=== PATIENT | male | born 1935 | race Caucasian/White ===

== ENCOUNTER → 2017-04-10 | Outpatient (CLI) | payer OTHER ==
[~2017-04-10] MED LIST: ACET-1256 PO; ADVIN50/60 INH; AMLO-114 PO; CIPR-255 PO; FIBETAB PO; IBUP-1050 PO
[2017-04-10 19:20] LABS: SYNOVIAL FLUID APPEARANCE HAZY; SYNOVIAL FLUID COLOR RED; SYNOVIAL FLUID MONONUC RELAT 56.8 %; SYNOVIAL FLUID POLYNUC RELAT 43.2 %
== END | disposition home or self-care (01) ==
LOC: C.LABSPEC 17:43
PROVIDERS: ATTEND Physician Assistant Medical
DX: M70.20 Olecranon bursitis, unspecified elbow (principal)

== ENCOUNTER → 2017-09-12 | Outpatient (CLI) | payer OTHER | END | disposition home or self-care (01) | LOC: C.LABSPEC 16:58 | PROVIDERS: ATTEND Urology | DX: Z93.59 Other cystostomy status (principal) ==

== ENCOUNTER 2017-12-12 02:51 | Inpatient (IN) | payer OTHER ==
[2017-12-12] VITALS (7 sets, daily range): BP systolic 144–150; BP diastolic 71–76; PULSE 72–96; TEMP 36.4–36.8; O2SAT 80–95; Ht 175.3 cm; Wt 100.0 kg
[~2017-12-12] VITALS: Ht 175.3 cm; Wt 100.0 kg
[~2017-12-12 02:51] MED LIST changes: -AMLO-114 PO; +AMLO10TA3 PO; +CEFD300C2 PO; -CIPR-255 PO; +DOCU-94 PO; +DOXY100C76 PO; +ONDA4TAB10 SL; +SACC250C3 PO
[2017-12-12] MEDS ORDERED: SODIUM CHLORIDE 0.9% 1000ML 1,000 ML IV STA (03:08)
[2017-12-12] MEDS ORDERED: FENTANYL CITRATE INJ 50 MCG/1 ML 2 ML VIAL IV PRN (03:15)
[2017-12-12 03:42] LABS: HEMOGLOBIN 16.1 g/dL (14.0-18.0); MEAN CELL VOLUME 101.3 fL (80-100); MEAN CORPUSCULAR HEMOGLOBIN 34.7 pg (25-34); MEAN CORPUSCULAR HGB CONC 34.3 g/dl (32-36); MEAN PLATELET VOLUME 10.8 fL (7.4-10.4); PLATELET COUNT 119 K/uL (130-400); RED CELL DISTRIBUTION WIDTH CV 15.6 % (11.5-14.5); RED CELL DISTRIBUTION WIDTH SD 58.4 fL (36.4-46.3); WHITE BLOOD COUNT 23.37 K/uL (4.8-10.8)
[2017-12-12 04:08] LABS: ALBUMIN 2.5 gm/dl (3.4-5.0); CALCIUM 8.2 mg/dl (8.5-10.1); CREATININE 0.8 mg/dl (0.60-1.40); TOTAL PROTEIN 6.4 gm/dl (6.4-8.2)
--- NOTE | 2017-12-12 04:10 | EMERGENCY ROOM VISIT NOTE ---
History First contact with patient: 02:56 Chief Complaint: FLANK PAIN Stated Complaint: FLANK PAIN History of Present Illness The patient is a 82 year old male who presents to the Emergency Room with complaints of epigastric bloating and constipation. Patient states he was evaluated here 2 days ago and discharged with magnesium citrate for constipation. Patient was also diagnosed with positive Lyme serology and treated with doxycycline. The patient ingested that bottle today around 4 PM and has had no BM. He states he did not eat dinner as he feels bloated and is complaining of some pain around the right flank. Patient denies any vomiting or blood from the bottom. He did receive 50 mcg of IV fentanyl and IV hydration by EMS by my medic command. He stated he had some relief with this medication. Patient denies any chest pain, shortness of breath, fevers, chills. The patient does have a suprapubic catheter. Of note upon review of old records, the patient did have a CT scan of the abdomen pelvis performed. There is an intrarenal calculus noted on the right. There is no significant gallbladder abnormality identified. The rectosigmoid colon had a moderate amount of stool. Review of Systems See HPI for pertinent positives & negatives. A total of 10 systems reviewed and were otherwise negative. Past Medical/Surgical History Medical Problems: (1) Acute cholecystitis (2) Bronchitis (3) History of radiation therapy (4) HTN (hypertension) (5) Lumbar stenosis with neurogenic claudication (6) Lyme disease (7) Prostate cancer Surgical Problems: (1) Catheter placement (2) H/O shoulder surgery (3) S/P TURP Family History Diabetes mellitus FH: cancer Social History Smoking Status: Never Smoker Alcohol Use: occasionally Marital Status: Housing Status: lives with significant other Occupation Status: retired Current/Historical Medications Scheduled Acetaminophen (Tylenol), 200 MG PO QAM Amlodipine (Norvasc), 10 MG PO QAM Cefdinir (Omnicef), 300 MG PO Q12H Doxycycline Monohydrate (Monodox), 100 MG PO BID Fiber (Fiber Complete), 2 CHW PO QAM Fluticasone Prop/Salmeterol (Advair Diskus 500/50 60 Dose), 1 PUFF INH QAM Ondasetron Odt (Zofran Odt), 4 MG SL Q6H Saccharomyces Boulardii (Florastor), 1 CAP PO BID Scheduled PRN Docusate Sodium (Colace), 1 CAP PO BID PRN for Constipation Ibuprofen (Advil), 200 MG PO for daily Physical Exam Vital Signs Date Time Temp Pulse Resp B/P (MAP) Pulse Ox O2 Delivery O2 Flow Rate FiO2 12/12/17 06:07 75 18 130/74 93 Nasal Cannula 3.0 12/12/17 04:45 20 143/69 95 Nasal Cannula 3.0 12/12/17 03:41 36.7 76 18 140/77 98 Nasal Cannula 2.0 12/12/17 03:25 80 12/12/17 03:00 83 22 98 Nasal Cannula 12/12/17 02:59 95 Physical Exam Vital signs reviewed. General: Chronically ill-appearing 82-year-old male, in some discomfort. HEENT: No scleral icterus, PERRLA, neck supple. Atraumatic. Cardiovascular: Regular rate and rhythm, no extra sounds. Pulmonary: Clear to auscultation bilaterally, normal work of breathing. Abdomen: Soft, distended upper abdomen with positive tympany, tender to palpation of the epigastric region and right upper quadrant, nondistended, positive bowel sounds. Musculoskeletal: Atraumatic, no peripheral edema. Neurologic: Patient awake alert and oriented x 3 Skin: Warm, dry, no rash Medical Decision & Procedures ER Provider Diagnostic Interpretation: Ultrasound right upper quadrant: Limited exam due to bowel gas and body habitus. The gallbladder demonstrates a partially shadowing echogenic focus likely representing stone. Borderline wall thickening at 3 mm. Further characterization limited. Cholecystitis cannot be excluded sonographically. Echogenic liver indicating likely steatosis. Common bile duct caliber at 2 mm. Pancreas is obscured. Unremarkable appearance to the visualized right kidney. Radiologist: Kalyan Cm MD CT scan abdomen and pelvis with contrast: Comparison 12/10/17 CT. 12/12/17 ultrasound. Gallbladder wall thickening as well as surrounding inflammatory changes to the pericholecystic fat and adjacent liver parenchyma. Recent ultrasound demonstrating evidence for cholelithiasis. Findings suggest acute cholecystitis. Lower lung opacities again noted possibly related to chronic scarring and/or atelectasis. Superimposed infiltrate not excluded. Stable nonobstructing right nephrolithiasis. Suprapubic catheter again noted with decompressed urinary bladder. A few scattered nonspecific small bowel fluid levels are present without evidence for significant dilatation to suggest obstruction. Component of mild ileus not excluded. No other significant interval changes from the exam 2 days ago. Radiologist Kalyan Cm MD Laboratory Results 12/12/17 03:30 Red Blood Count 4.64, Mean Corpuscular Volume 101.3, Mean Corpuscular Hemoglobin 34.7, Mean Corpuscular Hemoglobin Concent 34.3, Mean Platelet Volume 10.8, Neutrophils (%) (Auto) 92.0, Lymphocytes (%) (Auto) 1.9, Monocytes (%) ( Auto) 5.6, Eosinophils (%) (Auto) 0.0, Basophils (%) (Auto) 0.0, Neutrophils # ( Auto) 21.49, Lymphocytes # (Auto) 0.44, Monocytes # (Auto) 1.31, Eosinophils # ( Auto) 0.00, Basophils # (Auto) 0.01 12/12/17 03:30 Test 12/12/17 03:30 12/12/17 06:26 White Blood Count 23.37 K/uL (4.8-10.8) Red Blood Count 4.64 M/uL (4.7-6.1) Hemoglobin 16.1 g/dL (14.0-18.0) Hematocrit 47.0 % (42-52) Mean Corpuscular Volume 101.3 fL (80-100) Mean Corpuscular Hemoglobin 34.7 pg (25-34) Mean Corpuscular Hemoglobin Concent 34.3 g/dl (32-36) Platelet Count 119 K/uL (130-400) Mean Platelet Volume 10.8 fL (7.4-10.4) Neutrophils (%) (Auto) 92.0 % Lymphocytes (%) (Auto) 1.9 % Monocytes (%) (Auto) 5.6 % Eosinophils (%) (Auto) 0.0 % Basophils (%) (Auto) 0.0 % Neutrophils # (Auto) 21.49 K/uL (1.4-6.5) Lymphocytes # (Auto) 0.44 K/uL (1.2-3.4) Monocytes # (Auto) 1.31 K/uL (0.11-0.59) Eosinophils # (Auto) 0.00 K/uL (0-0.5) Basophils # (Auto) 0.01 K/uL (0-0.2) RDW Standard Deviation 58.4 fL (36.4-46.3) RDW Coefficient of Variation 15.6 % (11.5-14.5) Immature Granulocyte % (Auto) 0.5 % Immature Granulocyte # (Auto) 0.12 K/uL (0.00-0.02) Urine Color ORANGE Urine Appearance CLOUDY (CLEAR) Urine pH 5.5 (4.5-7.5) Urine Specific [place] 1.027 (1.000-1.030) Urine Protein 2+ (NEG) Urine Glucose (UA) TRACE (NEG) Urine Ketones 2+ (NEG) Urine Occult Blood 2+ (NEG) Urine Nitrite POS (NEG) Urine Bilirubin NEG (NEG) Urine Urobilinogen NEG (NEG) Urine Leukocyte Esterase MODERATE (NEG) Urine WBC (Auto) >30 /hpf (0-5) Urine RBC (Auto) 0-4 /hpf (0-4) Urine Hyaline Casts (Auto) 1-5 /lpf (0-5) Urine Epithelial Cells (Auto) 20-30 /lpf (0-5) Urine Bacteria (Auto) NEG (NEG) Anion Gap 8.0 mmol/L (3-11) Est Creatinine Clear Calc Drug Dose 83.6 ml/min Estimated GFR () 95.7 Estimated GFR (Non- 82.6 BUN/Creatinine Ratio 28.1 (10-20) Calcium Level 8.2 mg/dl (8.5-10.1) Magnesium Level 2.5 mg/dl (1.8-2.4) Total Bilirubin 1.1 mg/dl (0.2-1) Direct Bilirubin 0.5 mg/dl (0-0.2) Aspartate Amino Transf (AST/SGOT) 27 U/L (15-37) Alanine Aminotransferase (ALT/SGPT) 43 U/L (12-78) Alkaline Phosphatase 136 U/L (45-117) Total Protein 6.4 gm/dl (6.4-8.2) Albumin 2.5 gm/dl (3.4-5.0) Lipase 81 U/L (73-393) Medications Administered Medications (Trade) Dose Ordered Sig/Evelyne Route Start Time Stop Time Status Last Admin Dose Admin Sodium Chloride 1,000 ml @ 125 mls/hr Q8H STAT IV 12/12/17 03:08 12/12/17 06:27 DC 12/12/17 03:08 125 MLS/HR Fentanyl Citrate (Fentanyl Inj) 50 mcg Q1H PRN IV 12/12/17 03:15 12/12/17 06:26 DC 12/12/17 03:47 50 MCG Piperacillin Sod/ Tazobactam Sod (Zosyn Iv) 4.5 gm NOW STAT IV 12/12/17 04:49 12/12/17 04:51 DC 12/12/17 05:16 4.5 GM Medical Decision The differential diagnosis of this patient's presentation includes pancreatitis , cholecystitis, peptic ulcer disease, small bowel obstruction, AAA, aortic dissection, ACS, viral illness, laxative induced distention among others. This patient was evaluated and appeared to be in no significant distress. IV access was obtained and laboratory work was drawn. Patient was placed on ekg monitor and found to be in a normal sinus rhythm. Patient was hydrated with normal saline solution, given IV fentanyl for his discomfort. Ultrasound the right upper quadrant was performed and reveals a largely obscured gallbladder however there is evidence of some inflammatory change and stone noted. CT scan of the abdomen pelvis was performed in follow-up and is significant for infiltrative change of the gallbladder and likely acute cholecystitis. Patient was given Zosyn 4.5 g IV. Urine culture performed 2 days ago is negative for specific pathogen, greater than 3 types of organisms have grown. Patient again has a dirty UA, likely a colonization due to a suprapubic catheter. Patient was continued on IV hydration and kept n.p.o. General surgery was consulted, Dr. Starks through his PA Maury. Dr. Reynolds will evaluate the patient from the medicine service for further management. Patient and family are aware of the plan and agree. Medication Reconcilliation Current Medication List: was personally reviewed by ct Blood Pressure Screening Patient's blood pressure: Elevated blood pressure Blood pressure disposition: Elevated BP felt to be situational, Did not require urgent referral Impression Primary Impression: Acute cholecystitis Additional Impression: Lyme disease Departure Information Referrals German Grey M.D. (PCP) Patient Instructions My [facility] Problem Qualifiers
[2017-12-12 04:18] LABS: BASO ABS # 0.01 K/uL (0-0.2); IG# 0.12 K/uL (0.00-0.02); LYMPH % 1.9 %; LYMPH ABS # 0.44 K/uL (1.2-3.4); MONO % 5.6 %; MONO ABS # 1.31 K/uL (0.11-0.59); NEUT ABS # 21.49 K/uL (1.4-6.5)
[2017-12-12] MEDS ORDERED: OPTIRAY 320 IV PRN (04:45)
[2017-12-12] MEDS ORDERED: PIPERACILLIN/TAZOBACTAM 4.5 GM/100ML D5W IV STA (04:49)
[2017-12-12] MEDS ORDERED: PIPERACILL/TAZOBAC CONSULT ACTIVE PRN (06:30)
[2017-12-12] MEDS ORDERED: ACETAMINOPHEN 325 MG TAB PO PRN (06:30)
[2017-12-12] MEDS ORDERED: ALBUT/IPRATROP 3MG/0.5MG NEB 3 ML VIAL INH PRN (06:30)
[2017-12-12] MEDS ORDERED: ONDANSETRON INJ 2 MG/ML 2 ML VIAL IV PRN (06:30)
[2017-12-12] MEDS ORDERED: PIPERACILL/TAZOBAC IV 4.5 GM in DEXTROSE 5% 100ML 100 ML IV SCH (06:30)
--- NOTE | 2017-12-12 06:36 | DIAGNOSTIC IMAGING REPORT ---
CT ABD/PELVIS IV CONTRAST ONLY CLINICAL HISTORY: Epigastric and right-sided abdominal pain, bloating, constipation. COMPARISON STUDY: 12/10/2017 TECHNIQUE: Following the IV administration of 93 mL of Optiray-320, CT scan of the abdomen and pelvis was performed from the lung bases to the proximal femurs. Images are reviewed in the axial, sagittal, and coronal planes. IV contrast was administered without complication. A dose lowering technique was utilized adhering to the principles of ALARA. CT DOSE: 1266.92 mGy.cm FINDINGS: Lower chest: There is lower lobe bronchial wall thickening. Liver: There is a 31 mm left lobe hepatic cyst. There are tiny hypodensities within the liver adjacent to the gallbladder fossa. Pericholecystic abscesses cannot be excluded. Gallbladder: There is gallbladder wall thickening, and infiltration the pericholecystic fat. The findings are viewed as highly suspicious for acute cholecystitis. Spleen: Normal in size and attenuation. Pancreas: Unremarkable. Adrenal glands: Unremarkable. Kidneys: There is right-sided nephrolithiasis. There is a 1 cm right renal cyst. There is no hydronephrosis. Bowel: There are no transition zones indicate bowel obstruction. There is no evidence of acute appendicitis. There is no evidence of acute diverticulitis. Scattered colonic diverticula are visualized. There are periduodenal inflammatory changes, likely secondary to acute cholecystitis. Peritoneum: There is a small amount of perihepatic fluid. No free air is visualized. Vasculature: The abdominal aorta is normal in course and caliber. Adenopathy: None. Pelvic viscera: There is a suprapubic bladder catheter. There is mild bladder wall thickening and mild infiltration the perivesicle fat. There are postsurgical changes are prior prostatectomy. Skeletal structures: No destructive osseous lesions are seen. IMPRESSION: 1. CT findings indicative of acute cholecystitis with secondary inflammatory changes involving the duodenum. There are tiny hepatic hypodensities within the liver adjacent the gallbladder. These could represent pericholecystic abscesses. There is a small amount of perihepatic fluid. 2. No evidence of bowel obstruction. No evidence of free air 3. Right-sided nephrolithiasis Electronically signed by: August Griffith M.D. 12/12/2017 6:35 AM Dictated Date/Time: 12/12/2017 6:27 AM
--- NOTE | 2017-12-12 06:48 | History and Physical ---
History & Physical Date & Time of Service: Dec 12, 2017 at 06:48 Chief Complaint: Flank Pain Primary Care Physician: German Grey M.D. History of Present Illness Source: patient, hospital records The patient is an 82-year-old male who presents to the emergency department with complaint of worsening epigastric bloating, constipation and gas. He was diagnosed with Lyme disease 2 days ago upon presentation to the ED, and has been taking doxycycline orally since then. He was diagnosed with right V1 distribution herpes zoster, completed the usual 3 times daily course, and since then has been taking acyclovir daily for prophylaxis. He also notes increased bruising over the past few days. Patient does have a suprapubic catheter, and was told that he might have urinary tract infection, however, his urine culture and sensitivity was contaminated. CT scan of abdomen and pelvis performed in the ED today, as follow-up to ultrasound of abdomen, is suggestive of acute cholecystitis. Past Medical/Surgical History Medical Problems: (1) Acute cholecystitis (2) Bronchitis (3) Disseminated Lyme disease (4) History of radiation therapy (5) HTN (hypertension) (6) Lumbar stenosis with neurogenic claudication (7) Lyme disease (8) Postoperative seroma (9) Postoperative seroma (10) Postoperative wound dehiscence (11) Prostate cancer (12) Suprapubic catheter dysfunction (13) Suprapubic catheter dysfunction (14) Urinary retention (15) UTI (urinary tract infection) Surgical Problems: (1) Catheter placement (2) H/O shoulder surgery (3) S/P TURP Family History Diabetes mellitus FH: cancer Social History Smoking Status: Never Smoker Smokeless Tobacco Use: No Alcohol Use: none Drug Use: none Marital Status: Housing status: lives with family Occupational Status: retired Immunizations History of Influenza Vaccine: N/A History of Tetanus Vaccine?: Unknown History of Pneumococcal: Yes Pneumococcal Date: Nov 05, 2005 History of Hepatitis B Vaccine: No Allergies Coded Allergies: Dust Mite Extract (Verified Allergy, Mild, UNKNOWN, 12/12/17) Molds and Smuts (Verified Allergy, Mild, UNKNOWN, 12/12/17) Sulfa Drugs (Verified Allergy, Mild, RASH, 12/12/17) Home Medications Scheduled Acetaminophen (Tylenol), 200 MG PO QAM Amlodipine (Norvasc), 10 MG PO QAM Cefdinir (Omnicef), 300 MG PO Q12H Doxycycline Monohydrate (Monodox), 100 MG PO BID Fiber (Fiber Complete), 2 CHW PO QAM Fluticasone Prop/Salmeterol (Advair Diskus 500/50 60 Dose), 1 PUFF INH QAM Ondasetron Odt (Zofran Odt), 4 MG SL Q6H Saccharomyces Boulardii (Florastor), 1 CAP PO BID Scheduled PRN Docusate Sodium (Colace), 1 CAP PO BID PRN for Constipation Ibuprofen (Advil), 200 MG PO for daily Review of Systems The patient denies chest pain, palpitation, cough, lower extremity swelling, sore throat, fevers, chills, sweats, weight change, vomiting, blood in urine or stool, dysuria, urinary frequency or urgency, lightheadedness , dizziness, headache, memory loss, loss of consciousness, imbalance, focal weakness, numbness or tingling in arms or legs, generalized arthralgias or myalgias, back or neck pain, or night sweats. The review of systems is otherwise negative other than for that already noted above, and at least 10 systems have been reviewed. Physical Exam Vital Signs Date Time Temp Pulse Resp B/P (MAP) Pulse Ox O2 Delivery O2 Flow Rate FiO2 12/12/17 06:07 75 18 130/74 93 Nasal Cannula 3.0 12/12/17 04:45 20 143/69 95 Nasal Cannula 3.0 12/12/17 03:41 36.7 76 18 140/77 98 Nasal Cannula 2.0 12/12/17 03:25 80 12/12/17 03:00 83 22 98 Nasal Cannula 12/12/17 02:59 95 The patient is awake, alert and oriented 3, normocephalic and atraumatic, lying in bed and in no acute distress. HEENT--PERRL, EOMI, mucous membranes and oropharynx dry. Neck--supple. No JVD. No bruits. Thyroid normal, trachea midline, no adenopathy. Heart--normal S1 and S2. No murmurs, rubs or gallops. Lungs--few coarse breath sounds with wheezes, right greater than left. No respiratory distress, no accessory muscle use. Abdomen--decreased bowel sounds, soft, grossly distended and tympanitic. Generalized tenderness. Extremities--right lower extremity with 1+ pitting edema. Right lower extremity girth 1 1/3- 11/2 times the left. Right lower extremity mildly ecchymotic. There are good distal pulses b/l. Dermatologic--as above. Neurologic--cranial nerves II through XII grossly intact. Rheumatologic--normal range of motion. Psychiatric--normal affect. Diagnostics Laboratory Results Results Past 24 Hours Test 12/12/17 03:30 12/12/17 06:26 Range/Units White Blood Count 23.37 4.8-10.8 K/uL Red Blood Count 4.64 4.7-6.1 M/uL Hemoglobin 16.1 14.0-18.0 g/dL Hematocrit 47.0 42-52 % Mean Corpuscular Volume 101.3 80-100 fL Mean Corpuscular Hemoglobin 34.7 25-34 pg Mean Corpuscular Hemoglobin Concent 34.3 32-36 g/dl Platelet Count 119 130-400 K/uL Mean Platelet Volume 10.8 7.4-10.4 fL Neutrophils (%) (Auto) 92.0 % Lymphocytes (%) (Auto) 1.9 % Monocytes (%) (Auto) 5.6 % Eosinophils (%) (Auto) 0.0 % Basophils (%) (Auto) 0.0 % Neutrophils # (Auto) 21.49 1.4-6.5 K/uL Lymphocytes # (Auto) 0.44 1.2-3.4 K/uL Monocytes # (Auto) 1.31 0.11-0.59 K/uL Eosinophils # (Auto) 0.00 0-0.5 K/uL Basophils # (Auto) 0.01 0-0.2 K/uL RDW Standard Deviation 58.4 36.4-46.3 fL RDW Coefficient of Variation 15.6 11.5-14.5 % Immature Granulocyte % (Auto) 0.5 % Immature Granulocyte # (Auto) 0.12 0.00-0.02 K/uL Urine Color ORANGE Urine Appearance CLOUDY CLEAR Urine pH 5.5 4.5-7.5 Urine Specific [place] 1.027 1.000-1.030 Urine Protein 2+ NEG Urine Glucose (UA) TRACE NEG Urine Ketones 2+ NEG Urine Occult Blood 2+ NEG Urine Nitrite POS NEG Urine Bilirubin NEG NEG Urine Urobilinogen NEG NEG Urine Leukocyte Esterase MODERATE NEG Urine WBC (Auto) >30 0-5 /hpf Urine RBC (Auto) 0-4 0-4 /hpf Urine Hyaline Casts (Auto) 1-5 0-5 /lpf Urine Epithelial Cells (Auto) 20-30 0-5 /lpf Urine Bacteria (Auto) NEG NEG Sodium Level 137 136-145 mmol/L Potassium Level 4.0 3.5-5.1 mmol/L Chloride Level 103 98-107 mmol/L Carbon Dioxide Level 26 21-32 mmol/L Anion Gap 8.0 3-11 mmol/L Blood Urea Nitrogen 22 7-18 mg/dl Creatinine 0.80 0.60-1.40 mg/dl Est Creatinine Clear Calc Drug Dose 83.6 ml/min Estimated GFR () 95.7 Estimated GFR (Non- 82.6 BUN/Creatinine Ratio 28.1 10-20 Random Glucose 184 70-99 mg/dl Calcium Level 8.2 8.5-10.1 mg/dl Magnesium Level 2.5 1.8-2.4 mg/dl Total Bilirubin 1.1 0.2-1 mg/dl Direct Bilirubin 0.5 0-0.2 mg/dl Aspartate Amino Transf (AST/SGOT) 27 15-37 U/L Alanine Aminotransferase (ALT/SGPT) 43 12-78 U/L Alkaline Phosphatase 136 45-117 U/L Total Protein 6.4 6.4-8.2 gm/dl Albumin 2.5 3.4-5.0 gm/dl Lipase 81 73-393 U/L Diagnostic Radiology Patient Name: BETH MCKENNA Unit Number: [id number] Dictated: 12/12/17626 Transcribed: 12/12/17626 ARG Printed Date/Time: [~ rep prt dt]/[~ rep prt tm] [~ rep ct labl] - [~ rep ct ivnm] [facility] [place] [address] Dictated: 12/12/17626 Transcribed: 12/12/17626 ARG Printed Date/Time: [~ rep prt dt]/[~ rep prt tm] [~ rep ct labl] - [~ rep ct ivnm] [~ rep ct add3]] CT ABD/PELVIS IV CONTRAST ONLY CLINICAL HISTORY: Epigastric and right-sided abdominal pain, bloating, constipation. COMPARISON STUDY: 12/10/2017 TECHNIQUE: Following the IV administration of 93 mL of Optiray-320, CT scan of the abdomen and pelvis was performed from the lung bases to the proximal femurs. Images are reviewed in the axial, sagittal, and coronal planes. IV contrast was administered without complication. A dose lowering technique was utilized adhering to the principles of ALARA. CT DOSE: 1266.92 mGy.cm FINDINGS: Lower chest: There is lower lobe bronchial wall thickening. Liver: There is a 31 mm left lobe hepatic cyst. There are tiny hypodensities within the liver adjacent to the gallbladder fossa. Pericholecystic abscesses cannot be excluded. Gallbladder: There is gallbladder wall thickening, and infiltration the pericholecystic fat. The findings are viewed as highly suspicious for acute cholecystitis. Spleen: Normal in size and attenuation. Pancreas: Unremarkable. Adrenal glands: Unremarkable. Kidneys: There is right-sided nephrolithiasis. There is a 1 cm right renal cyst. There is no hydronephrosis. Bowel: There are no transition zones indicate bowel obstruction. There is no evidence of acute appendicitis. There is no evidence of acute diverticulitis. Scattered colonic diverticula are visualized. There are periduodenal inflammatory changes, likely secondary to acute cholecystitis. Peritoneum: There is a small amount of perihepatic fluid. No free air is visualized. Vasculature: The abdominal aorta is normal in course and caliber. Adenopathy: None. Pelvic viscera: There is a suprapubic bladder catheter. There is mild bladder wall thickening and mild infiltration the perivesicle fat. There are postsurgical changes are prior prostatectomy. Skeletal structures: No destructive osseous lesions are seen. IMPRESSION: 1. CT findings indicative of acute cholecystitis with secondary inflammatory changes involving the duodenum. There are tiny hepatic hypodensities within the liver adjacent the gallbladder. These could represent pericholecystic abscesses. There is a small amount of perihepatic fluid. 2. No evidence of bowel obstruction. No evidence of free air 3. Right-sided nephrolithiasis Electronically signed by: August Griffith M.D. 12/12/2017 6:35 AM Dictated Date/Time: 12/12/2017 6:27 AM The status of this report is Signed. Draft = Not yet reviewed or approved by Radiologist. Signed = Reviewed and approved by Radiologist. <AttendingPhy></AttendingPhy> <FamilyPhy>German Grey M.D.</FamilyPhy > <PrimaryPhy>German Grey M.D.</PrimaryPhy> <UnitNumber>[id number]</ UnitNumber> <VisitNumber>[id number]</VisitNumber> <PatientName>BETH MCKENNA</ PatientName> <DateOfBirth>1935</DateOfBirth> <Location>[facility]</Location> < ServiceDate>12/12/17</ServiceDate> <MNE>ESINDI</MNE> <OrderingPhy>Joyce Qureshi M.D.</OrderingPhy> <OrderingPhyMNE>f rep ord dr flynn</OrderingPhyMNE> < DictatingPhyMNE>f rep dict dr flynn</DictatingPhyMNE> <CCListMNE>f rep ct mne</ CCListMNE> <AdmittingPhyMNE>f pt admit dr flynn</AdmittingPhyMNE> <AttendingPhyMNE >f pt attend dr flynn</AttendingPhyMNE> <ConsultingPhyMNE>f pt consult dr flynn</ConsultingPhyMNE> <FamilyPhyMNE>f pt fam dr flynn</FamilyPhyMNE> <OtherPhyMNE>f pt other dr flynn</OtherPhyMNE> < PrimaryPhyMNE>f pt prim care dr flynn</PrimaryPhyMNE> <ReferringPhyMNE>f pt referring dr flynn</ReferringPhyMNE> EKG BETH MCKENNA ID:[id number] 10-DEC-2017 08:06:24 [facility] [place] Sinus bradycardia with occasional Premature ventricular complexes Right bundle branch block Left anterior fascicular block Bifascicular block Abnormal ECG When compared with ECG of 22-SEP-2014 12:02, Premature ventricular complexes are now Present Nonspecific T wave abnormality now evident in Anterolateral leads Confirmed by German Grigsby ([id number]) on 12/10/2017 11:12:37 AM 25mm/s 10mm/mV 150Hz 8.0 SP2 12SL 241 ELICEO: 16 Referred by: ED Confirmed By: German Mcgee. rate 52 BPM RI interval 194 ms QRS duration 142 ms QT/QTc 492/457 ms P-R-T axes 1935 (81 yr) Male Room: Loc:15 Tapper Bit:MERISSA Monge ind Impression Assessment and Plan Acute cholecystitis with secondary inflammatory changes involving the duodenum/ possible pericholecystic abscesses-- Placed on vancomycin IV and Zosyn IV per pharmacokinetic monitoring. N.p.o. status. Pantoprazole 40 mg IV daily. Morphine sulfate 2 mg IV every 2 hours as needed. NSS + KCl 20 mEq at 100 mils per hour. Serial CBC with differential, chemistry profile and magnesium levels. General surgery Dr. Starks has already seen the patient. Lyme disease-- Diagnosed 2 days ago started on doxycycline 100 mg p.o. twice daily. Patient has declining platelets into that time, will therefore be concerned about anaplasmosis. We will send a peripheral smear and laboratories for anaplasmosis and ehrlichiosis. Follow serial CBC with differential, particular with attention to declining platelets. UTI with suprapubic catheter-- Urine culture and sensitivity contaminated from 2 days ago. Urine looks infected. Will cover with antibiotics as noted above, will send repeat urinalysis urine culture and sensitivity today. Right lower extremity swelling with ecchymoses-- Order a venous Doppler bilateral lower extremities to assess for possible DVT. Thrombocytopenia-- Sending a peripheral smear as noted. Workup for anaplasmosis as noted. Serial CBC with differential. Right V1 distribution shingles-- Began 3 times daily treatment with acyclovir on September 21. Since that time has been on daily prophylaxis. Since patient is n.p.o., we will place on IV acyclovir daily. Hyperglycemia-- Blood sugar on entry is 184. Check hemoglobin A1c placed on Accu-Cheks before meals and at bedtime with NovoLog coverage per scale. Hypertension-- Hold amlodipine 10 mg daily while patient is n.p.o. status. We will have hydralazine IV or Lopressor IV available as needed. Asthma. Asthma-- Patient did become hypoxic after receiving fentanyl 50 mcg IV in the ED. We will continue Advair Diskus 500/51 inhalation daily. Duonebs every 2 hours when necessary. Advanced Directives Existing Advance Directive: No Existing Living Will: No Existing Power of Small Brake Form Operator: No Resuscitation Status VTE Prophylaxis Will order VTE Prophylaxis: Yes Social Service Consult None Apply
--- NOTE | 2017-12-12 06:56 | Surgery Consultation ---
Consultation Date of Consultation: Dec 12, 2017. Attending Physician: Reason for Consultation: Acute Cholecystitis History of Present Illness Patient is a 82M w/ PMHx HTN, urinary retention w/ suprapubic catheter in place , prostate cancer s/p TURP and radiation, and Lym disease who presents to the ED with epigastric/RUQ discomfort and bloating since Monday morning. Reports he was seen in the ED here monday and was diagnosed with a UTI and Lyme disease. he was sent home on Omnicef for the UTI and doxycycline for the lyme disease. Since his has had continued Epigastric/RUQ discomfort wrapping around to his back and into his right shoulder. Denies association with foods although he reports he has not eaten much because he has felt bloated. Reports a fever Monday night, denies chills. Denies nausea/vomiting although he did report dry heaves Monday. He has not had a BM since Monday which he believes is due to opioid use for his pain. Denies history of previous abdominal surgeries. Denies use of blood thinning or anticoagulant medications. Denies problems with anesthesia in the past. WBC 23.37, T bili 1.1, D bili 0.5. RUQ U/S showing likely cholelithiasis, borderline wall thickening, equivocal for cholecystitis. CT abd/pelvis shows borderline wall thickening and inflammatory changes significant for acute cholecystitis, CBD 0.2 cm. Past Medical/Surgical History Medical Problems: (1) Disseminated Lyme disease Status: Acute (2) UTI (urinary tract infection) Status: Acute Family History Diabetes mellitus FH: cancer Social History Smoking Status: Never Smoker Marital Status: Housing Status: lives with significant other Occupation Status: retired Allergies Coded Allergies: Dust Mite Extract (Verified Allergy, Mild, UNKNOWN, 12/12/17) Molds and Smuts (Verified Allergy, Mild, UNKNOWN, 12/12/17) Sulfa Drugs (Verified Allergy, Mild, RASH, 12/12/17) Home Medications Scheduled Acetaminophen (Tylenol), 200 MG PO QAM Amlodipine (Norvasc), 10 MG PO QAM Cefdinir (Omnicef), 300 MG PO Q12H Doxycycline Monohydrate (Monodox), 100 MG PO BID Fiber (Fiber Complete), 2 CHW PO QAM Fluticasone Prop/Salmeterol (Advair Diskus 500/50 60 Dose), 1 PUFF INH QAM Ondasetron Odt (Zofran Odt), 4 MG SL Q6H Saccharomyces Boulardii (Florastor), 1 CAP PO BID Scheduled PRN Docusate Sodium (Colace), 1 CAP PO BID PRN for Constipation Ibuprofen (Advil), 200 MG PO for daily Current Inpatient Medications Current Inpatient Medications Medications (Trade) Dose Ordered Sig/Evelyne Route Start Time Stop Time Status Last Admin Dose Admin Ioversol (Optiray 320) 100 ml UD PRN IV 12/12/17 04:45 12/16/17 04:44 Potassium Chloride/Sodium Chloride 1,000 ml @ 100 mls/hr Q10H IV 12/12/17 06:22 01/11/18 06:21 UNV Acetaminophen (Tylenol Tab) 650 mg Q4H PRN PO 12/12/17 06:30 01/11/18 06:29 UNV Salmeterol Xinafoate/ Fluticasone (Advair Diskus 500/50 Inh) 1 puff QAM INH 12/12/17 09:00 01/11/18 08:59 UNV Piperacillin Sod/ Tazobactam Sod 4.5 gm/Dextrose 120 ml @ 200 mls/hr Q8H IV 12/12/17 06:30 12/22/17 06:29 UNV Miscellaneous Information (Consult) 1 ea UD PRN N/A 12/12/17 06:30 01/11/18 06:29 UNV Ondansetron HCl (Zofran Inj) 4 mg Q6H PRN IV 12/12/17 06:30 01/11/18 06:29 UNV Pantoprazole Sodium 40 mg/ Syringe 10 ml @ 5 mls/min DAILY@11 IV 12/12/17 11:00 01/11/18 10:59 UNV Morphine Sulfate (MoRPHine SULFATE INJ) 2 mg Q2H PRN IV 12/12/17 06:30 12/26/17 06:29 UNV Albuterol/ Ipratropium (Duoneb) 3 ml Q4 PRN INH 12/12/17 06:30 01/11/18 06:29 UNV Review of Systems Constitutional: + fever, No chills Respiratory: No shortness of breath Cardiovascular: No chest pain Abdomen: + pain (Right flank), + constipation, No nausea, No vomiting, No diarrhea Genitourinary - Male: No hematuria, No dysuria Integumentary: No new/changing skin lesions, No color change Physical Exam Date Time Temp Pulse Resp B/P (MAP) Pulse Ox O2 Delivery O2 Flow Rate FiO2 12/12/17 06:07 75 18 130/74 93 Nasal Cannula 3.0 12/12/17 04:45 20 143/69 95 Nasal Cannula 3.0 12/12/17 03:41 36.7 76 18 140/77 98 Nasal Cannula 2.0 12/12/17 03:25 80 12/12/17 03:00 83 22 98 Nasal Cannula 12/12/17 02:59 95 General Appearance: no apparent distress, + obese Head: normocephalic, atraumatic ENT: hearing grossly normal Respiratory/Chest: no respiratory distress Abdomen/GI: soft, no organomegaly, no pulsatile mass, + tenderness (RUQ, Right flank) Neurologic/Psych: alert, normal mood/affect, oriented x 3 Skin: normal color, warm/dry Laboratory Results Last 24 Hours Test 12/12/17 03:30 12/12/17 06:26 White Blood Count 23.37 K/uL Red Blood Count 4.64 M/uL Hemoglobin 16.1 g/dL Hematocrit 47.0 % Mean Corpuscular Volume 101.3 fL Mean Corpuscular Hemoglobin 34.7 pg Mean Corpuscular Hemoglobin Concent 34.3 g/dl Platelet Count 119 K/uL Mean Platelet Volume 10.8 fL Neutrophils (%) (Auto) 92.0 % Lymphocytes (%) (Auto) 1.9 % Monocytes (%) (Auto) 5.6 % Eosinophils (%) (Auto) 0.0 % Basophils (%) (Auto) 0.0 % Neutrophils # (Auto) 21.49 K/uL Lymphocytes # (Auto) 0.44 K/uL Monocytes # (Auto) 1.31 K/uL Eosinophils # (Auto) 0.00 K/uL Basophils # (Auto) 0.01 K/uL RDW Standard Deviation 58.4 fL RDW Coefficient of Variation 15.6 % Immature Granulocyte % (Auto) 0.5 % Immature Granulocyte # (Auto) 0.12 K/uL Urine Color ORANGE Urine Appearance CLOUDY Urine pH 5.5 Urine Specific [place] 1.027 Urine Protein 2+ Urine Glucose (UA) TRACE Urine Ketones 2+ Urine Occult Blood 2+ Urine Nitrite POS Urine Bilirubin NEG Urine Urobilinogen NEG Urine Leukocyte Esterase MODERATE Urine WBC (Auto) >30 /hpf Urine RBC (Auto) 0-4 /hpf Urine Hyaline Casts (Auto) 1-5 /lpf Urine Epithelial Cells (Auto) 20-30 /lpf Urine Bacteria (Auto) NEG Sodium Level 137 mmol/L Potassium Level 4.0 mmol/L Chloride Level 103 mmol/L Carbon Dioxide Level 26 mmol/L Anion Gap 8.0 mmol/L Blood Urea Nitrogen 22 mg/dl Creatinine 0.80 mg/dl Est Creatinine Clear Calc Drug Dose 83.6 ml/min Estimated GFR () 95.7 Estimated GFR (Non- 82.6 BUN/Creatinine Ratio 28.1 Random Glucose 184 mg/dl Calcium Level 8.2 mg/dl Magnesium Level 2.5 mg/dl Total Bilirubin 1.1 mg/dl Direct Bilirubin 0.5 mg/dl Aspartate Amino Transf (AST/SGOT) 27 U/L Alanine Aminotransferase (ALT/SGPT) 43 U/L Alkaline Phosphatase 136 U/L Total Protein 6.4 gm/dl Albumin 2.5 gm/dl Lipase 81 U/L Assessment & Plan Acute cholecystitis Patient seen and examined with Dr. Starks. Abdomen soft, non-distended, bloated, RUQ TTP. no N/V at this time. Suprapubic catheter in place. afebrile. WBC 23.37, T bili 1.1, D bili 0.5, CBD 0.2cm. No acute surgical intervention indicated at this time. Plan for laparoscopic cholecystectomy w/ cholangiogram, possible open in OR tomorrow. Medical optimization per primary team prior to surgery. Admit per medicine, can have clears today, NPO after midnight, IVF, IV Zosyn , pain medication PRN, anti-emetics PRN, SCDs. OR notified. Please contact with questions or concerns.
[2017-12-12] MEDS ORDERED: VANCOMYCIN IV 1,000 MG in SODIUM CHLORIDE 0.9% 250ML 250 ML IV STA (06:59)
[2017-12-12] MEDS ORDERED: VANCOMYCIN CONSULT ACTIVE PRN (07:00)
[2017-12-12] MEDS ORDERED: GLUCOSE 40% GEL 15 GM TUBE PO PRN (07:15)
[2017-12-12] MEDS ORDERED: DEXTROSE 50% 50 ML SYR IV PRN (07:15)
[2017-12-12] MEDS ORDERED: CARBOHYDRATES FOR HYPOGLYCEMIA PO PRN (07:15)
[2017-12-12] MEDS ORDERED: GLUCOSE 10 TABS/TUBE PO PRN (07:15)
[2017-12-12] MEDS ORDERED: GLUCAGON FOR INJ 1 MG VIAL SQ PRN (07:15)
--- NOTE | 2017-12-12 07:41 | DIAGNOSTIC IMAGING REPORT ---
ABDOMINAL ULTRASOUND, RIGHT UPPER QUADRANT HISTORY: Right upper quadrant abdominal pain.. COMPARISON: Abdomen and pelvis CT 12/10/2017. FINDINGS: Pancreas: Obscured by overlying bowel gas. Liver: The liver is echogenic consistent with fatty change. Gallbladder: The gallbladder wall is mildly thickened. There are small stones within the gallbladder. CBD: 2 mm. Right kidney: No hydronephrosis. IMPRESSION: Small gallstones with mild gallbladder wall thickening. Clinical correlation recommended to assess for acute cholecystitis. Electronically signed by: Kalyan Wilson M.D. 12/12/2017 7:40 AM Dictated Date/Time: 12/12/2017 7:37 AM
[2017-12-12] MEDS ORDERED: VANCOMYCIN IV 2,500 MG in SODIUM CHLORIDE 0.9% 500ML 500 ML IV ONE (08:00)
[2017-12-12 08:43] LABS: CKMB < 1.0 ng/ml (0.5-3.6)
[2017-12-12 09:07] LABS: HEMOGLOBIN A1C 5.9 % (4.5-5.6)
--- NOTE | 2017-12-12 10:22 | DIAGNOSTIC IMAGING REPORT ---
BILATERAL LOWER EXTREMITY VENOUS DOPPLER HISTORY: Bilateral leg swelling. COMPARISON STUDY: None. FINDINGS: There is normal compressibility, flow, and augmentation within the bilateral lower extremity deep venous systems. IMPRESSION: No DVT within the right or left lower extremity. Electronically signed by: Kalyan Wilson M.D. 12/12/2017 10:21 AM Dictated Date/Time: 12/12/2017 10:20 AM
--- NOTE | 2017-12-12 10:36 | Pharmacy Progress Note ---
Pharmacy Abx Initial Consult Date of Service Dec 12, 2017. Pharmacy Dosing Scope Date of Consult: 12/12/17 Consultation requested by: Dr. Wells Pharmacy is consulted to initiate vancomycin and Zosyn IV dosing therapy, order appropriate labs and adjust drug dose/frequency. Subjective The patient is a 82 year old male admitted on Dec 12, 2017 at 06:29. Objective Height (Feet): 5 Height (Inches): 9.00 Weight (Kilograms): 101.000 Vital Signs (Past 12Hrs) Vital Signs Past 12 Hours Date Time Temp Pulse Resp B/P (MAP) Pulse Ox O2 Delivery O2 Flow Rate FiO2 12/12/17 08:11 36.4 72 18 150/75 93 Nasal Cannula 2.0 12/12/17 06:53 71 20 154/71 95 Nasal Cannula 3.0 12/12/17 06:07 75 18 130/74 93 Nasal Cannula 3.0 12/12/17 04:45 20 143/69 95 Nasal Cannula 3.0 12/12/17 03:41 36.7 76 18 140/77 98 Nasal Cannula 2.0 12/12/17 03:25 80 12/12/17 03:00 83 22 98 Nasal Cannula 12/12/17 02:59 95 Lab Results (24Hrs) Laboratory Tests (24 Hours) Test 12/12/17 03:30 12/12/17 07:50 White Blood Count 23.37 K/uL (4.8-10.8) H Red Blood Count 4.64 M/uL (4.7-6.1) L Hemoglobin 16.1 g/dL (14.0-18.0) Hematocrit 47.0 % (42-52) Mean Corpuscular Volume 101.3 fL (80-100) H Mean Corpuscular Hemoglobin 34.7 pg (25-34) H Mean Corpuscular Hemoglobin Concent 34.3 g/dl (32-36) Platelet Count 119 K/uL (130-400) L Mean Platelet Volume 10.8 fL (7.4-10.4) H Neutrophils (%) (Auto) 92.0 % Lymphocytes (%) (Auto) 1.9 % Monocytes (%) (Auto) 5.6 % Eosinophils (%) (Auto) 0.0 % Basophils (%) (Auto) 0.0 % Neutrophils # (Auto) 21.49 K/uL (1.4-6.5) H Lymphocytes # (Auto) 0.44 K/uL (1.2-3.4) L Monocytes # (Auto) 1.31 K/uL (0.11-0.59) H Eosinophils # (Auto) 0.00 K/uL (0-0.5) Basophils # (Auto) 0.01 K/uL (0-0.2) Total Creatine Kinase 23 U/L (39-308) L Micro Results Date/Time Source Procedure Growth Status 12/12/17 09:03 Urine , Clean Catch Urine Culture Pending Received Risk Factors for Resistance * Patient was diagnosed with Lyme disease two days ago upon presentation to ED, has been taking doxycycline orally since then Assessment & Plan Assessment * 82 year old male who presented to the ED on 12/12/17 with bloating, constipation and gas * Pt was diagnosed with Lyme disease two days ago and has been taking doxycycline orally since * CT of abdomen and pelvis is suggestive of acute cholecystitis Plan Vancomycin IV * Loading dose: 2500 mg (25 mg/kg) * Maintenance dose: 1000 mg IV (10 mg/kg) every 12 hours * Goal trough level: 15 to 20 mcg/mL * Trough level ordered for 12/14/17 at 0730 Piperacillin/tazobactam * 4.5 g bolus administered over 30 minutes, then 3.375 g IV extended infusion every 8 hours for CrCl greater than 20 mL/min Pharmacy will continue to follow and will adjust dose/frequency as necessary. Thank you.
[2017-12-12] MEDS: PANTOprazole INJ 40 MG in SYRINGE 0 ML IV SCH (10:43)
[2017-12-12] MEDS: ACYCLOVIR SOD INJ 750 MG in DEXTROSE 5% 250ML 250 ML IV SCH (10:43)
[2017-12-12] MEDS: NSS + 20MEQ KCL 1000ML 1,000 ML IV SCH ×2 (10:43→19:59)
[2017-12-12] MEDS: INSULIN ASPART 100 UNITS/ML 3 ML PEN SC SCH ×3 (11:00→22:01)
[2017-12-12] MEDS: MoRPHine SULFATE 2 MG/ML CARP IV PRN ×3 (11:10→22:52)
[2017-12-12 11:20] LABS: INR 1.2 (0.9-1.1)
[2017-12-12] MEDS: PIPERACILL/TAZOBAC IV 3.375 GM in D5W 100ML IV SCH ×2 (11:48→19:47)
--- NOTE | 2017-12-12 12:41 | Progress Note ---
Subjective Date of Service: Dec 12, 2017. Subjective pt was seen shortly after admission, he is feeling better, still with slight abdominal pain Problem List Medical Problems: (1) Disseminated Lyme disease Status: Acute (2) UTI (urinary tract infection) Status: Acute Review of Systems Constitutional: No fever, No chills, No weakness Respiratory: No cough, No shortness of breath, No dyspnea on exertion Cardiac: No chest pain, No edema Abdomen: + pain, + nausea, No vomiting Neurologic: No memory loss, No weakness Psychiatric: No depression symptoms, No anhedonism Objective Vital Signs Date Time Temp Pulse Resp B/P (MAP) Pulse Ox O2 Delivery O2 Flow Rate FiO2 12/12/17 06:53 71 20 154/71 95 Nasal Cannula 3.0 12/12/17 06:07 75 18 130/74 93 Nasal Cannula 3.0 12/12/17 04:45 20 143/69 95 Nasal Cannula 3.0 12/12/17 03:41 36.7 76 18 140/77 98 Nasal Cannula 2.0 12/12/17 03:25 80 12/12/17 03:00 83 22 98 Nasal Cannula 12/12/17 02:59 95 Physical Exam General Appearance: WD/WN, + mild distress Eyes: normal inspection, sclerae normal Neck: supple, no JVD Respiratory/Chest: chest non-tender, lungs clear, normal breath sounds Cardiovascular: regular rate, rhythm, no murmur Abdomen: normal bowel sounds, + distended, + guarding, + tenderness Extremities: no pedal edema, no calf tenderness Neurologic/Psychiatric: alert, oriented x 3 Skin: + pertinent finding (has some remnants of facial zoster as scaring) Laboratory Results Last 24 Hours Test 12/12/17 03:30 12/12/17 06:47 12/12/17 07:55 White Blood Count 23.37 K/uL Red Blood Count 4.64 M/uL Hemoglobin 16.1 g/dL Hematocrit 47.0 % Mean Corpuscular Volume 101.3 fL Mean Corpuscular Hemoglobin 34.7 pg Mean Corpuscular Hemoglobin Concent 34.3 g/dl Platelet Count 119 K/uL Mean Platelet Volume 10.8 fL Neutrophils (%) (Auto) 92.0 % Lymphocytes (%) (Auto) 1.9 % Monocytes (%) (Auto) 5.6 % Eosinophils (%) (Auto) 0.0 % Basophils (%) (Auto) 0.0 % Neutrophils # (Auto) 21.49 K/uL Lymphocytes # (Auto) 0.44 K/uL Monocytes # (Auto) 1.31 K/uL Eosinophils # (Auto) 0.00 K/uL Basophils # (Auto) 0.01 K/uL RDW Standard Deviation 58.4 fL RDW Coefficient of Variation 15.6 % Immature Granulocyte % (Auto) 0.5 % Immature Granulocyte # (Auto) 0.12 K/uL Urine Color ORANGE Urine Appearance CLOUDY Urine pH 5.5 Urine Specific [place] 1.027 Urine Protein 2+ Urine Glucose (UA) TRACE Urine Ketones 2+ Urine Occult Blood 2+ Urine Nitrite POS Urine Bilirubin NEG Urine Urobilinogen NEG Urine Leukocyte Esterase MODERATE Urine WBC (Auto) >30 /hpf Urine RBC (Auto) 0-4 /hpf Urine Hyaline Casts (Auto) 1-5 /lpf Urine Epithelial Cells (Auto) 20-30 /lpf Urine Bacteria (Auto) NEG Sodium Level 137 mmol/L Potassium Level 4.0 mmol/L Chloride Level 103 mmol/L Carbon Dioxide Level 26 mmol/L Anion Gap 8.0 mmol/L Blood Urea Nitrogen 22 mg/dl Creatinine 0.80 mg/dl Est Creatinine Clear Calc Drug Dose 83.6 ml/min Estimated GFR () 95.7 Estimated GFR (Non- 82.6 BUN/Creatinine Ratio 28.1 Random Glucose 184 mg/dl Calcium Level 8.2 mg/dl Magnesium Level 2.5 mg/dl Total Bilirubin 1.1 mg/dl Direct Bilirubin 0.5 mg/dl Aspartate Amino Transf (AST/SGOT) 27 U/L Alanine Aminotransferase (ALT/SGPT) 43 U/L Alkaline Phosphatase 136 U/L Total Protein 6.4 gm/dl Albumin 2.5 gm/dl Lipase 81 U/L Creatine Kinase MB Ratio Assessment and Plan Acute cholecystitis with secondary inflammatory changes involving the duodenum/ possible pericholecystic/hepatic abscesses-- vancomycin IV and Zosyn IV general surgery consultation. consideration of surgery 12/13 ivf for hydration as is NPO. Pantoprazole 40 mg IV daily. Morphine sulfate 2 mg IV every 2 hours as needed. . Lyme disease-- Diagnosed 2 days ago started on doxycycline 100 mg p.o. twice daily. Patient has declining platelets into that time, will therefore be concerned about anaplasmosis. We will send a peripheral smear and laboratories for anaplasmosis and ehrlichiosis. Follow serial CBC with differential, particular with attention to declining platelets. UTI with suprapubic catheter--maybe chronic inflamation from catheter Urine culture and sensitivity contaminated from 2 days ago. Was started on antibiotics as noted above, will send repeat urinalysis urine culture and sensitivity Lower extremity swelling with ecchymoses-- Negative venous Doppler for possible DVT. Thrombocytopenia--concern for infectious causes Right V1 distribution shingles-- Began 3 times daily treatment with acyclovir on September 21. Since that time has been on daily prophylaxis. Since patient is n.p.o., we will place on IV acyclovir daily. Hyperglycemia-- Blood sugar on entry is 184. Check hemoglobin A1c placed on Accu-Cheks before meals and at bedtime with NovoLog coverage per scale. Hypertension-- amlodipine 10 mg daily while patient is n.p.o. status. We will have hydralazine IV or Lopressor IV available as needed. Asthma--Patient did become hypoxic after receiving fentanyl 50 mcg IV in the ED. We will continue Advair Diskus 500/51 inhalation daily. Duonebs every 2 hours when necessary.
[2017-12-12] MEDS: HEPARIN SOD 5000 UNIT/0.5 ML CARP SQ SCH ×2 (12:53→22:41)
[2017-12-12 15:09] LABS: CKMB < 1.0 ng/ml (0.5-3.6)
[2017-12-12] MEDS: VANCOMYCIN IV 1,000 MG in SODIUM CHLORIDE 0.9% 250ML 250 ML IV SCH (19:59)
[2017-12-12 22:55] LABS: CKMB < 1.0 ng/ml (0.5-3.6)
[2017-12-13] VITALS (11 sets, daily range): BP systolic 127–161; BP diastolic 66–87; PULSE 86–108; TEMP 36.5–36.9; O2SAT 92–97
[2017-12-13] MEDS ORDERED: NURSING VERBAL MED ORDER ONE (01:15)
[2017-12-13] MEDS: PIPERACILL/TAZOBAC IV 3.375 GM in D5W 100ML IV SCH ×3 (02:53→19:01)
[2017-12-13] MEDS: MoRPHine SULFATE 2 MG/ML CARP IV PRN ×3 (04:20→08:17)
[2017-12-13] MEDS: INSULIN ASPART 100 UNITS/ML 3 ML PEN SC SCH ×3 (06:00→18:19)
[2017-12-13] MEDS: NSS + 20MEQ KCL 1000ML 1,000 ML IV SCH ×3 (06:30→21:21)
--- NOTE | 2017-12-13 06:54 | DIAGNOSTIC IMAGING REPORT ---
CHEST ONE VIEW PORTABLE CLINICAL HISTORY: hypoxia, pre-op COMPARISON STUDY: 12/10/2017 FINDINGS: The heart remains enlarged. There are persistent bibasal airspace opacities. There is mild central vascular prominence.[ IMPRESSION: 1. No significant change from the preceding study. Persistent mild cardiomegaly, mild vascular prominence, and persistent bibasilar reticulonodular opacities Electronically signed by: August Griffith M.D. 12/13/2017 6:53 AM Dictated Date/Time: 12/13/2017 6:51 AM
[2017-12-13 07:12] LABS: BASO % 0.1 %; BASO ABS # 0.02 K/uL (0-0.2); EOS % 0.1 %; EOS ABS # 0.02 K/uL (0-0.5); HEMATOCRIT 48.6 % (42-52); HEMOGLOBIN 16.1 g/dL (14.0-18.0); IG# 0.05 K/uL (0.00-0.02); LYMPH % 3.4 %; LYMPH ABS # 0.56 K/uL (1.2-3.4); MEAN CELL VOLUME 103.8 fL (80-100); MEAN CORPUSCULAR HEMOGLOBIN 34.4 pg (25-34); MEAN CORPUSCULAR HGB CONC 33.1 g/dl (32-36); MEAN PLATELET VOLUME 10.4 fL (7.4-10.4); MONO % 5.1 %; MONO ABS # 0.83 K/uL (0.11-0.59); NEUT ABS # 14.79 K/uL (1.4-6.5); PLATELET COUNT 126 K/uL (130-400); RED CELL DISTRIBUTION WIDTH CV 15.9 % (11.5-14.5); RED CELL DISTRIBUTION WIDTH SD 60.5 fL (36.4-46.3); WHITE BLOOD COUNT 16.27 K/uL (4.8-10.8)
[2017-12-13 07:15] LABS: PTT PATIENT 37.3 SECONDS (21.0-31.0)
[2017-12-13] MEDS: PANTOprazole INJ 40 MG in SYRINGE 0 ML IV SCH (07:33)
[2017-12-13] MEDS: VANCOMYCIN IV 1,000 MG in SODIUM CHLORIDE 0.9% 250ML 250 ML IV SCH ×2 (07:33→19:01)
[2017-12-13 07:43] LABS: ALBUMIN 2.2 gm/dl (3.4-5.0); CALCIUM 8.3 mg/dl (8.5-10.1); CREATININE 0.79 mg/dl (0.60-1.40); POTASSIUM 4.4 mmol/L (3.5-5.1); TOTAL PROTEIN 6.1 gm/dl (6.4-8.2)
--- NOTE | 2017-12-13 07:48 | SURGERY PROGRESS NOTE ---
DATE: 12/13/2017 Lorena is having more discomfort in the right upper quadrant. On examination, I cannot feel any fullness, but he is tender, consistent with the admission with acute cholecystitis, probably progressing to more inflammation. We held off surgery yesterday and spoke with Dr. Wells because he had a Lyme disease and his platelet count has decreased. He may need plasmapheresis. This morning his vitals showed a temperature of 36.5, pulse 86, respirations 18, blood pressure 149/72 and O2 sats 97 on 3 liters. I&O, he had 500 urine overnight. Laboratory soria this morning is pending. Physical findings as stated. I discussed with Dr. Wells and surgery scheduled this morning about 9:45. We will proceed accordingly unless there is a contraindication from his point of view. Risk and complications of surgery were explained to the patient, which include laparoscopic cholecystectomy, cholangiogram, possible open and he would like to proceed accordingly. Of note, his abdomen aside from the fullness and discomfort, he has a right upper quadrant laterally is slightly distended as it was yesterday. SORAYA
--- NOTE | 2017-12-13 08:05 | Progress Note ---
Subjective Date of Service: Dec 13, 2017. Subjective pt was seen post operatively, he has two drains that have sanguinous drainage, he overall feels weak Problem List Medical Problems: (1) Disseminated Lyme disease Status: Acute (2) UTI (urinary tract infection) Status: Acute Review of Systems Constitutional: No fever, No chills, No weakness Respiratory: No cough, No shortness of breath, No dyspnea on exertion Cardiac: No chest pain, No edema Abdomen: + pain, + nausea, No vomiting, No diarrhea, No constipation Male : No dysuria, No urinary frequency Neurologic: + weakness, No memory loss Psychiatric: No depression symptoms, No anhedonism, No anxiety Objective Vital Signs Date Time Temp Pulse Resp B/P (MAP) Pulse Ox O2 Delivery O2 Flow Rate FiO2 12/13/17 07:26 36.8 107 20 161/68 (99) 94 Nasal Cannula 3.0 12/13/17 04:01 36.5 86 18 149/72 (97) 97 Nasal Cannula 3.0 12/12/17 23:59 93 Nasal Cannula 3.0 12/12/17 23:40 36.4 92 19 147/76 (99) 93 Nasal Cannula 3.0 12/12/17 20:45 92 Room Air 12/12/17 18:58 36.5 92 18 144/73 (96) 92 12/12/17 16:03 Room Air 12/12/17 15:44 36.4 96 18 150/72 (98) 95 12/12/17 11:40 36.8 87 18 146/71 (96) 92 12/12/17 08:11 36.4 72 18 150/75 93 Nasal Cannula 2.0 Physical Exam General Appearance: WD/WN, + moderate distress Eyes: normal inspection, sclerae normal Neck: supple, no JVD Respiratory/Chest: chest non-tender, lungs clear, + decreased breath sounds Cardiovascular: regular rate, rhythm, no murmur Abdomen: normal bowel sounds, soft, + abnormal bowel sounds, + guarding, + tenderness Extremities: no pedal edema, no calf tenderness Neurologic/Psychiatric: alert, oriented x 3 Laboratory Results Last 24 Hours Test 12/12/17 11:17 12/12/17 14:33 12/12/17 16:05 12/12/17 20:23 Bedside Glucose 125 mg/dl 123 mg/dl 108 mg/dl Total Creatine Kinase 18 U/L Creatine Kinase MB < 1.0 ng/ml Creatine Kinase MB Ratio Troponin I < 0.015 ng/ml Test 12/12/17 22:28 12/13/17 06:12 12/13/17 06:54 Total Creatine Kinase 13 U/L Creatine Kinase MB < 1.0 ng/ml Creatine Kinase MB Ratio Troponin I < 0.015 ng/ml Bedside Glucose 112 mg/dl White Blood Count 16.27 K/uL Red Blood Count 4.68 M/uL Hemoglobin 16.1 g/dL Hematocrit 48.6 % Mean Corpuscular Volume 103.8 fL Mean Corpuscular Hemoglobin 34.4 pg Mean Corpuscular Hemoglobin Concent 33.1 g/dl Platelet Count 126 K/uL Mean Platelet Volume 10.4 fL Neutrophils (%) (Auto) 91.0 % Lymphocytes (%) (Auto) 3.4 % Monocytes (%) (Auto) 5.1 % Eosinophils (%) (Auto) 0.1 % Basophils (%) (Auto) 0.1 % Neutrophils # (Auto) 14.79 K/uL Lymphocytes # (Auto) 0.56 K/uL Monocytes # (Auto) 0.83 K/uL Eosinophils # (Auto) 0.02 K/uL Basophils # (Auto) 0.02 K/uL RDW Standard Deviation 60.5 fL RDW Coefficient of Variation 15.9 % Immature Granulocyte % (Auto) 0.3 % Immature Granulocyte # (Auto) 0.05 K/uL Prothrombin Time 10.7 SECONDS Prothromb Time International Ratio 1.0 Activated Partial Thromboplast Time 37.3 SECONDS Partial Thromboplastin Ratio 1.4 Sodium Level 140 mmol/L Potassium Level 4.4 mmol/L Chloride Level 104 mmol/L Carbon Dioxide Level 28 mmol/L Anion Gap 8.0 mmol/L Blood Urea Nitrogen 16 mg/dl Creatinine 0.79 mg/dl Est Creatinine Clear Calc Drug Dose 83.5 ml/min Estimated GFR () 96.2 Estimated GFR (Non- 83.0 BUN/Creatinine Ratio 19.9 Random Glucose 123 mg/dl Calcium Level 8.3 mg/dl Magnesium Level 2.4 mg/dl Total Bilirubin 1.1 mg/dl Direct Bilirubin 0.5 mg/dl Aspartate Amino Transf (AST/SGOT) 37 U/L Alanine Aminotransferase (ALT/SGPT) 56 U/L Alkaline Phosphatase 240 U/L Total Protein 6.1 gm/dl Albumin 2.2 gm/dl Assessment and Plan Acute cholecystitis with secondary inflammatory changes involving the duodenum/ possible pericholecystic/hepatic abscesses-- vancomycin IV and Zosyn IV general surgery 12/13 ivf for hydration Pantoprazole 40 mg IV daily. Morphine sulfate 2 mg IV every 2 hours as needed follow for acute blood loss anemia, given IDALIA drainage will have 1900 hgb. . Lyme disease-- Diagnosed 2 days ago platelet counts are stable no signs on peripheral smear of anaplasmosis and ehrlichiosis. UTI with suprapubic catheter--maybe chronic inflammation from catheter Urine culture and sensitivity contaminated from 2 days ago. Was started on antibiotics as noted above pending repeat urinalysis urine culture and sensitivity Lower extremity swelling with ecchymoses-- Negative venous Doppler for possible DVT. Thrombocytopenia-improving Right V1 distribution shingles-- Began 3 times daily treatment with acyclovir on September 21. Since that time has been on daily prophylaxis. IV acyclovir daily until taking po well Hyperglycemia-- Accu-Cheks before meals and at bedtime with NovoLog coverage per scale. Hypertension-- amlodipine 10, hydralazine IV or Lopressor IV available as needed. Asthma--stable on Advair Diskus 500/51 inhalation daily. Duonebs every 2 hours when necessary.
--- NOTE | 2017-12-13 08:08 | Clinical Documentation Query ---
MARIO Renee : CLINICAL DOCUMENTATION QUERY Patient is an 82 year old male admitted for evaluation and treatment of acute cholecystitis and Lyme disease. Noted UTI with suprapubic catheter. As appropriate, please specify your clinical opinion as to whether or not the UTI is likely or suspected to be due to the catheter, as this represents a complication of care and cannot be assumed by the professional data analysis manager. In your clinical opinion is this patient being managed for: ( xx) (Suspected/possible) UTI (likely) due to suprapubic catheter ( ) Not Agree ( ) Other explanation of clinical findings (No explanation is considered a No Response) ( ) Unable to determine ( ) Need to Discuss (Phone CDS or qliq) (No discussion is considered a No Response) The medical record reflects the following clinical findings, treatment, and risk factors. Clinical Indicators: As above Treatment:UA C&S, antibiotics Risk Factors: Presence of suprapubic catheter Please clarify and document your clinical opinion in the progress notes and discharge summary. Terms such as "probable", "suspected", "likely", "questionable", "possible", or "still to be ruled out" are acceptable. IF IN AGREEMENT, YOU MUST DOCUMENT ABOVE DIAGNOSTIC STATEMENT IN DAILY PROGRESS NOTES AND DISCHARGE SUMMARY. This document is not part of the patient's record. Thank You, Maury Jett, GAGE [phone]
[2017-12-13] MEDS: ACYCLOVIR SOD INJ 750 MG in DEXTROSE 5% 250ML 250 ML IV SCH (08:25)
[2017-12-13] MEDS: FLUTICASONE/SALMETEROL (ADVAIR) 500/50 INH 14 PUFF INH SCH (09:00)
[2017-12-13] MEDS: HEPARIN SOD 5000 UNIT/0.5 ML CARP SQ SCH (09:00)
[2017-12-13] MEDS ORDERED: PROPOFOL IV EMULSION 10 MG/ML 20 ML VIAL ONE (09:23)
[2017-12-13] MEDS ORDERED: FENTANYL CITRATE INJ 50 MCG/1 ML 2 ML VIAL ONE (09:23)
[2017-12-13] MEDS ORDERED: LIDOCAINE HCL 2% 2 ML VIAL (20MG/ML) ONE (09:23)
[2017-12-13] MEDS ORDERED: ROCURONIUM BROMIDE 10 MG/ML 5 ML VIAL ONE ×2 (09:24→12:01)
[2017-12-13] MEDS ORDERED: GELATIN SPONGE SZ 100 ONE (09:40)
[2017-12-13] MEDS ORDERED: CONRAY 60% 50 ML VIAL ONE (09:43)
[2017-12-13] MEDS ORDERED: LIDOCAINE/EPINEPHRINE 1% 20 ML VIAL ONE (09:44)
[2017-12-13] MEDS ORDERED: DEXAMETHASONE SOD INJ 4 MG/ML VIAL ONE (10:49)
[2017-12-13] MEDS ORDERED: ONDANSETRON INJ 2 MG/ML 2 ML VIAL ONE (10:59)
[2017-12-13] MEDS ORDERED: PHENYLEPHRINE 100MCG/ML 5ML SYR ONE (10:59)
[2017-12-13] MEDS ORDERED: ALBUTEROL HFA INHALER 8.5 GM INH ONE (11:19)
[2017-12-13] MEDS ORDERED: GLYCOPYRROLATE INJ 0.2 MG/ML VIAL ONE ×2 (11:59)
[2017-12-13] MEDS ORDERED: NEOSTIGMINE METHYLSULFATE 5 MG/5 ML SYR ONE (11:59)
--- NOTE | 2017-12-13 12:07 | [facility] Post Operative Brief Note ---
Immediate Operative Summary Operative Date Dec 13, 2017. Pre-Operative Diagnosis Acute Cholecystitis Post-Operative Diagnosis Acute gangrenous chelecystitis, cholelithiasis Procedure(s) Performed lap cholecystectony Surgeon Dr. Starks [employer] Surgeon(s) KENNETH Meehan Estimated Blood Loss 150ml Findings See Below as post op Specimens A)Gallbladder B) cultures of gallbladder- aerobic and anaerobic Drains one subhepatic, one subdiaphragmatic 19 round kinza drains
[2017-12-13] MEDS ORDERED: MoRPHine SULFATE 4 MG/ML 1 ML CARP\\VIAL IV PRN (12:15)
[2017-12-13] MEDS ORDERED: ATROPINE SULFATE 0.1 MG/ML 5ML SYR IV PRN (13:15)
[2017-12-13] MEDS ORDERED: EpHEDrine SULFATE INJ 50 MG/ML AMP IV PRN (13:15)
[2017-12-13] MEDS ORDERED: ONDANSETRON INJ 2 MG/ML 2 ML VIAL IV PRN (13:15)
[2017-12-13] MEDS ORDERED: FENTANYL CITRATE INJ 50 MCG/1 ML 2 ML VIAL IV PRN (13:15)
--- NOTE | 2017-12-13 14:28 | OPERATIVE REPORT ---
DATE OF OPERATION: 12/13/2017 SURGEON: Sigifredo Starks MD IMPROVEMENT COORDINATOR: Rigo Orozco PA-C. PREOPERATIVE DIAGNOSES: Acute cholecystitis and cholelithiasis. POSTOPERATIVE DIAGNOSES: Acute gangrenous cholecystitis, cholelithiasis. PROCEDURE: Laparoscopic cholecystectomy. SUMMARY: The patient was brought into the operating room theater. Under general anesthesia, the abdomen was prepped with Betadine solution and properly draped. Patient was moderately distended and very tympanitic abdomen. Therefore, I made a small transverse incision above the umbilicus sufficient enough that we held the abdominal wall with Seb clamps. An incision was made. Stay suture of 0 Vicryl was used. Under direct visualization, we entered the peritoneal cavity, placing a 5 mm trocar without the sharp edge. CO2 insufflated. Controlled the pneumoperitoneum with the stay sutures. At this point, we were able then to place the patient in reverse Trendelenburg position and rotated to the left. The right upper quadrant was even hard to evaluate what we had seen. On direct visualization, I was able to place a 5 mm epigastric port, and with this, we were able to free up adhesions that the patient had to the anterior abdominal wall toward the right gutter. These had sharp dissection and some blunt dissection. We did not see the liver at all. The omentum was completely misplaced over the liver. Once we had created enough window in the right upper quadrant, we placed two 5 mm ports with preemptive local analgesia, tried to elevate the omentum which was encasing the liver and gallbladder quite significantly, very thickened. We also noted there was some probably purulent drainage or fibrosis up above the liver in the subdiaphragmatic area. The patient also had some cloudy bloody fluid in the right gutter area above the right dome of the liver that we irrigated and suctioned out. Once we had this exposure, we then were able to identify the gallbladder or just the tip of it at the edge of the liver, which was at ischemic areas on the gallbladder wall. It was very thickened. We necessitated to place another 5 mm trocar between the epigastric and the umbilical area so that we could place a fan retractor which we did. In this, we were able to elevate the gallbladder by changing the 5 mm epigastric port to an 11 mm to use the heavy graspers to elevate the gallbladder. We worked our way bluntly down toward the neck of the gallbladder. We were able to see the edge of the gallbladder and identified a structure go into the gallbladder that we doubly clipped and divided. As we elevated up the neck of the gallbladder, we identified another structure that basically came apart with an opening at it consistent for a cystic duct. There was no drainage from this tract itself, but it was going directly into the gallbladder. We doubly clipped it with 5mm clipd x2 and 10mm clip . The duct itself was 1-2 mm size We were well away from areas of the common bile duct. We stayed underneath the gallbladder area. At this point, we tried to leave as much of the posterior peritoneum as the tacker of the gallbladder, which we had a difficult time doing that. We were able then to take it down and then completely elevate the gallbladder from the liver area. On few areas of the liver we entered just by grasping it, we had some oozing, which we left alone. Gallbladder was then placed in an Endopouch, taken out intact through epigastric port. Patient had multiple small stones that we were able to see in the gallbladder. We also had a small opening in the gallbladder, and as we took it out, some stones did extravasate, and we were able to clean it out. The subhepatic-suprahepatic area was then suctioned copiously breaking up all the adhesions which were whitish that filled as type of necrotic adhesions, probably purulence up above the liver. These were all suctioned out. I then elected to place 2 drains, a 19 Bob through lateral subcostal port, we placed it above the liver into the right lobe of the liver and the subdiaphragmatic area and placed another 19 drain into the subhepatic area. These were attached to the skin edges with 2-0 silk sutures. Once this had been completed, the area was checked for hemostasis and appeared fairly satisfactory, and then we expected oozing from the gallbladder fossa. Individual trocars removed. Fascial stitch was used for the epigastric [id number] 0 Vicryl as was the umbilical area. 4-0 Monocryl and Steri-Strips applied. Procedure was tolerated well by the patient. Estimated blood loss was approximately 150 mL. The patient was taken to recovery room in good condition. I attest to the content of the Intraoperative Record and any orders documented therein. Any exceptions are noted below. MTDD
[2017-12-13 15:38] LABS: HEMATOCRIT 45.2 % (42-52); HEMOGLOBIN 15.8 g/dL (14.0-18.0); IG# 0.05 K/uL (0.00-0.02); LYMPH % 1.3 %; LYMPH ABS # 0.21 K/uL (1.2-3.4); MEAN CELL VOLUME 103.7 fL (80-100); MEAN CORPUSCULAR HEMOGLOBIN 36.2 pg (25-34); MEAN PLATELET VOLUME 10.8 fL (7.4-10.4); MONO % 3.5 %; MONO ABS # 0.56 K/uL (0.11-0.59); NEUT % 94.9 %; NEUT ABS # 15.16 K/uL (1.4-6.5); PLATELET COUNT 123 K/uL (130-400); RED CELL DISTRIBUTION WIDTH CV 15.8 % (11.5-14.5); RED CELL DISTRIBUTION WIDTH SD 60.4 fL (36.4-46.3); WHITE BLOOD COUNT 15.98 K/uL (4.8-10.8)
[2017-12-13 16:15] LABS: CALCIUM 7.9 mg/dl (8.5-10.1); CREATININE 0.75 mg/dl (0.60-1.40); POTASSIUM 4.5 mmol/L (3.5-5.1)
--- NOTE | 2017-12-13 18:54 | SURGERY PROGRESS NOTE ---
DATE: 12/13/2017 TIME: 05:15 in the afternoon. Postoperative check on Lorena Joseph who earlier today had a laparoscopic cholecystectomy for gangrenous cholecystitis. He is alert, coherent. Intraoperative findings were discussed with him. His last vitals showed a temperature of 36.5, pulse 106, respirations 20, blood pressure 140/74, O2 sats 94. He is on 5 L. I and O, he has had approximately 350 mL urine out of his suprapubic catheter, it is light in color. His abdomen consistent with some postoperative discomfort. He has 2 drains, one above the liver, subdiaphragmatic and one underneath the liver which have totaled since 2 o'clock. I put out approximately 90 mL. It is dark bloody and slightly sanguineous on one of them. At this point, I increased his IVs to 125. We will gingerly try to not give him too much fluid. His laboratory was obtained about 3:30. Showed WBCs 15.98. His hemoglobin was 15.8, this morning was 16.1. BUN 17, creatinine 0.75. MTDD
[2017-12-13 19:30] LABS: HEMATOCRIT 43.8 % (42-52); HEMOGLOBIN 14.6 g/dL (14.0-18.0)
[2017-12-14] MEDS: INSULIN ASPART 100 UNITS/ML 3 ML PEN SC SCH ×6 (00:18→21:44)
[2017-12-14] MEDS: PIPERACILL/TAZOBAC IV 3.375 GM in D5W 100ML IV SCH ×3 (02:43→19:22)
[2017-12-14] MEDS: MoRPHine SULFATE 2 MG/ML CARP IV PRN ×3 (02:43→19:23)
[2017-12-14 02:56] VITALS: BP 135/75; PULSE 79; TEMP 36.7; O2SAT 94
--- NOTE | 2017-12-14 06:25 | SURGERY PROGRESS NOTE ---
DATE: 12/14/2017 Lorena's first postoperative day is status post laparoscopic cholecystectomy for gangrenous gallbladder with the extension of inflammatory process in diaphragmatic area. He had free fluid in the abdomen, bilious in nature. He has 2 drains, one above the liver and the subdiaphragmatic one underneath the liver. The drainage of these tubes, I noticed, this appears to be nonbilious, it is dark blood underneath the liver, which I would expect. The other one is more serosanguineous. He is alert, coherent. He is not having any abdominal discomfort. His abdomen is softer. His urine output is 2175 yesterday, apparently has so far this morning at about 380 overnight. Last vitals showed a temperature of 36.7, pulse of 79, respirations of 20, blood pressure of 135/75 and O2 sats 94 on 3 liters. Laboratories pending. At this point, we will increase his diet and leave both drains in and we will remove them appropriately.
[2017-12-14] MEDS ORDERED: NURSING VERBAL MED ORDER ONE ×2 (07:00→19:45)
[2017-12-14] MEDS ORDERED: VANCOMYCIN TROUGH ONE (07:30)
[2017-12-14 07:39] LABS: BASO % 0.1 %; BASO ABS # 0.01 K/uL (0-0.2); HEMATOCRIT 42.8 % (42-52); HEMOGLOBIN 14.2 g/dL (14.0-18.0); IG# 0.03 K/uL (0.00-0.02); LYMPH % 2.7 %; LYMPH ABS # 0.36 K/uL (1.2-3.4); MEAN CELL VOLUME 103.1 fL (80-100); MEAN CORPUSCULAR HEMOGLOBIN 34.2 pg (25-34); MEAN CORPUSCULAR HGB CONC 33.2 g/dl (32-36); MEAN PLATELET VOLUME 10.7 fL (7.4-10.4); MONO % 5.5 %; MONO ABS # 0.72 K/uL (0.11-0.59); NEUT % 91.5 %; NEUT ABS # 12.04 K/uL (1.4-6.5); PLATELET COUNT 129 K/uL (130-400); RED CELL DISTRIBUTION WIDTH CV 15.9 % (11.5-14.5); RED CELL DISTRIBUTION WIDTH SD 59.8 fL (36.4-46.3); WHITE BLOOD COUNT 13.16 K/uL (4.8-10.8)
[2017-12-14 07:47] LABS: PTT PATIENT 33.7 SECONDS (21.0-31.0)
[2017-12-14 07:59] VITALS: BP 134/62; PULSE 77; TEMP 36.7; O2SAT 96
--- NOTE | 2017-12-14 08:09 | Progress Note ---
Subjective Date of Service: Dec 14, 2017. Subjective this pt is doing well, feeling less abdominal pain and IDALIA drainage changing to be more clear Problem List Medical Problems: (1) Disseminated Lyme disease Status: Acute (2) UTI (urinary tract infection) Status: Acute Review of Systems Constitutional: + weakness, + fatigue, No fever, No chills Respiratory: No cough, No shortness of breath Cardiac: No chest pain, No edema Abdomen: + pain, + nausea, + constipation Musculoskeletal: No joint pain, No muscle pain Male : + problem reported (has suprapubic catheder), No hematuria Neurologic: No memory loss, No paralysis Objective Vital Signs Date Time Temp Pulse Resp B/P (MAP) Pulse Ox O2 Delivery O2 Flow Rate FiO2 12/14/17 07:59 36.7 77 20 134/62 (86) 96 12/14/17 02:56 36.7 79 20 135/75 (95) 94 Nasal Cannula 3.0 12/13/17 23:59 Nasal Cannula 3.0 12/13/17 23:11 36.9 96 21 137/79 (98) 94 Nasal Cannula 3.0 12/13/17 19:50 36.5 102 20 127/83 (98) 93 Oxymask 6.0 12/13/17 16:00 Oxymask 5.0 12/13/17 15:10 36.5 106 20 140/74 (96) 94 Oxymask 5.0 12/13/17 14:40 104 20 152/66 (94) 94 Oxymask 5.0 12/13/17 14:25 106 20 151/87 (108) 94 Oxymask 5.0 12/13/17 14:10 106 18 159/78 (105) 93 Oxymask 5.0 12/13/17 13:55 105 18 155/80 (105) 93 Oxymask 5.0 12/13/17 13:40 36.5 106 20 138/77 (97) 92 Oxymask 5.0 12/13/17 13:20 36.8 107 20 167/90 93 Oxymask 5 12/13/17 13:10 107 20 168/86 93 Oxymask 5 12/13/17 13:00 112 20 158/83 92 BiPAP 12/13/17 12:54 108 94 50 12/13/17 12:50 110 22 174/84 93 BiPAP 12/13/17 12:44 36.9 113 22 162/82 93 BiPAP Physical Exam General Appearance: WD/WN, + moderate distress Eyes: normal inspection, sclerae normal Neck: supple, no JVD Respiratory/Chest: chest non-tender, lungs clear, normal breath sounds Cardiovascular: regular rate, rhythm, no murmur Abdomen: soft, + abnormal bowel sounds, + distended, + tenderness Extremities: no pedal edema, no calf tenderness Neurologic/Psychiatric: alert, oriented x 3 Laboratory Results Last 24 Hours Test 12/13/17 15:24 12/13/17 16:24 12/13/17 19:20 12/13/17 21:00 White Blood Count 15.98 K/uL Red Blood Count 4.36 M/uL Hemoglobin 15.8 g/dL 14.6 g/dL Hematocrit 45.2 % 43.8 % Mean Corpuscular Volume 103.7 fL Mean Corpuscular Hemoglobin 36.2 pg Mean Corpuscular Hemoglobin Concent 35.0 g/dl Platelet Count 123 K/uL Mean Platelet Volume 10.8 fL Neutrophils (%) (Auto) 94.9 % Lymphocytes (%) (Auto) 1.3 % Monocytes (%) (Auto) 3.5 % Eosinophils (%) (Auto) 0.0 % Basophils (%) (Auto) 0.0 % Neutrophils # (Auto) 15.16 K/uL Lymphocytes # (Auto) 0.21 K/uL Monocytes # (Auto) 0.56 K/uL Eosinophils # (Auto) 0.00 K/uL Basophils # (Auto) 0.00 K/uL RDW Standard Deviation 60.4 fL RDW Coefficient of Variation 15.8 % Immature Granulocyte % (Auto) 0.3 % Immature Granulocyte # (Auto) 0.05 K/uL Sodium Level 137 mmol/L Potassium Level 4.5 mmol/L Chloride Level 104 mmol/L Carbon Dioxide Level 26 mmol/L Anion Gap 7.0 mmol/L Blood Urea Nitrogen 17 mg/dl Creatinine 0.75 mg/dl Est Creatinine Clear Calc Drug Dose 87.9 ml/min Estimated GFR () 98.3 Estimated GFR (Non- 84.8 BUN/Creatinine Ratio 22.8 Random Glucose 182 mg/dl Calcium Level 7.9 mg/dl Bedside Glucose 191 mg/dl 287 mg/dl Test 12/14/17 00:13 7/26/18 07:23 Bedside Glucose 197 mg/dl White Blood Count 13.16 K/uL Red Blood Count 4.15 M/uL Hemoglobin 14.2 g/dL Hematocrit 42.8 % Mean Corpuscular Volume 103.1 fL Mean Corpuscular Hemoglobin 34.2 pg Mean Corpuscular Hemoglobin Concent 33.2 g/dl Platelet Count 129 K/uL Mean Platelet Volume 10.7 fL Neutrophils (%) (Auto) 91.5 % Lymphocytes (%) (Auto) 2.7 % Monocytes (%) (Auto) 5.5 % Eosinophils (%) (Auto) 0.0 % Basophils (%) (Auto) 0.1 % Neutrophils # (Auto) 12.04 K/uL Lymphocytes # (Auto) 0.36 K/uL Monocytes # (Auto) 0.72 K/uL Eosinophils # (Auto) 0.00 K/uL Basophils # (Auto) 0.01 K/uL RDW Standard Deviation 59.8 fL RDW Coefficient of Variation 15.9 % Immature Granulocyte % (Auto) 0.2 % Immature Granulocyte # (Auto) 0.03 K/uL Prothrombin Time 10.5 SECONDS Prothromb Time International Ratio 1.0 Activated Partial Thromboplast Time 33.7 SECONDS Partial Thromboplastin Ratio 1.3 Vancomycin Level Trough 8.2 mcg/ml Assessment and Plan Acute cholecystitis with secondary inflammatory changes involving the duodenum/ possible pericholecystic/hepatic abscesses-- vancomycin IV and Zosyn IV general surgery performed laparoscopic cholecystectomy 12/13 ivf for hydration Pantoprazole 40 mg IV daily. Morphine sulfate 2 mg IV every 2 hours as needed follow for acute blood loss anemia, given IDALIA drainage will have 1900 hgb., hgb did drop 2 gms but is not in range for transfusion . Lyme disease-- Diagnosed 2 days ago platelet counts are stable no signs on peripheral smear of anaplasmosis and ehrlichiosis. (Suspected/possible) UTI (likely) due to suprapubic catheter Urine culture and sensitivity contaminated from 2 days ago. Was started on antibiotics as noted above pending repeat urinalysis urine culture and sensitivity Lower extremity swelling with ecchymoses-- Negative venous Doppler for possible DVT. Thrombocytopenia-improving Right V1 distribution shingles-- Began 3 times daily treatment with acyclovir on September 21. Since that time has been on daily prophylaxis. IV acyclovir daily until taking po well diabetes? ssi and will add carb ratio correction once taking po, a1c was 5.9 Hypertension-- amlodipine 10, hydralazine IV or Lopressor IV available as needed. Asthma--stable on Advair Diskus 500/51 inhalation daily. Duonebs every 2 hours when necessary.
[2017-12-14 08:19] LABS: ALBUMIN 1.8 gm/dl (3.4-5.0); CALCIUM 7.9 mg/dl (8.5-10.1); CREATININE 0.71 mg/dl (0.60-1.40); POTASSIUM 4.6 mmol/L (3.5-5.1)
[2017-12-14] MEDS: FLUTICASONE/SALMETEROL (ADVAIR) 500/50 INH 14 PUFF INH SCH (08:22)
[2017-12-14 08:25] LABS: TOTAL PROTEIN 5.5 gm/dl (6.4-8.2)
[2017-12-14] MEDS: ACYCLOVIR SOD INJ 750 MG in DEXTROSE 5% 250ML 250 ML IV SCH (08:26)
[2017-12-14] MEDS: VANCOMYCIN IV 1,000 MG in SODIUM CHLORIDE 0.9% 250ML 250 ML IV SCH (08:30)
--- NOTE | 2017-12-14 10:40 | Pharmacy Progress Note ---
Pharmacy Abx Dose Progress Nt Date of Service Dec 14, 2017. Pharmacy Dosing Scope The patient is currently receiving the following antimicrobial agents per Pharmacy consult: VANCOMYCIN 1000 mg IV/PO every 12 hours Objective Height (Feet): 5 Height (Inches): 9.00 Weight (Kilograms): 100.000 Vital Signs (Past 12Hrs) Vital Signs Past 12 Hours Date Time Temp Pulse Resp B/P (MAP) Pulse Ox O2 Delivery O2 Flow Rate FiO2 12/14/17 07:59 36.7 77 20 134/62 (86) 96 12/14/17 02:56 36.7 79 20 135/75 (95) 94 Nasal Cannula 3.0 12/13/17 23:59 Nasal Cannula 3.0 12/13/17 23:11 36.9 96 21 137/79 (98) 94 Nasal Cannula 3.0 Lab Results (24Hrs) Laboratory Tests (24 Hours) Test 12/14/17 07:23 White Blood Count 13.16 K/uL (4.8-10.8) H Red Blood Count 4.15 M/uL (4.7-6.1) L Hemoglobin 14.2 g/dL (14.0-18.0) Hematocrit 42.8 % (42-52) Mean Corpuscular Volume 103.1 fL (80-100) H Mean Corpuscular Hemoglobin 34.2 pg (25-34) H Mean Corpuscular Hemoglobin Concent 33.2 g/dl (32-36) Platelet Count 129 K/uL (130-400) L Mean Platelet Volume 10.7 fL (7.4-10.4) H Neutrophils (%) (Auto) 91.5 % Lymphocytes (%) (Auto) 2.7 % Monocytes (%) (Auto) 5.5 % Eosinophils (%) (Auto) 0.0 % Basophils (%) (Auto) 0.1 % Neutrophils # (Auto) 12.04 K/uL (1.4-6.5) H Lymphocytes # (Auto) 0.36 K/uL (1.2-3.4) L Monocytes # (Auto) 0.72 K/uL (0.11-0.59) H Eosinophils # (Auto) 0.00 K/uL (0-0.5) Basophils # (Auto) 0.01 K/uL (0-0.2) Micro Results Date/Time Source Procedure Growth Status 12/12/17 09:03 Urine , Clean Catch Urine Culture - Preliminary NO GROWTH - LESS THAN 1,000 COLONIES/... Resulted 12/13/17 11:35 Drainage-Deep Gallbladder Gram Stain - Final Resulted 12/13/17 11:35 Drainage-Deep Gallbladder Bacterial Culture Pending Resulted Risk Factors for Resistance * Antimicrobial use within the last 90 days doxycycline Assessment & Plan Assessment * 82 year old male receiving vancomycin and Zosyn for treatment of acute cholecystitis * Status post laparoscopic cholecystectomy for gangrenous gallbladder * Suspected/possible UTI likely due to suprapubic catheter * Day # 3 of antimicrobial therapy with vanc and Zosyn Plan Vancomycin IV * Trough level of 8.2 mcg/mL is subtherapeutic * Vd ~0.6 L/kg, ke ~0.08 hr-1, t1/2 ~10hr * Increase to 1750 mg IV every 12 hours * Goal trough level: 15 to 20 mcg/mL * Trough level ordered for: 12/15/17 at 1530 * Less than traditional dose selected due to likelihood of drug accumulation in obese patient Piperacillin/tazobactam * Continue 3.375 g IV extended infusion every 8 hours for CrCl greater than 20 mL/min Acyclovir * Began treatment for shingles on September 21, has been on daily prophylaxis since that time * Continue 750mg IV daily until pt can tolerate po meds Pharmacy will continue to follow and will adjust dose/frequency as necessary. Thank you.
[2017-12-14] MEDS: PANTOprazole INJ 40 MG in SYRINGE 0 ML IV SCH (11:07)
[2017-12-14 12:15] VITALS: BP 141/72; PULSE 74; TEMP 36.9; O2SAT 95
[2017-12-14] MEDS: VANCOMYCIN IV 1,750 MG in SODIUM CHLORIDE 0.9% 500ML 500 ML IV SCH (16:15)
[2017-12-14 16:53] VITALS: BP 144/64; PULSE 77; TEMP 36.7; O2SAT 91
[2017-12-14] MEDS: NSS + 20MEQ KCL 1000ML 1,000 ML IV SCH (21:47)
[2017-12-14 22:54] VITALS: BP 125/70; PULSE 73; TEMP 36.5; O2SAT 86; O2SAT 92
[2017-12-15] MEDS: VANCOMYCIN IV 1,750 MG in SODIUM CHLORIDE 0.9% 500ML 500 ML IV SCH ×2 (03:39→17:12)
[2017-12-15] MEDS: PIPERACILL/TAZOBAC IV 3.375 GM in D5W 100ML IV SCH ×3 (03:39→19:29)
[2017-12-15] MEDS: MoRPHine SULFATE 2 MG/ML CARP IV PRN (04:58)
[2017-12-15 07:19] LABS: BASO % 0.1 %; BASO ABS # 0.01 K/uL (0-0.2); HEMATOCRIT 42.1 % (42-52); HEMOGLOBIN 14.1 g/dL (14.0-18.0); IG# 0.04 K/uL (0.00-0.02); LYMPH % 4.9 %; LYMPH ABS # 0.64 K/uL (1.2-3.4); MEAN CELL VOLUME 102.7 fL (80-100); MEAN CORPUSCULAR HEMOGLOBIN 34.4 pg (25-34); MEAN CORPUSCULAR HGB CONC 33.5 g/dl (32-36); MEAN PLATELET VOLUME 10.8 fL (7.4-10.4); MONO % 4.5 %; MONO ABS # 0.59 K/uL (0.11-0.59); NEUT % 90.2 %; NEUT ABS # 11.75 K/uL (1.4-6.5); PLATELET COUNT 135 K/uL (130-400); RED CELL DISTRIBUTION WIDTH CV 15.9 % (11.5-14.5); RED CELL DISTRIBUTION WIDTH SD 60.8 fL (36.4-46.3); WHITE BLOOD COUNT 13.03 K/uL (4.8-10.8)
[2017-12-15 07:26] LABS: PTT PATIENT 30.3 SECONDS (21.0-31.0)
[2017-12-15 07:37] VITALS: BP 152/76; PULSE 64; TEMP 36.5; O2SAT 93
--- NOTE | 2017-12-15 07:43 | Discharge Instructions ---
Discharge Instructions Date of Service Dec 15, 2017. Admission Reason for Admission: Acute Cholecystitis, Lyme Disease Discharge Discharge Diagnosis / Problem: laparoscopic cholecystectomy Discharge Goals Goal(s): Decrease discomfort Activity Recommendations Activity Limitations: as noted below Lifting Limitations: no more than 10 pounds Shower/Bathe: no limitations Driving or Machine Use: resume 3 days after discharge . Instructions / Follow-Up Instructions / Follow-Up Dr. Starks in 3-5 days, call [phone] to schedule [address] Empty drain 2-3 times daily as needed, you can shower with the drain Current Hospital Diet Patient's current hospital diet: Diabetes Type 2 Diet Discharge Diet Recommended Diet: Diabetes Type 2 Diet Procedures Procedures Performed: lap cholecystectony Pending Studies Studies pending at discharge: no Laboratory Results Hemoglobin A1c Test 12/12/17 03:30 Range/Units Estimated Average Glucose 123 mg/dl Hemoglobin A1c 5.9 H 4.5-5.6 % Medical Emergencies . Who to Call and When: Medical Emergencies: If at any time you feel your situation is an emergency, please call 911 immediately. . Non-Emergent Contact Non-Emergency issues call your: Surgeon Call Non-Emergent contact if: you have a fever, temperature is above 101.5, your pain is not controlled, wound has increased drainage, wound has increased redness, you have any medication questions . "Provider Documentation" section prepared by Rigo Orozco. .
--- NOTE | 2017-12-15 07:51 | SURGERY PROGRESS NOTE ---
DATE: 12/15/2017 Lorena is second postoperative day status post a laparoscopic cholecystectomy for gangrenous gallbladder. This morning, he is feeling better. He still has some discomfort in the right side in the lower chest area. I suspect that is attributable to the lateral Bob drain that I have in the right gutter going underneath the diaphragmatic area since he had perforation and purulent fluid up underneath the diaphragm also. The abdomen is a little bit softer. He is starting to feel like he is going to pass some flatus. The laboratory studies showed as pending, but the vitals showing a temperature of 36.5, pulse 73, respirations 16, blood pressure 125/88, O2 sats 92 on room air. I and O, 405 out of the drainage from the Bob drain. The one that is draining the most is subhepatically and I expect that to be draining most and would like to leave that in and even send him home with it until the drainage pretty much stops. The abdomen is a little bit distended, but much softer than when he first came in. It is nontender. Plan is at this time is he is near the third postoperative day, he may need some to restart Norvasc since likely will be mobilizing fluids. I would leave the drain in the subhepatic area as stated until it is minimal drainage, the lateral drain above the liver and to the right gutter, we may consider leaving another day or so. [facility]. As far as discharge, he should be ready to go properly by Monday. Path report noted, reports no calculi, pt had significant load of 2-3 mm cholesterol calculi that acc to nurses was sent to lab, Discussed case with Dr Villasenor for f/u, MTDD
[2017-12-15 08:01] LABS: ALBUMIN 1.8 gm/dl (3.4-5.0); CALCIUM 7.5 mg/dl (8.5-10.1); CREATININE 0.61 mg/dl (0.60-1.40); TOTAL PROTEIN 5.8 gm/dl (6.4-8.2)
[2017-12-15 08:23] VITALS: O2SAT 96
[2017-12-15] MEDS: DOCUSATE SODIUM 100 MG CAP PO SCH ×2 (09:25→20:50)
[2017-12-15] MEDS: PANTOprazole SOD 40 MG TAB PO SCH (09:25)
[2017-12-15] MEDS: FLUTICASONE/SALMETEROL (ADVAIR) 500/50 INH 14 PUFF INH SCH (09:26)
[2017-12-15] MEDS: INSULIN ASPART 100 UNITS/ML 3 ML PEN SC SCH ×4 (09:31→21:43)
[2017-12-15] MEDS ORDERED: VANCOMYCIN TROUGH ONE (15:30)
[2017-12-15 16:05] VITALS: BP 146/74; PULSE 71; TEMP 36.6; O2SAT 91
--- NOTE | 2017-12-15 16:40 | Progress Note ---
Subjective Date of Service: Dec 15, 2017. Subjective pt state he feels very tired and washed out, he has improved abdominal pain and less IDALIA drainage Problem List Medical Problems: (1) Disseminated Lyme disease Status: Acute (2) UTI (urinary tract infection) Status: Acute Review of Systems Constitutional: No fever, No chills, No weakness Respiratory: No cough, No shortness of breath Abdomen: No pain, No nausea, No vomiting Male : No dysuria, No urinary frequency, No incontinence Psychiatric: No depression symptoms, No anhedonism Objective Vital Signs Date Time Temp Pulse Resp B/P (MAP) Pulse Ox O2 Delivery O2 Flow Rate FiO2 12/15/17 16:05 36.6 71 18 146/74 (98) 91 Room Air 71 12/15/17 08:23 96 Room Air 12/15/17 07:37 36.5 64 17 152/76 (101) 93 Room Air 12/15/17 07:30 Room Air 12/14/17 23:30 Nasal Cannula 2.0 12/14/17 22:54 92 Nasal Cannula 2.0 12/14/17 22:54 36.5 73 16 125/70 (88) 86 Room Air 12/14/17 16:53 36.7 77 16 144/64 (90) 91 12/14/17 16:45 Nasal Cannula 2.0 Physical Exam General Appearance: WD/WN, + moderate distress Eyes: normal inspection, sclerae normal Neck: supple, no JVD Respiratory/Chest: chest non-tender, lungs clear, normal breath sounds Cardiovascular: regular rate, rhythm, no murmur Abdomen: normal bowel sounds, + distended, + guarding, + tenderness Neurologic/Psychiatric: alert, oriented x 3 Laboratory Results Last 24 Hours Test 12/14/17 16:51 12/14/17 21:05 12/15/17 07:03 12/15/17 08:01 Bedside Glucose 209 mg/dl 209 mg/dl 135 mg/dl White Blood Count 13.03 K/uL Red Blood Count 4.10 M/uL Hemoglobin 14.1 g/dL Hematocrit 42.1 % Mean Corpuscular Volume 102.7 fL Mean Corpuscular Hemoglobin 34.4 pg Mean Corpuscular Hemoglobin Concent 33.5 g/dl Platelet Count 135 K/uL Mean Platelet Volume 10.8 fL Neutrophils (%) (Auto) 90.2 % Lymphocytes (%) (Auto) 4.9 % Monocytes (%) (Auto) 4.5 % Eosinophils (%) (Auto) 0.0 % Basophils (%) (Auto) 0.1 % Neutrophils # (Auto) 11.75 K/uL Lymphocytes # (Auto) 0.64 K/uL Monocytes # (Auto) 0.59 K/uL Eosinophils # (Auto) 0.00 K/uL Basophils # (Auto) 0.01 K/uL RDW Standard Deviation 60.8 fL RDW Coefficient of Variation 15.9 % Immature Granulocyte % (Auto) 0.3 % Immature Granulocyte # (Auto) 0.04 K/uL Prothrombin Time 10.4 SECONDS Prothromb Time International Ratio 1.0 Activated Partial Thromboplast Time 30.3 SECONDS Partial Thromboplastin Ratio 1.2 Sodium Level 139 mmol/L Potassium Level 4.0 mmol/L Chloride Level 106 mmol/L Carbon Dioxide Level 28 mmol/L Anion Gap 5.0 mmol/L Blood Urea Nitrogen 15 mg/dl Creatinine 0.61 mg/dl Est Creatinine Clear Calc Drug Dose 107.0 ml/min Estimated GFR () 107.0 Estimated GFR (Non- 92.4 BUN/Creatinine Ratio 23.9 Random Glucose 132 mg/dl Calcium Level 7.5 mg/dl Magnesium Level 2.2 mg/dl Total Bilirubin 0.7 mg/dl Direct Bilirubin 0.3 mg/dl Aspartate Amino Transf (AST/SGOT) 21 U/L Alanine Aminotransferase (ALT/SGPT) 44 U/L Alkaline Phosphatase 160 U/L Total Protein 5.8 gm/dl Albumin 1.8 gm/dl Test 12/15/17 12:11 12/15/17 15:32 Bedside Glucose 137 mg/dl Assessment and Plan Acute cholecystitis with secondary inflammatory changes involving the duodenum/ possible pericholecystic/hepatic abscesses-- vancomycin IV and Zosyn IV general surgery performed laparoscopic cholecystectomy 12/13 continue hydration as not taking po well Pantoprazole 40 mg IV daily. Morphine sulfate 2 mg IV every 2 hours as needed follow for acute blood loss anemia, hgb did drop 2 gms but is not in range for transfusion . Lyme disease-- Diagnosed 2 days ago platelet counts are stable no signs on peripheral smear of anaplasmosis and ehrlichiosis. (Suspected/possible) UTI (likely) due to suprapubic catheter Urine culture and sensitivity contaminated from 2 days ago. repeat culture is negative Lower extremity swelling with ecchymoses-- Negative venous Doppler for possible DVT. Thrombocytopenia-improving Right V1 distribution shingles-- Began 3 times daily treatment with acyclovir on September 21. Since that time has been on daily prophylaxis. IV acyclovir daily until taking po well diabetes minimal and worsened by physiologic stressor ssi and will add carb ratio correction once taking po, a1c was 5.9 Hypertension-- amlodipine 10, hydralazine IV or Lopressor IV available as needed. Asthma--stable on Advair Diskus 500/51 inhalation daily. Duonebs every 2 hours when necessary.
[2017-12-15] MEDS ORDERED: COUGH DROP (SUGAR FREE) LOZ 24 LOZ/1 BOX LOZ ONE (19:27)
[2017-12-15] MEDS ORDERED: NURSING DECISION MEDICATION ORDER SCH (19:30)
[2017-12-15] MEDS ORDERED: COUGH DROP (SUGAR FREE) LOZ 24 LOZ/1 BOX LOZ PRN (20:15)
[2017-12-15 22:55] VITALS: BP 152/73; PULSE 76; TEMP 36.6; O2SAT 93
[2017-12-16] MEDS: PIPERACILL/TAZOBAC IV 3.375 GM in D5W 100ML IV SCH ×3 (03:14→18:40)
[2017-12-16] MEDS: VANCOMYCIN IV 1,750 MG in SODIUM CHLORIDE 0.9% 500ML 500 ML IV SCH ×2 (03:57→15:52)
[2017-12-16 06:46] VITALS: BP 163/74; PULSE 72; TEMP 36.7; O2SAT 92
[2017-12-16] MEDS: ACETAMINOPHEN IV 100 ML IV PRN ×3 (07:54→23:54)
[2017-12-16 09:18] VITALS: BP 150/76; PULSE 73; TEMP 36.8; O2SAT 92
[2017-12-16] MEDS: FLUTICASONE/SALMETEROL (ADVAIR) 500/50 INH 14 PUFF INH SCH (09:53)
[2017-12-16] MEDS: DOCUSATE SODIUM 100 MG CAP PO SCH ×2 (09:53→21:06)
[2017-12-16] MEDS: PANTOprazole SOD 40 MG TAB PO SCH (09:54)
[2017-12-16] MEDS: AMLODIPINE BESYLATE 5 MG TAB PO SCH (09:54)
[2017-12-16] MEDS: INSULIN ASPART 100 UNITS/ML 3 ML PEN SC SCH ×4 (09:58→21:00)
[2017-12-16 10:26] LABS: HEMATOCRIT 44.6 % (42-52); HEMOGLOBIN 15.1 g/dL (14.0-18.0); MEAN CELL VOLUME 102.1 fL (80-100); MEAN CORPUSCULAR HEMOGLOBIN 34.6 pg (25-34); MEAN CORPUSCULAR HGB CONC 33.9 g/dl (32-36); MEAN PLATELET VOLUME 10.8 fL (7.4-10.4); PLATELET COUNT 166 K/uL (130-400); RED CELL DISTRIBUTION WIDTH CV 15.9 % (11.5-14.5); RED CELL DISTRIBUTION WIDTH SD 59.3 fL (36.4-46.3); WHITE BLOOD COUNT 10.95 K/uL (4.8-10.8)
--- NOTE | 2017-12-16 10:44 | Surgery Progress Note ---
Surgery Progress Note Date of Service Dec 16, 2017. Subjective Post OP Day: 3 + bowel movement, + diet (tolerating redular diet), No flatus, No nausea, No vomiting Objective Vital Signs: Date Time Temp Pulse Resp B/P (MAP) Pulse Ox O2 Delivery O2 Flow Rate FiO2 12/16/17 09:18 36.8 73 20 150/76 (100) 92 Room Air 12/16/17 06:46 36.7 72 18 163/74 (103) 92 Room Air 12/15/17 22:55 36.6 76 16 152/73 (99) 93 Room Air 12/15/17 19:20 Room Air 12/15/17 16:05 36.6 71 18 146/74 (98) 91 Room Air 71 Physical Exam: IDALIA drainage (IDALIA#1: 150 cc yesterday, 20 cc last shift; Idalia#2: 80 cc yesterday, 30 cc last shift: serosanguinous) Abdomen: normal bowel sounds, + distended (less today), + tenderness ( incisional only) Incision(s): clean, dry, intact, no erythema Laboratory Results: Results Past 24 Hours Test 12/15/17 12:11 12/15/17 15:32 12/15/17 17:12 12/15/17 20:49 Range/Units Bedside Glucose 137 142 202 70-99 mg/dl Vancomycin Level Trough 16.3 SEE COMMENT mcg/ml Test 12/16/17 08:13 12/16/17 10:14 Range/Units Bedside Glucose 132 70-99 mg/dl White Blood Count 10.95 4.8-10.8 K/uL Red Blood Count 4.37 4.7-6.1 M/uL Hemoglobin 15.1 14.0-18.0 g/dL Hematocrit 44.6 42-52 % Mean Corpuscular Volume 102.1 80-100 fL Mean Corpuscular Hemoglobin 34.6 25-34 pg Mean Corpuscular Hemoglobin Concent 33.9 32-36 g/dl RDW Standard Deviation 59.3 36.4-46.3 fL RDW Coefficient of Variation 15.9 11.5-14.5 % Platelet Count 166 130-400 K/uL Mean Platelet Volume 10.8 7.4-10.4 fL Assessment & Plan S/P laparoscopic cholecystectomy for gangrenous cholecystitis Stable Not ambulating well Tolerating diet No evidence of bile leak Continue pain management
[2017-12-16 10:49] LABS: CALCIUM 7.9 mg/dl (8.5-10.1); CREATININE 0.81 mg/dl (0.60-1.40); POTASSIUM 3.7 mmol/L (3.5-5.1)
[2017-12-16 11:57] VITALS: BP 114/66; PULSE 82; TEMP 36.5; O2SAT 92
--- NOTE | 2017-12-16 12:52 | Progress Note ---
Subjective Date of Service: Dec 16, 2017. Problem List Medical Problems: (1) Disseminated Lyme disease Status: Acute (2) UTI (urinary tract infection) Status: Acute Review of Systems Constitutional: + weakness, No fever, No chills Respiratory: No cough, No shortness of breath Cardiac: No chest pain, No edema Abdomen: + nausea, + constipation, No pain, No vomiting, No diarrhea Male : + problem reported (has suprabpubic cath), No dysuria Objective Vital Signs Date Time Temp Pulse Resp B/P (MAP) Pulse Ox O2 Delivery O2 Flow Rate FiO2 12/16/17 11:57 36.5 82 21 114/66 (82) 92 Room Air 12/16/17 09:18 36.8 73 20 150/76 (100) 92 Room Air 12/16/17 06:46 36.7 72 18 163/74 (103) 92 Room Air 12/15/17 22:55 36.6 76 16 152/73 (99) 93 Room Air 12/15/17 19:20 Room Air 12/15/17 16:05 36.6 71 18 146/74 (98) 91 Room Air 71 Physical Exam General Appearance: WD/WN, + mild distress Eyes: normal inspection, sclerae normal Neck: supple, no JVD Respiratory/Chest: chest non-tender, lungs clear, + decreased breath sounds Cardiovascular: regular rate, rhythm, no murmur Abdomen: + abnormal bowel sounds, + distended, + guarding Neurologic/Psychiatric: alert, oriented x 3 Laboratory Results Last 24 Hours Test 12/15/17 15:32 12/15/17 17:12 12/15/17 20:49 12/16/17 08:13 Vancomycin Level Trough 16.3 mcg/ml Bedside Glucose 142 mg/dl 202 mg/dl 132 mg/dl Test 12/16/17 10:14 12/16/17 11:55 White Blood Count 10.95 K/uL Red Blood Count 4.37 M/uL Hemoglobin 15.1 g/dL Hematocrit 44.6 % Mean Corpuscular Volume 102.1 fL Mean Corpuscular Hemoglobin 34.6 pg Mean Corpuscular Hemoglobin Concent 33.9 g/dl RDW Standard Deviation 59.3 fL RDW Coefficient of Variation 15.9 % Platelet Count 166 K/uL Mean Platelet Volume 10.8 fL Sodium Level 140 mmol/L Potassium Level 3.7 mmol/L Chloride Level 105 mmol/L Carbon Dioxide Level 29 mmol/L Anion Gap 6.0 mmol/L Blood Urea Nitrogen 16 mg/dl Creatinine 0.81 mg/dl Est Creatinine Clear Calc Drug Dose 80.6 ml/min Estimated GFR () 95.3 Estimated GFR (Non- 82.2 BUN/Creatinine Ratio 20.2 Random Glucose 168 mg/dl Calcium Level 7.9 mg/dl Bedside Glucose 129 mg/dl Assessment and Plan Acute cholecystitis with secondary inflammatory changes involving the duodenum/ possible pericholecystic/hepatic abscesses-- Zosyn IV general surgery performed laparoscopic cholecystectomy 12/13 continue hydration as not advanced diet Pantoprazole 40 mg IV daily. Morphine sulfate 2 mg IV every 2 hours as needed follow for acute blood loss anemia, hgb did drop 2 gms but is still not in range for transfusion . Lyme disease-- Diagnosed 2 days ago platelet counts are stable no signs on peripheral smear of anaplasmosis and ehrlichiosis. may use doxycycline at discharge (Suspected/possible) UTI (likely) due to suprapubic catheter Urine culture and sensitivity contaminated from 2 days ago. repeat culture is negative Lower extremity swelling with ecchymoses--improved Negative venous Doppler for possible DVT. Thrombocytopenia-improving Right V1 distribution shingles-- Began 3 times daily treatment with acyclovir on September 21. Since that time has been on daily prophylaxis. IV acyclovir daily until taking po well, is usually on supressive valtrex diabetes minimal and worsened by physiologic stressor ssi and will add carb ratio correction once taking po, a1c was 5.9 Hypertension-- amlodipine 10, hydralazine IV Asthma--remanis stable on Advair Diskus 500/51 inhalation daily. Duonebs prn
--- NOTE | 2017-12-16 15:10 | Progress Note ---
Subjective Date of Service: Dec 16, 2017. Subjective pt is doing better with less pain but still no flatus and still with IDALIA drains he is with a productive cough he states that is no unusual for him, will follow cautiously Problem List Medical Problems: (1) Disseminated Lyme disease Status: Acute (2) UTI (urinary tract infection) Status: Acute Review of Systems Constitutional: + weakness, + fatigue, No fever, No chills Respiratory: + cough, + sputum, No shortness of breath, No dyspnea on exertion Cardiac: No chest pain, No orthopnea, No edema Abdomen: + pain, + nausea, + constipation, No vomiting, No diarrhea Musculoskeletal: No joint pain Male : No dysuria, No urinary frequency Psychiatric: No depression symptoms, No anhedonism Objective Vital Signs Date Time Temp Pulse Resp B/P (MAP) Pulse Ox O2 Delivery O2 Flow Rate FiO2 12/16/17 11:57 36.5 82 21 114/66 (82) 92 Room Air 12/16/17 09:18 36.8 73 20 150/76 (100) 92 Room Air 12/16/17 06:46 36.7 72 18 163/74 (103) 92 Room Air 12/15/17 22:55 36.6 76 16 152/73 (99) 93 Room Air 12/15/17 19:20 Room Air 12/15/17 16:05 36.6 71 18 146/74 (98) 91 Room Air 71 Physical Exam General Appearance: WD/WN, + mild distress Eyes: normal inspection, sclerae normal Neck: supple, no JVD Respiratory/Chest: chest non-tender, + decreased breath sounds (bases) Cardiovascular: regular rate, rhythm, + systolic murmur Abdomen: + distended, + guarding, + tenderness Extremities: no pedal edema, no calf tenderness Neurologic/Psychiatric: alert, oriented x 3 Laboratory Results Last 24 Hours Test 12/15/17 15:32 12/15/17 17:12 12/15/17 20:49 12/16/17 08:13 Vancomycin Level Trough 16.3 mcg/ml Bedside Glucose 142 mg/dl 202 mg/dl 132 mg/dl Test 12/16/17 10:14 12/16/17 11:55 White Blood Count 10.95 K/uL Red Blood Count 4.37 M/uL Hemoglobin 15.1 g/dL Hematocrit 44.6 % Mean Corpuscular Volume 102.1 fL Mean Corpuscular Hemoglobin 34.6 pg Mean Corpuscular Hemoglobin Concent 33.9 g/dl RDW Standard Deviation 59.3 fL RDW Coefficient of Variation 15.9 % Platelet Count 166 K/uL Mean Platelet Volume 10.8 fL Sodium Level 140 mmol/L Potassium Level 3.7 mmol/L Chloride Level 105 mmol/L Carbon Dioxide Level 29 mmol/L Anion Gap 6.0 mmol/L Blood Urea Nitrogen 16 mg/dl Creatinine 0.81 mg/dl Est Creatinine Clear Calc Drug Dose 80.6 ml/min Estimated GFR () 95.3 Estimated GFR (Non- 82.2 BUN/Creatinine Ratio 20.2 Random Glucose 168 mg/dl Calcium Level 7.9 mg/dl Bedside Glucose 129 mg/dl Assessment and Plan Acute cholecystitis with secondary inflammatory changes involving the duodenum/ possible pericholecystic/hepatic abscesses-- Zosyn IV general surgery performed laparoscopic cholecystectomy 12/13 continue hydration as not advanced diet Pantoprazole 40 mg IV daily. Morphine sulfate 2 mg IV every 2 hours as needed follow for acute blood loss anemia, hgb did drop 2 gms but is still not in range for transfusion . Lyme disease-- Diagnosed 2 days ago platelet counts are stable no signs on peripheral smear of anaplasmosis and ehrlichiosis. may use doxycycline at discharge (Suspected/possible) UTI (likely) due to suprapubic catheter Urine culture and sensitivity contaminated from 2 days ago. repeat culture is negative Lower extremity swelling with ecchymoses--improved Negative venous Doppler for possible DVT. Thrombocytopenia-improving Right V1 distribution shingles-- Began 3 times daily treatment with acyclovir on September 21. Since that time has been on daily prophylaxis. IV acyclovir daily until taking po well, is usually on suppressive valtrex diabetes minimal and worsened by physiologic stressor ssi and will add carb ratio correction once taking po, a1c was 5.9 Hypertension-- amlodipine 10, hydralazine IV Asthma--remans stable on Advair Diskus 500/51 inhalation daily. Duonebs prn
[2017-12-16] MEDS ORDERED: GUAIFENESIN 600 MG TABCR PO ONE (15:15)
[2017-12-16 15:19] VITALS: BP 146/66; PULSE 80; TEMP 36.9; O2SAT 94
[2017-12-16 15:45] VITALS: O2SAT 94
[2017-12-16] MEDS: GUAIFENESIN 600 MG TABCR PO SCH (21:06)
[2017-12-16 22:50] VITALS: BP 162/75; PULSE 75; TEMP 37; O2SAT 92
[2017-12-17] MEDS: PIPERACILL/TAZOBAC IV 3.375 GM in D5W 100ML IV SCH ×3 (03:41→18:23)
[2017-12-17] MEDS: VANCOMYCIN IV 1,750 MG in SODIUM CHLORIDE 0.9% 500ML 500 ML IV SCH ×2 (03:41→15:46)
[2017-12-17 06:40] LABS: CALCIUM 7.5 mg/dl (8.5-10.1); CREATININE 0.69 mg/dl (0.60-1.40); POTASSIUM 3.2 mmol/L (3.5-5.1)
[2017-12-17 07:16] VITALS: BP 155/78; PULSE 74; TEMP 36.6; O2SAT 91
[2017-12-17] MEDS ORDERED: POTASSIUM CHLORIDE 10 MEQ TABCR PO STA (07:56)
[2017-12-17] MEDS: DOCUSATE SODIUM 100 MG CAP PO SCH ×2 (09:01→21:10)
[2017-12-17] MEDS: PANTOprazole SOD 40 MG TAB PO SCH (09:01)
[2017-12-17] MEDS: GUAIFENESIN 600 MG TABCR PO SCH ×2 (09:01→21:10)
[2017-12-17] MEDS: AMLODIPINE BESYLATE 5 MG TAB PO SCH (09:01)
[2017-12-17] MEDS: INSULIN ASPART 100 UNITS/ML 3 ML PEN SC SCH ×4 (09:10→21:00)
[2017-12-17] MEDS: FLUTICASONE/SALMETEROL (ADVAIR) 500/50 INH 14 PUFF INH SCH (09:12)
--- NOTE | 2017-12-17 10:10 | Surgery Progress Note ---
Surgery Progress Note Date of Service Dec 17, 2017. Subjective Post OP Day: 4 + bowel movement, + flatus, No nausea, No vomiting Objective Vital Signs: Date Time Temp Pulse Resp B/P (MAP) Pulse Ox O2 Delivery O2 Flow Rate FiO2 12/17/17 07:45 Room Air 12/17/17 07:16 36.6 74 18 155/78 (103) 91 Room Air 12/16/17 23:55 Room Air 12/16/17 22:50 37.0 75 16 162/75 (104) 92 Room Air 12/16/17 15:45 94 Room Air 12/16/17 15:19 36.9 80 20 146/66 (92) 94 Room Air 12/16/17 11:57 36.5 82 21 114/66 (82) 92 Room Air Physical Exam: IDALIA drainage (IDALIA#1: 60 cc yesterday, 20 cc last shift; IDALIA#2: 80 cc yesterday, 20 cc last shift: serosanguinous) Abdomen: normal bowel sounds, non tender, non distended, soft Incision(s): clean, dry, intact, no erythema, no drainage Laboratory Results: Results Past 24 Hours Test 12/16/17 10:14 12/16/17 11:55 12/16/17 17:05 12/16/17 20:40 Range/Units White Blood Count 10.95 4.8-10.8 K/uL Red Blood Count 4.37 4.7-6.1 M/uL Hemoglobin 15.1 14.0-18.0 g/dL Hematocrit 44.6 42-52 % Mean Corpuscular Volume 102.1 80-100 fL Mean Corpuscular Hemoglobin 34.6 25-34 pg Mean Corpuscular Hemoglobin Concent 33.9 32-36 g/dl RDW Standard Deviation 59.3 36.4-46.3 fL RDW Coefficient of Variation 15.9 11.5-14.5 % Platelet Count 166 130-400 K/uL Mean Platelet Volume 10.8 7.4-10.4 fL Sodium Level 140 136-145 mmol/L Potassium Level 3.7 3.5-5.1 mmol/L Chloride Level 105 98-107 mmol/L Carbon Dioxide Level 29 21-32 mmol/L Anion Gap 6.0 3-11 mmol/L Blood Urea Nitrogen 16 7-18 mg/dl Creatinine 0.81 0.60-1.40 mg/dl Est Creatinine Clear Calc Drug Dose 80.6 ml/min Estimated GFR () 95.3 Estimated GFR (Non- 82.2 BUN/Creatinine Ratio 20.2 10-20 Random Glucose 168 70-99 mg/dl Calcium Level 7.9 8.5-10.1 mg/dl Bedside Glucose 129 120 146 70-99 mg/dl Test 12/17/17 05:43 12/17/17 08:09 Range/Units Sodium Level 140 136-145 mmol/L Potassium Level 3.2 3.5-5.1 mmol/L Chloride Level 106 98-107 mmol/L Carbon Dioxide Level 28 21-32 mmol/L Anion Gap 6.0 3-11 mmol/L Blood Urea Nitrogen 13 7-18 mg/dl Creatinine 0.69 0.60-1.40 mg/dl Est Creatinine Clear Calc Drug Dose 94.6 ml/min Estimated GFR () 101.8 Estimated GFR (Non- 87.8 BUN/Creatinine Ratio 18.4 10-20 Random Glucose 144 70-99 mg/dl Calcium Level 7.5 8.5-10.1 mg/dl Bedside Glucose 137 70-99 mg/dl Assessment & Plan S/P laparoscopic cholecystectomy for gangrenous cholecystitis Stable Not ambulating well Tolerating diet No evidence of bile leak Continue pain management Lymes disease as per IM
[2017-12-17] MEDS ORDERED: BISACODYL 10 MG SUPP PR STA (10:59)
[2017-12-17] MEDS ORDERED: BISACODYL 10 MG SUPP PR PRN (11:00)
[2017-12-17] MEDS ORDERED: SOD PHOSPHATE/SOD BIPHOSPHATE ENEMA 132 ML BTL PR PRN (11:00)
[2017-12-17] MEDS: ACETAMINOPHEN IV 100 ML IV PRN ×2 (13:35→22:14)
[2017-12-17 15:19] VITALS: BP 112/60; PULSE 74; TEMP 36.7; O2SAT 92
--- NOTE | 2017-12-17 15:55 | Progress Note ---
Subjective Date of Service: Dec 17, 2017. Subjective Pt evaluation today including: conversation w/ patient, conversation w/ family , physical exam, chart review, lab review, review of studies, conversation w/ executive consultant, review of inpatient medication list Out of bed to chair, continue suprapubic Ruiz catheter, with yellow's urine, report a mild distended abdomen, tolerate diet, [place] constipation, no bowel movement yet, Also associated with runny nose Problem List Medical Problems: (1) Disseminated Lyme disease Status: Acute (2) UTI (urinary tract infection) Status: Acute Review of Systems Constitutional: + weakness, + fatigue, No fever, No chills, No sweats, No weight loss, No problem reported Eyes: No worsening of vision, No eye pain, No redness, No discharge, No diplopia ENT: No hearing loss, No unusual epistaxis, No nasal symptoms, No sore throat, No tinnitus, No dental problems, No trouble swallowing Respiratory: No cough, No sputum, No wheezing, No shortness of breath, No dyspnea on exertion, No dyspnea at rest, No hemoptysis Cardiac: No chest pain, No orthopnea, No PND, No edema, No claudication, No palpitations Abdomen: + nausea, No pain, No vomiting, No diarrhea, No constipation Musculoskeletal: No joint pain, No muscle pain, No swelling, No calf pain Male : No dysuria, No urinary frequency, No incontinence, No nocturia more than once/night, No slowing stream, No hematuria Neurologic: No memory loss, No paralysis, No weakness, No numbness/tingling, No vertigo, No balance problems Psychiatric: No depression symptoms, No anhedonism, No anxiety, No insomnia, No substance abuse Heme: No abnormal bleeding/bruising, No clotting problems, No swollen lymph nodes, No night sweats Endo: No fatigue, No excessive thirst, No excessive urination Skin: No rash, No itch, No new/changing skin lesions, No color change, No bleeding Objective Vital Signs Date Time Temp Pulse Resp B/P (MAP) Pulse Ox O2 Delivery O2 Flow Rate FiO2 12/17/17 15:19 36.7 74 18 112/60 (77) 92 Room Air 12/17/17 07:45 Room Air 12/17/17 07:16 36.6 74 18 155/78 (103) 91 Room Air 12/16/17 23:55 Room Air 12/16/17 22:50 37.0 75 16 162/75 (104) 92 Room Air Physical Exam General Appearance: WD/WN, no apparent distress, + obese Eyes: normal inspection, PERRL, EOMI, sclerae normal ENT: normal ENT inspection, hearing grossly normal, pharynx normal Neck: supple, no adenopathy, thyroid normal, no JVD, no carotid bruits, trachea midline Respiratory/Chest: chest non-tender, normal breath sounds, no respiratory distress, no accessory muscle use, + decreased breath sounds Cardiovascular: regular rate, rhythm, no edema, no gallop, no JVD, no murmur Abdomen: normal bowel sounds, non tender, soft, no organomegaly, no pulsatile mass, + distended (Mild) Extremities: normal range of motion, non-tender, normal inspection, no pedal edema, no calf tenderness, normal capillary refill, pelvis stable Neurologic/Psychiatric: behavior clinician II-XII nml as tested, no motor/sensory deficits, alert, normal mood/affect, oriented x 3 Skin: normal color, warm/dry, no rash Lymphatic: no adenopathy Laboratory Results Last 24 Hours Test 12/16/17 17:05 12/16/17 20:40 12/17/17 05:43 12/17/17 08:09 Bedside Glucose 120 mg/dl 146 mg/dl 137 mg/dl Sodium Level 140 mmol/L Potassium Level 3.2 mmol/L Chloride Level 106 mmol/L Carbon Dioxide Level 28 mmol/L Anion Gap 6.0 mmol/L Blood Urea Nitrogen 13 mg/dl Creatinine 0.69 mg/dl Est Creatinine Clear Calc Drug Dose 94.6 ml/min Estimated GFR () 101.8 Estimated GFR (Non- 87.8 BUN/Creatinine Ratio 18.4 Random Glucose 144 mg/dl Calcium Level 7.5 mg/dl Test 12/17/17 12:24 Bedside Glucose 125 mg/dl Assessment and Plan 82-year-old admitted on 12/12/2017 because of acute cholecystitis with secondary inflammatory changes involving the duodenum/possible pericholecystic/ hepatic abscesses- Acute cholecystitis and possible naomi-cholecystic hepatic abscess, s/p laparoscopic cholecystectomy 12/13, stable improving Has been on Zosyn, continue Discontinue hydration Advised diet as tolerated Pantoprazole 40 mg IV daily. Morphine sulfate 2 mg IV every 2 hours as needed acute blood loss anemia, post op Lyme disease, diagnosed prior to admission, his antibiotic at home, will resume home antibiotics upon discharge platelet counts are stable no signs on peripheral smear of anaplasmosis and ehrlichiosis. may use doxycycline at discharge (Suspected/possible) UTI (likely) due to suprapubic catheter upon admission Urine culture and sensitivity contaminated from 2 days ago. repeat culture is negative Lower extremity swelling with ecchymoses--improved Negative venous Doppler for possible DVT. Thrombocytopenia-improving/resolved Right V1 distribution shingles, old, no rationale, Began 3 times daily treatment with acyclovir on September 21. Since that time has been on daily prophylaxis., Continue IV acyclovir daily until taking po well, is usually on suppressive valtrex diabetes minimal and worsened by physiologic stressor ssi and will add carb ratio correction once taking po, a1c was 5.9 Hypertension-- amlodipine 10, hydralazine IV Asthma--remans stable on Advair Diskus 500/51 inhalation daily. Duonebs prn, increase activity, PT OT, licensed clinical social worker for discharge planning Continued [facility] stay due to: multiple IV medications needed Discharge planning: home, uncertain
[2017-12-17] MEDS ORDERED: CETIRIZINE HCL 10 MG TAB PO ONE (17:00)
[2017-12-17 23:33] VITALS: BP 133/72; PULSE 70; TEMP 36.8; O2SAT 91
[2017-12-18] MEDS: PIPERACILL/TAZOBAC IV 3.375 GM in D5W 100ML IV SCH (03:07)
[2017-12-18] MEDS ORDERED: VANCOMYCIN TROUGH ONE (03:30)
[2017-12-18] MEDS: VANCOMYCIN IV 1,750 MG in SODIUM CHLORIDE 0.9% 500ML 500 ML IV SCH (04:00)
[2017-12-18 04:18] LABS: CALCIUM 7.5 mg/dl (8.5-10.1); CREATININE 0.7 mg/dl (0.60-1.40); POTASSIUM 3.6 mmol/L (3.5-5.1)
[2017-12-18 07:08] VITALS: BP 130/62; PULSE 81; TEMP 36.5; O2SAT 91
[2017-12-18] MEDS: DOCUSATE SODIUM 100 MG CAP PO SCH ×2 (09:00→20:54)
[2017-12-18] MEDS: GUAIFENESIN 600 MG TABCR PO SCH ×3 (09:00→20:55)
--- NOTE | 2017-12-18 09:18 | SURGERY PROGRESS NOTE ---
DATE: 12/18/2017 Lorena's fifth postoperative day status post laparoscopic cholecystectomy for gangrenous cholecystitis and cholelithiasis. He is sitting up at the side of bed this morning fairly comfortable. He is anxious to go home. His last vitals showed him a temperature of 36.5, pulse 81, respirations 18, blood pressure 130/62, O2 sats 91 on room air. I and O, patient is moving his bowels. He is mobilizing fluids. He had 2300 out overnight. Laboratory this morning, the chemistry showed a BUN of 11, creatinine 0.70. The abdomen is softer. It is not distended. The Bob drainage on the lateral one was serosanguineous as was the subhepatic one. A total of about 30 out yesterday. From my point of view, the patient could be discharged today. We will remove the lateral Bob drain which was above the liver. The one underneath the liver we will leave in until we see him back in the office in approximately 4 days. The patient should not lift anything heavier than 10 pounds[address] He should not drive until we see him in the office. Of note, the microbiology on the gallbladder showed no organisms. His last white count was 10.9. He has been afebrile. I do not see any need to keep him on antibiotics. SORAYA
[2017-12-18] MEDS: INSULIN ASPART 100 UNITS/ML 3 ML PEN SC SCH ×4 (09:29→20:52)
[2017-12-18] MEDS: CIPROFLOXACIN 500 MG TAB PO SCH ×2 (09:30→20:55)
[2017-12-18] MEDS: METRONIDAZOLE 500 MG TAB PO SCH ×3 (09:31→20:55)
[2017-12-18] MEDS: DOXYCYCLINE HYCLATE 100 MG CAP PO SCH ×2 (09:31→20:55)
[2017-12-18] MEDS: PANTOprazole SOD 40 MG TAB PO SCH (09:33)
[2017-12-18] MEDS: AMLODIPINE BESYLATE 5 MG TAB PO SCH (09:33)
[2017-12-18] MEDS: FLUTICASONE/SALMETEROL (ADVAIR) 500/50 INH 14 PUFF INH SCH (09:34)
[2017-12-18] MEDS: CETIRIZINE HCL 10 MG TAB PO SCH (09:34)
[2017-12-18] MEDS ORDERED: NURSING VERBAL MED ORDER ONE ×2 (09:45→10:00)
[2017-12-18 12:25] VITALS: O2SAT 91
[2017-12-18] MEDS ORDERED: GUAIFENESIN SUGAR FREE 200 MG/10 ML UDC PO SCH (14:00)
--- NOTE | 2017-12-18 14:48 | Progress Note ---
Subjective Date of Service: Dec 18, 2017. Subjective Pt evaluation today including: conversation w/ patient, conversation w/ family , physical exam, chart review, lab review, review of studies, conversation w/ senior management consultant, review of inpatient medication list Continue doing well, tolerating diet, no fever or chills, no abdominal pain, Problem List Medical Problems: (1) Disseminated Lyme disease Status: Acute (2) UTI (urinary tract infection) Status: Acute Review of Systems Constitutional: No fever, No chills, No sweats, No weight loss, No weakness, No fatigue, No problem reported Eyes: No worsening of vision, No eye pain, No redness, No discharge, No diplopia ENT: No hearing loss, No unusual epistaxis, No nasal symptoms, No sore throat, No tinnitus, No dental problems, No trouble swallowing Respiratory: No cough, No sputum, No wheezing, No shortness of breath, No dyspnea on exertion, No dyspnea at rest, No hemoptysis Cardiac: No chest pain, No orthopnea, No PND, No edema, No claudication, No palpitations Abdomen: No pain, No nausea, No vomiting, No diarrhea, No constipation Musculoskeletal: No joint pain, No muscle pain, No swelling, No calf pain Male : No dysuria, No urinary frequency, No incontinence, No nocturia more than once/night, No slowing stream, No hematuria Neurologic: No memory loss, No paralysis, No weakness, No numbness/tingling, No vertigo, No balance problems Psychiatric: No depression symptoms, No anhedonism, No anxiety, No insomnia, No substance abuse Heme: No abnormal bleeding/bruising, No clotting problems, No swollen lymph nodes, No night sweats Endo: No fatigue, No excessive thirst, No excessive urination Skin: No rash, No itch, No new/changing skin lesions, No color change, No bleeding Objective Vital Signs Date Time Temp Pulse Resp B/P (MAP) Pulse Ox O2 Delivery O2 Flow Rate FiO2 12/18/17 12:25 91 Room Air 12/18/17 07:08 36.5 81 18 130/62 (84) 91 Room Air 12/18/17 07:00 Room Air 12/18/17 00:00 Room Air 12/17/17 23:33 36.8 70 17 133/72 (92) 91 Room Air 12/17/17 20:00 Room Air 12/17/17 15:45 Room Air 12/17/17 15:19 36.7 74 18 112/60 (77) 92 Room Air Physical Exam General Appearance: WD/WN, no apparent distress Eyes: normal inspection, PERRL, EOMI, sclerae normal ENT: normal ENT inspection, hearing grossly normal, pharynx normal Neck: supple, no adenopathy, thyroid normal, no JVD, no carotid bruits, trachea midline Respiratory/Chest: chest non-tender, normal breath sounds, no respiratory distress, no accessory muscle use, + decreased breath sounds Cardiovascular: regular rate, rhythm, no edema, no gallop, no JVD, no murmur, + pertinent finding (Right abdomen 2 IDALIA drainage is going on, no obvious tender) Abdomen: normal bowel sounds, non tender, soft, no organomegaly, no pulsatile mass Extremities: normal range of motion, non-tender, normal inspection, no pedal edema, no calf tenderness, normal capillary refill, pelvis stable Neurologic/Psychiatric: power station operator II-XII nml as tested, no motor/sensory deficits, alert, normal mood/affect, oriented x 3 Skin: normal color, warm/dry, no rash Lymphatic: no adenopathy Laboratory Results Last 24 Hours Test 12/17/17 16:06 12/17/17 17:01 12/17/17 20:34 12/18/17 03:43 Thyroid Stimulating Hormone (TSH) 2.290 uIu/ml Parathyroid Hormone (Intact) 73.0 pg/mL Bedside Glucose 146 mg/dl 133 mg/dl Sodium Level 140 mmol/L Potassium Level 3.6 mmol/L Chloride Level 106 mmol/L Carbon Dioxide Level 30 mmol/L Anion Gap 4.0 mmol/L Blood Urea Nitrogen 11 mg/dl Creatinine 0.70 mg/dl Est Creatinine Clear Calc Drug Dose 93.2 ml/min Estimated GFR () 101.2 Estimated GFR (Non- 87.3 BUN/Creatinine Ratio 15.5 Random Glucose 128 mg/dl Calcium Level 7.5 mg/dl Magnesium Level 2.0 mg/dl Vancomycin Level Trough 17.0 mcg/ml Test 12/18/17 08:15 Bedside Glucose 142 mg/dl Assessment and Plan 82-year-old admitted on 12/12/2017 because of acute cholecystitis with secondary inflammatory changes involving the duodenum/possible pericholecystic/ hepatic abscesses- Acute cholecystitis and possible naomi-cholecystic hepatic abscess, s/p laparoscopic cholecystectomy 12/13, stable improving Has been on Zosyn, will switch to oral Cipro and Flagyl, with possible 10 days of antibiotic since the procedure done Advised diet as tolerated Switch Protonix to p.o., acute blood loss anemia, post op, stable Lyme disease, diagnosed prior to admission, has antibiotic at home, will start antibiotic of doxycycline p.o. 100 mg twice daily We will have infectious disease consultation because of Lyme disease and has recent acute cholecystitis (Suspected/possible) UTI (likely) due to suprapubic catheter upon admission Urine culture and sensitivity contaminated from 2 days ago. repeat culture is negative Lower extremity swelling with ecchymoses--improved Negative venous Doppler for possible DVT. Thrombocytopenia-improving/resolved/resolved Right V1 distribution shingles, old, no rationale, Began 3 times daily treatment with acyclovir on September 21. Since that time has been on daily prophylaxis., Continue IV acyclovir daily until taking po well, is usually on suppressive valtrex diabetes minimal and worsened by physiologic stressor ssi and will add carb ratio correction once taking po, a1c was 5.9 Hypertension-- amlodipine 10, hydralazine IV Asthma--remans stable on Advair Diskus 500/51 inhalation daily. Decubitus stage I patient report happened after admitted to the hospital started from the second day after admission, continue wound care, discuss with nurse about change positions according to the protocol PT OT recommend patient okay to go home with family support possible discharge patient home tomorrow, I called the patient's rash, update her patient's conditions , she agree. We will give prescription upon discharge will need to order home health care at home to Continued [facility] stay due to: home environment unsafe for pt Discharge planning: home
[2017-12-18 15:04] VITALS: BP 121/60; PULSE 93; TEMP 36.8; O2SAT 94
--- NOTE | 2017-12-18 15:40 | Medical Consult ---
Consultation Date of Consultation: Dec 18, 2017. 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 Was seen in the emergency department , diagnosed with urinary tract infection and treated with Omnicef. Lyme serology was also obtained at the time which was positive and patient was also given doxycycline. However symptoms progressively worsened and he returned to the emergency department, where CT scan showed evidence of cholecystitis, and patient has now undergone cholecystectomy with finding of gangrenous gallbladder. Blood cultures and operative cultures been negative. Patient was initially treated with IV Zosyn and vancomycin, now transition to oral ciprofloxacin and metronidazole. Feeling significantly better with only minimal abdominal pain at present. Western blot serology for Lyme disease has returned positive for IgG antibodies, negative IgM. Patient states that he had rash last summer in his right groin which possibly could have been consistent with erythema migrans. No associated fever or other symptoms at that time, and rash resolved without specific treatment. Past Medical/Surgical History Medical Problems: (1) Disseminated Lyme disease Status: Acute (2) UTI (urinary tract infection) Status: Acute Medical Problems: (1) Acute cholecystitis (2) Bronchitis (3) History of radiation therapy (4) HTN (hypertension) (5) Lumbar stenosis with neurogenic claudication (6) Lyme disease (7) Prostate cancer Surgical Problems: (1) Catheter placement (2) H/O shoulder surgery (3) S/P TURP Family History Diabetes mellitus FH: cancer Social History Smoking Status: Never Smoker Smokeless Tobacco Use: No Alcohol Use: none Drug Use: none Marital Status: Housing Status: lives with significant other Occupation Status: retired Allergies Coded Allergies: Sulfa Antibiotics (Verified Allergy, Intermediate, RASH, 12/14/17) Dust Mite Extract (Verified Allergy, Mild, UNKNOWN, 12/12/17) Molds and Smuts (Verified Allergy, Mild, UNKNOWN, 12/12/17) Current Inpatient Medications Current Inpatient Medications Medications (Trade) Dose Ordered Sig/Evelyne Route Start Time Stop Time Status Last Admin Dose Admin Salmeterol Xinafoate/ Fluticasone (Advair Diskus 500/50 Inh) 1 puff QAM INH 12/13/17 09:00 01/12/18 08:59 12/18/17 09:34 1 PUFF Ondansetron HCl (Zofran Inj) 4 mg Q6H PRN IV 12/12/17 06:30 01/11/18 06:29 12/12/17 11:10 4 MG Morphine Sulfate (MoRPHine SULFATE INJ) 2 mg Q2H PRN IV 12/12/17 06:30 12/26/17 06:29 12/15/17 04:58 2 MG Albuterol/ Ipratropium (Duoneb) 3 ml Q4 PRN INH 12/12/17 06:30 01/11/18 06:29 Glucose (Glucose 40% Gel) 15-30 GRAMS 15 GRAMS... UD PRN PO 12/12/17 07:15 01/11/18 07:14 Glucose (Glucose Chew Tab) 4-8 Tablets 4 Tabl... UD PRN PO 12/12/17 07:15 01/11/18 07:14 Dextrose (Dextrose 50% 50ML Syringe) 25-50ML OF 50% DW IV FOR... UD PRN IV 12/12/17 07:15 01/11/18 07:14 Glucagon (Glucagon Inj) 1 mg UD PRN SQ 12/12/17 07:15 01/11/18 07:14 Carbohydrates (Carbohydrates For Hypoglycemia) 15-30 GRAMS 15 grams if BSG 54-69... UD PRN PO 12/12/17 07:15 01/11/18 07:14 Morphine Sulfate (MoRPHine SULFATE INJ) 4 mg Q1H PRN IV 12/13/17 12:15 12/27/17 12:14 Insulin Aspart (novoLOG ASPART) SLIDING SCALE If C... ACHS SC 12/14/17 07:00 01/13/18 06:59 12/18/17 13:15 4 UNITS Valacyclovir HCl (Valtrex Tab) 500 mg DAILY PO 12/15/17 09:00 12/25/17 08:59 12/18/17 09:33 500 MG Pantoprazole Sodium (Protonix Tab) 40 mg QAM PO 12/15/17 09:00 01/14/18 08:59 12/18/17 09:33 40 MG Docusate Sodium (coLACE CAP) 100 mg BID PO 12/15/17 09:00 01/14/18 08:59 12/17/17 21:10 100 MG Amlodipine Besylate (Norvasc Tab) 10 mg QAM PO 12/16/17 09:00 01/15/18 08:59 12/18/17 09:33 10 MG Menthol (Nice Marlo) 1 marlo PRN PRN MARLO 12/15/17 20:15 01/14/18 20:14 Acetaminophen 100 ml @ 400 mls/hr Q8H PRN IV 12/16/17 06:45 01/15/18 06:44 12/17/17 22:14 400 MLS/HR Guaifenesin (Mucinex Contr Rel Tab) 1,200 mg Q12 PO 12/16/17 21:00 01/15/18 20:59 12/18/17 11:29 1,200 MG Bisacodyl (Dulcolax Supp) 10 mg DAILY PRN [place] 12/17/17 11:00 01/16/18 10:59 Sodium Biphosphate/ Sodium Phosphate (Fleet Enema) 132 ml DAILY PRN [place] 12/17/17 11:00 01/16/18 10:59 Cetirizine HCl (zyrTEC TAB) 10 mg QAM PO 12/18/17 09:00 01/17/18 08:59 12/18/17 09:34 10 MG Ciprofloxacin (Cipro Tab) 500 mg BID PO 12/18/17 09:00 12/28/17 08:59 12/18/17 09:30 500 MG Metronidazole (Flagyl Tab) 500 mg TID PO 12/18/17 09:00 12/28/17 08:59 12/18/17 14:38 500 MG Doxycycline Hyclate (Vibramycin Cap) 100 mg BID PO 12/18/17 09:00 12/28/17 08:59 12/18/17 09:31 100 MG Review of Systems Constitutional: + weakness, No fever, No chills Eyes: No problem reported ENT: No problem reported Respiratory: No problem reported Abdomen: + pain Musculoskeletal: No problem reported Genitourinary - Male: No problem reported Neurologic: No problem reported Psychiatric: No problem reported Endocrine: No problem reported Hematologic / Lymphatic: No problem reported Integumentary: No problem reported Allergic / Immunologic: No problem reported Physical Exam Date Time Temp Pulse Resp B/P (MAP) Pulse Ox O2 Delivery O2 Flow Rate FiO2 12/18/17 15:04 36.8 93 18 121/60 (80) 94 Room Air 12/18/17 12:25 91 Room Air 12/18/17 07:08 36.5 81 18 130/62 (84) 91 Room Air 12/18/17 07:00 Room Air 12/18/17 00:00 Room Air 12/17/17 23:33 36.8 70 17 133/72 (92) 91 Room Air 12/17/17 20:00 Room Air 12/17/17 15:45 Room Air General Appearance: WD/WN, no apparent distress Head: normocephalic, atraumatic Eyes: normal inspection, EOMI, sclerae normal ENT: normal ENT inspection, hearing grossly normal, pharynx normal Neck: supple, no adenopathy, thyroid normal, trachea midline Respiratory/Chest: chest non-tender, lungs clear, normal breath sounds, no respiratory distress Cardiovascular: regular rate, rhythm, no gallop, no murmur Abdomen/GI: normal bowel sounds, soft, no organomegaly, + tenderness, + distended Genitourinary - Male: + pertinent finding (Suprapubic catheter in place) Back: normal inspection, no CVA tenderness, + left CVA tenderness Extremities/Musculoskelatal: no calf tenderness, normal capillary refill, non- tender Neurologic/Psych: alert, normal mood/affect, oriented x 3 Skin: normal color, warm/dry, no rash Lymphatic: no adenopathy Laboratory Results RUN DATE: 12/18/17 [facility] LAB PAGE 1 RUN TIME: 1213 Specimen Inquiry PATIENT: BETH MCKENNA LOC: [facility] U # : [id number] AGE/SX: 82/M ROOM: [facility] REG : 12/12/[address]: Rickey Reddy MD, PhD : 1935 BED: 2 DIS : STATUS: ADM IN TLOC: SPEC #: [id number] BARYDEN: 12/13/17 STATUS: COMP REQ #: [id number] RECD: 12/13/[address]: Jose Luis Chawla M.D. SOURCE: DRAIN-DEEP ENTR: 12/13/[address] [facility] [address]: German Grey M.D. SPDC: Get Muir M.D., Salvatore, M.D. Yingling, Christopher T. M.D. ORDERED: AER/ALDAIR CULTSMR Procedure Result Verified Site GRAM STAIN Final 12/13/17-1422 RESULT NO WBCs SEEN, NO ORGANISMS SEEN OR AER/ALDAIR CULT Final 12/18/17-1213 NO GROWTH Last 24 Hours Test 12/17/17 16:06 12/17/17 17:01 12/17/17 20:34 12/18/17 03:43 Thyroid Stimulating Hormone (TSH) 2.290 uIu/ml Parathyroid Hormone (Intact) 73.0 pg/mL Bedside Glucose 146 mg/dl 133 mg/dl Sodium Level 140 mmol/L Potassium Level 3.6 mmol/L Chloride Level 106 mmol/L Carbon Dioxide Level 30 mmol/L Anion Gap 4.0 mmol/L Blood Urea Nitrogen 11 mg/dl Creatinine 0.70 mg/dl Est Creatinine Clear Calc Drug Dose 93.2 ml/min Estimated GFR () 101.2 Estimated GFR (Non- 87.3 BUN/Creatinine Ratio 15.5 Random Glucose 128 mg/dl Calcium Level 7.5 mg/dl Magnesium Level 2.0 mg/dl Vancomycin Level Trough 17.0 mcg/ml Test 12/18/17 08:15 Bedside Glucose 142 mg/dl Patient Name: BETH MCKENNA Unit Number: [id number] Dictated: 12/12/17626 Transcribed: 12/12/17626 ARG Printed Date/Time: [~ rep prt dt]/[~ rep prt tm] [~ rep ct labl] - [~ rep ct ivnm] [facility] [place] [address] Dictated: 12/12/17626 Transcribed: 12/12/17626 ARG Printed Date/Time: [~ rep prt dt]/[~ rep prt tm] [~ rep ct labl] - [~ rep ct ivnm] [~ rep ct add3]] CT ABD/PELVIS IV CONTRAST ONLY CLINICAL HISTORY: Epigastric and right-sided abdominal pain, bloating, constipation. COMPARISON STUDY: 12/10/2017 TECHNIQUE: Following the IV administration of 93 mL of Optiray-320, CT scan of the abdomen and pelvis was performed from the lung bases to the proximal femurs. Images are reviewed in the axial, sagittal, and coronal planes. IV contrast was administered without complication. A dose lowering technique was utilized adhering to the principles of ALARA. CT DOSE: 1266.92 mGy.cm FINDINGS: Lower chest: There is lower lobe bronchial wall thickening. Liver: There is a 31 mm left lobe hepatic cyst. There are tiny hypodensities within the liver adjacent to the gallbladder fossa. Pericholecystic abscesses cannot be excluded. Gallbladder: There is gallbladder wall thickening, and infiltration the pericholecystic fat. The findings are viewed as highly suspicious for acute cholecystitis. Spleen: Normal in size and attenuation. Pancreas: Unremarkable. Adrenal glands: Unremarkable. Kidneys: There is right-sided nephrolithiasis. There is a 1 cm right renal cyst. There is no hydronephrosis. Bowel: There are no transition zones indicate bowel obstruction. There is no evidence of acute appendicitis. There is no evidence of acute diverticulitis. Scattered colonic diverticula are visualized. There are periduodenal inflammatory changes, likely secondary to acute cholecystitis. Peritoneum: There is a small amount of perihepatic fluid. No free air is visualized. Vasculature: The abdominal aorta is normal in course and caliber. Adenopathy: None. Pelvic viscera: There is a suprapubic bladder catheter. There is mild bladder wall thickening and mild infiltration the perivesicle fat. There are postsurgical changes are prior prostatectomy. Skeletal structures: No destructive osseous lesions are seen. IMPRESSION: 1. CT findings indicative of acute cholecystitis with secondary inflammatory changes involving the duodenum. There are tiny hepatic hypodensities within the liver adjacent the gallbladder. These could represent pericholecystic abscesses. There is a small amount of perihepatic fluid. 2. No evidence of bowel obstruction. No evidence of free air 3. Right-sided nephrolithiasis Electronically signed by: August Griffith M.D. 12/12/2017 6:35 AM Dictated Date/Time: 12/12/2017 6:27 AM The status of this report is Signed. Draft = Not yet reviewed or approved by Radiologist. Signed = Reviewed and approved by Radiologist. <AttendingPhy></AttendingPhy> <FamilyPhy>German Grey M.D.</FamilyPhy > <PrimaryPhy>German Grey M.D.</PrimaryPhy> <UnitNumber>[id number]</ UnitNumber> <VisitNumber>[id number]</VisitNumber> <PatientName>BETH MCKENNA</ PatientName> <DateOfBirth>1935</DateOfBirth> <Location>[facility]</Location> < ServiceDate>12/12/17</ServiceDate> <MNE>ESINDI</MNE> <OrderingPhy>Joyce Qureshi M.D.</OrderingPhy> <OrderingPhyMNE>f rep ord dr flynn</OrderingPhyMNE> < DictatingPhyMNE>f rep dict dr flynn</DictatingPhyMNE> <CCListMNE>f rep ct mnernestina</ CCListMNE> <AdmittingPhyMNE>f pt admit dr flynn</AdmittingPhyMNE> <AttendingPhyMNE >f pt attend dr flynn</AttendingPhyMNE> <ConsultingPhyMNE>f pt consult dr flynn</ConsultingPhyMNE> <FamilyPhyMNE>f pt fam dr flynn</FamilyPhyMNE> <OtherPhyMNE>f pt other dr flynn</OtherPhyMNE> < PrimaryPhyMNE>f pt prim care dr flynn</PrimaryPhyMNE> <ReferringPhyMNE>f pt referring dr flynn</ReferringPhyMNE> Assessment & Plan Patient with acute gangrenous cholecystitis now status post cholecystectomy. Patient also has positive Lyme serology consistent with past infection, may have had erythema migrans a year ago. Would recommend continuing ciprofloxacin and metronidazole for 1 more week, then after patient has recovered would give 30 days of doxycycline 100 mg b.i.d. for untreated Lyme disease.
[2017-12-18] MEDS ORDERED: ACETAMINOPHEN 325 MG TAB PO STA (23:03)
[2017-12-18 23:26] VITALS: BP 128/65; PULSE 74; TEMP 36.6; O2SAT 93
[2017-12-19 07:31] LABS: CREATININE 0.76 mg/dl (0.60-1.40); POTASSIUM 3.2 mmol/L (3.5-5.1)
[2017-12-19 07:34] VITALS: BP 123/65; PULSE 75; TEMP 36.6; O2SAT 94
--- NOTE | 2017-12-19 07:42 | SURGERY PROGRESS NOTE ---
DATE: 12/18/2017 Lorena is fifth postoperative day status post laparoscopic cholecystectomy for gangrenous cholecystitis. He continues to do well, actually could have gone home yesterday, but medical service decided to keep him another day. He was also seen by Dr. Louis who recommended some more antibiotics and will be sent home on those. The patient's last vitals showed a temperature of 36.6, pulse 74, respirations 18, blood pressure 128/65, O2 sats 93 on room air. Laboratory soria, this morning the PRP is pending. The abdomen is completely benign. He had virtually no drainage from the remaining Bob drain and that was removed. It was serosanguineous, nonbilious, nonbloody. The abdomen is much softer. With this, my recommendations are the patient to discharge home. He certainly will do better at home and I asked him not to lift anything heavier than 10 pounds which is about a gallon of milk, not to drive and we will see him back in our office in approximately 1 week. He may shower and not bathe until the trocar sites have all healed.
[2017-12-19] MEDS ORDERED: CPR500 PO (08:49)
[2017-12-19] MEDS ORDERED: MTR500 PO (08:49)
[2017-12-19] MEDS ORDERED: POTASSIUM CHLORIDE 10 MEQ TABCR PO STA (08:56)
[2017-12-19] MEDS: CETIRIZINE HCL 10 MG TAB PO SCH (09:11)
[2017-12-19] MEDS: PANTOprazole SOD 40 MG TAB PO SCH (09:11)
[2017-12-19] MEDS: DOXYCYCLINE HYCLATE 100 MG CAP PO SCH (09:11)
[2017-12-19] MEDS: AMLODIPINE BESYLATE 5 MG TAB PO SCH (09:11)
[2017-12-19] MEDS: DOCUSATE SODIUM 100 MG CAP PO SCH (09:12)
[2017-12-19] MEDS: METRONIDAZOLE 500 MG TAB PO SCH ×2 (09:12→12:57)
[2017-12-19] MEDS: FLUTICASONE/SALMETEROL (ADVAIR) 500/50 INH 14 PUFF INH SCH (09:12)
[2017-12-19] MEDS: CIPROFLOXACIN 500 MG TAB PO SCH (09:12)
[2017-12-19] MEDS: INSULIN ASPART 100 UNITS/ML 3 ML PEN SC SCH ×2 (09:16→12:00)
[2017-12-19] MEDS: GUAIFENESIN 600 MG TABCR PO SCH (09:35)
--- NOTE | 2017-12-19 11:30 | Discharge Instructions ---
Discharge Instructions Date of Service Dec 19, 2017. Admission Reason for Admission: Acute Cholecystitis, Lyme Disease Discharge Discharge Diagnosis / Problem: Acute cholecystitis a Discharge Goals Goal(s): Decrease discomfort, Improve function, Improve disease control, Improve nutritional status, Learn about illness, Diagnostic testing, Therapeutic intervention, Prevent Disease Progression, Specific goals Activity Recommendations Activity Limitations: resume your previous activity . Instructions / Follow-Up Instructions / Follow-Up you have Acute cholecystitis s/p laparoscopic cholecystectomy 12/13, you need to continue oral Cipro and Flagyl. you have Lyme disease, diagnosed prior to admission, has antibiotic at home, you need to re- start antibiotic of doxycycline p.o. 100 mg twice daily after finishing l Cipro and Flagyl for cholecystitis,, you need to complete total 30 days of Doxycycline you were ordered you have right V1 distribution shingles, old, you need t continue acyclovir for daily prophylaxis. you have decubitus stage I patient report happened after admitted to the hospital started from the second day after admission, continue wound care,you need to continue wound care per [facility] at home. follow up with surgeon as instructed have home health care to have home safety assessment - you need to follow up with your primary care physician in 1 week, - take medication as instructed, never overdose or any misuse, or take with alcohol, because misuse of medicine may cause organ damage or , call me , or your primary care physician if have questions of discharge medicaitons. - call your primary care physician, or go to local emergency room if has any fever/chill, chest pain, shortness of breathing, nausea/vomiting/abdominal pain , facial droop/slurry speech/local weakness, or if has any questions. - fall precaution - diet as instructed - you need to follow up with your subspecialist, such as Dr. Griggs Current Hospital Diet Patient's current hospital diet: Diabetes Type 2 Diet Discharge Diet Recommended Diet: Diabetes Type 2 Diet Procedures Procedures Performed: lap cholecystectony Pending Studies Studies pending at discharge: no Laboratory Results Hemoglobin A1c Test 12/12/17 03:30 Range/Units Estimated Average Glucose 123 mg/dl Hemoglobin A1c 5.9 H 4.5-5.6 % Medical Emergencies . Who to Call and When: Medical Emergencies: If at any time you feel your situation is an emergency, please call 911 immediately. . Non-Emergent Contact Non-Emergency issues call your: Primary Care Provider, Surgeon . . "Provider Documentation" section prepared by Rickey Reddy. .
[2017-12-19 12:21] VITALS: BP 123/65; PULSE 75; TEMP 36.6; O2SAT 94
--- NOTE | 2017-12-19 15:10 | Discharge Summary ---
Discharge Summary Date of Service Dec 19, 2017. Discharge Summary Admission Date: Dec 12, 2017 at 06:29 Discharge Date: Dec 19, 2017 Discharge Disposition: Home Principal Diagnosis: Acute cholecystitis s/p laparoscopic cholecystectomy , Problems/Secondary Diagnoses: Lyme disease, right V1 distribution shingles, old, you need t continue acyclovir for daily prophylaxis. decubitus stage I Immunizations: Have You Had Influenza Vaccine: N/A History of Tetanus Vaccine?: Unknown History of Pneumococcal: Yes Pneumococcal Date: Nov 05, 2005 History of Hepatitis B Vaccine: No Procedures: Acute cholecystitis s/p laparoscopic cholecystectomy 12/13, Consultations: Surgeon, infectious disease, Medication Reconciliation New Medications: Ciprofloxacin (Ciprofloxacin HCl) 500 Mg Tab 500 MG PO BID for 7 Days, #14 TAB Metronidazole (Metronidazole) 500 Mg Tab 500 MG PO TID for 7 Days, #21 TAB Continued Medications: Acetaminophen (Tylenol) 500 Mg Tab 200 MG PO QAM, TAB Amlodipine (Norvasc) 10 Mg Tab 10 MG PO QAM, TAB Docusate Sodium (Colace) 100 Mg Cap 1 CAP PO BID PRN for Constipation for 15 Days, #30 CAP Doxycycline Monohydrate (Monodox) 100 Mg Cap 100 MG PO BID for 28 Days, #56 CAP Fiber (Fiber Complete) 62.5 Mg Tab 2 CHW PO QAM Fluticasone Prop/Salmeterol (Advair Diskus 500/50 60 Dose) 1 Ea Aerp 1 PUFF INH QAM, INHALER Ibuprofen (Advil) 200 Mg Tab 200 MG PO PRN for daily, TAB Ondasetron Odt (Zofran Odt) 4 Mg Tab 4 MG SL Q6H for Nausea, #10 TAB Saccharomyces Boulardii (Florastor) 250 Mg Cap 1 CAP PO BID for 10 Days, #20 CAP Discontinued Medications: Cefdinir (Omnicef) 300 Mg Cap 300 MG PO Q12H for 10 Days, #20 CAP Discharge Exam Doing well, 2 IDALIA drainage were both removed using drinking well, no abdominal pain, Review of Systems: Constitutional: No fever, No chills, No sweats, No weight loss, No weakness , No fatigue, No problem reported Eyes: No worsening of vision, No eye pain, No redness, No discharge, No diplopia, No problem reported ENT: No hearing loss, No unusual epistaxis, No nasal symptoms, No sore throat, No tinnitus, No dental problems, No trouble swallowing, No problem reported Respiratory: No cough, No sputum, No wheezing, No shortness of breath, No dyspnea on exertion, No dyspnea at rest, No hemoptysis, No problem reported Abdomen: No pain, No nausea, No vomiting, No diarrhea, No constipation, No GI bleeding, No problem reported Musculoskeletal: No joint pain, No muscle pain, No swelling, No calf pain, No problem reported Genitourinary - Male: No hematuria, No dysuria, No urinary frequency, No urinary urgency, No urinary hesitancy, No urinary retention, No urinary incontinence, No penile discharge, No lesions, No impotence, No problem reported Neurologic: No memory loss, No paralysis, No weakness, No numbness/tingling , No vertigo, No balance problems, No problem reported Endocrine: No fatigue, No excessive thirst, No excessive urination, No problem reported Hematologic / Lymphatic: No abnormal bleeding/bruising, No clotting problems , No swollen lymph nodes, No night sweats, No problem reported Integumentary: No rash, No itch, No new/changing skin lesions, No color change, No bleeding, No problem reported Physical Exam: General Appearance: WD/WN, no apparent distress Eyes: normal inspection, PERRL ENT: normal ENT inspection, hearing grossly normal Neck: supple Respiratory/Chest: chest non-tender, normal breath sounds, no respiratory distress, + decreased breath sounds Cardiovascular: regular rate, rhythm, no edema, no gallop, no JVD Abdomen / GI: normal bowel sounds, non tender, soft, no organomegaly, no pulsatile mass, + pertinent finding (Suprapubic Ruiz catheter with yellow urine ) Extremities: normal inspection, no calf tenderness, normal capillary refill Neurologic/Psychiatric: processing 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 II-XII nml as tested, no motor/sensory deficits , alert, normal mood/affect, normal reflexes, oriented x 3 Skin: normal color, warm/dry Hospital Course 82-year-old admitted on 12/12/2017 because of acute cholecystitis with secondary inflammatory changes involving the duodenum/possible pericholecystic/ hepatic abscesses Acute cholecystitis and possible naomi-cholecystic hepatic abscess, s/p laparoscopic cholecystectomy 12/13, stable improving Has been on Zosyn, will switch to oral Cipro and Flagyl, with possible 10 days of antibiotic since the procedure done has ordered oral antibiotics to continue upon discharge Patient has been tolerating diet acute blood loss anemia, post op, stable Lyme disease, diagnosed prior to admission, has antibiotic at home, discussed with Dr. abraham He recommended to start the doxycycline to complete 30 days of Lyme disease treatment after complete Cipro and Flagyl (Suspected/possible) UTI (likely) due to suprapubic catheter upon admission Urine culture and sensitivity contaminated from 2 days ago. repeat culture is negative Lower extremity swelling with ecchymoses--improved Negative venous Doppler for possible DVT. Thrombocytopenia-improving/resolved/resolved Right V1 distribution shingles, old, no rationale, Began 3 times daily treatment with acyclovir on September 21. Since that time has been on daily prophylaxis., Is on IV acyclovir during abdominal surgery, has restarted oral daily diabetes minimal and worsened by physiologic stressor ssi and will add carb ratio correction once taking po, a1c was 5.9 Hypertension-- amlodipine 10, hydralazine IV Asthma--remans stable on Advair Diskus 500/51 inhalation daily. Decubitus stage I patient report happened after admitted to the hospital started from the second day after admission, continue wound care, discuss with nurse about change positions according to the protocol, advised to continue home health care of wound care after discharge PT OT recommend patient okay to go home with family support possible discharge patient home Instructions / Follow-Up you have Acute cholecystitis s/p laparoscopic cholecystectomy 12/13, you need to continue oral Cipro and Flagyl. you have Lyme disease, diagnosed prior to admission, has antibiotic at home, you need to re- start antibiotic of doxycycline p.o. 100 mg twice daily after finishing l Cipro and Flagyl for cholecystitis,, you need to complete total 30 days of Doxycycline you were ordered you have right V1 distribution shingles, old, you need t continue acyclovir for daily prophylaxis. you have decubitus stage I patient report happened after admitted to the hospital started from the second day after admission, continue wound care,you need to continue wound care per C at home. follow up with surgeon as instructed have home health care to have home safety assessment - you need to follow up with your primary care physician in 1 week, - take medication as instructed, never overdose or any misuse, or take with alcohol, because misuse of medicine may cause organ damage or , call me , or your primary care physician if have questions of discharge medicaitons. - call your primary care physician, or go to local emergency room if has any fever/chill, chest pain, shortness of breathing, nausea/vomiting/abdominal pain , facial droop/slurry speech/local weakness, or if has any questions. - fall precaution - diet as instructed - you need to follow up with your subspecialist, such as Dr. Griggs Total Time Spent: Greater than 30 minutes This includes examination of the patient, discharge planning, medication reconciliation, and communication with other providers. Discharge Instructions Please refer to the electronic Patient Visit Report (Discharge Instructions) for additional information. Additional Copies To German Grey M.D.; Sigifredo Starks M.D.; German Faustin M.D.
== END 2017-12-19 13:27 | disposition home health service (06) | DRG 417 ==
LOC: EDBD 02:51 → C.EDA 02:52 → C.2T 06:29 → ENRESERV 06:39 → EDBEDREQSVC 12-14 15:29 → ENRESERV 12-14 15:34 → C.MSN 12-14 16:38
PROVIDERS: ADMIT Hospitalist; ATTEND Hospitalist
PROC: 0FT44ZZ Resection of Gallbladder, Percutaneous Endoscopic Approach (ICD-10-PCS; principal; 2017-12-13 09:45)
DX: K81.0 Acute cholecystitis (principal); K75.0 Abscess of liver; D62 Acute posthemorrhagic anemia; A69.20 Lyme disease, unspecified; T83.518A Infection and inflammatory reaction due to other urinary catheter, initial encounter; N39.0 Urinary tract infection, site not specified; B02.9 Zoster without complications; D69.6 Thrombocytopenia, unspecified; M79.89 Other specified soft tissue disorders; E11.65 Type 2 diabetes mellitus with hyperglycemia; L89.301 Pressure ulcer of unspecified buttock, stage 1; I10 Essential (primary) hypertension; J45.909 Unspecified asthma, uncomplicated; Z85.46 Personal history of malignant neoplasm of prostate; Z79.899 Other long term (current) drug therapy; Z88.2 Allergy status to sulfonamides; Z91.048 Other nonmedicinal substance allergy status; Z83.3 Family history of diabetes mellitus; Y84.6 Urinary catheterization as the cause of abnormal reaction of the patient, or of later complication, without mention of misadventure at the time of the procedure

== ENCOUNTER → 2018-01-09 | Outpatient (CLI) | payer OTHER ==
[~2018-01-09] MED LIST changes: -CEFD300C2 PO; +CPR500 PO; -DOCU-94 PO; -DOXY100C76 PO; +MTR500 PO; -SACC250C3 PO
[2018-01-09 12:43] LABS: BASO % 0.5 %; BASO ABS # 0.03 K/uL (0-0.2); EOS % 4.3 %; EOS ABS # 0.26 K/uL (0-0.5); HEMATOCRIT 43.3 % (42-52); IG# 0.02 K/uL (0.00-0.02); LYMPH % 20.6 %; LYMPH ABS # 1.24 K/uL (1.2-3.4); MEAN CELL VOLUME 98.4 fL (80-100); MEAN CORPUSCULAR HEMOGLOBIN 31.8 pg (25-34); MEAN CORPUSCULAR HGB CONC 32.3 g/dl (32-36); MEAN PLATELET VOLUME 10.7 fL (7.4-10.4); MONO % 8.1 %; MONO ABS # 0.49 K/uL (0.11-0.59); NEUT % 66.2 %; NEUT ABS # 3.98 K/uL (1.4-6.5); PLATELET COUNT 290 K/uL (130-400); RED CELL DISTRIBUTION WIDTH CV 13.9 % (11.5-14.5); RED CELL DISTRIBUTION WIDTH SD 49.5 fL (36.4-46.3); WHITE BLOOD COUNT 6.02 K/uL (4.8-10.8)
[2018-01-09 13:08] LABS: HEMOGLOBIN A1C 5.9 % (4.5-5.6)
[2018-01-09 13:33] LABS: BLOOD UREA NITROGEN 13 mg/dl (7-18); CALCIUM 8.7 mg/dl (8.5-10.1); CARBON DIOXIDE 30 mmol/L (21-32); GLUCOSE 154 mg/dl (70-99); POTASSIUM 3.6 mmol/L (3.5-5.1); SODIUM 138 mmol/L (136-145)
== END | disposition home or self-care (01) ==
LOC: C.LABBFT 09:20
PROVIDERS: ATTEND Physician Assistant Medical
DX: R73.03 Prediabetes (principal); K81.0 Acute cholecystitis

== ENCOUNTER 2021-05-15 19:16 | Inpatient (IN) ==
[2021-05-15 19:48] LABS: Basophils # (auto) 0.03 K/uL (0-0.2); Basophils % (auto) 0.4 %; Eosinophils # (auto) 0.61 K/uL (0-0.5); Eosinophils % (auto) 7.5 %; Hematocrit (blood only) 53.5 % (42-52); Hemoglobin 18.5 g/dL (14.0-18.0); Immature Granulocytes # (auto) 0.02 K/uL (0.00-0.02); Immature Granulocytes % (auto) 0.2 %; Lymphocytes # (auto) 1.32 K/uL (1.2-3.4); Lymphocytes % (auto) 16.2 %; Mean Corpuscular Hemoglobin 33.9 pg (25-34); Mean Corpuscular Hgb Conc 34.6 g/dL (32-36); Mean Platelet Volume 11.3 fL (7.4-10.4); Monocytes # (auto) 0.59 K/uL (0.11-0.59); Monocytes % (auto) 7.2 %; Neutrophils # (auto) 5.59 K/uL (1.4-6.5); Neutrophils % (auto) 68.5 %; Platelet Count 183 K/uL (130-400); RDW Coefficient of Variation 13.2 % (11.5-14.5); RDW Standard Deviation 47.1 fL (36.4-46.3); Red Blood Count 5.46 M/uL (4.7-6.1); White Blood Count 8.16 K/uL (4.8-10.8)
[2021-05-15 19:58] LABS: Partial Thromboplastin Time 25.8 Seconds (21.0-31.0); Prothrombin Time 10.3 Seconds (9.0-12.0)
--- NOTE | 2021-05-15 20:04 | XRay Report ---
XR chest 1V portable CLINICAL HISTORY: Stroke Like Symptoms, choking TECHNIQUE: Single frontal radiograph of the chest was obtained. Comparison: Comparison is made to chest one view 12/13/2017 FINDINGS: No lines and tubes are seen. Cardiomegaly is noted. Faint bibasilar airspace opacities are seen. No e vidence of pleural effusion or pneumothorax. IMPRESSION: Faint bibasilar airspace opacities which may represent atelectasis, pneumonia, and/or aspiration. ACT 112: Negative or not required by law. Electronically signed by: Devin Lynn M.D. 05/15/2021 8:03 PM
[2021-05-15 20:11] LABS: Alanine Aminotransferase 104 (12-78); Albumin Level 3.6 gm/dl (3.4-5.0); BUN Creatinine Ratio 30.3 (10-20); Blood Urea Nitrogen 26 mg/dl (7-18); Calcium 9.5 mg/dl (8.5-10.1); Carbon Dioxide 29 mmol/L (21-32); Chloride 107 mmol/L (98-107); Creatinine Clr Calc Pharmacy 70.7 ml/min; Est GFR (African American) 90.6 ml/min; Est GFR (Non-African American) 78.1 ml/min; Glucose 109 mg/dl (70-99); Sodium 138 mmol/L (136-145)
[2021-05-15 20:13] LABS: Albumin Globulin Ratio 0.9 (0.9-2); Alkaline Phosphatase 134 U/L (45-117); Bilirubin,Total 0.4 mg/dl (0.2-1); Globulin 3.8 gm/dl (2.5-4.0); Total Protein 7.4 gm/dl (6.4-8.2); Troponin I < 0.015 ng/ml (0-0.045)
[2021-05-15] MEDS ORDERED: OPTIRAY 320 125ml IV ONE (20:34)
--- NOTE | 2021-05-15 20:34 | Emergency Department Note ---
Impression & Plan Brain TIA, Carotid stenosis, HTN (hypertension) ED Provider Note Provider: Tim Kearns MD DATE OF SERVICE: 05/15/2021 CHIEF COMPLAINT: Difficulty speaking, choking, left-sided numbness HISTORY OF PRESENT ILLNESS: Patient is a 85-year-old gentleman history of prostate cancer, hypertension, underlying respiratory issues and suprapubic catheter presenting here today via ambulance from home. Was having [place] dinner and choked on a piece of beef. Heimlich maneuver was performed by family members and this came up quickly. 20 or 30 minutes later around 6:30 PM or so the patient experienced several minutes of difficulty speaking with tingling and numbness in his left arm and leg. Reports he had a little bit of weakness in his right upper lip. Reports a bit of weakness in the left leg. States lasted several minutes but he did not lose consciousness. States that this time his speech and that numbness and tingling have resolved. Denies any issue on the right side of his body peer denies a history of similar. No trauma reported. Patient states he has a little bit of chronic respiratory issues but these are unchanged. REVIEW OF SYSTEMS: A total of 10 review of systems was obtained and negative except as stated above in the HPI. PAST MEDICAL HISTORY: As noted above MEDICATIONS: Reviewed home medications and does not include blood thinners SOCIAL HISTORY: Non-smoker reviewed PHYSICAL EXAM: GENERAL: alert and oriented in no acute distress on stretcher Head: normocephalic and atraumatic EYES: No injection, discharge or icterus. PERRL, EOMI. NECK: Trachea midline. Supple. ENT: Mucous membranes pink and moist. Pharynx without erythema or exudate. Tongue midline. LUNGS: Airway patent. No retractions. Breath sounds clear HEART: Regular rate and rhythm. No chest wall tenderness ABDOMEN: Soft and non-tender, without guarding or rebound. SKIN: Acyanotic, warm, dry, without rashes EXTREMITIES: With trace bilateral lower leg swelling. No significant tenderness. NEUROLOGICAL: No focal deficits. No aphasia. No facial droop or slurred speech. Normal strength and tone in the extremities. Sensation to gross touch normal. No pronator drift. No [id number] ataxia. EK bpm sinus rhythm with a first-degree AV block. Right bundle branch block and left axis are noted as well. No acute ST segment elevation is noted with some occasional baseline artifact. CONTINUOUS CARDIAC MONITORING: was ordered and showed a heart rate of 60s to 80s bpm in normal sinus rhythm Patient's laboratory studies and imaging reviewed. Differential includes Infection, dehydration, metabolic abnormality, hypo/hyperglycemia, electrolyte disturbance, anemia, hypoxia, cardiac sources, intracerebral event, toxicologic, neurologic, as well as other pathologies. IMPRESSION/MEDICAL DECISION MAKING: Patient denies any sensation of retained foreign body had a choking episode earlier requiring Heimlich. Not hypoxic here. Chest x-ray completed to exclude aspiration. Later experienced transient neurological findings in the left side of his body including the arm and leg. These have resolved. Was associate with some aphasia. Question TIA. Symptoms have resolved. No trauma reported or syncope. No significant evidence of infection at this time. Negative Covid. No severe electrolyte abnormalities noted. EKG and troponin completed but I doubt this is ACS. No significant cardiac arrhythmia noted on monitoring here. Chest x-ray question sulfate bibasilar airspace opacities but again will defer antibiotics at this point. CT of the head as well as CT angiograms of the head neck were obtained to look for any vascular or intracranial abnormality. Not a TNK/TPA thrombolytic candidate secondary to resolution of symptoms. No acute intracranial bleed however some evidence of possible chronic posterior right frontal lobe stroke. Patient had no recollection of prior stroke. No acute arterial occlusion, stenosis, dissection, or aneurysm of the head. CTA of the neck with a proximal right internal carotid artery stenosis nearly occluded. Mi ld stenosis on the left ICA. Discussed with [facility]. Williamson who recommended aspirin and Plavix at this time. Will allow permissive hypertension. Updated the patient and likely need to have evaluation for possible intervention in the future. Will bring into the hospital for further neurological evaluation. Hospitalist consulted. DIAGNOSIS: TIA, right ICA stenosis, hypertension DISPOSITION: Hospitalist will evaluate Patient was agreeable with this plan. 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 No intracranial hemorrhage, mass-effect, edema, or hydrocephalus. Radiologist: Paolo Vann MD Study ready at 20:38 and initial results transmitted at 21:04 Preliminary Findings Only See Final Report For Complete Findings CTA HEAD: No arterial occlusion, high-grade stenosis, aneurysm, or dissection. Radiologist: Paolo Vann MD Study ready at 20:42 and initial results transmitted at 21:04 Preliminary Findings Only See Final Report For Complete Findings CTA NECK: Atheromatous plaque in the proximal right ICA causes severe stenosis. Nearly occluded. Atheromatous plaque within the proximal left ICA causes mild stenosis. Radiologist: Paolo Vann MD Study ready at 20:42 and initial results transmitted at 21:08 Past Med/Surg History Medical History (Updated 05/15/21 @ 23:24 by Tim Kearns M.D.) Bronchitis History of nephrolithiasis History of radiation therapy HTN (hypertension) Prostate cancer Suprapubic catheter Surgical History (Updated 12/09/19 @ 07:33 by KRISSY Lee) H/O shoulder surgery History of cholecystectomy History of parotidectomy History of right hip replacement S/P TURP Family History Mother TIA (transient ischemic attack) Other Cancer Diabetes Social History Smoking Status: Never smoker Hx Alcohol Use: Yes Alcohol type: wine Hx Substance Use: No Preferred Language: Tristanian Hearing Ability: Use of Hearing Aid marital status: Current Living Situation: Spouse current occupational status: retired Feels Safe at Home: Yes Seatbelt Use: always Sunscreen Use: No Allergies Allergies Allergy/AdvReac Type Severity Reaction Status Date / Time Sulfa (Sulfonamide Allergy Intermediate RASH Verified 05/15/21 20:48 Antibiotics) mold Allergy Mild UNKNOWN Verified 05/15/21 20:48 Dust Mite Extract Allergy Mild UNKNOWN Uncoded 05/15/21 20:48 Home Meds Home Medications Medication Instructions Recorded Confirmed ibuprofen 200 mg tablet 400 mg PO QAM 09/19/18 05/15/21 citric ac 1980.6 mg-glucono 59.4 30 ml IRRIGATION .weekly ml 04/22/20 05/15/21 mg-mag carb 980.4 mg/30 mL irrig.soln (Renacidin) amlodipine 10 mg tablet 10 mg PO QAM 05/15/21 05/15/21 gabapentin 100 mg capsule 100 mg PO TID 05/15/21 05/15/21 metoprolol succinate 25 mg 25 mg PO QAM 05/15/21 05/15/21 tablet,extended release 24 hr spironolactone 25 mg tablet 25 mg PO QAM 05/15/21 05/15/21 Previous Rx's Medication Instructions Recorded fluticasone 500 mcg-salmeterol 50 1 inh INHALATION BID #60 ea 07/23/20 mcg/dose blistr powdr for inhalation (Advair Diskus) Results & Data (ED) Vital Signs Vital Signs - 24 hr 05/15/21 19:25 Temperature 36.6 C Temperature Source Oral Pulse Rate 73 Pulse Rhythm Regular Respiratory Rate 16 Respiratory Effort / Characteristics Non-Labored Respiratory Depth Normal Blood Pressure 161/81 H Blood Pressure Mean 107 Pulse Oximetry 94 Oxygen Delivery Method Room Air Sepsis Recent Fever Within 48 Hours No Sepsis New/Unexplained Change in Mental Status No Sepsis Action Taken by Nursing No Action Required Laboratory Data Result diagrams: 05/15/21 19:37 05/15/21 19:37 Lab Results 05/15/21 05/15/21 05/15/21 Range/Units 19:37 19:37 19:37 WBC 8.16 (4.8-10.8) K/uL RBC 5.46 (4.7-6.1) M/uL Hgb 18.5 H (14.0-18.0) g/dL Hct 53.5 H (42-52) % MCV 98.0 (80-100) fL MCH 33.9 (25-34) pg MCHC 34.6 (32-36) g/dL RDW Std Deviation 47.1 H (36.4-46.3) fL RDW Coeff of Fredrick 13.2 (11.5-14.5) % Plt Count 183 (130-400) K/uL MPV 11.3 H (7.4-10.4) fL Immature Gran % (Auto) 0.2 % Neut % (Auto) 68.5 % Lymph % (Auto) 16.2 % [place] % (Auto) 7.2 % Eos % (Auto) 7.5 % Baso % (Auto) 0.4 % Neut # (Auto) 5.59 (1.4-6.5) K/uL Lymph # (Auto) 1.32 (1.2-3.4) K/uL [place] # (Auto) 0.59 (0.11-0.59) K/uL Eos # (Auto) 0.61 H (0-0.5) K/uL Baso # (Auto) 0.03 (0-0.2) K/uL Immature Gran # (Auto) 0.02 (0.00-0.02) K/uL PT 10.3 (9.0-12.0) Seconds INR 1.0 (0.9-1.1) APTT 25.8 (21.0-31.0) Seconds PTT Ratio 1.0 Sodium 138 (136-145) mmol/L Potassium (3.5-5.1) mmol/L Chloride 107 (98-107) mmol/L Carbon Dioxide 29 (21-32) mmol/L Anion Gap 2.0 L (3-11) BUN 26 H (7-18) mg/dl Creatinine 0.87 (0.6-1.4) mg/dl Est Cr Clr Drug Dosing 70.7 ml/min Est GFR ( Amer) 90.6 ml/min Est GFR (Non-Af Amer) 78.1 ml/min BUN/Creatinine Ratio 30.3 H (10-20) Glucose 109 H (70-99) mg/dl Calcium 9.5 (8.5-10.1) mg/dl Total Bilirubin 0.4 (0.2-1) mg/dl AST (15-37) U/L ALT 104 H (12-78) Alkaline Phosphatase 134 H (45-117) U/L Troponin I < 0.015 (0-0.045) ng/ml Total Protein 7.4 (6.4-8.2) gm/dl Albumin 3.6 (3.4-5.0) gm/dl Globulin 3.8 (2.5-4.0) gm/dl Albumin/Globulin Ratio 0.9 (0.9-2) SARS-CoV-2, RNA, NAAT (NEGATIVE) 05/15/21 Range/Units 20:05 WBC (4.8-10.8) K/uL RBC (4.7-6.1) M/uL Hgb (14.0-18.0) g/dL Hct (42-52) % MCV (80-100) fL MCH (25-34) pg MCHC (32-36) g/dL RDW Std Deviation (36.4-46.3) fL RDW Coeff of Fredrick (11.5-14.5) % Plt Count (130-400) K/uL MPV (7.4-10.4) fL Immature Gran % (Auto) % Neut % (Auto) % Lymph % (Auto) % [place] % (Auto) % Eos % (Auto) % Baso % (Auto) % Neut # (Auto) (1.4-6.5) K/uL Lymph # (Auto) (1.2-3.4) K/uL [place] # (Auto) (0.11-0.59) K/uL Eos # (Auto) (0-0.5) K/uL Baso # (Auto) (0-0.2) K/uL Immature Gran # (Auto) (0.00-0.02) K/uL PT (9.0-12.0) Seconds INR (0.9-1.1) APTT (21.0-31.0) Seconds PTT Ratio Sodium (136-145) mmol/L Potassium (3.5-5.1) mmol/L Chloride (98-107) mmol/L Carbon Dioxide (21-32) mmol/L Anion Gap (3-11) BUN (7-18) mg/dl Creatinine (0.6-1.4) mg/dl Est Cr Clr Drug Dosing ml/min Est GFR ( Amer) ml/min Est GFR (Non-Af Amer) ml/min BUN/Creatinine Ratio (10-20) Glucose (70-99) mg/dl Calcium (8.5-10.1) mg/dl Total Bilirubin (0.2-1) mg/dl AST (15-37) U/L ALT (12-78) Alkaline Phosphatase (45-117) U/L Troponin I (0-0.045) ng/ml Total Protein (6.4-8.2) gm/dl Albumin (3.4-5.0) gm/dl Globulin (2.5-4.0) gm/dl Albumin/Globulin Ratio (0.9-2) SARS-CoV-2, RNA, NAAT NEGATIVE (NEGATIVE) Administered Medications Discontinued Medications Aspirin (Aspirin Chew 324 Mg) 324 mg PO NOW STA Stop: 05/15/21 21:39 Last Admin: 05/15/21 21:49 Dose: 324 mg Documented by: [id number] Clopidogrel Bisulfate (Clopidogrel Bisulfate 75 Mg Tab) 75 mg PO NOW ONE Stop: 05/15/21 21:40 Last Admin: 05/15/21 21:49 Dose: 75 mg Documented by: [id number] Ioversol (Optiray 320 125ml) 120 ml IV ONCE ONE Stop: 05/15/21 20:35 Last Admin: 05/15/21 20:34 Dose: 120 ml Documented by: [id number] Imaging Data Radiologist's Impression: Chest X-Ray 05/15/21 19:30 XR chest 1V portable CLINICAL HISTORY: Stroke Like Symptoms, choking TECHNIQUE: Single frontal radiograph of the chest was obtained. Comparison: Comparison is made to chest one view 12/13/2017 FINDINGS: No lines and tubes are seen. Cardiomegaly is noted. Faint bibasilar airspace opacities are seen. No evidence of pleural effusion or pneumothorax. IMPRESSION: Faint bibasilar airspace opacities which may represent atelectasis, pneumonia, and/or aspiration. ACT 112: Negative or not required by law. Electronically signed by: Devin Lynn M.D. 05/15/2021 8:[address] 05/15/21 19:30 CT head/brain wo con CLINICAL HISTORY: Stroke Like Symptoms COMPARISON STUDY: No previous studies for comparison. CT DOSE: TECHNIQUE: Standard CT of the Brain was performed without IV contrast. A dose lowering technique was utilized adhering to the principles of ALARA. FINDINGS: Extraaxial space: There is no evidence for subdural hematoma. There are no extra-axial fluid collections. Ventricles and cisterns: The ventricles are normal in size and configuration. There is no evidence for midline shift or mass effect. Parenchyma: There is no subarachnoid or intraparenchymal hemorrhage. There is no evidence for an acute infarct or cerebral edema. There is an area of low attenuation within the right frontal parietal lobe with no effacement of the sulci or gyri. This probably represents an old infarct. If indicated clinically, MRI would be the study of choice for further evaluation. There is homogeneous attenuation of the brain parenchyma. There are no gross mass lesions. Osseous structures: There is no evidence for an acute fracture. There is mild mucosal thickening involving the floors of the maxillary antra bilaterally. The remaining visualized paranasal sinuses are clear. The mastoid air cells are clear bilaterally. Soft tissues: There is no evidence for focal soft tissue swelling. IMPRESSION: No acute intracerebral pathology. Area of low attenuation in the high right frontal parietal lobe. This probably represents an old infarct. If indicated clinically, follow-up MRI could be obtained for further evaluation. Mild chronic bilateral maxillary sinusitis. ACT 112: Negative or not required by law. Electronically signed by: Dread Gill M.D. 05/15/2021 9:37 PM Head CTA 05/15/21 19:30 CT angio head w con CLINICAL HISTORY: Stroke Like Symptoms COMPARISON STUDY: CT brain without contrast from 05/15/2021 CT DOSE: TECHNIQUE: CT Angio of the brain was performed.followed by image post processing with coronal, and sagittal MIP reformats. Contrast Volume: Optiray 320, 120 ml FINDINGS: Vascular findings: There is normal enhancement within the internal carotid arteries bilaterally. There is normal enhancement noted within the anterior, middle and posterior cerebral arteries. Nonvascular findings: There is homogeneous attenuation of the brain parenchyma bilaterally. There is no evidence for an acute infarct or cerebral edema. IMPRESSION: Negative CT angiogram of the brain with contrast. ACT 112: Negative or not required by law. Electronically signed by: Dread Gill M.D. 05/15/2021 9:35 PM Neck CTA 05/15/21 19:30 CT angio neck with con CLINICAL HISTORY: Stroke Like Symptoms COMPARISON STUDY: No previous studies for comparison. CT DOSE: 1691.30 mGy.cm TECHNIQUE: CT Angio of the neck was performed.followed by image post processing with coronal, and sagittal MIP reformats.. Stenosis assessment by NASCET criteria. Contrast Volume: Optiray 320, 120 ml FINDINGS: Vascular findings: Right common carotid artery: Patent without significant stenosis. Right internal carotid artery: There is marked noncalcified and calcified atherosclerotic plaque present at the origin of the right internal carotid artery with approximately 80-90% stenosis present. The distal right internal carotid artery is then patent.. Right vertebral artery: Patent without significant stenosis. Is congenitally decreased in size when compared to the left. Left common carotid artery: Patent without significant stenosis. Left internal carotid artery: Patent without significant stenosis.Minimal atherosclerotic plaque is present at its origin. Left vertebral artery: Patent without significant stenosis. There is a dominant left vertebral artery. Nonvascular findings: The parotid and submandibular salivary glands appear normal. There is no enlarged cervical adenopathy noted. The airway appears patent. The thyroid gland appears within normal limits. There is breathing motion artifact at the lung apices.. Impression: 1. Marked noncalcified an additional calcified plaque at the origin of the right internal carotid artery with evidence for 80-90% stenosis present. 2. Minimal atherosclerotic plaque present at the origin of the left internal carotid artery. ACT 112: Negative or not required by law. Electronically signed by: Dread Gill M.D. 05/15/2021 10:59 PM Discharge Plan Visit Data Chief Complaint: Weakness Stated Complaint: Choking, Stroke SX ED Provider: Tim Kearns Discharge Problem: Brain TIA, Carotid stenosis, HTN (hypertension) Patient Disposition: Being Evaluated by Hospitalist Forms Stand Alone Forms: My [facility] Prescriptions Prescriptions: No Action Renacidin 1,980.6 mg-59.4 mg-980.4mg/30mL solution 30 ml irrigation .weekly RF: 0 fluticasone propion-salmeterol [Advair Diskus] 500-50 mcg/dose blister with device 1 inh inhalation BID Qty: 60 RF: 5 ibuprofen 200 mg Tablet 400 mg PO QAM RF: 0 spironolactone 25 mg tablet 25 mg PO QAM RF: 0 gabapentin 100 mg capsule 100 mg PO TID RF: 0 metoprolol succinate 25 mg tablet extended release 24 hr 25 mg PO QAM RF: 0 amlodipine 10 mg tablet 10 mg PO QAM RF: 0 Referrals Referrals: Jose Luis Hanna DO [Primary Care Provider] -
--- NOTE | 2021-05-15 21:36 | CT Scan Report ---
CT angio head w con CLINICAL HISTORY: Stroke Like Symptoms COMPARISON STUDY: CT brain without contrast from 05/15/2021 CT DOSE: TECHNIQUE: CT Angio of the brain was performed.followed by image post processing with coronal, and s agittal MIP reformats. Contrast Volume: Optiray 320, 120 ml FINDINGS: Vascular findings: There is normal enhancement within the internal carotid arteries bilaterally. The re is normal enhancement noted within the anterior, middle and posterior cerebral arteries. Nonvascular findings: There is homogeneous attenuation of the brain parenchyma bilaterally. There is no evidence for an acute infarct or cerebral edema. IMPRESSION: Negative CT angiogram of the brain with contrast. ACT 112: Negative or not required by law. Electronically signed by: Dread Gill M.D. 05/15/2021 9:35 PM
[2021-05-15] MEDS ORDERED: ASPIRIN CHEW 324 MG PO STA (21:38)
[2021-05-15] MEDS ORDERED: CLOPIDOGREL BISULFATE 75 MG TAB PO ONE (21:39)
--- NOTE | 2021-05-15 21:39 | CT Scan Report ---
CT head/brain wo con CLINICAL HISTORY: Stroke Like Symptoms COMPARISON STUDY: No previous studies for comparison. CT DOSE: TECHNIQUE: Standard CT of the Brain was performed without IV contrast. A dose lowering technique was utilized adhering to the principles of ALARA. FINDINGS: Extraaxial space: There is no evidence for subdural hematoma. There are no extra-axial fluid collecti ons. Ventricles and cisterns: The ventricles are normal in size and configuration. There is no evidence f or midline shift or mass effect. Parenchyma: There is no subarachnoid or intraparenchymal hemorrhage. There is no evidence for an acu te infarct or cerebral edema. There is an area of low attenuation within the right frontal parietal l obe with no effacement of the sulci or gyri. This probably represents an old infarct. If indicated cl inically, MRI would be the study of choice for further evaluation. There is homogeneous attenuation o f the brain parenchyma. There are no gross mass lesions. Osseous structures: There is no evidence for an acute fracture. There is mild mucosal thickening invo lving the floors of the maxillary antra bilaterally. The remaining visualized paranasal sinuses are c lear. The mastoid air cells are clear bilaterally. Soft tissues: There is no evidence for focal soft tissue swelling. IMPRESSION: No acute intracerebral pathology. Area of low attenuation in the high right frontal parie les lobe. This probably represents an old infarct. If indicated clinically, follow-up MRI could be ob tained for further evaluation. Mild chronic bilateral maxillary sinusitis. ACT 112: Negative or not required by law. Electronically signed by: Dread Gill M.D. 05/15/2021 9:37 PM
--- NOTE | 2021-05-15 23:01 | CT Scan Report ---
CT angio neck with con CLINICAL HISTORY: Stroke Like Symptoms COMPARISON STUDY: No previous studies for comparison. CT DOSE: 1691.30 mGy.cm TECHNIQUE: CT Angio of the neck was performed.followed by image post processing with coronal, and sa gittal MIP reformats.. Stenosis assessment by NASCET criteria. Contrast Volume: Optiray 320, 120 ml FINDINGS: Vascular findings: Right common carotid artery: Patent without significant stenosis. Right internal carotid artery: There is marked noncalcified and calcified atherosclerotic plaque pres ent at the origin of the right internal carotid artery with approximately 80-90% stenosis present. Th e distal right internal carotid artery is then patent.. Right vertebral artery: Patent without significant stenosis. Is congenitally decreased in size when c ompared to the left. Left common carotid artery: Patent without significant stenosis. Left internal carotid artery: Patent without significant stenosis.Minimal atherosclerotic plaque is p resent at its origin. Left vertebral artery: Patent without significant stenosis. There is a dominant left vertebral artery . Nonvascular findings: The parotid and submandibular salivary glands appear normal. There is no enlarged cervical adenopathy noted. The airway appears patent. The thyroid gland appears within normal limits. There is breathing motion artifact at the lung apices.. Impression: 1. Marked noncalcified an additional calcified plaque at the origin of the right internal carotid art beto with evidence for 80-90% stenosis present. 2. Minimal atherosclerotic plaque present at the origin of the left internal carotid artery. ACT 112: Negative or not required by law. Electronically signed by: Dread Gill M.D. 05/15/2021 10:59 PM
[2021-05-16] MEDS ORDERED: ONDANSETRON INJ 2 MG/ML 2 ML VIAL IV PRN (00:56)
[2021-05-16] MEDS ORDERED: ACETAMINOPHEN 325 MG TAB PO PRN (00:56)
[2021-05-16] MEDS ORDERED: NITROGLYCERIN SL 0.4 MG/TAB TAB SL PRN (00:56)
[2021-05-16] MEDS ORDERED: PHARMACIST DISCHARGE MED REC CONSULT PRN (00:56)
[2021-05-16] MEDS ORDERED: POLYETHYLENE (MIRALAX) 17 GM PACK PO PRN (00:56)
[2021-05-16] MEDS ORDERED: SODIUM CHLORIDE 0.9% 1000ML 1,000 ML IV SCH (00:56)
--- NOTE | 2021-05-16 02:07 | History and Physical Report ---
DATE OF ADMISSION: 05/15/2021. CHIEF COMPLAINT: TIA kind of symptoms. HISTORY OF PRESENT ILLNESS: This is an 85-year-old male with past medical history significant for asthma, moderate persistent; history of shortness of breath; chronic diastolic heart failure; history of prostate cancer, status post treated with seed implantation with an external beam boost complicated with strictures, and status post suprapubic catheter. Was brought in because of TIA kind of symptoms. Around 6:00 in the evening, the patient choked on the food and after a few minutes later, he could not speak and felt some numbness in the left side of his body and it lasted only for 2 minutes. His family brought him to the hospital and his symptoms resolved. Currently, resting comfortably, hemodynamically stable. Imaging studies initially showed completely occluded right carotid artery and ER spoke with [place] neurologist and recommended aspirin, Plavix, stroke workup. Currently denies any headache. No dizziness. Initially had some blurred vision in the left eye that is resolved. Speech is clear. No dysphagia. Currently, no nausea, no vomiting, no chest pain. He has chronic shortness of breath and chronic sinusitis and cough. Follows with pulmonary. Presently, no nausea, no abdominal pain. Normal bowel and bladder movements. No swelling in the legs. The patient says he can walk about 50 yards on flat surfaces. Has difficulty climbing steps . ALLERGIES: SULFA ANTIBIOTICS. PAST MEDICAL HISTORY: As mentioned above. PAST SURGICAL HISTORY: Colonoscopy with lesion removal. Cystourethroscopy with lithotripsy, spine injection, laparoscopic cholecystectomy, removal of nose polyps, tonsillectomy and adenoidectomy. MEDICATIONS: The patient is on amlodipine 5 mg p.o. daily, bladder irrigation, Advair Diskus 500/50 mcg 1 inhalation b.i.d., gabapentin 100 mg p.o. t.i.d., metoprolol succinate 25 mg p.o. a.m., spironolactone 12.5 mg p.o. a.m. FAMILY HISTORY: Significant for sister has AFib, brother has kidney disease, father had MVA, sister has multiple fractures due to fall, mother has brain bleed. SOCIAL HISTORY: . No smoking. Alcohol, wine daily with dinner. No drug use. REVIEW OF SYSTEMS: As per HPI. Rest of review of systems is negative. PHYSICAL EXAMINATION: GENERAL: The patient is of moderate build, not in acute distress. VITAL SIGNS: Temperature 36.6, pulse 103, respirations 16, blood pressure 161/81, oxygen 94% on room air. HEENT: Pupils equal, round, and reactive to light. Oral mucosa moist. NECK: No JVD, no neck masses. CARDIOVASCULAR: S1 and S2 heard. Regular rate and rhythm. No murmur, no gallop. RESPIRATORY SYSTEM: Normal AP diameter. No accessory muscle use. No wheezing, no crackles. ABDOMEN: Soft, bowel sounds present, nontender, no distention. CENTRAL NERVOUS SYSTEM: Alert and oriented. Speech is clear. No facial droop seen. Power 5/5 in all extremities. No pronator drift. Sensation is intact. Coordination of movements normal. Position sense intact. EXTREMITIES: No edema, no erythema. LABORATORY DATA: WBC 8.1, hemoglobin 18.5, hematocrit 53.5, platelets 183. PT 10.3, INR 1, APTT 25.8. Sodium 138, chloride 107, bicarbonate 29, BUN 26, creatinine 0.8, serum glucose 109, calcium 9.5, total bilirubin 0.4, ALT 104, alkaline phosphatase 134. Troponin I less than 0.015. SARS-CoV-2 PCR negative. IMAGING DATA: CTA of the neck shows some calcified plaque at the origin of the right internal carotid artery with evidence of 80% to 90% stenosis present. Minimal atherosclerotic block present at the origin of the left internal carotid artery. CTA of the head negative and CT of the head, no acute intracerebral pathology. 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 Mild chronic bilateral maxillary sinusitis. Chest x-ray, faint bibasilar airspace opacities, which may represent atelectasis, pneumonia and/or aspiration. EKG: Sinus arrhythmia with first-degree AV block at the rate of 66, left axis deviation, right bundle-branch block. ASSESSMENT AND PLAN: This is an 85-year-old male who presents with transient ischemic attack kind of symptoms. 1. Possible transient ischemic attack with choking episode and brief episode of difficulty speaking and left-sided weakness that resolved. Imaging workup shows right internal carotid artery, 80% to 90% stenosis. ER spoke with [place] neurologist and recommended aspirin and Plavix, which will be continued. Gentle fluids. Monitor in the tele floor. Will get MRI scan and echo. Neuro consult in a.m., speech evaluation, and we will keep him n.p.o. for now. PT, OT evaluation. Allow permissive hypertension, withholding the amlodipine. 2. History of hypertension: Continue his metoprolol succinate and spironolactone. Holding his amlodipine for permissive hypertension. 3. History of asthma, moderate persistent: Continue home inhalers. 4. History of prostate cancer: Status post seed implantation with an external beam boost complicated with strictures, and status post suprapubic catheter 5. Chronic diastolic congestive heart failure: Continue his spironolactone. Monitor for any volume overload. 6. History of right bundle-branch block, first-degree AV block, left anterior fascicular block: Episode of nonsustained V-tach, on Zio monitor. On metoprolol. Follow up with cardiology. 7. Deep venous thrombosis prophylaxis: Sequential compression devices for now. DISPOSITION: Closely monitor in tele floor. Level 1 full code. Expect to discharge home and follow with family doctor. Job ID: [id number] [facility]
[2021-05-16 02:31] LABS: Appearance Urine Clear (Clear); Bacteria Urine Automated 2+ (Negative); Bilirubin Urine Negative (Negative); Blood Urine Trace (Negative); Color Urine Yellow; Glucose Urine UA Negative (Negative); Ketones Urine Negative (Negative); Leukocyte Esterase Urine 2+ (Negative); Nitrite Urine Positive (Negative); Protein Urine Negative (Negative); Specific Gravity Urine 1.035 (1.000-1.030); Urobilinogen Urine Negative (Negative); WBC Urine Automated >30 /hpf (0-5); pH Urine 7.5 (4.5-7.5)
[2021-05-16 07:01] LABS: Basophils # (auto) 0.02 K/uL (0-0.2); Basophils % (auto) 0.2 %; Eosinophils # (auto) 0.61 K/uL (0-0.5); Eosinophils % (auto) 7.6 %; Hematocrit (blood only) 50.5 % (42-52); Immature Granulocytes # (auto) 0.02 K/uL (0.00-0.02); Immature Granulocytes % (auto) 0.2 %; Lymphocytes # (auto) 1.53 K/uL (1.2-3.4); Mean Corpuscular Hemoglobin 33.1 pg (25-34); Mean Corpuscular Hgb Conc 33.7 g/dL (32-36); Mean Corpuscular Volume 98.2 fL (80-100); Mean Platelet Volume 11.1 fL (7.4-10.4); Monocytes # (auto) 0.73 K/uL (0.11-0.59); Monocytes % (auto) 9.1 %; Neutrophils # (auto) 5.14 K/uL (1.4-6.5); Neutrophils % (auto) 63.9 %; Platelet Count 176 K/uL (130-400); RDW Coefficient of Variation 13.3 % (11.5-14.5); RDW Standard Deviation 47.9 fL (36.4-46.3); Red Blood Count 5.14 M/uL (4.7-6.1); White Blood Count 8.05 K/uL (4.8-10.8)
[2021-05-16 07:39] LABS: BUN Creatinine Ratio 31.9 (10-20); Calcium 8.8 mg/dl (8.5-10.1); Creatinine Clr Calc Pharmacy 84.9 ml/min; Est GFR (African American) 97.9 ml/min; Est GFR (Non-African American) 84.5 ml/min; Potassium 3.8 mmol/L (3.5-5.1)
[2021-05-16] MEDS: GABAPENTIN 100 MG CAP PO SCH ×3 (08:49→21:09)
[2021-05-16] MEDS: METOPROLOL SUCC 25MG EXT REL TAB PO SCH (08:50)
[2021-05-16] MEDS: ATORVASTATIN 40 MG TAB PO SCH (08:53)
[2021-05-16] MEDS: CLOPIDOGREL BISULFATE 75 MG TAB PO SCH (08:53)
[2021-05-16] MEDS: ASPIRIN 81 MG ECTAB PO SCH (08:53)
[2021-05-16] MEDS ORDERED: SPIRONOLACTONE 12.5 MG TAB PO SCH (09:00)
[2021-05-16] MEDS ORDERED: FLUTICASONE/VILANTEROL 200/25MCG 14 PUFFS/INHALER INH SCH (09:00)
[2021-05-16] MEDS ORDERED: GADOBUTROL 65ML VIAL IV ONE (11:32)
--- NOTE | 2021-05-16 11:42 | Electrocardiogram Report ---
Test Reason : Blood Pressure : / mmHG Vent. Rate : 066 BPM Atrial Rate : 066 BPM P-R Int : 226 ms QRS Dur : 136 ms QT Int : 426 ms P-R-T Axes : 045 -72 012 degrees QTc Int : 446 ms Sinus rhythm with marked sinus arrhythmia with 1st degree A-V block Left axis deviation Right bundle branch block Poor R wave progression, consider anterior PR vs. lead placement vs. LVH Abnormal ECG When compared with ECG of 14-DEC-2017 06:34, MO interval has increased Confirmed by Juice Lopez ([id number]) on 05/16/2021 11:42:25 AM Referred By: REFERRED SELF Confirmed By:Juice Lopez
--- NOTE | 2021-05-16 12:27 | Magnetic Resonance Report ---
MR brain wo/w con CLINICAL HISTORY: tia/cva. Left-sided tingling with loss of speech last evening. COMPARISON STUDY: CT and CTA brain from 05/15/2021 TECHNIQUE: Multiplanar multisequence images of the brain were performed before and after Gadavist, 1 0 mL of IV contrast. Diffusion weighted imaging and ADC mapping was also performed. FINDINGS: Extra-axial space: There is no evidence for a subdural hematoma, There are no extra-axial fluid mukesh ections. Ventricles and cisterns: The ventricles are normal in size and configuration. There is no evidence f or midline shift or mass effect. Parenchyma: On noncontrast images, there is evidence for a subacute infarct in the high right frontal parietal lobe at the site of low attenuation seen on CT. Acute diffusion weighted abnormalities are seen on ADC mapping and diffusion weighted imaging. Mild surrounding edema is present. Additionally, there is bright signal seen on FLAIR weighted sequences within the centrum semiovale an d periventricular white matter characteristic of remote small vessel disease. The sulci and gyri appe ar normal without effacement. The midline structures are unremarkable. The posterior fossa structures appear normal. On postcontrast images, there is no evidence for enhancing mass lesion. Osseous structures: The paranasal sinuses are well aerated. Small fluid levels are seen along the fl oors of both maxillary antra. The remaining paranasal sinuses are clear. The mastoid air cells are we ll aerated. Soft tissues: No focal soft tissue abnormalities are identified. IMPRESSION: 1. MR confirms a subacute infarct in the high right frontal parietal region at the site of decreased attenuation on CT. 2. There is also evidence for mild small vessel disease bilaterally. 3. Mild bilateral maxillary sinusitis. ACT 112: Negative or not required by law. Electronically signed by: Dread Gill M.D. 05/16/2021 12:26 PM
--- NOTE | 2021-05-16 13:44 | Consultation Report ---
DATE OF NOTE: 05/16/2021. REASON FOR CONSULTATION: Transient ischemic attack. HISTORY OF PRESENT ILLNESS: The patient is an 85-year-old right-handed male with asthma, diastolic h eart failure, prostate cancer, status post seed implantation, external beam boost complicated with st rictures and requiring a suprapubic catheter, was brought in for transient ischemic symptoms. Around 6:00 p.m. yesterday evening the patient choked on meat and a Heimlich maneuver was performed, which required ____ before the patient could reestablish his airway. Several minutes later, he noted that he was nuke and noticed numbness and tingling in the left arm, which lasted for 2 minutes. After 1 m inute, he was able to speak, but his speech was dysarthric. There was no headache. There was no espinoza nge in his vision. There was no facial droop and there was no weakness. Symptoms resolved in 2 ulises elder and he has not had any recurrence. He has no history of transient ischemic attacks. Over the last several weeks, he has noted while rid ing on a tractor that his hands may become tingling and it last 15 seconds. He has not recently been ill. No fevers, chills, sweats, weight loss. No head or neck injury. None of his medicines are new or changed in dose. He does not take aspirin regularly. ALLERGIES: SULFA, MOLD, BREO ELLIPTA AND DUST MITES. PAST MEDICAL HISTORY: As above. No history of transient ischemic attack, stroke, rheumatic fever, m urmur. PAST SURGICAL HISTORY: Colonoscopy, cystourethroscopy with lithotripsy, spine injection, laparoscopi c cholecystectomy, nasal polyps, tonsillectomy and adenoidectomy. HOME MEDICINES: Are amlodipine, bladder irrigation, Advair Diskus, gabapentin, metoprolol and spirono lactone. FAMILY HISTORY: Notable for stroke. Sister has atrial fibrillation. Brother, kidney disease. [facility] had a motor vehicle accident. Mother had a brain bleed. SOCIAL HISTORY: Nonsmoker. Drinks wine daily. 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 REVIEW OF SYSTEMS: As above, all others negative. DATA BASE: White count, H and H and platelet count normal. Chemistry profile notable for a chloride of 109, BUN of 23. Nonfasting blood sugar of 107, hemoglobin A1c is pending. LDL is 77. Urinalysis notable for trace blood, positive nitrite, positive leukocyte esterase, greater than 30 white cells, 2+ bacteria. MRI of the brain shows a subacute infarction in the high right frontoparietal region. There is evidence of mild small vessel vascular disease bilaterally. CTA of the neck shows marked n oncalcified and additional calcified plaque at the origin of the right internal carotid with evidence of 80-99% stenosis. CTA of a head, no intracranial stenosis or aneurysm. Electrocardiogram, sinus rhythm with sinus arrhythmia and first-degree AV block, poor R-wave progression. Echo normal ejectio n fraction, mildly calcified aortic valve with mild aortic stenosis, no intraatrial shunt or atrial s eptal defect. Left atrial size is normal. Great vessels, aortic root is normal size. PHYSICAL EXAMINATION: VITAL SIGNS: 148/81, 57, 19, 36.5, 93%. GENERAL: The patient is awake and alert, oriented x3. Speech and language are normal and affect is appropriate. He is an excellent historian. CARDIOVASCULAR: There are no carotid bruits, no heart murmurs. Heart is regular rate and rhythm. NEUROLOGIC: Pupils are equal, round and reactive to light. The optic nerves are unremarkable. Ther e are normal mckeon, motility, facial sensation and facial symmetry. No dysarthria is noted. Tongue is midline and gag hyperactive. Motor is 5/5, no drift. Normal rapid alternating movements. Symme tric reflexes, downgoing toes. Nykirq-jn-nmuz and ckls-zm-ffqi are normal. Sensation is intact to l ight touch, temperature, and vibration. There is no double simultaneous extinction. Reflexes symmet florencio. Toes are downgoing. I observed the patient's gait as he was getting into bed and it appeared u nremarkable. IMPRESSION: Symptomatic right internal carotid stenosis. Agree with dual antiplatelet therapy. Antonio id hypotension. Begin a statin with goal LDL of 70 or less. Avoid hypotension, although it is clear that the right internal carotid is etiologic, still would perform a residential monitor as an outpatient . Vascular surgery should see the patient while in hospital and determine the timeframe for carotid endarterectomy. The patient may also want an opinion with [facility]. We will folljensen patricio with you. Job ID: [id number]
--- NOTE | 2021-05-16 14:11 | Hospitalist Progress Note ---
Date of Service May 16, 2021 Assessment & Plan (1) Acute CVA (cerebrovascular accident): Plan: ASSESSMENT AND PLAN: This is an 85-year-old male who presents with transient ischemic attack kind of symptoms. 1. Acute CVA - choking episode and brief episode of difficulty speaking and left-sided weakness that resolved. Imaging workup shows right internal carotid artery, 80% to 90% stenosis. ER spoke with [place] neurologist and recommended aspirin and Plavix - Brain MRI: 1. MR confirms a subacute infarct in the high right frontal parietal region at the site of decreased attenuation on CT. 2. There is also evidence for mild small vessel disease bilaterally. 3. Mild bilateral maxillary sinusitis. - Echo: Moderate concentric LVH Normal LV systolic function, EF 55 to 60% No segmental left ventricular wall motion allergies Grade 1 diastolic dysfunction The intra-atrial septum is intact with no evidence of an atrial septal defect Injection of contrast documented no intra-atrial shunt - Neurologist consulted-Dr. White, appreciate the recommendations started on ASA and Plavix, Lipitor 40mg Permissive hypertension Will need vascular surgery evaluation PT/OT/speech therapy evaluation 2. History of hypertension: Continue his metoprolol succinate and spironolactone. Holding his amlodipine for permissive hypertension. 3. History of asthma, moderate persistent: Continue home inhalers. 4. History of prostate cancer: Status post seed implantation with an external beam boost complicated with strictures, and status post suprapubic catheter 5. Chronic diastolic congestive heart failure: Continue his spironolactone. -Currently euvolemic Hold spironolactone in light of receiving CT IV contrast 6. History of right bundle-branch block, first-degree AV block, left anterior fascicular block: Episode of nonsustained V-tach, on Zio monitor. On metoprolol. Follow up with cardiology. 7. Deep venous thrombosis prophylaxis: Sequential compression devices for now. Disposition anticipated discharge home medically stable tomorrow Admission and Anticipated Discharge Date Admission Date: May 15, 2021 Subjective ff up for possible TIA vs Acute CVA, etc seen resting in bed, comfortable alert, oriented x 3, answers all questions appropriately states all symptoms have resolved- no problems with speech, swallowing; L sided weakness also resolved no chest pain, dyspnea, palpitations, dizziness no other symptoms Review of Systems Review of Systems: all noted and negative except for above Physical Exam Physical Exam: General- oriented x 3, not in distress, speaks in sentences with no effort or accessory muscle use Head- atraumatic Eyes- PERRL, EOMI, anicteric ENT- oropharynx clear Neck- supple, no JVD, no adenopathy, no thyromegaly; carotids +2/2, no bruits appreciated Lungs- faint wheeze BL good air entry BL, no rales Heart- normal rate, regular rhythm; no murmur, no gallop, no rub appreciated Abdomen- normal bowel sounds, nondistended, soft, nontender, no masses or hepatosplenomegaly Extremities- no pretibial edema, no calf tenderness; peripheral pulses intact Neuro- alert, oriented x 3; CN 2-12 grossly intact; motor 5/5 bilaterally;sensation 100% on all extremities; no other gross focal neurologic deficits Skin- warm & dry Results & Data Results & Data ([facility]) Vital Signs (Past 12 Hours) Vital Signs Temp Pulse Pulse Resp BP Pulse Ox 05/16/21 12:23 36.5 C 57 L 19 148/81 H 93 05/16/21 08:23 36.4 C L 58 L 18 145/76 H 92 05/16/21 04:57 36.3 C L 59 L 18 142/90 H 92 05/16/21 04:14 60 all noted and reviewed including below
--- NOTE | 2021-05-16 17:16 | Communication Note ---
Date of Service: May 16, 2021 vascular surgery not available until may 24
[2021-05-16] MEDS ORDERED: IBUPROFEN 200 MG TAB PO STA (22:37)
[2021-05-17 07:09] LABS: Basophils # (auto) 0.03 K/uL (0-0.2); Basophils % (auto) 0.5 %; Eosinophils # (auto) 0.53 K/uL (0-0.5); Hematocrit (blood only) 50.7 % (42-52); Immature Granulocytes # (auto) 0.02 K/uL (0.00-0.02); Immature Granulocytes % (auto) 0.3 %; Lymphocytes # (auto) 1.58 K/uL (1.2-3.4); Lymphocytes % (auto) 23.9 %; Mean Corpuscular Hgb Conc 33.5 g/dL (32-36); Mean Corpuscular Volume 98.4 fL (80-100); Mean Platelet Volume 11.1 fL (7.4-10.4); Monocytes # (auto) 0.49 K/uL (0.11-0.59); Monocytes % (auto) 7.4 %; Neutrophils # (auto) 3.95 K/uL (1.4-6.5); Neutrophils % (auto) 59.9 %; Platelet Count 167 K/uL (130-400); RDW Coefficient of Variation 13.2 % (11.5-14.5); RDW Standard Deviation 47.6 fL (36.4-46.3); Red Blood Count 5.15 M/uL (4.7-6.1)
[2021-05-17 07:44] LABS: BUN Creatinine Ratio 29.1 (10-20); Calcium 8.5 mg/dl (8.5-10.1); Creatinine Clr Calc Pharmacy 96.5 ml/min; Est GFR (African American) 103.4 ml/min; Est GFR (Non-African American) 89.2 ml/min
[2021-05-17] MEDS: GABAPENTIN 100 MG CAP PO SCH (07:50)
[2021-05-17] MEDS: CLOPIDOGREL BISULFATE 75 MG TAB PO SCH (07:51)
[2021-05-17] MEDS: ATORVASTATIN 40 MG TAB PO SCH (07:51)
[2021-05-17 08:18] LABS: Estimated Average Glucose 114 mg/dl; Hemoglobin A1C 5.6 % (4.5-5.6)
[2021-05-17] MEDS: ASPIRIN 81 MG ECTAB PO SCH (09:44)
[2021-05-17] MEDS: METOPROLOL SUCC 25MG EXT REL TAB PO SCH (09:45)
--- NOTE | 2021-05-17 12:32 | Neurology Progress Note ---
Date of Service May 17, 2021 Assessment & Plan (1) Acute CVA (cerebrovascular accident): Plan: 1. continue plavix 75 mg and aspirin 81 mg daily x 21 days then aspirin for life 2. avoid hypotension - 80-90% R ICA 3. Dr Figueroa not available for hospital consult until 05/27/21. out patient follow up with him and vascular surgery in [place] if 2nd opinion if needed 4. will inform patient once neuro vascular is arranged 5. PCP for medical management 6. images have been pushed over to [facility] system for further management (2) Carotid stenosis: Admission and Anticipated Discharge Date Admission Date: May 15, 2021 Supervising Physician Co-Signing Physician Notes I have seen and discussed above patient with Dr Payal Hanson, neurology Subjective Lorena is a 85 year old male with PMH-r asthma, moderate persistent; history of shortness of breath; chronic diastolic heart failure; history of prostate cancer- with seed implantation with an external beam boost complicated with strictures, and suprapubic catheter. Was brought to [facility] ED on 05/16/2021 after he was found choking on the food and after a few minutes later, he could not speak and felt some numbness in the left side of his body and it lasted only for 2 minutes. His family brought him to the hospital and his symptoms resolved.He did have some blurred vision in the left eye which has resolved. . He was not seen today he left before being seen. We will be arranging a follow up appointment with Neurovascular for evaluation of his R ICA Physical Exam Physical Exam: left before being seen Results & Data ([facility]) Vital Signs (Past 12 Hours) Vital Signs Temp Pulse Pulse Resp BP Pulse Ox 05/17/21 11:20 36.5 C 6 L 18 131/84 95 05/17/21 07:54 37.2 C 90 18 120/63 97 05/17/21 00:31 67 Diagnostic Findings CXR-Faint bibasilar airspace opacities which may represent atelectasis, pneumonia, and/or aspiration. CT head-No acute intracerebral pathology. Area of low attenuation in the high right frontal parietal lobe. This probably represents an old infarct. If indicated clinically, follow-up MRI could be obtained for further evaluation. Mild chronic bilateral maxillary sinusitis. CTA head-Negative CT angiogram of the brain with contrast. CTA neck-Marked noncalcified an additional calcified plaque at the origin of the right internal carotid artery with evidence for 80-90% stenosis present. Minimal atherosclerotic plaque present at the origin of the left internal carotid artery. MRI brain-MR confirms a subacute infarct in the high right frontal parietal region at the site of decreased attenuation on CT. . There is also evidence for mild small vessel disease bilaterally. Mild bilateral maxillary sinusitis. (1) Carotid stenosis Laterality: right Qualified Code(s): I65.21 - Occlusion and stenosis of right carotid artery
[2021-05-17] MEDS ORDERED: STROKE PATIENT DISCHARGE STA (12:39)
--- NOTE | 2021-05-17 12:40 | Hospitalist Progress Note ---
Date of Service May 17, 2021 delayed entry date of service noted above Assessment & Plan (1) Acute CVA (cerebrovascular accident): Plan: ASSESSMENT AND PLAN: This is an 85-year-old male who presents with transient ischemic attack kind of symptoms. 1. Acute CVA - choking episode and brief episode of difficulty speaking and left-sided weakness that resolved. Imaging workup shows right internal carotid artery, 80% to 90% stenosis. ER spoke with [place] neurologist and recommended aspirin and Plavix - Brain MRI: 1. MR confirms a subacute infarct in the high right frontal parietal region at the site of decreased attenuation on CT. 2. There is also evidence for mild small vessel disease bilaterally. 3. Mild bilateral maxillary sinusitis. - Echo: Moderate concentric LVH Normal LV systolic function, EF 55 to 60% No segmental left ventricular wall motion allergies Grade 1 diastolic dysfunction The intra-atrial septum is intact with no evidence of an atrial septal defect Injection of contrast documented no intra-atrial shunt - Neurologist consulted-Dr. White, appreciate the recommendations started on ASA and Plavix, Lipitor 40mg Permissive hypertension Will need vascular surgery evaluation in 2 weeks PT/OT/speech therapy evaluation: recommend d/c home 2. History of hypertension: Continue his metoprolol succinate and spironolactone. Holding his amlodipine for permissive hypertension. 3. History of asthma, moderate persistent: Continue home inhalers. 4. History of prostate cancer: Status post seed implantation with an external beam boost complicated with strictures, and status post suprapubic catheter 5. Chronic diastolic congestive heart failure: Continue his spironolactone. -Currently euvolemic Hold spironolactone in light of receiving CT IV contrast 6. History of right bundle-branch block, first-degree AV block, left anterior fascicular block: Episode of nonsustained V-tach, on Zio monitor. On metoprolol. Follow up with cardiology. 7. Deep venous thrombosis prophylaxis: Sequential compression devices for now. Disposition: d/c home , ff up with PCP in 1 week Admission and Anticipated Discharge Date Admission Date: May 15, 2021 Subjective ff up for acute CVA etc seen resting in bedside chair, comfortable alert, oriented x 3 states he feels fine, back to baseline no problems swallowing, left sided weakness or any other neuro symptoms no chest pain, dyspnea, palpitations, dizziness no other symptoms states he is ready and would like to be discharged Review of Systems Review of Systems: all noted and negative except for above Physical Exam Physical Exam: General- oriented x 3, not in distress, speaks in sentences with no effort or accessory muscle use Eyes- anicteric Neck- no JVD Lungs- faint wheeze BL Heart- normal rate, regular rhythm; no murmurs Abdomen- normal bowel sounds, nondistended, soft, nontender Extremities- no pretibial edema, no calf tenderness Neuro- alert, oriented x 3; no gross focal neurologic deficits Skin- warm & dry Results & Data Results & Data ([facility]) Vital Signs (Past 12 Hours) Vital Signs Temp Pulse Resp BP Pulse Ox 05/17/21 11:20 36.5 C 6 L 18 131/84 95 05/17/21 07:54 37.2 C 90 18 120/63 97 all noted and reviewed including below
--- NOTE | 2021-05-24 15:14 | Discharge Summary ---
Date of Service May 24, 2021 Admission HPI Per Admitting Provider HISTORY OF PRESENT ILLNESS: This is an 85-year-old male with past medical history significant for asthma, moderate persistent; history of shortness of breath; chronic diastolic heart failure; history of prostate cancer, status post treated with seed implantation with an external beam boost complicated with strictures, and status post suprapubic catheter. Was brought in because of TIA kind of symptoms. Around 6:00 in the evening, the patient choked on the food and after a few minutes later, he could not speak and felt some numbness in the left side of his body and it lasted only for 2 minutes. His family brought him to the hospital and his symptoms resolved. Currently, resting comfortably, hemodynamically stable. Imaging studies initially showed completely occluded right carotid artery and ER spoke with [place] neurologist and recommended aspirin, Plavix, stroke workup. Currently denies any headache. No dizziness. Initially had some blurred vision in the left eye that is resolved. Speech is clear. No dysphagia. Currently, no nausea, no vomiting, no chest pain. He has chronic shortness of breath and chronic sinusitis and cough. Follows with pulmonary. Presently, no nausea, no abdominal pain. Normal bowel and bladder movements. No swelling in the legs. The patient says he can walk about 50 yards on flat surfaces. Has difficulty climbing steps . ALLERGIES: SULFA ANTIBIOTICS. PAST MEDICAL HISTORY: As mentioned above. PAST SURGICAL HISTORY: Colonoscopy with lesion removal. Cystourethroscopy with lithotripsy, spine injection, laparoscopic cholecystectomy, removal of nose p olyps, tonsillectomy and adenoidectomy. MEDICATIONS: The patient is on amlodipine 5 mg p.o. daily, bladder irrigation, Advair Diskus 500/50 mcg 1 inhalation b.i.d., gabapentin 100 mg p.o. t.i.d., m etoprolol succinate 25 mg p.o. a.m., spironolactone 12.5 mg p.o. a.m. FAMILY HISTORY: Significant for sister has AFib, brother has kidney disease, father had MVA, sister has multiple fractures due to fall, mother has brain bleed. SOCIAL HISTORY: . No smoking. Alcohol, wine daily with dinner. No drug use. REVIEW OF SYSTEMS: As per HPI. Rest of review of systems is negative. Admission Exam (Per Admitting) Constitutional PHYSICAL EXAMINATION: GENERAL: The patient is of moderate build, not in acute distress. VITAL SIGNS: Temperature 36.6, pulse 103, respirations 16, blood pressure 161/81, oxygen 94% on room air. HEENT: Pupils equal, round, and reactive to light. Oral mucosa moist. NECK: No JVD, no neck masses. CARDIOVASCULAR: S1 and S2 heard. Regular rate and rhythm. No murmur, no gallop. RESPIRATORY SYSTEM: Normal AP diameter. No accessory muscle use. No wheezing, no crackles. ABDOMEN: Soft, bowel sounds present, nontender, no distention. CENTRAL NERVOUS SYSTEM: Alert and oriented. Speech is clear. No facial droop seen. Power 5/5 in all extremities. No pronator drift. Sensation is intact. Coordination of movements normal. Position sense intact. EXTREMITIES: No edema, no erythema. Discharge Data Consultations 05/15/21 21:59 ED Decision to Admit Stat 05/16/21 08:00 Consult Neurology Routine Consult Vascular Surgery Routine Procedures Performed XR chest 1V portable CLINICAL HISTORY: Stroke Like Symptoms, choking TECHNIQUE: Single frontal radiograph of the chest was obtained. Comparison: Comparison is made to chest one view 12/13/2017 FINDINGS: No lines and tubes are seen. Cardiomegaly is noted. Faint bibasilar airspace opacities are seen. No evidence of pleural effusion or pneumothorax. IMPRESSION: Faint bibasilar airspace opacities which may represent atelectasis, pneumonia, and/or aspiration. ACT 112: Negative or not required by law. CT angio head w con CLINICAL HISTORY: Stroke Like Symptoms COMPARISON STUDY: CT brain without contrast from 05/15/2021 CT DOSE: TECHNIQUE: CT Angio of the brain was performed.followed by image post processing with coronal, and sagittal MIP reformats. Contrast Volume: Optiray 320, 120 ml FINDINGS: Vascular findings: There is normal enhancement within the internal carotid arteries bilaterally. There is normal enhancement noted within the anterior, middle and posterior cerebral arteries. Nonvascular findings: There is homogeneous attenuation of the brain parenchyma bilaterally. There is no evidence for an acute infarct or cerebral edema. IMPRESSION: Negative CT angiogram of the brain with contrast. ACT 112: Negative or not required by law. CT angio neck with con CLINICAL HISTORY: Stroke Like Symptoms COMPARISON STUDY: No previous studies for comparison. CT DOSE: 1691.30 mGy.cm TECHNIQUE: CT Angio of the neck was performed.followed by image post processing with coronal, and sagittal MIP reformats.. Stenosis assessment by NASCET byron emery. Contrast Volume: Optiray 320, 120 ml FINDINGS: Vascular findings: Right common carotid artery: Patent without significant stenosis. Right internal carotid artery: There is marked noncalcified and calcified atherosclerotic plaque present at the origin of the right internal carotid artery with approximately 80-90% stenosis present. The distal right internal carotid artery is then patent.. Right vertebral artery: Patent without significant stenosis. Is congenitally decreased in size when compared to the left. Left common carotid artery: Patent without significant stenosis. Left internal carotid artery: Patent without significant stenosis.Minimal atherosclerotic plaque is present at its origin. Left vertebral artery: Patent without significant stenosis. There is a dominant left vertebral artery. Nonvascular findings: The parotid and submandibular salivary glands appear normal. There is no enlarged cervical adenopathy noted. The airway appears patent. The thyroid gland appears within normal limits. There is breathing motion artifact at the lung apices.. Impression: 1. Marked noncalcified an additional calcified plaque at the origin of the right internal carotid artery with evidence for 80-90% stenosis present. 2. Minimal atherosclerotic plaque present at the origin of the left internal carotid artery. ACT 112: Negative or not required by law. Electronically signed by: Dread Gill M.D. 05/15/2021 10:59 PM MR brain wo/w con CLINICAL HISTORY: tia/cva. Left-sided tingling with loss of speech last evening. COMPARISON STUDY: CT and CTA brain from 05/15/2021 TECHNIQUE: Multiplanar multisequence images of the brain were performed before and after Gadavist, 10 mL of IV contrast. Diffusion weighted imaging and ADC mapping was also performed. FINDINGS: Extra-axial space: There is no evidence for a subdural hematoma, There are no extra-axial fluid collections. Ventricles and cisterns: The ventricles are normal in size and configuration. There is no evidence for midline shift or mass effect. Parenchyma: On noncontrast images, there is evidence for a subacute infarct in the high right frontal parietal lobe at the site of low attenuation seen on CT. Acute diffusion weighted abnormalities are seen on ADC mapping and diffusion weighted imaging. Mild surrounding edema is present. Additionally, there is bright signal seen on FLAIR weighted sequences within the centrum semiovale and periventricular white matter characteristic of remote small vessel disease. The sulci and gyri appear normal without effacement. The midline structures are unremarkable. The posterior fossa structures appear normal. On postcontrast images, there is no evidence for enhancing mass lesion. Osseous structures: The paranasal sinuses are well aerated. Small fluid levels are seen along the floors of both maxillary antra. The remaining paranasal sinuses are clear. The mastoid air cells are well aerated. Soft tissues: No focal soft tissue abnormalities are identified. IMPRESSION: 1. MR confirms a subacute infarct in the high right frontal parietal region at the site of decreased attenuation on CT. 2. There is also evidence for mild small vessel disease bilaterally. 3. Mild bilateral maxillary sinusitis. ACT 112: Negative or not required by law. Electronically signed by: Dread Gill M.D. 05/16/2021 12:26 PM Hospital Course (1) Acute CVA (cerebrovascular accident): ASSESSMENT AND PLAN: This is an 85-year-old male who presents with transient ischemic attack kind of symptoms. 1. Acute CVA- right frontal parietal region - choking episode and brief episode of difficulty speaking and left-sided weakness that resolved. Imaging workup shows right internal carotid artery, 80% to 90% stenosis. ER spoke with [place] neurologist and recommended aspirin and Plavix - Brain MRI: 1. MR confirms a subacute infarct in the high right frontal parietal region at the site of decreased attenuation on CT. 2. There is also evidence for mild small vessel disease bilaterally. 3. Mild bilateral maxillary sinusitis. - Echo: Moderate concentric LVH Normal LV systolic function, EF 55 to 60% No segmental left ventricular wall motion allergies Grade 1 diastolic dysfunction The intra-atrial septum is intact with no evidence of an atrial septal defect Injection of contrast documented no intra-atrial shunt - Neurologist consulted-Dr. White, appreciate the recommendations started on ASA and Plavix, Lipitor 40mg - continue plavix 75 mg and aspirin 81 mg daily x 21 days then aspirin for life Permissive hypertension Will need vascular surgery evaluation in 2 weeks PT/OT/speech therapy evaluation: recommend d/c home 2. History of hypertension: Continue his metoprolol succinate and spironolactone. -- Hold amlodipine to prevent hypotension 3. History of asthma, moderate persistent: -- ff up with Pulm 4. History of prostate cancer: Status post seed implantation with an external beam boost complicated with strictures, and status post suprapubic catheter 5. Chronic diastolic congestive heart failure: Continue his spironolactone. -Currently euvolemic 6. History of right bundle-branch block, first-degree AV block, left anterior fascicular block: Episode of nonsustained V-tach, on Zio monitor. On metoprolol. Follow up with cardiology. Disposition: d/c home , ff up with PCP in 1 week
== END 2021-05-17 12:40 | disposition home or self-care (01) | DRG 65 ==
LOC: ED 19:16 → 2S 23:35

== ENCOUNTER 2022-06-03 15:42 | Inpatient (IN) ==
--- NOTE | 2022-06-03 15:56 | ED Triage Note ---
Date of Service June 03, 2022 History of Present Illness This patient was briefly evaluated while in triage. An abbreviated physical exam was performed. This patient is a 86-year-old Male who presents to the ED for evaluation of weakness and chills. Physical Exam VITALS: Vitals are noted on the nurse's note and reviewed by myself. GENERAL: This is an 86-year-old male, ill-appearing. SKIN: The skin was without rashes. HEART: Regular rate and rhythm without murmurs gallops or rubs. LUNGS: Clear to auscultation bilaterally without wheezes, rales or rhonchi. NEURO: Patient was alert and oriented to person place and time. Initial orders for labs and / or imaging were placed and patient was placed in the waiting area until a bed is available. Please see further documentation for the full ED course. MDM / Impression Impression Impression: COVID-19, Sepsis, Breathlessness, Pneumonia, Acute UTI, Renal calculus, left, Elevated troponin : Sepsis Qualifiers: Sepsis type: sepsis due to unspecified organism Sepsis acute organ dysfunction status: with acute organ dysfunction Acute respiratory failure type: with hypoxia Severe sepsis shock status: without septic shock Pneumonia Qualifiers: Pneumonia type: due to unspecified organism Laterality: bilateral Lung location: lower lobe of lung Qualified Code(s): J18.9 - Pneumonia, unspecified organism
[2022-06-03] MEDS ORDERED: SODIUM CHLORIDE 0.9% 1000ML 2,000 ML IV ONE (16:11)
[2022-06-03] MEDS ORDERED: methylPREDNISolone 125 MG/2 ML VIAL IV STA (16:11)
[2022-06-03] MEDS ORDERED: ALBUT/IPRATROP 3MG/0.5MG NEB 3 ML VIAL NEB ONE (16:11)
[2022-06-03] MEDS ORDERED: ACETAMINOPHEN 500 MG TAB PO STA (16:14)
[2022-06-03] MEDS ORDERED: PIPERACILLIN/TAZOBACTAM 4.5 GM/120 ML BAG IV ONE (16:26)
--- NOTE | 2022-06-03 16:26 | Emergency Department Note ---
Impression & Plan COVID-19, Sepsis, Breathlessness, Pneumonia, Acute UTI, Renal calculus, left, Elevated troponin ED Provider Note Provider: Tim Kearns MD DATE OF SERVICE: 06/03/2022 CHIEF COMPLAINT: Chills, shortness of breath, cough HISTORY OF PRESENT ILLNESS: Patient is a 86-year-old gentleman history of CVA, suprapubic catheter related to prostate cancer, hypertension, and bronchitis by the 's report presenting here today reporting onset of cough and illness about 3 days ago on Monday. Does not think that their thermometer works at home. Nonproductive in nature. Chills and rigors reported by description at home. Reports increased difficulty to breathe today. No sick contacts reported . Reports increased lower back pain but denies abdominal pain or chest pain. Has been using home Advair which has helped some with his breathing. Not on oxygen at home. Baseline slight swelling of the legs. Reports a bit of sore throat with nasal congestion. Has been using some Mucinex and Tessalon cough medicine. No Tylenol today. PAST MEDICAL HISTORY: As noted above MEDICATIONS: Reviewed home medications does not include oxygen SOCIAL HISTORY: Non-smoker, lives at home with PHYSICAL EXAM: GENERAL: alert and oriented on stretcher with some increased work of breathing Head: normocephalic and atraumatic EYES: No injection, discharge or icterus. NECK: Trachea midline. ENT: Mucous membranes pink and moist. Pharynx without erythema or exudate. LUNGS: Airway patent. Breath sounds with some diffuse expiratory wheeze and increased work of breathing. Occasionally coughing HEART: Regular tachycardic rate and rhythm. No chest wall tenderness ABDOMEN: Soft and non-tender, without guarding or rebound. Lower suprapubic catheter in place in the abdomen without significant erythema. No significant flank or CVA tenderness. SKIN: Acyanotic, warm, dry, without rashes EXTREMITIES: Without significant tenderness with 1+ bilateral lower extremity edema reported as baseline NEUROLOGICAL: No focal deficits. No aphasia. No facial droop or slurred speech. EK bpm normal sinus rhythm right bundle branch block. Nonspecific T wave changes in comparison to previous from May 15, 2021 similar with slightly longer QTC today of 518. Some questionable inferior ST changes. CONTINUOUS CARDIAC MONITORING: was ordered and showed a heart rate of 80s-120s bpm in normal sinus rhythm to sinus tachycardia with right bundle branch block Patient's laboratory studies and imaging reviewed. Differential includes Viral syndrome, otitis, pharyngitis, pneumonia, influenza, meningitis, urinary tract infection, sepsis, bacteremia, bronchitis, as well as other pathologies. IMPRESSION/MEDICAL DECISION MAKING: Details as above but shortness of breath and cough for several days worsening with reported what sounds like rigors. Febrile and tachycardic with tachypnea here upon presentation. Given IV fluids. Blood cultures ordered. Reports some lower back pain little more on the left but not significant tender across the abdomen. Has a suprapubic catheter. Question if he is having a bronchitis exacerbation (describes a history of this disease) or pneumonia or possible intra-abdominal infection given the bladder catheter. Tylenol ordered as well as a DuoNeb he is significantly wheezy. Given some Solu-Medrol given the significant wheeze on exam. Borderline oxygen requirement satting around 90% on room air at rest. EKG and troponin sent but not having active chest pain. We will complete a CT abdomen pelvis to exclude intra-abdominal pathology. Will cover empirically with Zosyn given concerns for sepsis. Also returns with mild leukocytosis just over 11. No significant anemia. Hyponatremia. Normal kidney function. No significant transaminitis with an elevated procalcitonin and urinalysis concerning for infection. Again receiving broad-spectrum antibiotics and IV fluids. Chest x-ray also with mild pulmonary edema and small left effusion and possible bilateral atelectasis or pneumonia. Again receiving antibiotics. Receiving 30 ml/kg based on ideal body weight for sepsis criteria. Will require admission. Troponin mildly elevated and EKG with bundle branch block but not clearly meeting STEMI criteria. Not having active chest pain. Does come back COVID-positive. Suprapubic catheter in place with a critical finding for cystitis based on the CT report although 6 mm obstructing stone in the left superior kidney is noted. Lactate does return normal. Was able to wean the oxygen below with a dose of dexamethasone. Discussed with ur ology recommended antibiosis at this time and will evaluate but if he is not decompensating may watch this as this is only a partial obstruction of the superior portion of the kidney stone. Urology to evaluate here in the emergency department the hospitalist was contacted for admission. Patient later tells me that brother had a bad outcome with nephrostomy tubes in the past and the patient is very much against this. He seems to a stabilized and looks improved compared to initial evaluation. DIAGNOSIS: Acute UTI, pneumonia, shortness of breath, sepsis, elevated troponin, kidney stone DISPOSITION: Hospitalist will evaluate Patient was agreeable with this plan. Critical Care I have personally spent 38 minutes of critical care time in the direct management of this patient. This includes bedside care, interpretation of diagnostic studies, and testing, discussion with consultants, patient, and family members, and other required patient management activities. These 38 minutes is in excess of all separately billable procedures. Past Med/Surg History Medical History (Updated 06/03/22 @ 19:39 by Tim Kearns M.D.) Bronchitis History of nephrolithiasis History of radiation therapy HTN (hypertension) Prostate cancer Suprapubic catheter Surgical History (Updated 12/09/19 @ 07:33 by KRISSY Lee) H/O shoulder surgery History of cholecystectomy History of parotidectomy History of right hip replacement S/P TURP Family History Mother TIA (transient ischemic attack) Other Cancer Diabetes Social History Smoking Status: Never smoker Hx Alcohol Use: Yes Alcohol type: wine Hx Substance Use: No Preferred Language: Occitan Communication Ability: Effective Hearing Ability: Use of Hearing Aid marital status: Current Living Situation: Spouse current occupational status: retired How many Children do You have: 2 Feels Safe at Home: Yes Seatbelt Use: always Sunscreen Use: No Assistive Devices: Glasses Allergies Allergies Allergy/AdvReac Type Severity Reaction Status Date / Time Sulfa (Sulfonamide Allergy Intermediate RASH Verified 06/03/22 17:12 Antibiotics) mold Allergy Mild CONGESTION Verified 06/03/22 17:12 fluticasone furoate AdvReac Intermediate LARYNGITIS Verified 06/03/22 17:12 [From Breo Ellipta] vilanterol AdvReac Intermediate LARYNGITIS Verified 06/03/22 17:12 [From Breo Ellipta] Dust Mite Extract Allergy Mild CONGESTION Uncoded 06/03/22 17:12 Home Meds Home Medications Medication Instructions Recorded Confirmed metoprolol succinate 25 mg 25 mg PO QAM 05/15/21 06/03/22 tablet,extended release 24 hr spironolactone 25 mg tablet 12.5 mg PO QAM 05/15/21 06/03/22 gabapentin 100 mg capsule 100 mg PO DAILY 04/20/22 06/03/22 Previous Rx's Medication Instructions Recorded fluticasone 500 mcg-salmeterol 50 1 inh inhalation BID #60 ea 07/23/20 mcg/dose blistr powdr for inhalation (Advair Diskus) aspirin 81 mg tablet,delayed 81 mg PO QAM 30 days #30 tabs 05/17/21 release atorvastatin 40 mg tablet 40 mg PO QAM 30 days #30 tabs 05/17/21 Results & Data (ED) Vital Signs Vital Signs - 24 hr 06/03/22 15:52 06/03/22 16:39 06/03/22 16:54 Temperature 38.3 C H Temperature Source Oral Pulse Rate 121 H Pulse Rate [Right Apical] 108 H 104 H Pulse Rhythm Regular Pulse Strength Normal Respiratory Rate 26 H 24 Respiratory Effort / Characteristics Non-Labored Spontaneous Spontaneous Respiratory Depth Normal Respiratory Pattern Regular Blood Pressure 121/71 Blood Pressure [Right Arm] 150/85 H Blood Pressure Mean 87 Blood Pressure Mean [Right Arm] 106 Blood Pressure Position Sitting Pulse Oximetry 93 94 97 Oxygen Delivery Method Room Air Nasal Cannula Nebulizer Oxygen Flow Rate 2 Sepsis Recent Fever Within 48 Hours Yes Sepsis New/Unexplained Change in Mental Status No Sepsis Action Taken by Nursing Physician Notified 06/03/22 16:54 06/03/22 18:13 Temperature 36.8 C Temperature Source Oral Pulse Rate Pulse Rate [Right Apical] 92 H Pulse Rhythm Pulse Strength Respiratory Rate Respiratory Effort / Characteristics Respiratory Depth Respiratory Pattern Blood Pressure Blood Pressure [Right Arm] 110/67 Blood Pressure Mean Blood Pressure Mean [Right Arm] 81 Blood Pressure Position Pulse Oximetry 97 94 Oxygen Delivery Method Nebulizer Nasal Cannula Oxygen Flow Rate 2 Sepsis Recent Fever Within 48 Hours Sepsis New/Unexplained Change in Mental Status Sepsis Action Taken by Nursing Laboratory Data 06/03/22 16:16 06/03/22 16:16 Lab Results 06/03/22 06/03/22 06/03/22 Range/Units 16:16 16:16 16:16 WBC 11.13 H (4.8-10.8) K/ul RBC 5.47 (4.63-6.08) M/uL Hgb 17.9 (14.0-18.0) g/dl POC Hgb (14.0-18.0) g/dl Hct 51.6 H (40.1-51.0) % POC Hct (42-52) % MCV 94.3 (80.0-100.0) fL MCH 32.7 (25.0-34.0) pg MCHC 34.7 (32.0-36.0) g/dL RDW Std Deviation 48.0 H (36.4-46.3) fL RDW Coeff of Fredrick 13.8 (11.5-14.5) % Plt Count 136 (130-400) K/uL MPV 10.9 (9.4-12.4) fL Immature Gran % (Auto) 0.6 % Neut % (Auto) 89.8 % Lymph % (Auto) 7.5 % [place] % (Auto) 1.3 % Eos % (Auto) 0.4 % Baso % (Auto) 0.4 % Neut # (Auto) 9.99 H (1.4-6.5) K/uL Lymph # (Auto) 0.84 L (1.2-3.4) K/uL [place] # (Auto) 0.14 L (0.24-0.82) K/uL Eos # (Auto) 0.04 (0-0.50) K/uL Baso # (Auto) 0.05 (0-0.2) K/uL Immature Gran # (Auto) 0.07 H (0.00-0.02) K/uL POC Sodium (135-144) mmol/L Sodium 134 L (136-145) mmol/L POC Potassium (3.3-5.0) mmol/L Potassium 3.9 (3.5-5.1) mmol/L POC Chloride (101-112) mmol/L Chloride 103 (98-107) mmol/L Carbon Dioxide 20 L (21-32) mmol/L POC Total CO2 (24-31) mmol/L Anion Gap 11 (3-11) POC Anion Gap (16-25) mmol/L POC BUN (7-18) mg/dl BUN 24 H (6-23) mg/dl Creatinine 1.14 (0.6-1.4) mg/dl POC Creatinine (0.6-1.3) mg/dl Est Cr Clr Drug Dosing 52.3 ml/min Est GFR ( Amer) 66.6 ml/min Est GFR (Non-Af Amer) 57.5 ml/min BUN/Creatinine Ratio 21.1 H (10-20) Glucose 151 H (70-99(Fasting)) mg/dl POC Glucose (other) (70-99) mg/dl Lactate 1.8 (0.4-2.0) mmol/L Calcium 8.3 L (8.5-10.1) mg/dl POC Ioniz Calcium [place] (1.12-1.32) mmol/l Total Bilirubin 1.3 H (0.2-1.0) mg/dl AST 35 (13-39) U/L ALT 43 (7-52) U/L Alkaline Phosphatase 122 H (34-104) U/L Troponin I High Sens 93.2 H* (0-20) pg/ml Total Protein 6.7 (6.0-8.3) gm/dl Albumin 3.7 (3.4-5.0) gm/dl Globulin 3.0 (2.5-4.0) gm/dl Albumin/Globulin Ratio 1.2 (0.9-2) Procalcitonin (0-0.5) ng/ml Urine Color Urine Appearance (Clear) Urine pH (4.5-7.5) Ur Specific [place] (1.000-1.030) Urine Protein (Negative) Urine Glucose (UA) (Negative) Urine Ketones (Negative) Urine Blood (Negative) Urine Nitrite (Negative) Urine Bilirubin (Negative) Urine Urobilinogen (Negative) Ur Leukocyte Esterase (Negative) Urine WBC (Auto) (0-5) /hpf Urine RBC (Auto) (0-4) /hpf U Hyaline Cast (Auto) (0-5) /lpf U Epithel Cells (Auto) (0-5) /lpf Urine Bacteria (Auto) (Negative) SARS-CoV-2 (PCR) (Negative) Influenza Type A (PCR) (Neg) Influenza Type B (PCR) (Neg) RSV (RT-PCR) (Neg) 06/03/22 06/03/22 06/03/22 Range/Units 16:16 16:16 16:16 WBC (4.8-10.8) K/ul RBC (4.63-6.08) M/uL Hgb (14.0-18.0) g/dl POC Hgb (14.0-18.0) g/dl Hct (40.1-51.0) % POC Hct (42-52) % MCV (80.0-100.0) fL MCH (25.0-34.0) pg MCHC (32.0-36.0) g/dL RDW Std Deviation (36.4-46.3) fL RDW Coeff of Fredrick (11.5-14.5) % Plt Count (130-400) K/uL MPV (9.4-12.4) fL Immature Gran % (Auto) % Neut % (Auto) % Lymph % (Auto) % [place] % (Auto) % Eos % (Auto) % Baso % (Auto) % Neut # (Auto) (1.4-6.5) K/uL Lymph # (Auto) (1.2-3.4) K/uL [place] # (Auto) (0.24-0.82) K/uL Eos # (Auto) (0-0.50) K/uL Baso # (Auto) (0-0.2) K/uL Immature Gran # (Auto) (0.00-0.02) K/uL POC Sodium (135-144) mmol/L Sodium (136-145) mmol/L POC Potassium (3.3-5.0) mmol/L Potassium (3.5-5.1) mmol/L POC Chloride (101-112) mmol/L Chloride (98-107) mmol/L Carbon Dioxide (21-32) mmol/L POC Total CO2 (24-31) mmol/L Anion Gap (3-11) POC Anion Gap (16-25) mmol/L POC BUN (7-18) mg/dl BUN (6-23) mg/dl Creatinine (0.6-1.4) mg/dl POC Creatinine (0.6-1.3) mg/dl Est Cr Clr Drug Dosing ml/min Est GFR ( Amer) ml/min Est GFR (Non-Af Amer) ml/min BUN/Creatinine Ratio (10-20) Glucose (70-99(Fasting)) mg/dl POC Glucose (other) (70-99) mg/dl Lactate (0.4-2.0) mmol/L Calcium (8.5-10.1) mg/dl POC Ioniz Calcium [place] (1.12-1.32) mmol/l Total Bilirubin (0.2-1.0) mg/dl AST (13-39) U/L ALT (7-52) U/L Alkaline Phosphatase (34-104) U/L Troponin I High Sens (0-20) pg/ml Total Protein (6.0-8.3) gm/dl Albumin (3.4-5.0) gm/dl Globulin (2.5-4.0) gm/dl Albumin/Globulin Ratio (0.9-2) Procalcitonin 1.51 H (0-0.5) ng/ml Urine Color Yellow Urine Appearance Cloudy A (Clear) Urine pH 7.5 (4.5-7.5) Ur Specific [place] 1.016 (1.000-1.030) Urine Protein 2+ H (Negative) Urine Glucose (UA) Negative (Negative) Urine Ketones Trace H (Negative) Urine Blood 3+ H (Negative) Urine Nitrite Negative (Negative) Urine Bilirubin Negative (Negative) Urine Urobilinogen Negative (Negative) Ur Leukocyte Esterase 2+ H (Negative) Urine WBC (Auto) >30 H (0-5) /hpf Urine RBC (Auto) 10-30 H (0-4) /hpf U Hyaline Cast (Auto) 1-5 (0-5) /lpf U Epithel Cells (Auto) 10-20 H (0-5) /lpf Urine Bacteria (Auto) 1+ H (Negative) SARS-CoV-2 (PCR) POSITIVE A* (Negative) Influenza Type A (PCR) Negative (Neg) Influenza Type B (PCR) Negative (Neg) RSV (RT-PCR) Negative (Neg) 06/03/22 Range/Units 16:24 WBC (4.8-10.8) K/ul RBC (4.63-6.08) M/uL Hgb (14.0-18.0) g/dl POC Hgb 18.7 H (14.0-18.0) g/dl Hct (40.1-51.0) % POC Hct 55 H (42-52) % MCV (80.0-100.0) fL MCH (25.0-34.0) pg MCHC (32.0-36.0) g/dL RDW Std Deviation (36.4-46.3) fL RDW Coeff of Fredrick (11.5-14.5) % Plt Count (130-400) K/uL MPV (9.4-12.4) fL Immature Gran % (Auto) % Neut % (Auto) % Lymph % (Auto) % [place] % (Auto) % Eos % (Auto) % Baso % (Auto) % Neut # (Auto) (1.4-6.5) K/uL Lymph # (Auto) (1.2-3.4) K/uL [place] # (Auto) (0.24-0.82) K/uL Eos # (Auto) (0-0.50) K/uL Baso # (Auto) (0-0.2) K/uL Immature Gran # (Auto) (0.00-0.02) K/uL POC Sodium 134 L (135-144) mmol/L Sodium (136-145) mmol/L POC Potassium 4.6 (3.3-5.0) mmol/L Potassium (3.5-5.1) mmol/L POC Chloride 104 (101-112) mmol/L Chloride (98-107) mmol/L Carbon Dioxide (21-32) mmol/L POC Total CO2 22 L (24-31) mmol/L Anion Gap (3-11) POC Anion Gap 14.0 L (16-25) mmol/L POC BUN 33 H (7-18) mg/dl BUN (6-23) mg/dl Creatinine (0.6-1.4) mg/dl POC Creatinine 1.1 (0.6-1.3) mg/dl Est Cr Clr Drug Dosing ml/min Est GFR ( Amer) ml/min Est GFR (Non-Af Amer) ml/min BUN/Creatinine Ratio (10-20) Glucose (70-99(Fasting)) mg/dl POC Glucose (other) 150 H (70-99) mg/dl Lactate (0.4-2.0) mmol/L Calcium (8.5-10.1) mg/dl POC Ioniz Calcium [place] 0.99 L (1.12-1.32) mmol/l Total Bilirubin (0.2-1.0) mg/dl AST (13-39) U/L ALT (7-52) U/L Alkaline Phosphatase (34-104) U/L Troponin I High Sens (0-20) pg/ml Total Protein (6.0-8.3) gm/dl Albumin (3.4-5.0) gm/dl Globulin (2.5-4.0) gm/dl Albumin/Globulin Ratio (0.9-2) Procalcitonin (0-0.5) ng/ml Urine Color Urine Appearance (Clear) Urine pH (4.5-7.5) Ur Specific [place] (1.000-1.030) Urine Protein (Negative) Urine Glucose (UA) (Negative) Urine Ketones (Negative) Urine Blood (Negative) Urine Nitrite (Negative) Urine Bilirubin (Negative) Urine Urobilinogen (Negative) Ur Leukocyte Esterase (Negative) Urine WBC (Auto) (0-5) /hpf Urine RBC (Auto) (0-4) /hpf U Hyaline Cast (Auto) (0-5) /lpf U Epithel Cells (Auto) (0-5) /lpf Urine Bacteria (Auto) (Negative) SARS-CoV-2 (PCR) (Negative) Influenza Type A (PCR) (Neg) Influenza Type B (PCR) (Neg) RSV (RT-PCR) (Neg) Administered Medications Discontinued Medications Acetaminophen (Acetaminophen 500 Mg Tab) 1,000 mg PO NOW STA Stop: 06/03/22 16:15 Last Admin: 06/03/22 16:28 Dose: 1,000 mg Documented By: SHREYA Albuterol (Albut/Ipratrop 3mg/0.5mg Neb 3 Ml Vial) 12 ml NEB ONE ONE; Protocol Stop: 06/03/22 16:12 Last Admin: 06/03/22 16:39 Dose: 12 ml Documented By: [facility] Dexamethasone Sodium Phosphate (DexamethasonePf 10 Mg/Ml Vial) 6 mg IV NOW ONE Stop: 06/03/22 18:12 Last Admin: 06/03/22 18:19 Dose: 6 mg Documented By: SHREYA Sodium Chloride (Nss 1000ml) 2,000 mls @ 999 mls/hr IV .Q2H1M ONE Stop: 06/03/22 18:11 Last Infusion: 06/03/22 18:25 Dose: 0 mls/hr Documented By: Admin: 06/03/22 16:23 Dose: 999 mls/hr Documented By: SHREYA Piperacillin Sod/Tazobactam Sod (Zosyn) 4.5 gm in 120 mls @ 240 mls/hr IV NOW ONE Stop: 06/03/22 16:55 Last Infusion: 06/03/22 18:00 Dose: 0 mls/hr Documented By: Admin: 06/03/22 17:30 Dose: 240 mls/hr Documented By: SHREYA Sodium Chloride (Nss) 250 mls @ 999 mls/hr IV .Q16M ONE Stop: 06/03/22 17:22 Last Infusion: 06/03/22 19:32 Dose: 0 mls/hr Documented By: Admin: 06/03/22 19:16 Dose: 999 mls/hr Documented By: SHREYA Ioversol (Optiray 350 100ml) 86 ml IV ONCE ONE Stop: 06/03/22 17:23 Last Admin: 06/03/22 17:22 Dose: 86 ml Documented By: PANCHO Methylprednisolone (Methylprednisolone 125 Mg/2 Ml Vial) 60 mg IV NOW STA Stop: 06/03/22 16:12 Last Admin: 06/03/22 16:28 Dose: 60 mg Documented By: SHREYA Imaging Data Radiologist's Impression: Chest X-Ray 06/03/22 15:54 XR chest 1V portable CLINICAL HISTORY: Cough, fever TECHNIQUE: Single frontal radiograph of the chest was obtained. Comparison: Comparison is made to chest radiograph 05/15/2021 FINDINGS: No lines and tubes are seen. Cardiomegaly is noted. Bilateral lower lung predominant airspace opacities are seen. There is likely a small left pleural effusion. IMPRESSION: 1. Bilateral lower lung predominant airspace opacities which may represent atelectasis, pneumonia, and/or aspiration. 2. Small left pleural effusion. 3. Cardiomegaly and mild pulmonary edema. ACT 112: Negative or not required by law. Electronically signed by: Devin Lynn M.D. 06/03/2022 4:54 PM Abdomen/Pelvis CT 06/03/22 16:[address] WITH IV CONTRAST CT DOSE: 1476.38 mGy.cm HISTORY: Acute left-sided flank pain lower back pain, suprapubic cath, fever TECHNIQUE: Multiaxial CT images of the abdomen and pelvis were performed following the IV administration of 86 cc of Optiray, A dose lowering technique was utilized adhering to the principles of ALARA. COMPARISON STUDY: CT abdomen pelvis 09/19/2018, KUB 04/15/2022 FINDINGS: Chronic parenchymal changes of the lung bases suggestive of prior barium aspiration with scarring. Bronchial wall thickening and mucous plugging. No pneumatosis or pneumoperitoneum. Unremarkable spleen, and moderately atrophic pancreas. Adrenal glands are within normal limits. Cholecystectomy. Atrophy of the left hepatic lobe redemonstrated. Stable 2 cm left hepatic lobe cyst. Mild marginal nodularity of the liver. Patency of the hepatic and portal veins. Unremarkable appearance of the right kidney. The study is motion degraded. Delayed left-sided nephrogram with mild hydronephrosis of the superior pole collecting system secondary to a superior calyx 5 x 4 x 6 mm calculus on image 187. Probable punctate nonobstructing calculi of the inferior pole left kidney. Mild with perinephric stranding. Urinary bladder wall thickening with perivesicular stranding and partial distention. Suprapubic urinary bladder catheter in place. Numerous urinary bladder calculi measuring up to proximally 2 cm. Small amount of air within the bladder lumen is likely secondary to instrumentation. Atherosclerosis of the aorta and branch vessels. No lymphadenopathy identified. Colonic diverticulosis. Moderate colonic fecal retention. Scattered small bowel air-fluid levels are likely physiologic. Unremarkable soft tissues. Degenerative changes of the spine, pelvis and left hip. Right hip arthroplasty. IMPRESSION: 1. 6 mm obstructing calculus of the superior pole left kidney results in mild hydronephrosis with delayed nephrogram. Mild urothelial thickening is likely reactive however should be correlated with urinalysis to exclude infection. 2. Suprapubic catheter in place with equivocal findings of cystitis. 3. Urinary bladder calculi with questioned punctate left nephrolithiasis. 4. No bowel obstruction or bowel wall thickening. 5. Additional findings as above. ACT 112: Negative or not required by law. The above report was generated using voice recognition software. It may contain grammatical, syntax or spelling errors. Electronically signed by: Butch Bunn M.D. 06/03/2022 5:38 PM Discharge Plan Visit Data Chief Complaint: Fever Stated Complaint: FEVER ED Provider: Tim Kearns Discharge Problem: COVID-19, Sepsis, Breathlessness, Pneumonia, Acute UTI, Renal calculus, left, Elevated troponin Patient Disposition: Admitted As Inpatient Forms Stand Alone Forms: My [facility] Prescriptions Prescriptions: No Action fluticasone propion-salmeterol [Advair Diskus] 500-50 mcg/dose blister with device 1 inh inhalation BID Qty: 60 5RF spironolactone 25 mg tablet 12.5 mg PO QAM metoprolol succinate 25 mg tablet extended release 24 hr 25 mg PO QAM atorvastatin 40 mg Tablet 40 mg PO QAM 30 Days Qty: 30 2RF aspirin 81 mg Tablet,Delayed Release (Dr/Ec) 81 mg PO QAM 30 Days Qty: 30 2RF gabapentin 100 mg capsule 100 mg PO DAILY Referrals Referrals: Jose Luis Hanna DO [[employer]] -
[2022-06-03 16:31] LABS: Basophils # (auto) 0.05 K/uL (0-0.2); Basophils % (auto) 0.4 %; Eosinophils # (auto) 0.04 K/uL (0-0.50); Eosinophils % (auto) 0.4 %; Hematocrit (blood only) 51.6 % (40.1-51.0); Hemoglobin 17.9 g/dl (14.0-18.0); Immature Granulocytes # (auto) 0.07 K/uL (0.00-0.02); Immature Granulocytes % (auto) 0.6 %; Lymphocytes # (auto) 0.84 K/uL (1.2-3.4); Lymphocytes % (auto) 7.5 %; Mean Corpuscular Hemoglobin 32.7 pg (25.0-34.0); Mean Corpuscular Hgb Conc 34.7 g/dL (32.0-36.0); Mean Corpuscular Volume 94.3 fL (80.0-100.0); Mean Platelet Volume 10.9 fL (9.4-12.4); Monocytes # (auto) 0.14 K/uL (0.24-0.82); Monocytes % (auto) 1.3 %; Neutrophils # (auto) 9.99 K/uL (1.4-6.5); Neutrophils % (auto) 89.8 %; Platelet Count 136 K/uL (130-400); RDW Coefficient of Variation 13.8 % (11.5-14.5); Red Blood Count 5.47 M/uL (4.63-6.08); White Blood Count 11.13 K/ul (4.8-10.8)
[2022-06-03 16:36] LABS: Appearance Urine Cloudy (Clear); Bacteria Urine Automated 1+ (Negative); Bilirubin Urine Negative (Negative); Blood Urine 3+ (Negative); Color Urine Yellow; Glucose Urine UA Negative (Negative); Ketones Urine Trace (Negative); Leukocyte Esterase Urine 2+ (Negative); Nitrite Urine Negative (Negative); Specific Gravity Urine 1.016 (1.000-1.030); Urobilinogen Urine Negative (Negative); WBC Urine Automated >30 /hpf (0-5); pH Urine 7.5 (4.5-7.5)
[2022-06-03 16:37] LABS: Protein Urine 2+ (Negative)
[2022-06-03 16:37] LABS: iSTAT Creatinine 1.1 mg/dl (0.6-1.3); iSTAT Hemoglobin 18.7 g/dl (14.0-18.0); iSTAT Ionized Calcium 0.99 mmol/l (1.12-1.32); iSTAT Potassium 4.6 mmol/L (3.3-5.0)
--- NOTE | 2022-06-03 16:56 | XRay Report ---
XR chest 1V portable CLINICAL HISTORY: Cough, fever TECHNIQUE: Single frontal radiograph of the chest was obtained. Comparison: Comparison is made to chest radiograph 05/15/2021 FINDINGS: No lines and tubes are seen. Cardiomegaly is noted. Bilateral lower lung predominant airspace opaciti es are seen. There is likely a small left pleural effusion. IMPRESSION: 1. Bilateral lower lung predominant airspace opacities which may represent atelectasis, pneumonia, a nd/or aspiration. 2. Small left pleural effusion. 3. Cardiomegaly and mild pulmonary edema. ACT 112: Negative or not required by law. Electronically signed by: Devin Lynn M.D. 06/03/2022 4:54 PM
[2022-06-03 17:02] LABS: Albumin Globulin Ratio 1.2 (0.9-2); Albumin Level 3.7 gm/dl (3.4-5.0); BUN Creatinine Ratio 21.1 (10-20); Bilirubin,Total 1.3 mg/dl (0.2-1.0); Calcium 8.3 mg/dl (8.5-10.1); Creatinine Clr Calc Pharmacy 52.3 ml/min; Est GFR (African American) 66.6 ml/min; Est GFR (Non-African American) 57.5 ml/min; Potassium 3.9 mmol/L (3.5-5.1); Total Protein 6.7 gm/dl (6.0-8.3)
[2022-06-03 17:07] LABS: Troponin I High Sensitivity 93.2 pg/ml (0-20)
[2022-06-03] MEDS ORDERED: SODIUM CHLORIDE 0.9% 250 ML IV ONE (17:07)
[2022-06-03] MEDS ORDERED: OPTIRAY 350 100ml IV ONE (17:22)
[2022-06-03 17:24] LABS: Influenza A virus by PCR Negative (Neg); Influenza B virus by PCR Negative (Neg); RSV by PCR Negative (Neg)
--- NOTE | 2022-06-03 17:39 | CT Scan Report ---
ABDOMEN AND PELVIS CT WITH IV CONTRAST CT DOSE: 1476.38 mGy.cm HISTORY: Acute left-sided flank pain lower back pain, suprapubic cath, fever TECHNIQUE: Multiaxial CT images of the abdomen and pelvis were performed following the IV administrat ion of 86 cc of Optiray, A dose lowering technique was utilized adhering to the principles of ALARA. COMPARISON STUDY: CT abdomen pelvis 09/19/2018, KUB 04/15/2022 FINDINGS: Chronic parenchymal changes of the lung bases suggestive of prior barium aspiration with sc arring. Bronchial wall thickening and mucous plugging. No pneumatosis or pneumoperitoneum. Unremarkab le spleen, and moderately atrophic pancreas. Adrenal glands are within normal limits. Cholecystectomy . Atrophy of the left hepatic lobe redemonstrated. Stable 2 cm left hepatic lobe cyst. Mild marginal nodularity of the liver. Patency of the hepatic and portal veins. Unremarkable appearance of the right kidney. The study is motion degraded. Delayed left-sided nephrog linus with mild hydronephrosis of the superior pole collecting system secondary to a superior calyx 5 x 4 x 6 mm calculus on image 187. Probable punctate nonobstructing calculi of the inferior pole left k [place]. Mild with perinephric stranding. Urinary bladder wall thickening with perivesicular stranding and partial distention. Suprapubic urinary bladder catheter in place. Numerous urinary bladder calcul i measuring up to proximally 2 cm. Small amount of air within the bladder lumen is likely secondary t o instrumentation. Atherosclerosis of the aorta and branch vessels. No lymphadenopathy identified. Colonic diverticulosis. Moderate colonic fecal retention. Scattered small bowel air-fluid levels are likely physiologic. Unremarkable soft tissues. Degenerative changes of the spine, pelvis and left hip . Right hip arthroplasty. IMPRESSION: 1. 6 mm obstructing calculus of the superior pole left kidney results in mild hydronephrosis with del ayed nephrogram. Mild urothelial thickening is likely reactive however should be correlated with urin alysis to exclude infection. 2. Suprapubic catheter in place with equivocal findings of cystitis. 3. Urinary bladder calculi with questioned punctate left nephrolithiasis. 4. No bowel obstruction or bowel wall thickening. 5. Additional findings as above. ACT 112: Negative or not required by law. The above report was generated using voice recognition software. It may contain grammatical, syntax o r spelling errors. Electronically signed by: Butch Bunn M.D. 06/03/2022 5:38 PM
[2022-06-03 17:44] LABS: SARS CoV2 RNA(COVID-19) Ceph POSITIVE (Negative)
[2022-06-03] MEDS ORDERED: dexAMETHasone**PF** 10 MG/ML VIAL IV ONE (18:11)
--- NOTE | 2022-06-03 18:25 | History & Physical Report ---
Date of Service June 03, 2022 Assessment & Plan (1) Fever: (2) COVID-19: Plan: Possible pneumonia Patient is 86 y/o M with PMH HTN, asthma, h/o mucus plugging, pulmonary HTN, prostate CA s/p seed implantation complicated with strictures and s/p suprapubic catheter, carotid stenosis s/p carotid artery bifurcation angioplasty & stenting, TIA, GERD, RBBB, obesity presented to ER With complaint of chills and increased non-productive cough, SOB x 3 days. In ER T: 38.3, P: 121, R: 26, BP 121/71, 93% on room air. WBC: 11, lactate: 1.8, procalcitonin: 1.5, + COVID-19 PCR CXR: Bilateral lower lung predominant airspace opacities which may represent atelectasis, pneumonia, and/or aspiration. Small left pleural effusion. Cardiomegaly and mild pulmonary edema. In ER given 2250 mL NSS, Tylenol 1000 mg, hour-long albuterol nebulizer treatment, Solu-Medrol 60 mg IV, dexamethasone 6 mg IV, Zosyn Airborne isolation Supplemental oxygen Dexamethasone 6mg IV daily Dunebs Incentive spirometry, flutter valve Continue Zosyn for possible UTI, possible pneumonia CBC, CMP in am (3) Renal calculus, left: Plan: Chronic suprapubic catheter UA: 2+ leuk esterase, > 30 WBC, 10-30 RBC, 1+ bacteria, 10-20 epithelial cells. Difficult to interpret as patient with chronic catheter and likely colonization CT abdomen and pelvis: 1. 6 mm obstructing calculus of the superior pole left kidney results in mild hydronephrosis with delayed nephrogram. Mild urothelial thickening is likely reactive however should be correlated with urinalysis to exclude Urine culture pending Blood cultures pending Meets SIRS/Sepsis criteria. Possible UTI In ER given Zosyn Will continue Zosyn Gentle IVF CBC, BMP in a.m. Urology consult. Spoke with Dr. Montes De Oca. Recommends conservative management with broad-spectrum antibiotics currently. If patient worsens or decompensates request to be called immediately and we will consider procedure here or transfer to tertiary center for possible nephrostomy tube placement. Currently patient does not want to consider nephrostomy tube placement (4) Elevated troponin: Plan: Initial high-sensitivity troponin: 93. EKG sinus tachycardia, rate 100, RBBB, nonspecific ST changes. Prior EKG reviewed chronic RBBB Outpatient chart review: 12/16/2021 echo: EF: 65%, no wall motion abnormality, mild MR, mild AR, mild TR, proximal ascending thoracic aorta mildly enlarged 4.1 cm, aortic root mildly enlarged 4.4 cm Denies chest pain Suspect demand ischemia Trend troponin Echo EKG in a.m. Consider cardiology consult if worsening/uptrending troponins (5) Asthma: (6) Mucus plugging of bronchi: Plan: History of moderate persistent asthma, chronic mucous plugging Continue home inhalers, montelukast Duonebs (7) Prostate cancer: (8) Suprapubic catheter: Plan: History of prostate cancer, complication of stricture. Chronic suprapubic catheter Follows with [facility] urology (9) HTN (hypertension): Plan: Stable Continue amlodipine, metoprolol succinate (10) Chronic diastolic heart failure: Plan: Currently appears on the dry side Hold Lasix, spironolactone and reevaluate tomorrow (11) Carotid stenosis: (12) Brain TIA: Plan: S/P carotid artery bifurcation angioplasty & stent 05/2021 Continue aspirin, atorvastatin DVT Prophylaxis SCDs for now in case of procedure, reassess tomorrow Follows with Dr Rosalina Hanna for routine care Pt was seen and care coordinated with Dr Douglas. See addendum I spent total of 80 minutes of reviewing notes, outpatient records, labs, medications, coordinating with consultatants, documenting, and providing care for this patient excluding time spent in the performance of separately billed services. History of Present Illness Chief Complaint: Chills Primary Care Provider: Rosalina Hanna, Patient is 86 y/o M with PMH HTN, asthma, h/o mucus plugging, pulmonary HTN, prostate CA s/p seed implantation complicated with strictures and s/p suprapubic catheter, carotid stenosis s/p carotid artery bifurcation angioplasty & stenting, TIA, GERD, RBBB, obesity presented to ER With complaint of chills and increased cough x 3 days. Patient states 3 days ago had onset of tactile fever, chills. Reports chronic cough however had worsening cough. Reports cough is nonproductive. Reports increased wheezing and shortness of breath. Denies chest pain, palpitations. Patient also states 2 days ago had left mid and lower back discomfort. Denies any back pain today. Has suprapubic catheter and reports normal urine output. States 1 week ago had noted hematuria 1 morning but has not noted any recurrent hematuria. Denies abdominal pain, nausea, vomiting. States today had an episode of loose stool. Today reports generalized weakness. Denies known ill contacts. Did not have medications today. History of COVID-19 in 01/2022 and was able to recover at home. Reports 2 COVID- 19 vaccinations, No boosters. Denies MIRANDA, dizziness, syncope, vision changes, neck pain, orthopnea, hematemesis, sore throat, abdominal pain, paresthesias, increased extremity edema, rashes. Allergies Allergy/AdvReac Type Severity Reaction Status Date / Time Sulfa (Sulfonamide Allergy Intermediate RASH Verified 06/03/22 17:12 Antibiotics) mold Allergy Mild CONGESTION Verified 06/03/22 17:12 fluticasone furoate AdvReac Intermediate LARYNGITIS Verified 06/03/22 17:12 [From Breo Ellipta] vilanterol AdvReac Intermediate LARYNGITIS Verified 06/03/22 17:12 [From Breo Ellipta] Dust Mite Extract Allergy Mild CONGESTION Uncoded 06/03/22 17:12 Home Medications Medication Instructions Recorded Confirmed Type metoprolol succinate 25 mg 25 mg PO QAM 05/15/21 06/03/22 History tablet,extended release 24 hr spironolactone 25 mg tablet 12.5 mg PO QAM 05/15/21 06/03/22 History aspirin 81 mg tablet,delayed 81 mg PO QAM 30 days #30 tabs 05/17/21 06/03/22 Rx release atorvastatin 40 mg tablet 40 mg PO QAM 30 days #30 tabs 05/17/21 06/03/22 Rx amlodipine 5 mg tablet 5 mg PO DAILY 06/03/22 06/03/22 History fluticasone propionate 230 2 puff inhalation BID 06/03/22 06/03/22 History mcg-salmeterol 21 mcg/actuation HFA inhaler (Advair HFA) fluticasone propionate 50 2 spray intranasal DAILY 06/03/22 06/03/22 History mcg/actuation nasal spray,suspension furosemide 20 mg tablet 20 mg PO DAILY 06/03/22 06/03/22 History gabapentin 300 mg capsule 300 mg PO TID 06/03/22 06/03/22 History levocetirizine 5 mg tablet 5 mg PO DAILY 06/03/22 06/03/22 History montelukast 10 mg tablet 10 mg PO PM 06/03/22 06/03/22 History Past Med/Surg History Medical History (Updated 06/03/22 @ 20:43 by Marija Oneill PA-C) Asthma Bronchitis Chronic diastolic heart failure History of nephrolithiasis History of radiation therapy HTN (hypertension) Mucus plugging of bronchi Prostate cancer Suprapubic catheter Surgical History H/O shoulder surgery History of cholecystectomy History of parotidectomy History of right hip replacement S/P TURP Family History Mother TIA (transient ischemic attack) Other Cancer Diabetes Social History Smoking Status: Never smoker Second Hand Exposure: No; Do You Dip or Chew Tobacco: No; Tobacco Cessation Education Requested by Patient: No Hx Alcohol Use: Yes Alcohol type: wine Hx Substance Use: No Preferred Language: [place] Communication Ability: Effective Hearing Ability: Use of Hearing Aid 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 Required: No Beliefs That Will Affect Care: None marital status: Current Living Situation: Spouse Current Living Situation Comment: w/ current occupational status: retired How many Children do You have: 2 Other Information That Helps Us Care for You: No Feels Safe at Home: Yes Safety Concerns: Feels Safe At This Time Seatbelt Use: always Sunscreen Use: No Assistive Devices: Cane, Glasses and Hearing Aid - Bilateral Review of Systems Review of Systems: All systems reviewed & are unremarkable except as noted in HPI & below Physical Exam Physical Exam: General: no distress, ill but non-toxic appearing, WDWN Head: normocephalic, atraumatic Eyes: conjunctiva non-injected, anicteric ENT: normal inspection external ears, nose, mucous membranes dry Neck: supple, trachea midline Lungs: no respiratory distress on current 2L via NC with sat 94%, +diffuse wheezing, +rhonchi bases CV: RRR, no murmur, no pretibial edema Abd: normal BS, soft, non-tender; no CVA tenderness to percussion Ext: no cyanosis, no calf tenderness Neuro: A&O x 3, no focal deficits noted, normal affect Skin: warm, dry Results & Data Results & Data ([facility]) Vital Signs (Past 12 Hours) Vital Signs Temp Pulse Pulse Resp BP BP Pulse Ox 06/03/22 18:13 36.8 C 92 H 110/67 94 06/03/22 16:54 97 06/03/22 16:54 104 H 150/85 H 97 06/03/22 16:39 108 H 24 94 06/03/22 15:52 38.3 C H 121 H 26 H 121/71 93 O2 Del Method O2 Flow Rate 06/03/22 18:13 Nasal Cannula 2 06/03/22 16:54 Nebulizer 06/03/22 16:54 Nebulizer 06/03/22 16:39 Nasal Cannula 2 06/03/22 15:52 Room Air Laboratory Results Short CBC 06/03/22 Range/Units 16:16 WBC 11.13 H (4.8-10.8) K/ul Hgb 17.9 (14.0-18.0) g/dl Hct 51.6 H (40.1-51.0) % Plt Count 136 (130-400) K/uL BMP 06/03/22 16:16 Sodium 134 L Potassium 3.9 Chloride 103 Carbon Dioxide 20 L BUN 24 H Creatinine 1.14 Glucose 151 H Calcium 8.3 L Liver Function 06/03/22 Range/Units 16:16 Total Bilirubin 1.3 H (0.2-1.0) mg/dl AST 35 (13-39) U/L ALT 43 (7-52) U/L Alkaline Phosphatase 122 H (34-104) U/L Albumin 3.7 (3.4-5.0) gm/dl Urine 06/03/22 Range/Units 16:16 Urine Color Yellow Urine Appearance Cloudy A (Clear) Urine pH 7.5 (4.5-7.5) Ur Specific [place] 1.016 (1.000-1.030) Urine Protein 2+ H (Negative) Urine Glucose (UA) Negative (Negative) Diagnostic Findings Chest X-Ray 06/03/22 15:54 XR chest 1V portable CLINICAL HISTORY: Cough, fever TECHNIQUE: Single frontal radiograph of the chest was obtained. Comparison: Comparison is made to chest radiograph 05/15/2021 FINDINGS: No lines and tubes are seen. Cardiomegaly is noted. Bilateral lower lung predominant airspace opacities are seen. There is likely a small left pleural effusion. IMPRESSION: 1. Bilateral lower lung predominant airspace opacities which may represent atelectasis, pneumonia, and/or aspiration. 2. Small left pleural effusion. 3. Cardiomegaly and mild pulmonary edema. ACT 112: Negative or not required by law. Electronically signed by: Devin Lynn M.D. 06/03/2022 4:54 PM Abdomen/Pelvis CT 06/03/22 16:[address] WITH IV CONTRAST CT DOSE: 1476.38 mGy.cm HISTORY: Acute left-sided flank pain lower back pain, suprapubic cath, fever TECHNIQUE: Multiaxial CT images of the abdomen and pelvis were performed following the IV administration of 86 cc of Optiray, A dose lowering technique was utilized adhering to the principles of ALARA. COMPARISON STUDY: CT abdomen pelvis 09/19/2018, KUB 04/15/2022 FINDINGS: Chronic parenchymal changes of the lung bases suggestive of prior barium aspiration with scarring. Bronchial wall thickening and mucous plugging. No pneumatosis or pneumoperitoneum. Unremarkable spleen, and moderately atrophic pancreas. Adrenal glands are within normal limits. Cholecystectomy. Atrophy of the left hepatic lobe redemonstrated. Stable 2 cm left hepatic lobe cyst. Mild marginal nodularity of the liver. Patency of the hepatic and portal veins. Unremarkable appearance of the right kidney. The study is motion degraded. Delayed left-sided nephrogram with mild hydronephrosis of the superior pole collecting system secondary to a superior calyx 5 x 4 x 6 mm calculus on image 187. Probable punctate nonobstructing calculi of the inferior pole left kidney. Mild with perinephric stranding. Urinary bladder wall thickening with perivesicular stranding and partial distention. Suprapubic urinary bladder catheter in place. Numerous urinary bladder calculi measuring up to proximally 2 cm. Small amount of air within the bladder lumen is likely secondary to instrumentation. Atherosclerosis of the aorta and branch vessels. No lymphad enopathy identified. Colonic diverticulosis. Moderate colonic fecal retention. Scattered small bowel air-fluid levels are likely physiologic. Unremarkable soft tissues. Degenerative changes of the spine, pelvis and left hip. Right hip arthroplasty. IMPRESSION: 1. 6 mm obstructing calculus of the superior pole left kidney results in mild hydronephrosis with delayed nephrogram. Mild urothelial thickening is likely reactive however should be correlated with urinalysis to exclude infection. 2. Suprapubic catheter in place with equivocal findings of cystitis. 3. Urinary bladder calculi with questioned punctate left nephrolithiasis. 4. No bowel obstruction or bowel wall thickening. 5. Additional findings as above. ACT 112: Negative or not required by law. The above report was generated using voice recognition software. It may contain grammatical, syntax or spelling errors. Electronically signed by: Butch Bunn M.D. 06/03/2022 5:38 PM ECG Rate (beats per minute): 100 Rhythm: sinus tachycardia Findings: + nonspecific-ST abn and + RBBB Supervising Physician Co-Signing Physician Notes Attending addendum: The patient was seen and examined in the emergency room He complains to have lower back pain on the left side, chills with sweating and shortness of breath Denies any nausea and or vomiting, any chest pain palpitation Noted to have left ureteric stone with hydronephrosis and COVID-positive with history of asthma On examination Lying in bed with minimal shortness of breath but sweating Hemodynamically stable Chestdecreased breath sounds at the bases without any wheezing and no crackles HeartS1-S2, regular Abdomendistended, soft and tender left renal angle. Bowel sounds present Extremitiesnegative for any edema CNSalert, awake and oriented x3. No focal sensory or motor deficit appreciated His admission labs, EKG and imaging studies reviewed Has left ureteric stone with hydronephrosis UTI COVID-19 virus infection doubt any viral pneumonia and he is fully vaccinated Antibiotics with Zosyn and dexamethasone has been started Will not restart any regimen remdesivir Agree with assessment and plan as outlined above by IVETTE Contreras DR (1) Carotid stenosis Laterality: right Qualified Code(s): I65.21 - Occlusion and stenosis of right carotid artery
--- NOTE | 2022-06-03 18:42 | Urology Consultation ---
Date of Consultation June 03, 2022 Assessment & Plan (1) Suprapubic catheter: (2) Prostate cancer: (3) Urethral stricture: (4) Calcium nephrolithiasis: Plan 86-year-old male with a complicated past urologic history who presented to the hospital with lower left back pain and a cough. He was found to be COVID- positive with a possible pneumonia based on x-ray. 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 His urinalysis looked concerning for infection but he is colonized from an SP tube. His vitals improved with fluids and IV antibiotics. I had a long conversation with the patient and with the primary care team. He is somewhat of a complicated case because it is unclear if his issues are due to a urinary tract infection or from COVID. I suspect given no CVA tenderness and no changes in urinary symptoms when factoring in SP tube, this is likely more related to COVID. His urine will always look infected as he is colonized from the SP tube. 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 Due to his severe urethral stricture disease, stenting him would be challenging through an SP tube tract. It is possible but makes the procedure much more difficult and I would worry that I would put him to sleep and possibly be unsuccessful, putting him at further risk. The simple answer would be to place a nephrostomy tube in his left upper pole however we do not have interventional radiology (this would require transfer) and he was quite adamant against a nephrostomy tube. He feels much better and voiced his opinion to not have any procedures at this time I think it is reasonable to manage him conservatively with broad-spectrum antibiotics and support for his COVID illness. If the patient were to decompensate, I asked the primary team to call me immediately. At that time, we would need to make a decision whether we would attempt to stent him here through his SP tube tract or initiated transfer to either [facility] or [place] for a nephrostomy tube placement. Recommend clear liquids tonight and making him n.p.o. at midnight in the event that he would need an urgent procedure. If he stabilizes tomorrow, likely can have a diet I discussed the risks of doing nothing with the patient and that he could decompenstate but he was willing to accept that risk as he did not want any procedures. History of Present Illness Reason for Consultation: Fever, SP tube, possibly obstructing stone in left upper pole of duplicated system History of Present Illness 86-year-old male with a history of prostate cancer and reported bladder neck stricture who is currently managed with an SP tube. He also has a history of nephrolithiasis. Presented to the hospital with some left flank pain. He was initially mildly febrile at 38.3 and tachycardic at 121. Blood pressure was stable. Currently he is afebrile, with a heart rate of 92 and a BP of 110/67. He satting 94% on 2 L of nasal cannula. Labs showed a mild leukocytosis of 11.13, hemoglobin of 17.9, sodium of 134, creatinine of 1.14 (baseline appears to be 0.6-0.8) elevated troponins, procalcitonin 1.51, and urinalysis that was nitrite negative, 2+ leukocyte Estrace, 30+ WBCs, 10-30 RBCs and 1+ bacteria. Cultures are pending. He underwent a CT scan of the abdomen and pelvis with IV contrast which showed a 6 mm obstructing calculus at the superior pole of the left kidney resulting in mildly hydronephrosis and delayed nephrogram. 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 He also was COVID-positive and a chest x-ray raised the question of possible pneumonia. He was given Zosyn. He has previously had right-sided stone treatment in [place] due to his SP tube and they recommended a PCNL due to his stricture disease. His brother it sounds like had a similar issue and had bilateral nephrostomy tubes and with those so the patient was very adamant that he did not want not a nephrostomy tube so he actually had ureteroscopy through his SP tract to treat the stone by In [facility]. He reports feeling much better since coming into the hospital. He did report some left lower back pain earlier this week that resolved by . This is not in the area of the kidney. He also reports a rattling cough which likely is explained by COVID. He would prefer no procedures if possible. Allergies Allergy/AdvReac Type Severity Reaction Status Date / Time Sulfa (Sulfonamide Allergy Intermediate RASH Verified 06/03/22 17:12 Antibiotics) mold Allergy Mild CONGESTION Verified 06/03/22 17:12 fluticasone furoate AdvReac Intermediate LARYNGITIS Verified 06/03/22 17:12 [From Breo Ellipta] vilanterol AdvReac Intermediate LARYNGITIS Verified 06/03/22 17:12 [From Breo Ellipta] Dust Mite Extract Allergy Mild CONGESTION Uncoded 06/03/22 17:12 Home Medications Medication Instructions Recorded Confirmed Type fluticasone 500 mcg-salmeterol 50 1 inh inhalation BID #60 ea 07/23/20 06/03/22 Rx mcg/dose blistr powdr for inhalation (Advair Diskus) metoprolol succinate 25 mg 25 mg PO QAM 05/15/21 06/03/22 History tablet,extended release 24 hr spironolactone 25 mg tablet 12.5 mg PO QAM 05/15/21 06/03/22 History aspirin 81 mg tablet,delayed 81 mg PO QAM 30 days #30 tabs 05/17/21 06/03/22 Rx release atorvastatin 40 mg tablet 40 mg PO QAM 30 days #30 tabs 05/17/21 06/03/22 Rx gabapentin 100 mg capsule 100 mg PO DAILY 04/20/22 06/03/22 History Patient History Medical History (Updated 05/16/21 @ 14:09 by Keon Linton MD) Bronchitis History of nephrolithiasis History of radiation therapy HTN (hypertension) Prostate cancer Suprapubic catheter Surgical History (Updated 12/09/19 @ 07:33 by KRISSY Lee) H/O shoulder surgery History of cholecystectomy History of parotidectomy History of right hip replacement S/P TURP Family History Mother TIA (transient ischemic attack) Other Cancer Diabetes Social History Smoking Status: Never smoker Hx Alcohol Use: Yes Alcohol type: wine Hx Substance Use: No Preferred Language: Urdu Communication Ability: Effective Hearing Ability: Use of Hearing Aid marital status: Current Living Situation: Spouse current occupational status: retired How many Children do You have: 2 Feels Safe at Home: Yes Seatbelt Use: always Sunscreen Use: No Assistive Devices: Glasses Review of Systems Review of Systems: 14 point review of systems negative outside of what is listed above in HPI Physical Exam 2 Physical Exam: General: Alert and oriented, no acute distress, nontoxic appearing HEENT: Normocephalic, mucous membranes moist Cardiovascular: Regular rate Pulmonary: Nonlabored respirations Abdomen: Nondistended, soft, nontender : SP tube draining clear urine. No CVA tenderness Extremities: Moves all 4 spontaneously Neuro: No gross deficits Skin: Warm, dry, no rashes noted Results & Data ([facility]) Vital Signs (Past 12 Hours) Vital Signs Temp Pulse Pulse Resp BP BP Pulse Ox 06/03/22 18:13 36.8 C 92 H 110/67 94 06/03/22 16:54 97 06/03/22 16:54 104 H 150/85 H 97 06/03/22 16:39 108 H 24 94 06/03/22 15:52 38.3 C H 121 H 26 H 121/71 93 O2 Del Method O2 Flow Rate 06/03/22 18:13 Nasal Cannula 2 06/03/22 16:54 Nebulizer 06/03/22 16:54 Nebulizer 06/03/22 16:39 Nasal Cannula 2 06/03/22 15:52 Room Air PG Care Time/CCT Total # of Minutes Spent Total Time Spent with Patient: Total time spent is greater than 50% in coordination of care (as documented) at patient's floor/unit and/or counseling patient: Coding Level of Care Code 38868 INT INP/OBS CARE 3/75MIN Diagnoses Suprapubic catheter Z93.59 Prostate cancer C61 Urethral stricture N35.919 Calcium nephrolithiasis N20.0
[2022-06-03] MEDS ORDERED: METOPROLOL SUCC 25MG EXT REL TAB PO ONE (20:30)
[2022-06-03] MEDS ORDERED: ONDANSETRON INJ 2 MG/ML 2 ML VIAL IV PRN (20:36)
[2022-06-03] MEDS ORDERED: PIPERACILLIN/TAZOBACTAM 4.5 GM in DEXTROSE 5% 100 ML IV SCH (20:36)
[2022-06-03] MEDS ORDERED: ACETAMINOPHEN 325 MG TAB PO PRN (20:36)
[2022-06-03] MEDS ORDERED: SODIUM CHLORIDE 0.9% 1000ML 1,000 ML IV SCH (20:36)
[2022-06-03] MEDS ORDERED: POLYETHYLENE (MIRALAX) 17 GM PACK PO PRN (20:36)
[2022-06-03] MEDS: GABAPENTIN 300 MG CAP PO SCH (21:55)
[2022-06-03] MEDS: PIPERACILLIN/TAZOBACTAM 3.375 GM CI (over 4 hrs) IV SCH (21:56)
[2022-06-03] MEDS: MONTELUKAST SODIUM 10 MG TABLET PO SCH (21:56)
[2022-06-04 04:28] LABS: Albumin Globulin Ratio 1.2 (0.9-2); Albumin Level 3.2 gm/dl (3.4-5.0); BUN Creatinine Ratio 21.5 (10-20); Bilirubin,Total 0.9 mg/dl (0.2-1.0); Calcium 7.7 mg/dl (8.5-10.1); Creatinine Clr Calc Pharmacy 56.1 ml/min; Est GFR (Non-African American) 62.1 ml/min; Globulin 2.7 gm/dl (2.5-4.0); Potassium 3.3 mmol/L (3.5-5.1); Total Protein 5.9 gm/dl (6.0-8.3); Troponin I High Sensitivity 45.4 pg/ml (0-20)
[2022-06-04] MEDS: PIPERACILLIN/TAZOBACTAM 3.375 GM CI (over 4 hrs) IV SCH ×3 (06:28→21:21)
[2022-06-04] MEDS: ALBUT/IPRATROP 3MG/0.5MG NEB 3 ML VIAL NEB SCH ×2 (07:08→10:03)
--- NOTE | 2022-06-04 08:17 | Urology Progress Note ---
Date of Service June 04, 2022 Assessment & Plan (1) Renal calculus, left: (2) Suprapubic catheter: (3) Prostate cancer: (4) Urethral stricture: Plan 86-year-old male with a complicated past urologic history who presented to the hospital with lower left back pain and a cough. He was found to be COVID- positive with a possible pneumonia based on x-ray. 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 His urinalysis looked concerning for infection but he is colonized from an SP tube. He has history of a severe bladder neck contracture. Patient reports subjectively improving today No flank tenderness Follow labs and cultures. Treat accordingly. No acute urologic intervention necessary. Suspect most of his issues were respiratory and COVID related. Can monitor this kidney stone and likely treat in the outpatient setting. Okay to have regular diet today Urology to follow Admission and Anticipated Discharge Date Admission Date: June 03, 2022 Subjective Afebrile with stable vitals. Reports feeling much better this morning. Creatinine slightly improved at 1.07. CBC pending. Blood and urine cultures pending. Denies any flank pain. Productive cough and improved breathing. Off O2 nasal cannula. Review of Systems Review of Systems: 14 point review of systems negative outside of what is listed above in HPI Physical Exam Physical Exam: General: Alert and oriented, no acute distress HEENT: Normocephalic, mucous membranes moist Pulmonary: Nonlabored respirations Abdomen: Nondistended : Negative for CVA tenderness. Extremities: Moves all 4 spontaneously Neuro: No gross deficits Skin: Warm, dry, no rashes noted Results & Data ([facility]) Vital Signs (Past 12 Hours) Vital Signs Temp Pulse Pulse Resp BP Pulse Ox Pulse Ox 06/04/22 07:14 66 20 101/75 94 06/04/22 07:10 78 16 94 06/04/22 03:14 69 17 117/65 96 06/03/22 23:21 71 06/03/22 20:40 92 H 06/03/22 23:10 36.5 C 67 20 111/58 L 95 06/03/22 22:00 06/03/22 20:36 94 06/03/22 20:36 36.4 C L 101 H 18 111/67 94 06/03/22 20:36 36.4 C L 90 18 111/67 94 O2 Del Method O2 Del Method O2 Flow Rate O2 Flow Rate 06/04/22 07:14 Nasal Cannula 2 06/04/22 07:10 Nasal Cannula 2 06/04/22 03:14 Room Air 06/03/22 23:21 06/03/22 20:40 06/03/22 23:10 Nasal Cannula 2 06/03/22 22:00 Nasal Cannula 2 06/03/22 20:36 Nasal Cannula 2 06/03/22 20:36 Nasal Cannula 2 06/03/22 20:36 Nasal Cannula 2 PG Care Time/CCT Total # of Minutes Spent Total Time Spent with Patient: Total time spent is greater than 50% in coordination of care (as documented) at patient's floor/unit and/or counseling patient: Coding Level of Care Code 05423 SUB INP/OBS CARE 2/35MIN Diagnoses Renal calculus, left N20.0 Suprapubic catheter Z93.59 Prostate cancer C61 Urethral stricture N35.919
[2022-06-04] MEDS: dexAMETHasone 6 MG in SYRINGE 0 ML IV SCH (08:45)
[2022-06-04] MEDS: GABAPENTIN 300 MG CAP PO SCH ×3 (08:45→21:17)
[2022-06-04] MEDS: CETIRIZINE HCL 10 MG TABLET PO SCH (08:45)
[2022-06-04] MEDS: amLODIPine BESYLATE 5 MG TAB PO SCH (08:45)
[2022-06-04] MEDS: FLUTICASONE PROPIONATE NA SPR 16 GM BTL NAE SCH (08:46)
[2022-06-04] MEDS: ATORVASTATIN 40 MG TAB PO SCH (08:46)
[2022-06-04] MEDS: METOPROLOL SUCC 25MG EXT REL TAB PO SCH (10:31)
[2022-06-04] MEDS ORDERED: ALBUT/IPRATROP 3MG/0.5MG NEB 3 ML VIAL NEB PRN (10:52)
[2022-06-04] MEDS ORDERED: POTASSIUM CHLORIDE CRTAB 20 MEQ TABCR PO STA (12:01)
--- NOTE | 2022-06-04 14:50 | Hospitalist Progress Note ---
Date of Service June 04, 2022 Assessment & Plan (1) Fever: (2) COVID-19: Plan: Possible pneumonia-doubt any pneumonia Patient is 86 y/o M with PMH HTN, asthma, h/o mucus plugging, pulmonary HTN, prostate CA s/p seed implantation complicated with strictures and s/p suprapubic catheter, carotid stenosis s/p carotid artery bifurcation angioplasty & stenting, TIA, GERD, RBBB, obesity presented to ER With complaint of chills and increased non-productive cough, SOB x 3 days. In ER T: 38.3, P: 121, R: 26, BP 121/71, 93% on room air. WBC: 11, lactate: 1.8, procalcitonin: 1.5, + COVID-19 PCR CXR: Bilateral lower lung predominant airspace opacities which may represent atelectasis, pneumonia, and/or aspiration. Small left pleural effusion. Cardiomegaly and mild pulmonary edema. In ER given 2250 mL NSS, Tylenol 1000 mg, hour-long albuterol nebulizer treatment, Solu-Medrol 60 mg IV, dexamethasone 6 mg IV, Zosyn Airborne isolation Supplemental oxygen as needed-has been saturating normally on room air Dexamethasone 6mg IV daily Dunebs as needed Incentive spirometry, flutter valve Continue Zosyn for possible UTI Clinically much better we will continue current medications (3) Renal calculus, left: Plan: Chronic suprapubic catheter UA: 2+ leuk esterase, > 30 WBC, 10-30 RBC, 1+ bacteria, 10-20 epithelial cells. Difficult to interpret as patient with chronic catheter and likely colonization CT abdomen and pelvis: 1. 6 mm obstructing calculus of the superior pole left kidney results in mild hydronephrosis with delayed nephrogram. Mild urothelial thickening is likely reactive however should be correlated with urinalysis to exclude Urine culture pending Blood cultures pending Meets SIRS/Sepsis criteria. Possible UTI Has been on intravenous Zosyn and will continue for now Gentle IVF Urology consult. Spoke with Dr. Montes De Oca. Recommends conservative management with broad-spectrum antibiotics currently. If patient worsens or decompensates request to be called immediately and we will consider procedure here or transfer to tertiary center for possible nephrostomy tube placement. Currently patient does not want to consider nephrostomy tube placement Clinically much better and no intervention as per urologist Continue current medications (4) Elevated troponin: Plan: Initial high-sensitivity troponin: 93. EKG sinus tachycardia, rate 100, RBBB, nonspecific ST changes. Prior EKG reviewed chronic RBBB Outpatient chart review: 12/16/2021 echo: EF: 65%, no wall motion abnormality, mild MR, mild AR, mild TR, proximal ascending thoracic aorta mildly enlarged 4.1 cm, aortic root mildly enlarged 4.4 cm Denies chest pain Suspect demand ischemia Trend troponin-no evidence of ACS Echo-left ventricle is normal in size, there is moderate concentric LVH, septal motion is consistent with conduction abnormality, EF 60 to 65%, grade 1 diastolic dysfunction, aortic valve is moderately calcified with restricted [place] flet mobility, mild to moderate valvular aortic stenosis, there is trace mitral regurgitation Remains free from any cardiac symptoms (5) Asthma: Plan: Remains stable without any exacerbation (6) Mucus plugging of bronchi: Plan: History of moderate persistent asthma, chronic mucous plugging Continue home inhalers, montelukast Duonebs (7) Prostate cancer: (8) Suprapubic catheter: Plan: History of prostate cancer, complication of stricture. Chronic suprapubic catheter Follows with [facility] urology Will have outpatient urology appointment discharge (9) HTN (hypertension): Plan: Stable Continue amlodipine, metoprolol succinate (10) Chronic diastolic heart failure: Plan: Currently appears on the dry side Hold Lasix, spironolactone and reevaluate tomorrow (11) Carotid stenosis: (12) Brain TIA: Plan: S/P carotid artery bifurcation angioplasty & stent 05/2021 Continue aspirin, atorvastatin DVT Prophylaxis SCDs for now in case of procedure, reassess tomorrow Follows with Dr Rosalina Hanna for routine care Admission and Anticipated Discharge Date Admission Date: June 03, 2022 Subjective 06/04/2022 The patient was seen and examined in telemetry unit and in the COVID room He denies any respiratory symptoms and abdominal pain has improved a lot Still has occasional tremors involving the hands Denies any fever and or chills. No nausea and or vomiting Review of Systems Review of Systems: All systems reviewed and are unremarkable except as noted Physical Exam Physical Exam: Lying in bed comfortably Constitutional: well developed, well nourished, + ill appearing and + obese Eyes: PERRL, conjunctivae normal, anicteric sclerae ENMT: external ear and nose normal, oropharynx normal Neck: trachea midline, no thyromegaly Respiratory: no respiratory distress Auscultation: + diminished lung sounds and + crackles (Minimal crackles at the bases) Cardiovascular: Rate/Rhythm: regular rate and regular rhythm; not tachycardic Heart Sounds: normal S1 and normal S2; no murmur Extremities: no edema Gastrointestinal (Abdomen): Inspection/Auscultation: normal bowel sounds; abdomen not distended Percussion/Palpation: abdomen soft; abdomen nontender Musculoskeletal: No acute arthritis in any joint Neurologic: normal touch/pain/proprioception and moves all extremities; no focal motor deficits Lymphatic: no cervical or axillary lymphadenopathy Results & Data Results & Data ([facility]) Vital Signs (Past 12 Hours) Vital Signs Temp Pulse Pulse Resp BP Pulse Ox O2 Del Method 06/04/22 08:30 64 06/04/22 08:30 Room Air 06/04/22 11:08 36.3 C L 79 17 124/70 94 Room Air 06/04/22 10:04 68 16 99 Room Air 06/04/22 07:14 66 20 101/75 94 Nasal Cannula 06/04/22 07:10 78 16 94 Nasal Cannula 06/04/22 03:14 69 17 117/65 96 Room Air O2 Flow Rate 06/04/22 08:30 06/04/22 08:30 06/04/22 11:08 06/04/22 10:04 06/04/22 07:14 2 06/04/22 07:10 2 06/04/22 03:14 Laboratory Results Short CBC 06/03/22 Range/Units 16:16 WBC 11.13 H (4.8-10.8) K/ul Hgb 17.9 (14.0-18.0) g/dl Hct 51.6 H (40.1-51.0) % Plt Count 136 (130-400) K/uL BMP 06/03/22 06/04/22 16:16 03:16 Sodium 134 L 137 Potassium 3.9 3.3 L Chloride 103 107 Carbon Dioxide 20 L 22 BUN 24 H 23 Creatinine 1.14 1.07 Glucose 151 H 258 H Calcium 8.3 L 7.7 L Liver Function 06/03/22 06/04/22 Range/Units 16:16 03:16 Total Bilirubin 1.3 H 0.9 (0.2-1.0) mg/dl AST 35 31 (13-39) U/L ALT 43 42 (7-52) U/L Alkaline Phosphatase 122 H 98 (34-104) U/L Albumin 3.7 3.2 L (3.4-5.0) gm/dl Urine 06/03/22 Range/Units 16:16 Urine Color Yellow Urine Appearance Cloudy A (Clear) Urine pH 7.5 (4.5-7.5) Ur Specific [place] 1.016 (1.000-1.030) Urine Protein 2+ H (Negative) Urine Glucose (UA) Negative (Negative) Medications Administered Short CBC 06/03/22 Range/Units 16:16 WBC 11.13 H (4.8-10.8) K/ul Hgb 17.9 (14.0-18.0) g/dl Hct 51.6 H (40.1-51.0) % Plt Count 136 (130-400) K/uL BMP 06/03/22 06/04/22 16:16 03:16 Sodium 134 L 137 Potassium 3.9 3.3 L Chloride 103 107 Carbon Dioxide 20 L 22 BUN 24 H 23 Creatinine 1.14 1.07 Glucose 151 H 258 H Calcium 8.3 L 7.7 L Liver Function 06/03/22 06/04/22 Range/Units 16:16 03:16 Total Bilirubin 1.3 H 0.9 (0.2-1.0) mg/dl AST 35 31 (13-39) U/L ALT 43 42 (7-52) U/L Alkaline Phosphatase 122 H 98 (34-104) U/L Albumin 3.7 3.2 L (3.4-5.0) gm/dl Urine 06/03/22 Range/Units 16:16 Urine Color Yellow Urine Appearance Cloudy A (Clear) Urine pH 7.5 (4.5-7.5) Ur Specific [place] 1.016 (1.000-1.030) Urine Protein 2+ H (Negative) Urine Glucose (UA) Negative (Negative) (1) Carotid stenosis Laterality: right Qualified Code(s): I65.21 - Occlusion and stenosis of right carotid artery
[2022-06-04] MEDS: MONTELUKAST SODIUM 10 MG TABLET PO SCH (21:18)
[2022-06-05] MEDS ORDERED: MELATONIN 3 MG TAB PO PRN (01:47)
[2022-06-05 04:39] LABS: A calco-baum cmplx NotReported Not Detected (NotDetected); Bact fragilis Not Reported Not Detected (NotDetected); C auris Not Reported Not Detected (NotDetected); Calbicans Not Reported Not Detected (NotDetected); Candida glabrata Not Reported Not Detected (NotDetected); Candida krusei Not Reported Not Detected (NotDetected); Cneoformans/gatti Not Reported Not Detected (NotDetected); Cparapsilosis Not Reported Not Detected (NotDetected); Ctropicalis Not Reported Not Detected (NotDetected); E cloacae compx Not Reported Not Detected (NotDetected); Efaecalis Not Reported Not Detected (NotDetected); Efaecium Not Reported Not Detected (NotDetected); Enterobacterales Not Reported Not Detected (NotDetected); Escherichia coli Not Reported Not Detected (NotDetected); H influenzae Not Reported Not Detected (NotDetected); K aerogenes Not Reported Not Detected (NotDetected); Koxytoca Not Reported Not Detected (NotDetected); Kpneumoniae grp Not Reported Not Detected (NotDetected); Lmonocyt Not Reported Not Detected (NotDetected); N meningitidis Not Reported Not Detected (NotDetected); P aeruginosa Not Reported Not Detected (NotDetected); Proteus spp Not Reported Not Detected (NotDetected); Salmonella spp Not Reported Not Detected (NotDetected); Smarcescens Not Reported Not Detected (NotDetected); Staph lugdunensis Not Reported Not Detected (NotDetected); Staph spp. Not Reported DETECTED (NotDetected); Staphaureus Not Reported Not Detected (NotDetected); Staphepi Not Reported DETECTED (NotDetected); Staphylococcus spp. DETECTED (NotDetected); Stenmaltophilia Not Reported Not Detected (NotDetected); Strep agal(GrpB) Not Reported Not Detected (NotDetected); Strep pneum Not Reported Not Detected (NotDetected); Strep pyog (GrpA) Not Reported Not Detected (NotDetected); Strep spp Not Reported Not Detected (NotDetected); mecAC Resistant Gene DETECTED (NotDetected)
[2022-06-05 04:47] LABS: Staphylococcus epidermidis DETECTED (NotDetected)
[2022-06-05] MEDS ORDERED: VANCOMYCIN CONSULT ACTIVE PRN (04:56)
[2022-06-05] MEDS ORDERED: VANCOMYCIN HCL 2,500 MG in SODIUM CHLORIDE 0.9% 500 ML IV ONE (05:15)
[2022-06-05] MEDS: PIPERACILLIN/TAZOBACTAM 3.375 GM CI (over 4 hrs) IV SCH ×3 (05:48→21:45)
[2022-06-05 06:36] LABS: Basophils # (auto) 0.01 K/uL (0-0.2); Basophils % (auto) 0.1 %; Hematocrit (blood only) 42.9 % (40.1-51.0); Immature Granulocytes # (auto) 0.05 K/uL (0.00-0.02); Immature Granulocytes % (auto) 0.5 %; Lymphocytes % (auto) 7.2 %; Mean Corpuscular Hemoglobin 32.5 pg (25.0-34.0); Mean Corpuscular Volume 92.9 fL (80.0-100.0); Mean Platelet Volume 10.5 fL (9.4-12.4); Monocytes # (auto) 0.27 K/uL (0.24-0.82); Monocytes % (auto) 2.8 %; Neutrophils # (auto) 8.75 K/uL (1.4-6.5); Neutrophils % (auto) 89.4 %; Platelet Count 141 K/uL (130-400); RDW Coefficient of Variation 13.5 % (11.5-14.5); Red Blood Count 4.62 M/uL (4.63-6.08); White Blood Count 9.78 K/ul (4.8-10.8)
[2022-06-05 07:05] LABS: BUN Creatinine Ratio 33.7 (10-20); Calcium 7.8 mg/dl (8.5-10.1); Creatinine Clr Calc Pharmacy 69.8 ml/min; Est GFR (African American) 90.4 ml/min; Potassium 3.8 mmol/L (3.5-5.1)
--- NOTE | 2022-06-05 07:38 | Urology Progress Note ---
Date of Service June 05, 2022 Assessment & Plan (1) Renal calculus, left: (2) Urethral stricture: (3) Prostate cancer: (4) Suprapubic catheter: Plan 86-year-old male with a complicated past urologic history who presented to the hospital with lower left back pain and a cough. He was found to be COVID- positive with a possible pneumonia based on x-ray. 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 He has history of a severe bladder neck contracture. Remains asymptomatic from a kidney stone perspective. Follow labs and cultures. Treat accordingly. Urine culture is mixed ton which is not unexpected given his chronic colonization. Do not think he warrants long-term treatment for a UTI. Reasonable to discontinue antibiotics upon discharge. No acute urologic intervention necessary. Suspect most of his issues were respiratory and COVID related. Can monitor this kidney stone and likely treat in the outpatient setting. Patient voiced that he would likely want to go back to [facility] for stone treatment but our office will coordinate follow-up as he does follow locally with Dr. Faustin. Urology to sign off. Admission and Anticipated Discharge Date Admission Date: June 03, 2022 Subjective No acute issues overnight. Afebrile with stable vitals. Creatinine improving. Urine culture grew mixed ton, one blood culture has gram positive bacteria in clusters. He reports no flank pain today. Continues to report subjective improvement. Cough is improving. Review of Systems Review of Systems: 14 point review of systems negative outside of what is listed above in HPI Physical Exam Physical Exam: General: Alert and oriented, no acute distress HEENT: Normocephalic, mucous membranes moist Cardiovascular: Regular rate Pulmonary: Nonlabored respirations Abdomen: Nondistended : No CVA tenderness. SP tube draining clear urine Extremities: Moves all 4 spontaneously Neuro: No gross deficits Skin: Warm, dry, no rashes noted Results & Data ([facility]) Vital Signs (Past 12 Hours) Vital Signs Temp Pulse Pulse Resp BP Pulse Ox Pulse Ox 06/05/22 07:23 36.5 C 58 L 18 110/67 94 06/05/22 03:37 36.5 C 60 17 110/74 93 06/04/22 23:50 06/04/22 23:23 36.7 C 68 18 111/69 95 06/04/22 23:03 69 06/04/22 20:36 95 06/04/22 19:41 O2 Del Method O2 Del Method O2 Flow Rate 06/05/22 07:23 Room Air 06/05/22 03:37 Nasal Cannula 2 06/04/22 23:50 Room Air 06/04/22 23:23 Room Air 06/04/22 23:03 06/04/22 20:36 Room Air 06/04/22 19:41 Room Air PG Care Time/CCT Total # of Minutes Spent Total Time Spent with Patient: Total time spent is greater than 50% in coordination of care (as documented) at patient's floor/unit and/or counseling patient: Coding Level of Care Code 29694 SUB INP/OBS CARE 235MIN Diagnoses Renal calculus, left N20.0 Urethral stricture N35.919 Prostate cancer C61 Suprapubic catheter Z93.59
[2022-06-05] MEDS: ATORVASTATIN 40 MG TAB PO SCH (07:49)
[2022-06-05] MEDS: FLUTICASONE PROPIONATE NA SPR 16 GM BTL NAE SCH (07:49)
[2022-06-05] MEDS: CETIRIZINE HCL 10 MG TABLET PO SCH (07:49)
[2022-06-05] MEDS: GABAPENTIN 300 MG CAP PO SCH ×3 (07:49→21:35)
[2022-06-05] MEDS: dexAMETHasone 6 MG in SYRINGE 0 ML IV SCH (07:50)
[2022-06-05] MEDS: ASPIRIN 81 MG ECTAB PO SCH (07:50)
[2022-06-05] MEDS: amLODIPine BESYLATE 5 MG TAB PO SCH (07:50)
[2022-06-05] MEDS: METOPROLOL SUCC 25MG EXT REL TAB PO SCH (07:53)
--- NOTE | 2022-06-05 08:59 | Pharmacy Report ---
Pharmacy PK ABX Note - Date of Service June 05, 2022 - Assessment and Plan Assessment 86 year old M receiving VANCOMYCIN for treatment of BACTEREMIA. Pertinent microbiologic data includes: BLOOD culture growing GPCs x1 bottle. Day # 1 of antimicrobial therapy. Plan Vancomycin * Loading dose: 2500 mg IV x 1 * Maintenance dose: 750 mg IV every 12 hours * Regimen is predicted to achieve target AUC/AKIKO of 400-600 mg/L.hr * Trough level ordered for: 06/07/22 @ 0430 Pharmacy will continue to follow and will adjust dose/frequency as necessary. Thank you. Pharmacy has transitioned to AUC monitoring for vancomycin. AUC/AKIKO is the preferred PK/PD target and is associated with decreased risk of nephrotoxicity compared to traditional trough targets.
--- NOTE | 2022-06-05 13:34 | Hospitalist Progress Note ---
Date of Service June 05, 2022 Assessment & Plan (1) Renal calculus, left: Plan: Chronic suprapubic catheter UA: 2+ leuk esterase, > 30 WBC, 10-30 RBC, 1+ bacteria, 10-20 epithelial cells. Difficult to interpret as patient with chronic catheter and likely colonization CT abdomen and pelvis: 1. 6 mm obstructing calculus of the superior pole left kidney results in mild hydronephrosis with delayed nephrogram. Mild urothelial thickening is likely reactive however should be correlated with urinalysis to exclude Urine culture pending Blood cultures pending Meets SIRS/Sepsis criteria. Possible UTI Has been on intravenous Zosyn and will continue for now Gentle IVF Urology consult. Spoke with Dr. Montes De Oca. Recommends conservative management with broad-spectrum antibiotics currently. If patient worsens or decompensates request to be called immediately and we will consider procedure here or transfer to tertiary center for possible nephrostomy tube placement. Currently patient does not want to consider nephrostomy tube placement Clinically much better and no intervention as per urologist No more flank or left renal angle pain, no fever and or chills Blood culture 1/2 is growing gram-positive cocci in clusters positive for staph PCR, methicillin-resistant PCR and staph epidermidis PCR Vancomycin was added last evening ID consultation will be taken and for now we will continue intravenous Zosyn and vancomycin (2) Fever: Plan: Remains afebrile for the last more than 24 hours (3) COVID-19: Plan: Possible pneumonia-doubt any pneumonia Patient is 86 y/o M with PMH HTN, asthma, h/o mucus plugging, pulmonary HTN, prostate CA s/p seed implantation complicated with strictures and s/p suprapubic catheter, carotid stenosis s/p carotid artery bifurcation angioplasty & stenting, TIA, GERD, RBBB, obesity presented to ER With complaint of chills and increased non-productive cough, SOB x 3 days. In ER T: 38.3, P: 121, R: 26, BP 121/71, 93% on room air. WBC: 11, lactate: 1.8, procalcitonin: 1.5, + COVID-19 PCR CXR: Bilateral lower lung predominant airspace opacities which may represent atelectasis, pneumonia, and/or aspiration. Small left pleural effusion. Cardiomegaly and mild pulmonary edema. In ER given 2250 mL NSS, Tylenol 1000 mg, hour-long albuterol nebulizer treatment, Solu-Medrol 60 mg IV, dexamethasone 6 mg IV, Zosyn Airborne isolation Supplemental oxygen as needed-has been saturating normally on room air Dexamethasone 6mg IV daily Dunebs as needed Incentive spirometry, flutter valve Continue Zosyn for possible UTI Clinically much better we will continue current medications Saturating normally on room air No shortness of breath and no cough (4) Elevated troponin: Plan: Initial high-sensitivity troponin: 93. EKG sinus tachycardia, rate 100, RBBB, nonspecific ST changes. Prior EKG reviewed chronic RBBB Outpatient chart review: 12/16/2021 echo: EF: 65%, no wall motion abnormality, mild MR, mild AR, mild TR, proximal ascending thoracic aorta mildly enlarged 4.1 cm, aortic root mildly enlarged 4.4 cm Denies chest pain Suspect demand ischemia Trend troponin-no evidence of ACS Echo-left ventricle is normal in size, there is moderate concentric LVH, septal motion is consistent with conduction abnormality, EF 60 to 65%, grade 1 diastolic dysfunction, aortic valve is moderately calcified with restricted leaflet mobility, mild to moderate valvular aortic stenosis, there is trace mitral regurgitation Remains free from any cardiac symptoms (5) Asthma: Plan: Remains stable without any exacerbation (6) Mucus plugging of bronchi: Plan: History of moderate persistent asthma, chronic mucous plugging Continue home inhalers, montelukast Duonebs (7) Prostate cancer: (8) Suprapubic catheter: Plan: History of prostate cancer, complication of stricture. Chronic suprapubic catheter Follows with [facility] Will have outpatient urology appointment discharge Urine is clear and the culture is showing mixed ton (9) HTN (hypertension): Plan: Stable Continue amlodipine, metoprolol succinate (10) Chronic diastolic heart failure: Plan: Currently appears on the dry side Hold Lasix, spironolactone and reevaluate tomorrow (11) Carotid stenosis: (12) Brain TIA: Plan: S/P carotid artery bifurcation angioplasty & stent 05/2021 Continue aspirin, atorvastatin DVT Prophylaxis SCDs for now in case of procedure, reassess tomorrow Follows with Dr Rosalina Hanna for routine care Admission and Anticipated Discharge Date Admission Date: June 03, 2022 Subjective 06/04/2022 The patient was seen and examined in telemetry unit and in the COVID room He denies any respiratory symptoms and abdominal pain has improved a lot Still has occasional tremors involving the hands Denies any fever and or chills. No nausea and or vomiting 06/05/2022 The patient was seen and examined in telemetry unit and in the COVID room He has been feeling a lot better and has not been requiring any oxygen to maintain saturation His abdominal pain is resolved and his urine has been clear He has been growing gram-positive cocci in clusters in 1 out of 2 blood culture bottles Review of Systems Review of Systems: All systems reviewed and are unremarkable except as noted Physical Exam Physical Exam: Sitting on a chair without any acute distress Constitutional: well developed, well nourished, + ill appearing and + obese Eyes: PERRL, conjunctivae normal, anicteric sclerae ENMT: external ear and nose normal, oropharynx normal Neck: trachea midline, no thyromegaly Respiratory: no respiratory distress Auscultation: + diminished lung sounds and + crackles (Minimal crackles at the bases) Cardiovascular: Rate/Rhythm: regular rate and regular rhythm; not tachycardic Heart Sounds: normal S1 and normal S2; no murmur Extremities: no edema Gastrointestinal (Abdomen): Inspection/Auscultation: normal bowel sounds; abdomen not distended Percussion/Palpation: abdomen soft; abdomen nontender Neurologic: normal touch/pain/proprioception and moves all extremities; no focal motor deficits Lymphatic: no cervical or axillary lymphadenopathy Results & Data Results & Data ([facility]) Vital Signs (Past 12 Hours) Vital Signs Temp Pulse Pulse Resp BP Pulse Ox O2 Del Method 06/05/22 11:09 36.3 C L 68 19 116/72 94 Room Air 06/05/22 07:50 59 L 06/05/22 07:50 Room Air 06/05/22 07:50 06/05/22 07:23 36.5 C 58 L 18 110/67 94 Room Air 06/05/22 03:37 36.5 C 60 17 110/74 93 Nasal Cannula O2 Del Method O2 Flow Rate 06/05/22 11:09 06/05/22 07:50 06/05/22 07:50 06/05/22 07:50 Room Air 06/05/22 07:23 06/05/22 03:37 2 Laboratory Results Short CBC 06/05/22 Range/Units 06:03 WBC 9.78 (4.8-10.8) K/ul Hgb 15.0 D (14.0-18.0) g/dl Hct 42.9 (40.1-51.0) % Plt Count 141 (130-400) K/uL [facility] 06/05/22 06:03 Sodium 136 Potassium 3.8 Chloride 109 H Carbon Dioxide 22 BUN 29 H Creatinine 0.86 Glucose 206 H Calcium 7.8 L Medications Administered Current Inpatient Medications Acetaminophen (Acetaminophen 325 Mg Tab) 650 mg PO Q4H PRN PRN Reason: Pain or Fever Stop: 07/03/22 20:35 Albuterol (Albut/Ipratrop 3mg/0.5mg Neb 3 Ml Vial) 3 ml NEB QIDR PRN; Protocol PRN Reason: Shortness Of Breath Or Wheezing Stop: 07/04/22 06:59 Amlodipine Besylate (Amlodipine Besylate 5 Mg Tab) 5 mg PO DAILY [facility] Stop: 07/04/22 08:59 Last Admin: 06/05/22 07:50 Dose: 5 mg Aspirin (Aspirin 81 Mg Ectab) 81 mg PO QAM [facility] Stop: 07/05/22 08:59 Last Admin: 06/05/22 07:50 Dose: 81 mg Atorvastatin Calcium (Atorvastatin 40 Mg Tab) 40 mg PO QAM [facility] Stop: 07/04/22 08:59 Last Admin: 06/05/22 07:49 Dose: 40 mg Cetirizine HCl (Cetirizine Hcl 10 Mg Tablet) 5 mg PO DAILY [facility]; Protocol Stop: 07/04/22 08:59 Last Admin: 06/05/22 07:49 Dose: 5 mg Fluticasone Propionate (Fluticasone Propionate Na Spr 16 Gm Btl) 2 sprays KAYCE DAILY [facility] Stop: 07/04/22 08:59 Last Admin: 06/05/22 07:49 Dose: Not Given Gabapentin (Gabapentin 300 Mg Cap) 300 mg PO TID [facility] Stop: 07/03/22 20:59 Last Admin: 06/05/22 07:49 Dose: 300 mg Dexamethasone 6 mg/ Syringe 1.5 mls @ 1 mls/min IV DAILY [facility] Stop: 06/14/22 08:59 Last Admin: 06/05/22 07:50 Dose: 1 mls/min Piperacillin Sod/Tazobactam (Sod 3.375 gm/ Dextrose) 115 mls @ 28.75 mls/hr IV Q8H [facility]; Protocol Stop: 06/13/22 21:59 Last Infusion: 06/05/22 09:49 Dose: Infused Vancomycin HCl 750 mg/ Sodium (Chloride) 265 mls @ 200 mls/hr IV Q12H [facility]; Protocol Stop: 06/19/22 16:59 Melatonin (Melatonin 3 Mg Tab) 3 mg PO HS PRN PRN Reason: Sleep Stop: 07/05/22 01:46 Last Admin: 06/05/22 01:53 Dose: 3 mg Metoprolol Succinate (Metoprolol Succ 25mg Ext Rel Tab) 25 mg PO QAM [facility] Stop: 07/04/22 08:59 Last Admin: 06/05/22 07:53 Dose: Not Given Miscellaneous (Advair: Order Awaiting Action) 1 each N/A QS [facility] Stop: 07/04/22 00:00 Last Admin: 06/05/22 08:27 Dose: Not Given Miscellaneous Information (Vancomycin Consult Active) 1 each N/A UD PRN PRN Reason: Consult Stop: 07/05/22 04:55 Montelukast Sodium (Montelukast Sodium 10 Mg Tablet) 10 mg PO PM [facility] Stop: 07/03/22 20:59 Last Admin: 06/04/22 21:18 Dose: 10 mg Ondansetron HCl (Ondansetron Inj 2 Mg/Ml 2 Ml Vial) 4 mg IV Q6H PRN PRN Reason: Nausea Stop: 07/03/22 20:35 Polyethylene Glycol (Polyethylene (Miralax) 17 Gm Pack) 17 gm PO DAILY PRN PRN Reason: Constipation Stop: 07/03/22 20:35 (1) Carotid stenosis Laterality: right Qualified Code(s): I65.21 - Occlusion and stenosis of right carotid artery
[2022-06-05] MEDS: VANCOMYCIN HCL 750 MG in SODIUM CHLORIDE 0.9% 250 ML IV SCH (17:13)
--- NOTE | 2022-06-05 20:57 | Electrocardiogram Report ---
Test Reason : Blood Pressure : / mmHG Vent. Rate : 100 BPM Atrial Rate : 100 BPM P-R Int : 204 ms QRS Dur : 140 ms QT Int : 402 ms P-R-T Axes : 056 269 027 degrees QTc Int : 518 ms Poor data quality, interpretation may be adversely affected Normal sinus rhythm Right bundle branch block Abnormal ECG When compared with ECG of 15-MAY-2021 19:25, Vent. rate has increased BY 34 BPM Confirmed by Joe Bernal ([id number]) on 06/05/2022 8:56:49 PM Referred By: REFERRED SELF Confirmed By:Joe Bernal
[2022-06-05] MEDS: MONTELUKAST SODIUM 10 MG TABLET PO SCH (21:35)
--- NOTE | 2022-06-05 22:31 | Electrocardiogram Report ---
Test Reason : Blood Pressure : / mmHG Vent. Rate : 069 BPM Atrial Rate : 069 BPM P-R Int : 220 ms QRS Dur : 138 ms QT Int : 452 ms P-R-T Axes : 051 -64 -37 degrees QTc Int : 484 ms Sinus rhythm with 1st degree A-V block Left axis deviation Right bundle branch block Inferior infarct , age undetermined Anteroseptal infarct , age undetermined Abnormal ECG When compared with ECG of 03-JUN-2022 16:33, (unconfirmed) Anteroseptal infarct is now Present Inferior infarct is now Present T wave inversion now evident in Inferior leads T wave inversion more evident in Anterior leads Confirmed by Joe Bernal ([id number]) on 06/05/2022 10:30:56 PM Referred By: REFERRED SELF Confirmed By:Joe Bernal
[2022-06-06] MEDS: VANCOMYCIN HCL 750 MG in SODIUM CHLORIDE 0.9% 250 ML IV SCH (04:57)
[2022-06-06] MEDS: PIPERACILLIN/TAZOBACTAM 3.375 GM CI (over 4 hrs) IV SCH ×2 (06:40→13:09)
[2022-06-06] MEDS: amLODIPine BESYLATE 5 MG TAB PO SCH (07:49)
[2022-06-06] MEDS: METOPROLOL SUCC 25MG EXT REL TAB PO SCH (07:49)
[2022-06-06] MEDS: ASPIRIN 81 MG ECTAB PO SCH (07:49)
[2022-06-06] MEDS: ATORVASTATIN 40 MG TAB PO SCH (07:49)
[2022-06-06] MEDS: dexAMETHasone 6 MG in SYRINGE 0 ML IV SCH (07:49)
[2022-06-06] MEDS: GABAPENTIN 300 MG CAP PO SCH ×3 (07:50→19:48)
[2022-06-06] MEDS: FLUTICASONE PROPIONATE NA SPR 16 GM BTL NAE SCH (07:50)
[2022-06-06] MEDS: CETIRIZINE HCL 10 MG TABLET PO SCH (07:50)
[2022-06-06 07:59] LABS: Basophils # (auto) 0.01 K/uL (0-0.2); Basophils % (auto) 0.1 %; Hematocrit (blood only) 45.7 % (40.1-51.0); Immature Granulocytes # (auto) 0.04 K/uL (0.00-0.02); Immature Granulocytes % (auto) 0.6 %; Lymphocytes # (auto) 0.71 K/uL (1.2-3.4); Lymphocytes % (auto) 9.8 %; Mean Corpuscular Hemoglobin 32.3 pg (25.0-34.0); Mean Corpuscular Volume 92.1 fL (80.0-100.0); Monocytes # (auto) 0.27 K/uL (0.24-0.82); Monocytes % (auto) 3.7 %; Neutrophils # (auto) 6.21 K/uL (1.4-6.5); Neutrophils % (auto) 85.8 %; Platelet Count 143 K/uL (130-400); RDW Coefficient of Variation 13.5 % (11.5-14.5); RDW Standard Deviation 46.1 fL (36.4-46.3); Red Blood Count 4.96 M/uL (4.63-6.08); White Blood Count 7.24 K/ul (4.8-10.8)
[2022-06-06 08:21] LABS: BUN Creatinine Ratio 32.2 (10-20); Calcium 7.8 mg/dl (8.5-10.1); Creatinine Clr Calc Pharmacy 66.8 ml/min; Est GFR (African American) 88.7 ml/min; Est GFR (Non-African American) 76.5 ml/min; Potassium 3.8 mmol/L (3.5-5.1)
--- NOTE | 2022-06-06 15:12 | Hospitalist Progress Note ---
Date of Service June 06, 2022 Assessment & Plan (1) Renal calculus, left: Plan: Chronic suprapubic catheter UA: 2+ leuk esterase, > 30 WBC, 10-30 RBC, 1+ bacteria, 10-20 epithelial cells. Difficult to interpret as patient with chronic catheter and likely colonization CT abdomen and pelvis: 1. 6 mm obstructing calculus of the superior pole left kidney results in mild hydronephrosis with delayed nephrogram. Mild urothelial thickening is likely reactive however should be correlated with urinalysis to exclude Urine culture pending Blood cultures pending Meets SIRS/Sepsis criteria. Possible UTI Has been on intravenous Zosyn and will continue for now Gentle IVF Urology consult. Spoke with Dr. Montes De Oca. Recommends conservative management with broad-spectrum antibiotics currently. If patient worsens or decompensates request to be called immediately and we will consider procedure here or transfer to tertiary center for possible nephrostomy tube placement. Currently patient does not want to consider nephrostomy tube placement Clinically much better and no intervention as per urologist No more flank or left renal angle pain, no fever and or chills Blood culture 1/2 is growing gram-positive cocci in clusters positive for staph PCR, methicillin-resistant PCR and staph epidermidis PCR Vancomycin was added last evening ID consultation will be taken and for now we will continue intravenous Zosyn and vancomycin Appreciate ID input and recommendation Urinary tract infection is not an issue but he will need to see urologist in [place] for the ureteric stone and hydronephrosis Likely has community-acquired pneumonia Has been on intravenous Zosyn and vancomycin Blood cultures have been negative Patient is clinically much better Will start Levaquin and continue for a total of 7 days (2) Fever: Plan: Remains afebrile for the last more than 24 hours (3) COVID-19: Plan: Possible pneumonia-doubt any pneumonia Patient is 86 y/o M with PMH HTN, asthma, h/o mucus plugging, pulmonary HTN, prostate CA s/p seed implantation complicated with strictures and s/p suprapubic catheter, carotid stenosis s/p carotid artery bifurcation angioplasty & stenting, TIA, GERD, RBBB, obesity presented to ER With complaint of chills and increased non-productive cough, SOB x 3 days. In ER T: 38.3, P: 121, R: 26, BP 121/71, 93% on room air. WBC: 11, lactate: 1.8, procalcitonin: 1.5, + COVID-19 PCR CXR: Bilateral lower lung predominant airspace opacities which may represent atelectasis, pneumonia, and/or aspiration. Small left pleural effusion. Cardiomegaly and mild pulmonary edema. In ER given 2250 mL NSS, Tylenol 1000 mg, hour-long albuterol nebulizer treatment, Solu-Medrol 60 mg IV, dexamethasone 6 mg IV, Zosyn Airborne isolation Supplemental oxygen as needed-has been saturating normally on room air Dexamethasone 6mg IV daily Dunebs as needed Incentive spirometry, flutter valve Continue Zosyn for possible UTI Clinically much better we will continue current medications Saturating normally on room air No shortness of breath and no cough Plan to discharge tomorrow (4) Elevated troponin: Plan: Initial high-sensitivity troponin: 93. EKG sinus tachycardia, rate 100, RBBB, nonspecific ST changes. Prior EKG reviewed chronic RBBB Outpatient chart review: 12/16/2021 echo: EF: 65%, no wall motion abnormality, mild MR, mild AR, mild TR, proximal ascending thoracic aorta mildly enlarged 4.1 cm, aortic root mildly enlarged 4.4 cm Denies chest pain Suspect demand ischemia Trend troponin-no evidence of ACS Echo-left ventricle is normal in size, there is moderate concentric LVH, septal motion is consistent with conduction abnormality, EF 60 to 65%, grade 1 diastolic dysfunction, aortic valve is moderately calcified with restricted leaflet mobility, mild to moderate valvular aortic stenosis, there is trace mitral regurgitation Remains free from any cardiac symptoms (5) Asthma: Plan: Remains stable without any exacerbation (6) Mucus plugging of bronchi: Plan: History of moderate persistent asthma, chronic mucous plugging Continue home inhalers, montelukast Duonebs (7) Prostate cancer: (8) Suprapubic catheter: Plan: History of prostate cancer, complication of stricture. Chronic suprapubic catheter Follows with [facility] Will have outpatient urology appointment discharge Urine is clear and the culture is showing mixed ton Blood culture is contaminant Will give Levaquin to complete the course of a 7 days in total which will cover UTI as well (9) HTN (hypertension): Plan: Stable Continue amlodipine, metoprolol succinate (10) Chronic diastolic heart failure: Plan: Currently appears on the dry side Hold Lasix, spironolactone and reevaluate tomorrow (11) Carotid stenosis: (12) Brain TIA: Plan: S/P carotid artery bifurcation angioplasty & stent 05/2021 Continue aspirin, atorvastatin DVT Prophylaxis SCDs for now in case of procedure, reassess tomorrow Follows with Dr Rosalina Hanna for routine care PT evaluation and possible discharge tomorrow Admission and Anticipated Discharge Date Admission Date: June 03, 2022 Subjective 06/04/2022 The patient was seen and examined in telemetry unit and in the COVID room He denies any respiratory symptoms and abdominal pain has improved a lot Still has occasional tremors involving the hands Denies any fever and or chills. No nausea and or vomiting 06/05/2022 The patient was seen and examined in telemetry unit and in the COVID room He has been feeling a lot better and has not been requiring any oxygen to maintain saturation His abdominal pain is resolved and his urine has been clear He has been growing gram-positive cocci in clusters in 1 out of 2 blood culture bottles 06/06/2022 The patient was seen and examined in telemetry unit and in the COVID room He has been feeling much better Saturating normally on room air and has been ambulating in the room without much difficulties Still has weakness Awaiting ID evaluation Review of Systems Review of Systems: All systems reviewed and are unremarkable except as noted Physical Exam Physical Exam: Sitting on a chair without any acute distress Constitutional: well developed, well nourished, + ill appearing and + obese Eyes: PERRL, conjunctivae normal, anicteric sclerae ENMT: external ear and nose normal, oropharynx normal Neck: trachea midline, no thyromegaly Respiratory: no respiratory distress Auscultation: + diminished lung sounds and + crackles (Minimal crackles at the bases) Cardiovascular: Rate/Rhythm: regular rate and regular rhythm; not tachycardic Heart Sounds: normal S1 and normal S2; no murmur Extremities: no edema Gastrointestinal (Abdomen): Inspection/Auscultation: normal bowel sounds; abdomen not distended Percussion/Palpation: abdomen soft; abdomen nontender Neurologic: normal touch/pain/proprioception and moves all extremities; no focal motor deficits Lymphatic: no cervical or axillary lymphadenopathy Results & Data Results & Data ([facility]) Vital Signs (Past 12 Hours) Vital Signs Temp Pulse Pulse Pulse Resp BP BP 06/06/22 11:37 36.4 C L 63 19 131/83 06/06/22 07:45 52 L 06/06/22 07:45 06/06/22 07:50 69 06/06/22 07:23 36.4 C L 55 L 19 118/69 06/06/22 03:35 36.4 C L 58 L 16 131/73 Pulse Ox O2 Del Method 06/06/22 11:37 93 Room Air 06/06/22 07:45 06/06/22 07:45 Room Air 06/06/22 07:50 06/06/22 07:23 93 Room Air 06/06/22 03:35 93 Room Air Laboratory Results Short CBC 06/06/22 Range/Units 07:37 WBC 7.24 (4.8-10.8) K/ul Hgb 16.0 (14.0-18.0) g/dl Hct 45.7 (40.1-51.0) % Plt Count 143 (130-400) K/uL BMP 06/06/22 07:37 Sodium 139 Potassium 3.8 Chloride 110 H Carbon Dioxide 26 BUN 29 H Creatinine 0.90 Glucose 175 H Calcium 7.8 L Medications Administered Current Inpatient Medications Acetaminophen (Acetaminophen 325 Mg Tab) 650 mg PO Q4H PRN PRN Reason: Pain or Fever Stop: 07/03/22 20:35 Albuterol (Albut/Ipratrop 3mg/0.5mg Neb 3 Ml Vial) 3 ml NEB QIDR PRN; Protocol PRN Reason: Shortness Of Breath Or Wheezing Stop: 07/04/22 06:59 Amlodipine Besylate (Amlodipine Besylate 5 Mg Tab) 5 mg PO DAILY [facility] Stop: 07/04/22 08:59 Last Admin: 06/06/22 07:49 Dose: 5 mg Aspirin (Aspirin 81 Mg Ectab) [facility] Stop: 07/05/22 08:59 Last Admin: 06/06/22 07:49 Dose: 81 mg Atorvastatin Calcium (Atorvastatin 40 Mg Tab) 40 mg PO QAM [facility] Stop: 07/04/22 08:59 Last Admin: 06/06/22 07:49 Dose: 40 mg Cetirizine HCl (Cetirizine Hcl 10 Mg Tablet) 5 mg PO DAILY [facility]; Protocol Stop: 07/04/22 08:59 Last Admin: 06/06/22 07:50 Dose: 5 mg Fluticasone Propionate (Fluticasone Propionate Na Spr 16 Gm Btl) 2 sprays KAYCE DAILY [facility] Stop: 07/04/22 08:59 Last Admin: 06/06/22 07:50 Dose: Not Given Gabapentin (Gabapentin 300 Mg Cap) 300 mg PO TID [facility] Stop: 07/03/22 20:59 Last Admin: 06/06/22 13:09 Dose: 300 mg Dexamethasone 6 mg/ Syringe 1.5 mls @ 1 mls/min IV DAILY [facility] Stop: 06/14/22 08:59 Last Admin: 06/06/22 07:49 Dose: 1 mls/min Levofloxacin (Levofloxacin 750 Mg Tab) 750 mg PO DAILY [facility] Stop: 06/13/22 15:14 Melatonin (Melatonin 3 Mg Tab) 3 mg PO HS PRN PRN Reason: Sleep Stop: 07/05/22 01:46 Last Admin: 06/05/22 01:53 Dose: 3 mg Metoprolol Succinate (Metoprolol Succ 25mg Ext Rel Tab) 25 mg PO QAM [facility] Stop: 07/04/22 08:59 Last Admin: 06/06/22 07:49 Dose: 25 mg Miscellaneous (Advair: Order Awaiting Action) 1 each N/A QS [facility] Stop: 07/04/22 00:00 Last Admin: 06/06/22 09:26 Dose: Not Given Miscellaneous Information (Vancomycin Consult Active) 1 each N/A UD PRN PRN Reason: Consult Stop: 07/05/22 04:55 Montelukast Sodium (Montelukast Sodium 10 Mg Tablet) 10 mg PO PM [facility] Stop: 07/03/22 20:59 Last Admin: 06/05/22 21:35 Dose: 10 mg Polyethylene Glycol (Polyethylene (Miralax) 17 Gm Pack) 17 gm PO DAILY PRN PRN Reason: Constipation Stop: 07/03/22 20:35 (1) Carotid stenosis Laterality: right Qualified Code(s): I65.21 - Occlusion and stenosis of right carotid artery
[2022-06-06] MEDS: levoFLOXacin 750 MG TAB PO SCH (15:54)
[2022-06-06] MEDS: MONTELUKAST SODIUM 10 MG TABLET PO SCH (19:48)
[2022-06-07] MEDS ORDERED: VANCOMYCIN LEVEL ONE (04:30)
[2022-06-07] MEDS: METOPROLOL SUCC 25MG EXT REL TAB PO SCH (07:54)
[2022-06-07] MEDS: ASPIRIN 81 MG ECTAB PO SCH (07:55)
[2022-06-07] MEDS: CETIRIZINE HCL 10 MG TABLET PO SCH (07:55)
[2022-06-07] MEDS: levoFLOXacin 750 MG TAB PO SCH (07:55)
[2022-06-07] MEDS: ATORVASTATIN 40 MG TAB PO SCH (07:55)
[2022-06-07] MEDS: amLODIPine BESYLATE 5 MG TAB PO SCH (07:55)
[2022-06-07] MEDS: GABAPENTIN 300 MG CAP PO SCH (07:55)
[2022-06-07] MEDS: FLUTICASONE PROPIONATE NA SPR 16 GM BTL NAE SCH (07:56)
[2022-06-07 08:29] LABS: Creatinine Clr Calc Pharmacy 67.1 ml/min; Est GFR (African American) 88.7 ml/min; Est GFR (Non-African American) 76.5 ml/min
[2022-06-07] MEDS: dexAMETHasone 6 MG in SYRINGE 0 ML IV SCH (08:37)
--- NOTE | 2022-06-07 12:31 | Hospitalist Progress Note ---
Date of Service June 07, 2022 Assessment & Plan (1) Renal calculus, left: Plan: Chronic suprapubic catheter UA: 2+ leuk esterase, > 30 WBC, 10-30 RBC, 1+ bacteria, 10-20 epithelial cells. Difficult to interpret as patient with chronic catheter and likely colonization CT abdomen and pelvis: 1. 6 mm obstructing calculus of the superior pole left kidney results in mild hydronephrosis with delayed nephrogram. Mild urothelial thickening is likely reactive however should be correlated with urinalysis to exclude Urine culture pending Blood cultures pending Meets SIRS/Sepsis criteria. Possible UTI Has been on intravenous Zosyn and will continue for now Gentle IVF Urology consult. Spoke with Dr. Montes De Oca. Recommends conservative management with broad-spectrum antibiotics currently. If patient worsens or decompensates request to be called immediately and we will consider procedure here or transfer to tertiary center for possible nephrostomy tube placement. Currently patient does not want to consider nephrostomy tube placement Clinically much better and no intervention as per urologist No more flank or left renal angle pain, no fever and or chills Blood culture 1/2 is growing gram-positive cocci in clusters positive for staph PCR, methicillin-resistant PCR and staph epidermidis PCR Vancomycin was added last evening ID consultation will be taken and for now we will continue intravenous Zosyn and vancomycin Appreciate ID input and recommendation Urinary tract infection is not an issue but he will need to see urologist in [place] for the ureteric stone and hydronephrosis Will be discharged home this afternoon and the patient will keep appointment with the urologist in [place] on of this month Likely has community-acquired pneumonia Has been on intravenous Zosyn and vancomycin Blood cultures have been negative Patient is clinically much better Will start Levaquin and continue for a total of 7 days Has been on Levaquin without any problem and the QT remains within normal range (2) Fever: Plan: Remains afebrile for the last more than 24 hours (3) COVID-19: Plan: Possible pneumonia-doubt any pneumonia Patient is 86 y/o M with PMH HTN, asthma, h/o mucus plugging, pulmonary HTN, prostate CA s/p seed implantation complicated with strictures and s/p suprapubic catheter, carotid stenosis s/p carotid artery bifurcation angioplasty & stenting, TIA, GERD, RBBB, obesity presented to ER With complaint of chills and increased non-productive cough, SOB x 3 days. In ER T: 38.3, P: 121, R: 26, BP 121/71, 93% on room air. WBC: 11, lactate: 1.8, procalcitonin: 1.5, + COVID-19 PCR CXR: Bilateral lower lung predominant airspace opacities which may represent atelectasis, pneumonia, and/or aspiration. Small left pleural effusion. Cardiomegaly and mild pulmonary edema. In ER given 2250 mL NSS, Tylenol 1000 mg, hour-long albuterol nebulizer treatment, Solu-Medrol 60 mg IV, dexamethasone 6 mg IV, Zosyn Airborne isolation Supplemental oxygen as needed-has been saturating normally on room air Dexamethasone 6mg IV daily Dunebs as needed Incentive spirometry, flutter valve Continue Zosyn for possible UTI Clinically much better we will continue current medications Saturating normally on room air No shortness of breath and no cough Will need to be quarantined at home for next few days (4) Elevated troponin: Plan: Initial high-sensitivity troponin: 93. EKG sinus tachycardia, rate 100, RBBB, nonspecific ST changes. Prior EKG reviewed chronic RBBB Outpatient chart review: 12/16/2021 echo: EF: 65%, no wall motion abnormality, mild MR, mild AR, mild TR, proximal ascending thoracic aorta mildly enlarged 4.1 cm, aortic root mildly enlarged 4.4 cm Denies chest pain Suspect demand ischemia Trend troponin-no evidence of ACS Echo-left ventricle is normal in size, there is moderate concentric LVH, septal motion is consistent with conduction abnormality, EF 60 to 65%, grade 1 diastolic dysfunction, aortic valve is moderately calcified with restricted leaflet mobility, mild to moderate valvular aortic stenosis, there is trace mitral regurgitation Remains free from any cardiac symptoms (5) Asthma: Plan: Remains stable without any exacerbation (6) Mucus plugging of bronchi: Plan: History of moderate persistent asthma, chronic mucous plugging Continue home inhalers, montelukast Duonebs (7) Prostate cancer: (8) Suprapubic catheter: Plan: History of prostate cancer, complication of stricture. Chronic suprapubic c atheter Follows with [facility]ne Donaldson urology Will have outpatient urology appointment discharge Urine is clear and the culture is showing mixed ton Blood culture is contaminant Will give Levaquin to complete the course of a 7 days in total which will cover UTI as well We will keep appointment with Dr. Vera in [facility] on 06/10/2022 (9) HTN (hypertension): Plan: Stable Continue amlodipine, metoprolol succinate (10) Chronic diastolic heart failure: Plan: Currently appears on the dry side Hold Lasix, spironolactone and reevaluate tomorrow (11) Carotid stenosis: (12) Brain TIA: Plan: S/P carotid artery bifurcation angioplasty & stent 05/2021 Continue aspirin, atorvastatin DVT Prophylaxis SCDs for now in case of procedure, reassess tomorrow Follows with Dr Rosalina Hanna for routine care Patient be discharged this afternoon Admission and Anticipated Discharge Date Admission Date: June 03, 2022 Subjective 06/04/2022 The patient was seen and examined in telemetry unit and in the COVID room He denies any respiratory symptoms and abdominal pain has improved a lot Still has occasional tremors involving the hands Denies any fever and or chills. No nausea and or vomiting 06/05/2022 The patient was seen and examined in telemetry unit and in the COVID room He has been feeling a lot better and has not been requiring any oxygen to maintain saturation His abdominal pain is resolved and his urine has been clear He has been growing gram-positive cocci in clusters in 1 out of 2 blood culture bottles 06/06/2022 The patient was seen and examined in telemetry unit and in the COVID room He has been feeling much better Saturating normally on room air and has been ambulating in the room without much difficulties Still has weakness Awaiting ID evaluation 06/07/2022 The patient was seen and examined in telemetry unit and in the COVID room He has been feeling much better and denies any abdominal pain, nausea and or vomiting His cough is better without any productive phlegm and denies any shortness of breath at rest He has been saturating normally on room air No problem with ambulation-discharge home this afternoon Review of Systems Review of Systems: All systems reviewed and are unremarkable except as noted Physical Exam Physical Exam: Sitting on a chair without any acute distress Constitutional: well developed, well nourished, + ill appearing and + obese Eyes: PERRL, conjunctivae normal, anicteric sclerae ENMT: external ear and nose normal, oropharynx normal Neck: trachea midline, no thyromegaly Respiratory: no respiratory distress Auscultation: + diminished lung sounds and + crackles (Minimal crackles at the bases) Cardiovascular: Rate/Rhythm: regular rate and regular rhythm; not tachycardic Heart Sounds: normal S1 and normal S2; no murmur Extremities: no edema Gastrointestinal (Abdomen): Inspection/Auscultation: normal bowel sounds; abdomen not distended Percussion/Palpation: abdomen soft; abdomen nontender Neurologic: normal touch/pain/proprioception and moves all extremities; no focal motor deficits Lymphatic: no cervical or axillary lymphadenopathy Results & Data Results & Data ([facility]) Vital Signs (Past 12 Hours) Vital Signs Temp Pulse Pulse Resp BP BP Pulse Ox 06/07/22 11:15 36.4 C L 62 14 140/66 96 06/07/22 07:50 62 06/07/22 07:50 53 L 06/07/22 07:50 06/07/22 06:32 36.6 C 55 L 18 138/79 95 06/07/22 02:32 36.6 C 56 L 16 150/83 H 94 O2 Del Method 06/07/22 11:15 Room Air 06/07/22 07:50 06/07/22 07:50 06/07/22 07:50 Room Air 06/07/22 06:32 Room Air 06/07/22 02:32 Room Air Laboratory Results [facility] 06/07/22 07:37 Creatinine 0.90 Medications Administered Current Inpatient Medications Acetaminophen (Acetaminophen 325 Mg Tab) 650 mg PO Q4H PRN PRN Reason: Pain or Fever Stop: 07/03/22 20:35 Albuterol (Albut/Ipratrop 3mg/0.5mg Neb 3 Ml Vial) 3 ml NEB QIDR PRN; Protocol PRN Reason: Shortness Of Breath Or Wheezing Stop: 07/04/22 06:59 Amlodipine Besylate (Amlodipine Besylate 5 Mg Tab) 5 mg PO DAILY [facility] Stop: 07/04/22 08:59 Last Admin: 06/07/22 07:55 Dose: 5 mg Aspirin (Aspirin 81 Mg Ectab) 81 mg PO QAM [facility] Stop: 07/05/22 08:59 Last Admin: 06/07/22 07:55 Dose: 81 mg Atorvastatin Calcium ([facility] 40 Mg Tab) [facility] [place]: 07/04/22 08:59 Last Admin: 06/07/22 07:55 Dose: 40 mg Cetirizine HCl (Cetirizine Hcl 10 Mg Tablet) 5 mg PO DAILY [facility]; Protocol Stop: 07/04/22 08:59 Last Admin: 06/07/22 07:55 Dose: 5 mg Fluticasone Propionate (Fluticasone Propionate Na Spr 16 Gm Btl) 2 sprays KAYCE DAILY [facility] Stop: 07/04/22 08:59 Last Admin: 06/07/22 07:56 Dose: Not Given Gabapentin (Gabapentin 300 Mg Cap) 300 mg PO TID [facility] Stop: 07/03/22 20:59 Last Admin: 06/07/22 07:55 Dose: 300 mg Dexamethasone 6 mg/ Syringe 1.5 mls @ 1 mls/min IV DAILY [facility] Stop: 06/14/22 08:59 Last Admin: 06/07/22 08:37 Dose: 1 mls/min Levofloxacin (Levofloxacin 750 Mg Tab) 750 mg PO DAILY [facility] Stop: 06/13/22 15:14 Last Admin: 06/07/22 07:55 Dose: 750 mg Melatonin (Melatonin 3 Mg Tab) 3 mg PO HS PRN PRN Reason: Sleep Stop: 07/05/22 01:46 Last Admin: 06/05/22 01:53 Dose: 3 mg Metoprolol Succinate (Metoprolol Succ 25mg Ext Rel Tab) 25 mg PO QAM [facility] Stop: 07/04/22 08:59 Last Admin: 06/07/22 07:54 Dose: 25 mg Miscellaneous (Advair: Order Awaiting Action) 1 each N/A QS [facility] Stop: 07/04/22 00:00 Last Admin: 06/07/22 08:41 Dose: Not Given Montelukast Sodium (Montelukast Sodium 10 Mg Tablet) 10 mg PO PM [facility] Stop: 07/03/22 20:59 Last Admin: 06/06/22 19:48 Dose: 10 mg Polyethylene Glycol (Polyethylene (Miralax) 17 Gm Pack) 17 gm PO DAILY PRN PRN Reason: Constipation Stop: 07/03/22 20:35 (1) Carotid stenosis Laterality: right Qualified Code(s): I65.21 - Occlusion and stenosis of right carotid artery
--- NOTE | 2022-06-08 07:38 | Discharge Summary ---
Date of Service June 07, 2022 Admission HPI Per Admitting Provider Patient is 86 y/o M with PMH HTN, asthma, h/o mucus plugging, pulmonary HTN, prostate CA s/p seed implantation complicated with strictures and s/p suprapubic catheter, carotid stenosis s/p carotid artery bifurcation angioplasty & stenting, TIA, GERD, RBBB, obesity presented to ER With complaint of chills and increased cough x 3 days. Patient states 3 days ago had onset of tactile fever, chills. Reports chronic cough however had worsening cough. Reports cough is nonproductive. Reports increased wheezing and shortness of breath. Denies chest pain, palpitations. Patient also states 2 days ago had left mid and lower back discomfort. Denies any back pain today. Has suprapubic catheter and reports normal urine output. States 1 week ago had noted hematuria 1 morning but has not noted any recurrent hematuria. Denies abdominal pain, nausea, vomiting. States today had an episode of loose stool. Today reports generalized weakness. Denies known ill contacts. Did not have medications today. History of COVID-19 in 01/2022 and was able to recover at home. Reports 2 COVID- 19 vaccinations, No boosters. Denies MIRANDA, dizziness, syncope, vision changes, neck pain, orthopnea, hematemesis, sore throat, abdominal pain, paresthesias, increased extremity edema, rashes. Admission Exam Per Admitting Provider hysical Exam: General: no distress, ill but non-toxic appearing, WDWN Head: normocephalic, atraumatic Eyes: conjunctiva non-injected, anicteric ENT: normal inspection external ears, nose, mucous membranes dry Neck: supple, trachea midline Lungs: no respiratory distress on current 2L via NC with sat 94%, +diffuse wheezing, +rhonchi bases CV: RRR, no murmur, no pretibial edema Abd: normal BS, soft, non-tender; no CVA tenderness to percussion Ext: no cyanosis, no calf tenderness Neuro: A&O x 3, no focal deficits noted, normal affect Skin: warm, dry Principal Diagnosis Left renal calculi with hydronephrosis, community-acquired pneumonia, COVID-19 virus infection Discharge Exam Sitting on a chair without any acute distress Constitutional well developed, well nourished, + ill appearing and + obese Eyes PERRL, conjunctivae normal, anicteric sclerae ENMT external ear and nose normal, oropharynx normal Neck trachea midline, no thyromegaly Respiratory no respiratory distress Auscultation: + diminished lung sounds and + crackles (Minimal crackles at the bases) Cardiovascular Rate/Rhythm: regular rate and regular rhythm; not tachycardic Heart Sounds: normal S1 and normal S2; no murmur Extremities: no edema Gastrointestinal (Abdomen) Inspection/Auscultation: normal bowel sounds; abdomen not distended Percussion/Palpation: abdomen soft; abdomen nontender Neurologic normal touch/pain/proprioception and moves all extremities; no focal motor deficits Lymphatic no cervical or axillary lymphadenopathy Discharge Data Allergies Allergy/AdvReac Type Severity Reaction Status Date / Time Sulfa (Sulfonamide Allergy Intermediate RASH Verified 06/03/22 17:12 Antibiotics) mold Allergy Mild CONGESTION Verified 06/03/22 17:12 fluticasone furoate AdvReac Intermediate LARYNGITIS Verified 06/03/22 17:12 [From Breo Ellipta] vilanterol AdvReac Intermediate LARYNGITIS Verified 06/03/22 17:12 [From Breo Ellipta] Dust Mite Extract Allergy Mild CONGESTION Uncoded 06/03/22 17:12 Consultations 06/03/22 18:10 Consult Urology Routine 06/03/22 18:13 ED Decision to Admit Stat 06/05/22 13:20 Consult Infectious Diseases Routine 06/07/22 12:57 Burn CD for patient Stat Ordered Studies 06/03/22 16:11 CT abd pelvis IV con only Stat Hospital Course (1) Renal calculus, left: Chronic suprapubic catheter UA: 2+ leuk esterase, > 30 WBC, 10-30 RBC, 1+ bacteria, 10-20 epithelial cells. Difficult to interpret as patient with chronic catheter and likely colonization CT abdomen and pelvis: 1. 6 mm obstructing calculus of the superior pole left kidney results in mild hydronephrosis with delayed nephrogram. Mild urothelial thickening is likely reactive however should be correlated with urinalysis to exclude Urine culture pending Blood cultures pending Meets SIRS/Sepsis criteria. Possible UTI Has been on intravenous Zosyn and will continue for now Gentle IVF Urology consult. Spoke with Dr. Montes De Oca. Recommends conservative management with broad-spectrum antibiotics currently. If patient worsens or decompensates request to be called immediately and we will consider procedure here or transfer to tertiary center for possible nephrostomy tube placement. Currently patient does not want to consider nephrostomy tube placement Clinically much better and no intervention as per urologist No more flank or left renal angle pain, no fever and or chills Blood culture 1/2 is growing gram-positive cocci in clusters positive for staph PCR, methicillin-resistant PCR and staph epidermidis PCR Vancomycin was added last evening ID consultation will be taken and for now we will continue intravenous Zosyn and vancomycin Appreciate ID input and recommendation Urinary tract infection is not an issue but he will need to see urologist in [place] for the ureteric stone and hydronephrosis Will be discharged home this afternoon and the patient will keep appointment with the urologist in [place] on of this month Likely has community-acquired pneumonia Has been on intravenous Zosyn and vancomycin Blood cultures have been negative Patient is clinically much better Will start Levaquin and continue for a total of 7 days Has been on Levaquin without any problem and the QT remains within normal range (2) Fever: Remains afebrile for the last more than 24 hours (3) COVID-19: Possible pneumonia-doubt any pneumonia Patient is 86 y/o M with PMH HTN, asthma, h/o mucus plugging, pulmonary HTN, prostate CA s/p seed implantation complicated with strictures and s/p suprapubic catheter, carotid stenosis s/p carotid artery bifurcation angioplasty & stenting, TIA, GERD, RBBB, obesity presented to ER With complaint of chills and increased non-productive cough, SOB x 3 days. In ER T: 38.3, P: 121, R: 26, BP 121/71, 93% on room air. WBC: 11, lactate: 1.8, procalcitonin: 1.5, + COVID-19 PCR CXR: Bilateral lower lung predominant airspace opacities which may represent atelectasis, pneumonia, and/or aspiration. Small left pleural effusion. Cardiomegaly and mild pulmonary edema. In ER given 2250 mL NSS, Tylenol 1000 mg, hour-long albuterol nebulizer treatment, Solu-Medrol 60 mg IV, dexamethasone 6 mg IV, Zosyn Airborne isolation Supplemental oxygen as needed-has been saturating normally on room air Dexamethasone 6mg IV daily Dunebs as needed Incentive spirometry, flutter valve Continue Zosyn for possible UTI Clinically much better we will continue current medications Saturating normally on room air No shortness of breath and no cough Will need to be quarantined at home for next few days (4) Elevated troponin: Initial high-sensitivity troponin: 93. EKG sinus tachycardia, rate 100, RBBB, nonspecific ST changes. Prior EKG reviewed chronic RBBB Outpatient chart review: 12/16/2021 echo: EF: 65%, no wall motion abnormality, mild MR, mild AR, mild TR, proximal ascending thoracic aorta mildly enlarged 4.1 cm, aortic root mildly enlarged 4.4 cm Denies chest pain Suspect demand ischemia Trend troponin-no evidence of ACS Echo-left ventricle is normal in size, there is moderate concentric LVH, septal motion is consistent with conduction abnormality, EF 60 to 65%, grade 1 diastolic dysfunction, aortic valve is moderately calcified with restricted leaflet mobility, mild to moderate valvular aortic stenosis, there is trace mitral regurgitation Remains free from any cardiac symptoms (5) Asthma: Remains stable without any exacerbation (6) Mucus plugging of bronchi: History of moderate persistent asthma, chronic mucous plugging Continue home inhalers, montelukast Duonebs (7) Prostate cancer: (8) Suprapubic catheter: History of prostate cancer, complication of stricture. Chronic suprapubic catheter Follows with [facility] Donaldson urology Will have outpatient urology appointment discharge Urine is clear and the culture is showing mixed ton Blood culture is contaminant Will give Levaquin to complete the course of a 7 days in total which will cover UTI as well We will keep appointment with Dr. Vera in [facility] on 06/10/2022 (9) HTN (hypertension): Stable Continue amlodipine, metoprolol succinate (10) Chronic diastolic heart failure: Currently appears on the dry side Hold Lasix, spironolactone and reevaluate tomorrow (11) Carotid stenosis: (12) Brain TIA: S/P carotid artery bifurcation angioplasty & stent 05/2021 Continue aspirin, atorvastatin DVT Prophylaxis SCDs for now in case of procedure, reassess tomorrow Follows with Dr Rosalina Hanna for routine care Patient be discharged this afternoon Total Time Total Time Spent Total Time Spent (In Minutes): 35 minutes Discharge Plan Discharge Items Patient Disposition: Home - Self-Care Reason For Visit: FEVER Discharge Diagnosis: Left renal calculi with hydronephrosis, community-acquired pneumonia, COVID-19 virus infection Condition on Discharge: Fair Activity: Resume your previous activity Non-emergency contact: Primary Care Provider Call non-emergency contact if: you have any medication questions and your symptoms worsen Follow-up/Referrals: [facility] [Other] - 06/10/22 2:30 pm (Date & Time 06/10/2022 2:30 PM Provider Ismael Vaz PA-C Department Urology, [place] Go into the [address] Entrance, Urology is on the 1st floor, to the left. Please take the CD of your CT Scan with you to your appointment. Dr Hemal Vera is no longer at [facility]. ) oRsalina Hanna DO [Primary Care Provider] - 06/14/22 10:40 am (Date & Time 06/14/2022 10:40 AM Provider Alvaro Vyas MD Department [facility] ) Diet: Heart Healthy Addtl Attending Provider Instructions: Please take precautions to avoid fall Please maintain home isolation for next 5 days Finish the course of antibiotic Try to drink more fluid Please keep appointments with your healthcare providers Pending Studies at Discharge: No Stand-Alone Forms: [facility], Smoking Cessation Medications and DC Order Prescriptions: New levofloxacin 750 mg Tablet 750 mg PO DAILY 3 Days Qty: 3 0RF dexamethasone 6 mg tablet 6 mg PO DAILY Qty: 3 0RF Continued spironolactone 25 mg tablet 12.5 mg PO QAM metoprolol succinate 25 mg tablet extended release 24 hr 25 mg PO QAM atorvastatin 40 mg Tablet 40 mg PO QAM 30 Days Qty: 30 2RF aspirin 81 mg Tablet,Delayed Release (Dr/Ec) 81 mg PO QAM 30 Days Qty: 30 2RF amlodipine 5 mg tablet 5 mg PO DAILY gabapentin 300 mg capsule 300 mg PO TID montelukast 10 mg tablet 10 mg PO PM furosemide 20 mg tablet 20 mg PO DAILY fluticasone propionate 50 mcg/actuation spray,suspension 2 spray INTRANASAL DAILY Advair HFA 230-21 mcg/actuation HFA aerosol inhaler 2 puff INHALATION BID levocetirizine 5 mg tablet 5 mg PO DAILY Discharge Orders: Discharge Order (Routine); Ordered 06/07/22 Ordered By: Watson Douglas Admission Data Admit Date/Time: 06/03/22 19:19 Attending Provider: Watson Douglas Admit Provider: Watson Douglas Primary Care Provider: Rosalina Hanna Other Providers: Iam Montes De Oca ; Watson Douglas ; Nikolay De Jesus ; Perez Becker ; Jarrett De La Garza I. ; Jimy Brennan II ; Shaneka Mullen ; Leighton Fung ; Shalom Phillip ; Rickie Acevedo Other Interventions: Discharge Summary Assessment (RN) Last Done: 06/07/22 13:14
--- NOTE | 2022-06-09 05:49 | Electrocardiogram Report ---
Test Reason : Blood Pressure : / mmHG Vent. Rate : 053 BPM Atrial Rate : 053 BPM P-R Int : 192 ms QRS Dur : 144 ms QT Int : 496 ms P-R-T Axes : 042 -63 -25 degrees QTc Int : 465 ms Sinus bradycardia with Fusion complexes and Premature atrial complexes Left axis deviation Right bundle branch block Inferior infarct (cited on or before 05-JUN-2022) Anteroseptal infarct Abnormal ECG When compared with ECG of 05-JUN-2022 09:21, Fusion complexes are now Present Premature atrial complexes are now Present Confirmed by Alfa Miguel ([id number]) on 06/09/2022 5:48:36 AM Referred By: REFERRED SELF Confirmed By:Alfa Miguel
--- NOTE | 2022-06-13 14:22 | Coding Query ---
CODING CLARIFICATION Due to conflicting documentation throughout the chart, please provide further clarification below: PNEUMONIA: Clearly documented in the chart and there is no confliction. ( + ) Patient had/possibly had community acquired pneumonia ( ) Patient had/possibly had Covid-19 pneumonia ( ) Pneumonia was ruled out ( ) Other, please, clarify: Thank you, Justyna Coyle - Physical Therapist Technician SORAYA
== END 2022-06-07 14:56 | disposition home or self-care (01) | DRG 871 ==
LOC: ED 15:42 → 2S 19:19

== ENCOUNTER 2023-04-20 18:27 | Inpatient (IN) ==
[2023-04-20] MEDS ORDERED: DIPHTHERIA/TETANUS/PERTUSSIS Vaccine (Tdap, Age 7+yrs) 0.5mL SYR/VL IM ONE (18:30)
[2023-04-20] MEDS ORDERED: OPTIRAY 320 500ml IV ONE (18:53)
[2023-04-20 18:59] LABS: Basophils # (auto) 0.04 K/uL (0.00-0.20); Basophils % (auto) 0.3 %; Eosinophils # (auto) 0.11 K/uL (0.00-0.50); Eosinophils % (auto) 0.8 %; Hematocrit (blood only) 50.3 % (42.0-52.0); Hemoglobin 17.4 g/dl (14.0-18.0); Immature Granulocytes # (auto) 0.09 K/uL (0.01-0.20); Immature Granulocytes % (auto) 0.7 %; Lymphocytes # (auto) 1.21 K/uL (1.20-3.40); Mean Corpuscular Hemoglobin 31.9 pg (25.0-34.0); Mean Corpuscular Hgb Conc 34.6 g/dL (32.0-36.0); Mean Corpuscular Volume 92.1 fL (80.0-100.0); Mean Platelet Volume 10.8 fL (9.4-12.4); Monocytes % (auto) 7.5 %; Neutrophils # (auto) 10.93 K/uL (1.40-6.50); Neutrophils % (auto) 81.7 %; Platelet Count 163 K/uL (130-400); RDW Coefficient of Variation 14.1 % (11.5-14.5); RDW Standard Deviation 47.1 fL (36.4-46.3); Red Blood Count 5.46 M/uL (4.70-6.10); White Blood Count 13.38 K/ul (4.8-10.8)
[2023-04-20 19:13] LABS: Calcium 8.8 mg/dl (8.6-10.3); Potassium 4.1 mmol/L (3.5-5.1)
[2023-04-20 19:19] LABS: BUN Creatinine Ratio 26.4 (10-20); Creatinine Clr Calc Pharmacy 68.5 ml/min; Est GFR (African American) 89.3 ml/min; Est GFR (Non-African American) 77.1 ml/min
[2023-04-20 19:24] LABS: INR 1.1 (0.9-1.1); Partial Thromboplastin Time 27.6 Seconds (21.0-31.0); Prothrombin Time 11.6 Seconds (9.0-12.0)
--- NOTE | 2023-04-20 19:29 | CT Scan Report ---
Exam(s): CT C SPINE EXAM: CT Cervical Spine Without Intravenous Contrast CLINICAL HISTORY: Reason for exam: fall. TECHNIQUE: Axial computed tomography images of the cervical spine without intravenous contrast. CTDI is 26.35 mGy and DLP is 543.82 mGy-cm. Automated exposure control was utilized for the study. A dose lowering technique was utilized adhering to the principles of ALARA. COMPARISON: None FINDINGS: Bones: Normal alignment. No acute fracture or bony lesion. Ossifications in the nuchal ligament are likely related to remote trauma. Disc spaces: No subluxation. Degenerative changes of the spine. Soft tissues: Normal. Other: Mild mucosal thickening in the maxillary sinuses. Polyp versus mucous retention cyst in the right maxillary sinus. Atherosclerotic changes of the vasculature. Right carotid artery stent. Calcified granulomas partially seen in the right lung apex. IMPRESSION: No acute traumatic abnormality. Electronically signed by: Joan Sethi M.D. 04/20/23 19:28 PM
[2023-04-20 19:30] LABS: Troponin I High Sensitivity 1357.2 pg/ml (0-20)
--- NOTE | 2023-04-20 19:40 | CT Scan Report ---
Exam(s): CT ABDOMEN + PELVIS With Contrast IV Amt: 90 ml optiray 320 EXAM: CT Abdomen and Pelvis With Intravenous Contrast CLINICAL HISTORY: Reason for exam: fall. TECHNIQUE: Axial computed tomography images of the abdomen and pelvis with intravenous contrast. CTDI is 28.14 mGy and DLP is 1598.33 mGy-cm. Automated exposure control was utilized for the study. A dose lowering technique was utilized adhering to the principles of ALARA. CONTRAST: Patient received 90 ml optiray 320 of IV contrast COMPARISON: CT abdomen/pelvis on 06/03/2022 FINDINGS: Lung bases: Lower lung atelectasis. Calcified granulomas. Heart: Mild cardiomegaly. Coronary artery, aortic valve, and mitral annular calcifications. ABDOMEN: Liver: Probable small left hepatic cyst which could be further evaluated with ultrasound if clinically indicated. Gallbladder and bile ducts: Prior cholecystectomy. No ductal dilation. Pancreas: Mild atrophy of the pancreas. No ductal dilation. Spleen: Unremarkable. No splenomegaly. Adrenals: Unremarkable. No mass. Kidneys and ureters: Punctate nonobstructing left renal stone. No hydronephrosis or ureteral stone. Stomach and bowel: Evaluation of the stomach is limited by under distention. Diverticulosis without evidence of diverticulitis. No small bowel obstruction. PELVIS: Appendix: Appendix is nonvisualized on this exam. Bladder: Bladder stones noted. Mild prominence of the bladder wall is nonspecific. Please correlate with urinalysis if concerned for cystitis. Suprapubic catheter and small amount of gas. Reproductive: Probable prostatectomy. ABDOMEN and PELVIS: Intraperitoneal space: See below. Bones/joints: Right hip arthroplasty causes artifact that limits evaluation of portions of the pelvis. Degenerative changes of the spine. Minimal retrolisthesis of L2 on L3 and L3 on L4. No acute fracture. No dislocation. Soft tissues: Mild bilateral gynecomastia. Small fat-containing umbilical hernia. Vasculature: Atherosclerotic changes of the vasculature. No aortic aneurysm or dissection. Lymph nodes: Mild haziness in the central mesentery with mildly prominent mesenteric lymph nodes may represent mesenteric panniculitis. Other findings: Age indeterminate mild widening of the anterior aspect of the intervertebral disc space at T11-12, new compared to prior exam on 06/03/2022. IMPRESSION: 1. Bladder stones noted. Mild prominence of the bladder wall is nonspecific. Please correlate with urinalysis if concerned for cystitis. 2. Age indeterminate mild widening of the anterior aspect of the intervertebral disc space at T11-12, new compared to prior exam on 06/03/2022 and possibly acute. Further evaluation could be performed with MRI if clinically indicated. Electronically signed by: Joan Sethi M.D. 04/20/23 19:39 PM
--- NOTE | 2023-04-20 19:42 | CT Scan Report ---
Exam(s): CT HEAD Without Contrast EXAM: CT Head Without Intravenous Contrast CLINICAL HISTORY: Reason for exam: fall. TECHNIQUE: Axial computed tomography images of the head/brain without intravenous contrast. CTDI is 37.12 mGy and DLP is 624.41 mGy-cm. Automated exposure control was utilized for the study. A dose lowering technique was utilized adhering to the principles of ALARA. COMPARISON: CT head on 05/15/2021. MRI brain on 05/16/2021. FINDINGS: Brain: No acute infarct or hemorrhage identified. No extra-axial fluid collection. No mass effect or midline shift. Scattered areas of hypoattenuation in the supratentorial white matter likely represent chronic small vessel ischemic changes. Small amount of encephalomalacia in the right posterior frontal region. Ventricles and sulci: Prominence of the ventricles and sulci is likely secondary to cerebral volume loss. Bones: Hyperostosis frontalis interna. No bony lesion or acute fracture. Subcutaneous tissues: Normal. Sinuses: Mucosal thickening in the maxillary sinuses and ethmoid air cells. Mastoid air cells: Normal. Orbits: Grossly unremarkable. Other: Atherosclerotic calcifications in the intracranial vasculature. IMPRESSION: 1. No acute intracranial abnormality. 2. Chronic small vessel ischemic changes and cerebral volume loss. Small amount of encephalomalacia in the right posterior frontal region. Electronically signed by: Joan Sethi M.D. 04/20/23 19:41 PM
[2023-04-20] MEDS ORDERED: ALBUMIN 25% 25 GM/100 ML VIAL IV ONE (19:53)
--- NOTE | 2023-04-20 20:06 | XRay Report ---
SINGLE VIEW CHEST CLINICAL HISTORY: Fall. FINDINGS: 2 AP, portable, supine chest radiographs are compared to study dated 06/03/2022. Correlation is made with chest CT dated 12/16/2015. The examination is degraded by portable technique and patient rotation. The heart is enlarged. There is pulmonary vascular congestion. Chronic interstitial thick ening is similar to previous. Foci of parenchymal scarring are seen throughout both lungs. There are scattered calcified granulomas. No airspace consolidation or large pleural effusion is identified. No pneumothorax is seen. The skeletal structures are osteopenic. The bony thorax is grossly intact. IMPRESSION: 1. Cardiomegaly with pulmonary vascular congestion. 2. No airspace consolidation or large pleural effusion is identified. ACT 112: Negative or not required by law. Electronically signed by: Baudilio Multani M.D. 04/20/2023 8:05 PM
--- NOTE | 2023-04-20 20:11 | XRay Report ---
SINGLE VIEW PELVIS CLINICAL HISTORY: Fall. FINDINGS: 2 AP, portable, supine pelvic radiographs are correlated with pelvic CT performed the same day 04/20/2023. The skeletal structures are osteopenic. There is no radiographic evidence of acute fr acture involving the hips or pelvis. A bipolar right hip arthroplasty is in near anatomic alignment. Moderate osteoarthritic change and joint space narrowing is seen in the left hip. Enthesophytes arise from the anterior superior iliac spines. Lumbosacral spondylosis is partially imaged. There is degen erative sclerosis of the sacroiliac joints. Excreted IV contrast fills the bladder. Brachytherapy imp lants are noted in the pelvis. The overlying soft tissues are normal as imaged. A catheter projects o isac the pelvis. IMPRESSION: No acute fracture is identified. Electronically signed by: Baudilio Multani M.D. 04/20/2023 8:08 PM
[2023-04-20 20:42] LABS: Thyroid Stimulating Hormone 3.176 uIu/ml (0.300-4.500)
--- NOTE | 2023-04-20 21:12 | History & Physical Report ---
Date of Service April 20, 2023 Assessment & Plan (1) Fall: (2) Elevated troponin: (3) Chronic diastolic heart failure: (4) HTN (hypertension): (5) Suprapubic catheter: (6) History of CVA (cerebrovascular accident): (7) Carotid stenosis: Plan: Please refer to Dr. Morgan's addendum for assessment and plan. History of Present Illness Chief Complaint: Fall Primary Care Provider: Rosalina Hanna DO 87-year-old male with PMH dyslipidemia, asthma, chronic diastolic CHF, aortic stenosis, carotid stenosis s/p right carotid artery stenting, HTN, paroxysmal SVT, history of prostate cancer s/p radiation therapy, s/p suprapubic catheter placement, history of CVA, and other problems listed below who presents to the ED for evaluation after a fall. Patient reports that he was reaching up to close the garage door on his shop when he fell forward and struck his head on the ground. Patient reports he was able to crawl over to the garage door railing and attempted to pull himself up however then fell backwards. Patient believes he passed out briefly after this fall and striking the back of his head. Patient states that he then crawled outside to attempt to pull himself up on a piece of equipment however he was unable to. Patient states that he was on the ground for about 2-1/2 hours until his found him. Patient reports he otherwise has been feeling well recently. He continues to be very active. He denies any episode of chest pain and shortness of breath. No abdominal pain, nausea, vomiting, diarrhea. No fevers or chills. Reports suprapubic catheter is functioning appropriately. In the ED, patient was found to be hypothermic and had Josue hugger placed with improvement. Other vitals are stable. Labs show WBC 13 K, troponin 1300. Head CT, cervical spine CT, CXR, pelvis x-ray all unremarkable. CT ABD/pelvis shows Age indeterminate mild widening of the anterior aspect of the intervertebral disc space at T11-12, new compared to prior exam on 06/03/2022 and possibly acute. Allergies Allergy/AdvReac Type Severity Reaction Status Date / Time Sulfa (Sulfonamide Allergy Intermediate RASH Verified 04/20/23 19:32 Antibiotics) house dust mite Allergy Mild Congested Verified 04/20/23 23:28 mold Allergy Mild CONGESTION Verified 04/20/23 19:32 fluticasone furoate AdvReac Intermediate LARYNGITIS Verified 04/20/23 19:32 [From [facility]] vilanterol AdvReac Intermediate LARYNGITIS Verified 04/20/23 19:32 [From [facility]] Home Medications Medication Instructions Recorded Confirmed Type metoprolol succinate 25 mg 25 mg PO QAM 05/15/21 04/20/23 History tablet,extended release 24 hr spironolactone 25 mg tablet 12.5 mg PO Q2D 05/15/21 04/20/23 History aspirin 81 mg tablet,delayed 81 mg PO QAM 30 days #30 tabs 05/17/21 04/20/23 Rx release atorvastatin 40 mg tablet 40 mg PO QAM 30 days #30 tabs 05/17/21 04/20/23 Rx amlodipine 5 mg tablet 5 mg PO DAILY 06/03/22 04/20/23 History furosemide 20 mg tablet 20 mg PO DAILY 06/03/22 04/20/23 History gabapentin 300 mg capsule 300 mg PO TID 06/03/22 04/20/23 History levocetirizine 5 mg tablet 5 mg PO DAILY 06/03/22 04/20/23 History montelukast 10 mg tablet 10 mg PO HS 06/03/22 04/20/23 History fluticasone propionate 230 2 inh inhalation BID 04/20/23 04/20/23 History mcg-salmeterol 21 mcg/actuation HFA inhaler (Advair HFA) tiotropium bromide 2.5 2 puff inhalation QAM 04/20/23 04/20/23 History mcg/actuation mist for inhalation (Spiriva Respimat) Past Med/Surg History Medical History History of CVA (cerebrovascular accident) Chronic diastolic heart failure Asthma History of nephrolithiasis Suprapubic catheter HTN (hypertension) History of radiation therapy Prostate cancer Surgical History History of cholecystectomy History of parotidectomy History of right hip replacement H/O shoulder surgery S/P TURP Family History Mother TIA (transient ischemic attack) Other Cancer Diabetes Social History Smoking Status: Never smoker Second Hand Exposure: No; Do You Dip or Chew Tobacco: No; Hx Alcohol Use: Yes Alcohol type: wine Hx Substance Use: No Preferred Language: Jamaican Communication Ability: Effective Hearing Ability: Use of Hearing Aid 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 Required: No Beliefs That Will Affect Care: None marital status: Current Living Situation: Spouse Current Living Situation Comment: w/ current occupational status: retired How many Children do You have: 2 Feels Safe at Home: Yes Seatbelt Use: always Sunscreen Use: No Assistive Devices: Cane and Walker Physical Exam Constitutional: WD/WN, vitals as above no acute distress Eyes: PERRL, conjunctivae normal, anicteric sclerae ENMT: external ear and nose normal, oropharynx normal Respiratory: normal respiratory effort, lungs clear to auscultation Cardiovascular: Rate/Rhythm: regular rate and regular rhythm Vessels: normal peripheral pulses Extremities: no edema Gastrointestinal (Abdomen): normal bowel sounds, soft, nontender, no hepatosplenomegaly Musculoskeletal: no cyanosis or clubbing, extremities motor strength 5/5 Skin: no rashes, warm and dry bandage in place to left temporal scalp and left elbow, superficial abrasions noted to both knees Neurologic: PERRL, EOMI, accommodation nl, no face palsy, no dysarthria Psychiatric: A+Ox3, euthymic affect Results & Data Results & Data Vital Signs (Past 12 Hours) Vital Signs Temp Pulse Pulse Resp BP BP Pulse Ox 04/20/23 20:43 36.5 C 04/20/23 20:05 36.1 C L 04/20/23 19:35 35.8 C L 81 14 125/82 95 04/20/23 19:30 77 22 96 04/20/23 19:16 112 H 20 95 04/20/23 19:07 35.7 C L 74 20 125/94 94 04/20/23 18:34 64 04/20/23 18:31 34.0 C L 66 18 136/79 96 O2 Del Method 04/20/23 20:43 04/20/23 20:05 04/20/23 19:35 Room Air 04/20/23 19:30 04/20/23 19:16 Room Air 04/20/23 19:07 Room Air 04/20/23 18:34 04/20/23 18:31 Room Air Laboratory Results Short CBC 04/20/23 Range/Units 18:35 WBC 13.38 H (4.8-10.8) K/ul Hgb 17.4 (14.0-18.0) g/dl Hct 50.3 (42.0-52.0) % Plt Count 163 (130-400) K/uL BMP 04/20/23 18:35 Sodium 139 Potassium 4.1 Chloride 105 Carbon Dioxide 26 BUN 23 Creatinine 0.87 Glucose 97 Calcium 8.8 Cardiac Enzymes 04/20/23 04/20/23 Range/Units 18:35 19:17 Total Creatine Kinase 140 173 (30-223) U/L Diagnostic Findings Abdomen/Pelvis CT 04/20/23 18:31 Exam(s): CT ABDOMEN + PELVIS With Contrast IV Amt: 90 ml optiray 320 EXAM: CT Abdomen and Pelvis With Intravenous Contrast CLINICAL HISTORY: Reason for exam: fall. TECHNIQUE: Axial computed tomography images of the abdomen and pelvis with intravenous contrast. CTDI is 28.14 mGy and DLP is 1598.33 mGy-cm. Automated exposure control was utilized for the study. A dose lowering technique was utilized adhering to the principles of ALARA. CONTRAST: Patient received 90 ml optiray 320 of IV contrast COMPARISON: CT abdomen/pelvis on 06/03/2022 FINDINGS: Lung bases: Lower lung atelectasis. Calcified granulomas. Heart: Mild cardiomegaly. Coronary artery, aortic valve, and mitral annular calcifications. ABDOMEN: Liver: Probable small left hepatic cyst which could be further evaluated with ultrasound if clinically indicated. Gallbladder and bile ducts: Prior cholecystectomy. No ductal dilation. Pancreas: Mild atrophy of the pancreas. No ductal dilation. Spleen: Unremarkable. No splenomegaly. Adrenals: Unremarkable. No mass. Kidneys and ureters: Punctate nonobstructing left renal stone. No hydronephrosis or ureteral stone. Stomach and bowel: Evaluation of the stomach is limited by under distention. Diverticulosis without evidence of diverticulitis. No small bowel obstruction. PELVIS: Appendix: Appendix is nonvisualized on this exam. Bladder: Bladder stones noted. Mild prominence of the bladder wall is nonspecific. Please correlate with urinalysis if concerned for cystitis. Suprapubic catheter and small amount of gas. Reproductive: Probable prostatectomy. ABDOMEN and PELVIS: Intraperitoneal space: See below. Bones/joints: Right hip arthroplasty causes artifact that limits evaluation of portions of the pelvis. Degenerative changes of the spine. Minimal retrolisthesis of L2 on L3 and L3 on L4. No acute fracture. No dislocation. Soft tissues: Mild bilateral gynecomastia. Small fat-containing umbilical hernia. Vasculature: Atherosclerotic changes of the vasculature. No aortic aneurysm or dissection. Lymph nodes: Mild haziness in the central mesentery with mildly prominent mesenteric lymph nodes may represent mesenteric panniculitis. Other findings: Age indeterminate mild widening of the anterior aspect of the intervertebral disc space at T11-12, new compared to prior exam on 06/03/2022. IMPRESSION: 1. Bladder stones noted. Mild prominence of the bladder wall is nonspecific. Please correlate with urinalysis if concerned for cystitis. 2. Age indeterminate mild widening of the anterior aspect of the intervertebral disc space at T11-12, new compared to prior exam on 06/03/2022 and possibly acute. Further evaluation could be performed with MRI if clinically indicated. Electronically signed by: Joan Sethi M.D. 04/20/23 19:[address] 04/20/23 18:32 Exam(s): CT C SPINE EXAM: CT Cervical Spine Without Intravenous Contrast CLINICAL HISTORY: Reason for exam: fall. TECHNIQUE: Axial computed tomography images of the cervical spine without intravenous contrast. CTDI is 26.35 mGy and DLP is 543.82 mGy-cm. Automated exposure control was utilized for the study. A dose lowering technique was utilized adhering to the principles of ALARA. COMPARISON: None FINDINGS: Bones: Normal alignment. No acute fracture or bony lesion. Ossifications in the nuchal ligament are likely related to remote trauma. Disc spaces: No subluxation. Degenerative changes of the spine. Soft tissues: Normal. Other: Mild mucosal thickening in the maxillary sinuses. Polyp versus mucous retention cyst in the right maxillary sinus. Atherosclerotic changes of the vasculature. Right carotid artery stent. Calcified granulomas partially seen in the right lung apex. IMPRESSION: No acute traumatic abnormality. Electronically signed by: Joan Sethi M.D. 04/20/23 19:28 PM Chest X-Ray 04/20/23 18:32 SINGLE VIEW CHEST CLINICAL HISTORY: Fall. FINDINGS: 2 AP, portable, supine chest radiographs are compared to study dated 06/03/2022. Correlation is made with chest CT dated 12/16/2015. The examination is degraded by portable technique and patient rotation. The heart is enlarged. There is pulmonary vascular congestion. Chronic interstitial thickening is similar to previous. Foci of parenchymal scarring are seen throughout both lungs. There are scattered calcified granulomas. No airspace consolidation or large pleural effusion is identified. No pneumothorax is seen. The skeletal structures are osteopenic. The bony thorax is grossly intact. IMPRESSION: 1. Cardiomegaly with pulmonary vascular congestion. 2. No airspace consolidation or large pleural effusion is identified. ACT 112: Negative or not required by law. Electronically signed by: Baudilio Multani M.D. 04/20/2023 8:[address] 04/20/23 18:32 Exam(s): CT HEAD Without Contrast EXAM: CT Head Without Intravenous Contrast CLINICAL HISTORY: Reason for exam: fall. TECHNIQUE: Axial computed tomography images of the head/brain without intravenous contrast. CTDI is 37.12 mGy and DLP is 624.41 mGy-cm. Automated exposure control was utilized for the study. A dose lowering technique was utilized adhering to the principles of ALARA. COMPARISON: CT head on 05/15/2021. MRI brain on 05/16/2021. FINDINGS: Brain: No acute infarct or hemorrhage identified. No extra-axial fluid collection. No mass effect or midline shift. Scattered areas of hypoattenuation in the supratentorial white matter likely represent chronic small vessel ischemic changes. Small amount of encephalomalacia in the right posterior frontal region. Ventricles and sulci: Prominence of the ventricles and sulci is likely secondary to cerebral volume loss. Bones: Hyperostosis frontalis interna. No bony lesion or acute fracture. Subcutaneous tissues: Normal. Sinuses: Mucosal thickening in the maxillary sinuses and ethmoid air cells. Mastoid air cells: Normal. Orbits: Grossly unremarkable. Other: Atherosclerotic calcifications in the intracranial vasculature. IMPRESSION: 1. No acute intracranial abnormality. 2. Chronic small vessel ischemic changes and cerebral volume loss. Small amount of encephalomalacia in the right posterior frontal region. Electronically signed by: Joan Sethi M.D. 04/20/23 19:41 PM Pelvis X-Ray 04/20/23 18:32 SINGLE VIEW PELVIS CLINICAL HISTORY: Fall. FINDINGS: 2 AP, portable, supine pelvic radiographs are correlated with pelvic CT performed the same day 04/20/2023. The skeletal structures are osteopenic. There is no radiographic evidence of acute fracture involving the hips or pelvis. A bipolar right hip arthroplasty is in near anatomic alignment. Moderate osteoarthritic change and joint space narrowing is seen in the left hip. Enthesophytes arise from the anterior superior iliac spines. Lumbosacral spondylosis is partially imaged. There is degenerative sclerosis of the sacroiliac joints. Excreted IV contrast fills the bladder. Brachytherapy implants are noted in the pelvis. The overlying soft tissues are normal as imaged. A catheter projects over the pelvis. IMPRESSION: No acute fracture is identified. Electronically signed by: Baudilio Multani M.D. 04/20/2023 8:08 PM Supervising Physician Co-Signing Physician Notes IM ATTENDING : Patient seen and examined. History obtained from patient and records. Preceding documentation by KRISSY Johnson reviewed. FINAL ASSESSMENT AND PLAN as follows : Sepsis secondary to complicated UTI History of suprapubic catheter placement history of prostate cancer status post radiation Cerebral concussion Lacerated wound on the scalp secondary to above Troponin elevation secondary to illness Patient denies chest pain, SOB symptoms Possible T11-T12 vertebral fracture CT imaging chronic diastolic heart failure/right-sided heart failure (EF 60 to 65), TTE 20 23 History of pulmonary hypertension Some congestion on x-ray Patient asymptomatic.. Valvular 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/) Hypertension, stable Hyperlipidemia on statin Rx History of PSVT Bronchial asthma, stable TIA as per records Hyperglycemia likely prediabetes, hemoglobin A1c of 5.7 last July 2022 Medical telemetry Joshua US in light of microbiologic history (hx cefepime resistant Pseudomonas as per records) GCS neurochecks, Neurology consult for cerebral concussion Hold home aspirin for now given bleeding lacerated wound on the scalp Resume if hemoglobin stable Follow troponin, TTE if with progression Orthopedics spine consult Re: Possible thoracic vertebral fracture on CT imaging (ER provider already in touch with Dr. Rubalcava who recommends bedrest for now and MRI) Continue home diuretic Rx DVT prophylaxis. SCDs Re: Traumatic scalp laceration wound Full code Text document was generated using [employer] voice recognition software. It may contain grammatical or spelling errors. Kindly contact undersigned for clarification of any documentation item in question. (7) Carotid stenosis Laterality: right Qualified Code(s): I65.21 - Occlusion and stenosis of right carotid artery
[2023-04-20] MEDS ORDERED: MoRPHine SULFATE 2 MG/ML CARP IV STA (22:10)
[2023-04-20] MEDS ORDERED: LIDOCAINE 5% 1 PATCH TD STA (22:13)
[2023-04-20] MEDS ORDERED: PROMETHAZINE HCL 6.25 MG in SODIUM CHLORIDE 0.9% 50 ML IV PRN (22:16)
[2023-04-20 22:45] LABS: Appearance Urine Cloudy (Clear); Bacteria Urine Automated 3+ (Negative); Bilirubin Urine Negative (Negative); Blood Urine Trace (Negative); Color Urine Yellow; Epithelial Cell Urine Auto 0-5 /lpf (0-5); Glucose Urine UA Negative (Negative); Ketones Urine Negative (Negative); Leukocyte Esterase Urine 2+ (Negative); Nitrite Urine Positive (Negative); RBC Urine Automated 0-4 /hpf (0-4); Specific Gravity Urine 1.029 (1.000-1.030); Urobilinogen Urine Negative (Negative); WBC Urine Automated >30 /hpf (0-5); pH Urine >= 9.0 (4.5-7.5)
[2023-04-20 22:47] LABS: Protein Urine 3+ (Negative)
[2023-04-20] MEDS ORDERED: PIPERACILLIN/TAZOBACTAM 4.5 GM/100 ML BAG IV ONE (23:30)
--- NOTE | 2023-04-20 23:37 | Emergency Department Note ---
History of Present Illness General Chief complaint: Fall Stated complaint: FALL, OUTSIDE FOR 3 HOURS, HYPOTHERMIC Time Seen by Provider: 04/20/23 18:29 Source: patient and EMS History of Present Illness Provider complaint: Fall Onset (ago): day(s) 4 Maximum Pain Intensity: 6 87-year-old male presents emergency department for fall. Patient had a ground- level fall at his home in his garage/barn. He states he tripped and then hit his head. There was positive loss of consciousness. Patient laid outside in the cold for 3 hours before being discovered by his family. Patient is not on any blood thinners. Patient is reporting some headache but no chest pain difficulty breathing neck pain back pain abdominal pain or pain in his hips. Home Medications Medication Instructions Recorded Confirmed Type metoprolol succinate 25 mg 25 mg PO QAM 05/15/21 04/20/23 History tablet,extended release 24 hr spironolactone 25 mg tablet 12.5 mg PO Q2D 05/15/21 04/20/23 History aspirin 81 mg tablet,delayed 81 mg PO QAM 30 days #30 tabs 05/17/21 04/20/23 Rx release atorvastatin 40 mg tablet 40 mg PO QAM 30 days #30 tabs 05/17/21 04/20/23 Rx amlodipine 5 mg tablet 5 mg PO DAILY 06/03/22 04/20/23 History furosemide 20 mg tablet 20 mg PO DAILY 06/03/22 04/20/23 History gabapentin 300 mg capsule 300 mg PO TID 06/03/22 04/20/23 History levocetirizine 5 mg tablet 5 mg PO DAILY 06/03/22 04/20/23 History montelukast 10 mg tablet 10 mg PO HS 06/03/22 04/20/23 History fluticasone propionate 230 2 inh inhalation BID 04/20/23 04/20/23 History mcg-salmeterol 21 mcg/actuation HFA inhaler (Advair HFA) tiotropium bromide 2.5 2 puff inhalation QAM 04/20/23 04/20/23 History mcg/actuation mist for inhalation (Spiriva Respimat) Allergies Allergy/AdvReac Type Severity Reaction Status Date / Time Sulfa (Sulfonamide Allergy Intermediate RASH Verified 04/20/23 19:32 Antibiotics) house dust mite Allergy Mild Congested Verified 04/20/23 23:28 mold Allergy Mild CONGESTION Verified 04/20/23 19:32 fluticasone furoate AdvReac Intermediate LARYNGITIS Verified 04/20/23 19:32 [From Breo Ellipta] vilanterol AdvReac Intermediate LARYNGITIS Verified 04/20/23 19:32 [From Breo Ellipta] Past Med/Surg History Medical History History of CVA (cerebrovascular accident) Chronic diastolic heart failure Asthma History of nephrolithiasis Suprapubic catheter HTN (hypertension) History of radiation therapy Prostate cancer Surgical History History of cholecystectomy History of parotidectomy History of right hip replacement H/O shoulder surgery S/P TURP Family History Mother TIA (transient ischemic attack) Other Cancer Diabetes Social History Smoking Status: Never smoker Second Hand Exposure: No; Do You Dip or Chew Tobacco: No; Hx Alcohol Use: Yes Alcohol type: wine Hx Substance Use: No Preferred Language: Urdu Communication Ability: Effective Hearing Ability: Use of Hearing Aid Ceo Na Required: No Beliefs That Will Affect Care: None marital status: Current Living Situation: Spouse Current Living Situation Comment: w/ current occupational status: retired How many Children do You have: 2 Feels Safe at Home: Yes Seatbelt Use: always Sunscreen Use: No Assistive Devices: Cane and Walker Physical Exam Vital Signs Vital Signs - 24 hr 04/20/23 18:31 04/20/23 18:34 04/20/23 19:07 Temperature 34.0 C L 35.7 C L Temperature Source Rectal Rectal Pulse Rate 66 64 Pulse Rate [Apical] 74 Pulse Rate from SpO2 Sensor Pulse Rhythm Regular Pulse Strength Normal Respiratory Rate 18 20 Respiratory Effort / Characteristics Non-Labored Spontaneous Non-Labored Spontaneous Respiratory Depth Normal Normal Respiratory Pattern Regular Blood Pressure 136/79 Blood Pressure [Right Arm] 125/94 Blood Pressure Mean 98 Blood Pressure Mean [Right Arm] 104 Pulse Oximetry 96 94 Oxygen Delivery Method Room Air Room Air Sepsis Recent Fever Within 48 Hours No Sepsis New/Unexplained Change in Mental Status No Sepsis Action Taken by Nursing No Action Required 04/20/23 19:16 04/20/23 19:30 04/20/23 19:35 Temperature 35.8 C L Temperature Source Rectal Pulse Rate 112 H 77 Pulse Rate [Apical] 81 Pulse Rate from SpO2 Sensor 76 Pulse Rhythm Regular Pulse Strength Respiratory Rate 20 22 14 Respiratory Effort / Characteristics Non-Labored Spontaneous Respiratory Depth Normal Respiratory Pattern Blood Pressure Blood Pressure [Right Arm] 125/82 Blood Pressure Mean Blood Pressure Mean [Right Arm] 96 Pulse Oximetry 95 96 95 Oxygen Delivery Method Room Air Room Air Sepsis Recent Fever Within 48 Hours Sepsis New/Unexplained Change in Mental Status Sepsis Action Taken by Nursing 04/20/23 20:05 04/20/23 20:20 04/20/23 20:20 Temperature 36.1 C L Temperature Source Rectal Pulse Rate 106 H Pulse Rate [Apical] Pulse Rate from SpO2 Sensor 76 Pulse Rhythm Pulse Strength Respiratory Rate 9 L Respiratory Effort / Characteristics Respiratory Depth Respiratory Pattern Blood Pressure 125/83 Blood Pressure [Right Arm] Blood Pressure Mean 94 Blood Pressure Mean [Right Arm] Pulse Oximetry 95 Oxygen Delivery Method Sepsis Recent Fever Within 48 Hours Sepsis New/Unexplained Change in Mental Status Sepsis Action Taken by Nursing 04/20/23 20:43 04/20/23 22:17 04/20/23 22:17 Temperature 36.5 C Temperature Source Oral Pulse Rate 78 Pulse Rate [Apical] Pulse Rate from SpO2 Sensor Pulse Rhythm Pulse Strength Respiratory Rate 21 Respiratory Effort / Characteristics Respiratory Depth Respiratory Pattern Blood Pressure 130/91 Blood Pressure [Right Arm] Blood Pressure Mean 106 Blood Pressure Mean [Right Arm] Pulse Oximetry 94 Oxygen Delivery Method Sepsis Recent Fever Within 48 Hours Sepsis New/Unexplained Change in Mental Status Sepsis Action Taken by Nursing 04/20/23 22:28 04/20/23 22:30 04/20/23 22:30 Temperature Temperature Source Pulse Rate 82 73 Pulse Rate [Apical] Pulse Rate from SpO2 Sensor Pulse Rhythm Pulse Strength Respiratory Rate 22 Respiratory Effort / Characteristics Respiratory Depth Respiratory Pattern Blood Pressure 112/76 Blood Pressure [Right Arm] Blood Pressure Mean 87 Blood Pressure Mean [Right Arm] Pulse Oximetry 96 Oxygen Delivery Method Sepsis Recent Fever Within 48 Hours Sepsis New/Unexplained Change in Mental Status Sepsis Action Taken by Nursing Physical Exam GENERAL: He is oriented to person, place, and time. He appears well-developed and well-nourished. HENT: Exam performed. - Head: Abrasions to the head. - Right Ear: External ear normal. No mastoid erythema - Left Ear: External ear normal. No mastoid erythema - Mouth/Throat: The oropharynx is clear and moist. No trismus in the jaw. No dental abscesses or uvula swelling. No oropharyngeal exudate or tonsillar abscesses. EYES: Conjunctivae and EOM are normal. Pupils are equal, round, and reactive to light. Right eye exhibits no discharge. Left eye exhibits no discharge. No scleral icterus. NECK: Patient in c-collar. CV: Normal rate, regular rhythm, normal heart sounds and intact distal pulses. There is no peripheral edema. Palpable radial pulses bue. PULM/CHEST: Effort normal and breath sounds normal. No respiratory distress. No stridor. He has no wheezes. He has no rales. ABD: The abdomen is soft. There is no tenderness. There is no rebound, no guarding. Suprapubic urinary catheter present. MUSC/SKEL: Pelvis stable. No pain on palpation of the C, T, or L-spine. No step-offs. NEURO: He is alert and oriented to person, place, and time. He has normal strength. No cranial nerve deficit or sensory deficit. GCS eye subscore is 4. GCS verbal subscore is 5. GCS motor subscore is 6. Cerebellar tests wnl. SKIN: Skin tear over the left elbow. Course Course 182: The patient was evaluated in room B1. A complete history and physical exam was performed Cardiac monitoring: An order was placed for continuous cardiac monitoring. The monitor shows a rate of 70 with sinus rhythm interpreted by me Patient was found to be hypothermic in the emergency department. Bear hugger applied to the patient. 2000: Patient's temperature improving with Josue hugger. Labs show leukocytosis of 13.38, thought to be reactive. Coagulation studies are within normal limits. CPK within normal limits. Patient's troponin elevated at 1357. Patient not reporting any chest pain or difficulty breathing. Chest x-ray pelvis x-ray negative. CT of the head and C-spine negative. CT of the abdomen pelvis shows no acute bony fractures. There is some age-indeterminate widening of the anterior aspect of the intervertebral disc space at T11-T12. Given the patient's hypothermia and elevated troponin patient will be admitted to the [facility] and Dr. Leyva notified. 2030: Spoke with Dr. Multani staff radiology. He states that there is a acute disc space fracture of T11-T12 with paravertebral edema. No bony fracture. 2048: Spoke with Dr. Rubalcava spine surgery. He states that the disc base fracture could result in a Chance fracture. He states that the patient can be admitted here and he will see the patient in the morning. He recommends a thoracic spine MRI and he will evaluate the patient after review the MRIs in the morning. He recommends that the patient be on strict bedrest until then. Nursing staff were made aware of this as well as admitting team Dr. Leyva. Patient was also made aware of this to be on strict bedrest. Attempted to call patient's family to update them about this however they did not answer. Administered Medications Discontinued Medications Diphtheria/Pertussis/Tetanus Vacc (Diphtheria/Tetanus/Pertussis Vaccine (Tdap, Age 7+Yrs) 0.5ml Syr/Vl) 0.5 ml IM .ONCE ONE Stop: 04/20/23 18:31 Last Admin: 04/20/23 19:27 Dose: 0.5 ml Documented By: YuvalKP Albumin Human (Albumin 25%) 25 gm in 100 mls @ 50 mls/hr IV ONE ONE Stop: 04/20/23 21:52 Last Admin: 04/20/23 21:13 Dose: 50 mls/hr Documented By: QGV Ioversol (Optiray 320 500ml) 90 ml IV ONCE ONE Stop: 04/20/23 18:54 Last Admin: 04/20/23 18:54 Dose: 90 ml Documented By: PANCHO Morphine Sulfate (Morphine Sulfate 2 Mg/Ml Carp) 2 mg IV NOW STA Stop: 04/20/23 22:11 Last Admin: 04/20/23 22:33 Dose: 2 mg Documented By: BS Critical Care Time Critical Care Time: Yes Total Critical Care Time: 44 I have personally spent greater than 44 minutes of critical care time in the direct management of this patient. This includes bedside care, interpretation of diagnostic studies, and testing, discussion with consultants, patient, and family members, and other required patient management activities. This 44 minutes is in excess of all separately billable procedures. Medical Decision Making Laboratory Data Attestation: I reviewed the patient's lab results. 04/20/23 18:35 04/20/23 18:35 Lab Results 04/20/23 04/20/23 04/20/23 Range/Units 18:35 18:46 19:17 WBC 13.38 H (4.8-10.8) K/ul RBC 5.46 (4.70-6.10) M/uL Hgb 17.4 (14.0-18.0) g/dl Hct 50.3 (42.0-52.0) % MCV 92.1 (80.0-100.0) fL MCH 31.9 (25.0-34.0) pg MCHC 34.6 (32.0-36.0) g/dL RDW Std Deviation 47.1 H (36.4-46.3) fL RDW Coeff of Fredrick 14.1 (11.5-14.5) % Plt Count 163 (130-400) K/uL MPV 10.8 (9.4-12.4) fL Immature Gran % (Auto) 0.7 % Neut % (Auto) 81.7 % Lymph % (Auto) 9.0 % [place] % (Auto) 7.5 % Eos % (Auto) 0.8 % Baso % (Auto) 0.3 % Neut # (Auto) 10.93 H (1.40-6.50) K/uL Lymph # (Auto) 1.21 (1.20-3.40) K/uL [place] # (Auto) 1.00 H (0.11-0.59) K/uL Eos # (Auto) 0.11 (0.00-0.50) K/uL Baso # (Auto) 0.04 (0.00-0.20) K/uL Immature Gran # (Auto) 0.09 (0.01-0.20) K/uL PT 11.6 (9.0-12.0) Seconds INR 1.1 (0.9-1.1) APTT 27.6 (21.0-31.0) Seconds PTT Ratio 1.0 Sodium 139 (136-145) mmol/L Potassium 4.1 (3.5-5.1) mmol/L Chloride 105 (98-107) mmol/L Carbon Dioxide 26 (21-32) mmol/L Anion Gap 8 (3-11) BUN 23 (6-23) mg/dl Creatinine 0.87 (0.6-1.4) mg/dl Est Cr Clr Drug Dosing 68.5 ml/min Est GFR ( Amer) 89.3 ml/min Est GFR (Non-Af Amer) 77.1 ml/min BUN/Creatinine Ratio 26.4 H (10-20) Glucose 97 (70-99(Fasting)) mg/dl POC Glucose 112 H (70-99) mg/dl Lactate (0.4-2.0) mmol/L Calcium 8.8 (8.6-10.3) mg/dl Magnesium 2.0 (1.7-2.4) mg/dl Total Creatine Kinase 140 173 (30-223) U/L Troponin I High Sens 1357.2 H* (0-20) pg/ml B-Natriuretic Peptide 174 H (0-100) pg/ml Procalcitonin < 0.05 (0-0.5) ng/ml TSH 3.176 (0.300-4.500) uIu/ml Urine Color Urine Appearance (Clear) Urine pH (4.5-7.5) Ur Specific [place] (1.000-1.030) Urine Protein (Negative) Urine Glucose (UA) (Negative) Urine Ketones (Negative) Urine Blood (Negative) Urine Nitrite (Negative) Urine Bilirubin (Negative) Urine Urobilinogen (Negative) Ur Leukocyte Esterase (Negative) Urine WBC (Auto) (0-5) /hpf Urine RBC (Auto) (0-4) /hpf U Hyaline Cast (Auto) (0-5) /lpf U Epithel Cells (Auto) (0-5) /lpf Urine Bacteria (Auto) (Negative) Ethyl Alcohol mg/dL < 10.0 (<10.0) mg/dl 04/20/23 Range/Units 22:10 WBC (4.8-10.8) K/ul RBC (4.70-6.10) M/uL Hgb (14.0-18.0) g/dl Hct (42.0-52.0) % MCV (80.0-100.0) fL MCH (25.0-34.0) pg MCHC (32.0-36.0) g/dL RDW Std Deviation (36.4-46.3) fL RDW Coeff of [place]rick (11.5-14.5) % Plt Count (130-400) K/uL MPV (9.4-12.4) fL Immature Gran % (Auto) % Neut % (Auto) % Lymph % (Auto) % [place] % (Auto) % Eos % (Auto) % Baso % (Auto) % Neut # (Auto) (1.40-6.50) K/uL Lymph # (Auto) (1.20-3.40) K/uL [place] # (Auto) (0.11-0.59) K/uL Eos # (Auto) (0.00-0.50) K/uL Baso # (Auto) (0.00-0.20) K/uL Immature Gran # (Auto) (0.01-0.20) K/uL PT (9.0-12.0) Seconds INR (0.9-1.1) APTT (21.0-31.0) Seconds PTT Ratio Sodium (136-145) mmol/L Potassium (3.5-5.1) mmol/L Chloride (98-107) mmol/L Carbon Dioxide (21-32) mmol/L Anion Gap (3-11) BUN (6-23) mg/dl Creatinine (0.6-1.4) mg/dl Est Cr Clr Drug Dosing ml/min Est GFR ( Amer) ml/min Est GFR (Non-Af Amer) ml/min BUN/Creatinine Ratio (10-20) Glucose (70-99(Fasting)) mg/dl POC Glucose (70-99) mg/dl Lactate 1.4 (0.4-2.0) mmol/L Calcium (8.6-10.3) mg/dl Magnesium (1.7-2.4) mg/dl Total Creatine Kinase (30-223) U/L Troponin I High Sens 2340.8 H* D (0-20) pg/ml B-Natriuretic Peptide (0-100) pg/ml Procalcitonin (0-0.5) ng/ml TSH (0.300-4.500) uIu/ml Urine Color Yellow Urine Appearance Cloudy A (Clear) Urine pH >= 9.0 H (4.5-7.5) Ur Specific [place] 1.029 (1.000-1.030) Urine Protein 3+ H (Negative) Urine Glucose (UA) Negative (Negative) Urine Ketones Negative (Negative) Urine Blood Trace H (Negative) Urine Nitrite Positive A (Negative) Urine Bilirubin Negative (Negative) Urine Urobilinogen Negative (Negative) Ur Leukocyte Esterase 2+ H (Negative) Urine WBC (Auto) >30 H (0-5) /hpf Urine RBC (Auto) 0-4 (0-4) /hpf U Hyaline Cast (Auto) 1-5 (0-5) /lpf U Epithel Cells (Auto) 0-5 (0-5) /lpf Urine Bacteria (Auto) 3+ H (Negative) Ethyl Alcohol mg/dL (<10.0) mg/dl Imaging Data Attestation: I personally reviewed and interpreted this imaging study as follows: My Impression: Chest x-ray: No acute fracture or pneumothorax Pelvis x-ray: No acute fracture or dislocation Radiologist's Impression: Abdomen/Pelvis CT 04/20/23 18:31 Exam(s): CT ABDOMEN + PELVIS With Contrast IV Amt: 90 ml optiray 320 EXAM: CT Abdomen and Pelvis With Intravenous Contrast CLINICAL HISTORY: Reason for exam: fall. TECHNIQUE: Axial computed tomography images of the abdomen and pelvis with intravenous contrast. CTDI is 28.14 mGy and DLP is 1598.33 mGy-cm. Automated exposure control was utilized for the study. A dose lowering technique was utilized adhering to the principles of ALARA. CONTRAST: Patient received 90 ml optiray 320 of IV contrast COMPARISON: CT abdomen/pelvis on 06/03/2022 FINDINGS: Lung bases: Lower lung atelectasis. Calcified granulomas. Heart: Mild cardiomegaly. Coronary artery, aortic valve, and mitral annular calcifications. ABDOMEN: Liver: Probable small left hepatic cyst which could be further evaluated with ultrasound if clinically indicated. Gallbladder and bile ducts: Prior cholecystectomy. No ductal dilation. Pancreas: Mild atrophy of the pancreas. No ductal dilation. Spleen: Unremarkable. No splenomegaly. Adrenals: Unremarkable. No mass. Kidneys and ureters: Punctate nonobstructing left renal stone. No hydronephrosis or ureteral stone. Stomach and bowel: Evaluation of the stomach is limited by under distention. Diverticulosis without evidence of diverticulitis. No small bowel obstruction. PELVIS: Appendix: Appendix is nonvisualized on this exam. Bladder: Bladder stones noted. Mild prominence of the bladder wall is nonspecific. Please correlate with urinalysis if concerned for cystitis. Suprapubic catheter and small amount of gas. Reproductive: Probable prostatectomy. ABDOMEN and PELVIS: Intraperitoneal space: See below. Bones/joints: Right hip arthroplasty causes artifact that limits evaluation of portions of the pelvis. Degenerative changes of the spine. Minimal retrolisthesis of L2 on L3 and L3 on L4. No acute fracture. No dislocation. Soft tissues: Mild bilateral gynecomastia. Small fat-containing umbilical hernia. Vasculature: Atherosclerotic changes of the vasculature. No aortic aneurysm or dissection. Lymph nodes: Mild haziness in the central mesentery with mildly prominent mesenteric lymph nodes may represent mesenteric panniculitis. Other findings: Age indeterminate mild widening of the anterior aspect of the intervertebral disc space at T11-12, new compared to prior exam on 06/03/2022. IMPRESSION: 1. Bladder stones noted. Mild prominence of the bladder wall is nonspecific. Please correlate with urinalysis if concerned for cystitis. 2. Age indeterminate mild widening of the anterior aspect of the intervertebral disc space at T11-12, new compared to prior exam on 06/03/2022 and possibly acute. Further evaluation could be performed with MRI if clinically indicated. Electronically signed by: Joan Sethi M.D. 04/20/23 19:[address] 04/20/23 18:32 Exam(s): CT C SPINE EXAM: CT Cervical Spine Without Intravenous Contrast CLINICAL HISTORY: Reason for exam: fall. TECHNIQUE: Axial computed tomography images of the cervical spine without intravenous contrast. CTDI is 26.35 mGy and DLP is 543.82 mGy-cm. Automated exposure control was utilized for the study. A dose lowering technique was utilized adhering to the principles of ALARA. COMPARISON: None FINDINGS: Bones: Normal alignment. No acute fracture or bony lesion. Ossifications in the nuchal ligament are likely related to remote trauma. Disc spaces: No subluxation. Degenerative changes of the spine. Soft tissues: Normal. Other: Mild mucosal thickening in the maxillary sinuses. Polyp versus mucous retention cyst in the right maxillary sinus. Atherosclerotic changes of the vasculature. Right carotid artery stent. Calcified granulomas partially seen in the right lung apex. IMPRESSION: No acute traumatic abnormality. Electronically signed by: Joan Sethi M.D. 04/20/23 19:28 PM Chest X-Ray 04/20/23 18:32 SINGLE VIEW CHEST CLINICAL HISTORY: Fall. FINDINGS: 2 AP, portable, supine chest radiographs are compared to study dated 06/03/2022. Correlation is made with chest CT dated 12/16/2015. The examination is degraded by portable technique and patient rotation. The heart is enlarged. There is pulmonary vascular congestion. Chronic interstitial thickening is similar to previous. Foci of parenchymal scarring are seen throughout both lungs. There are scattered calcified granulomas. No airspace consolidation or large pleural effusion is identified. No pneumothorax is seen. The skeletal structures are osteopenic. The bony thorax is grossly intact. IMPRESSION: 1. Cardiomegaly with pulmonary vascular congestion. 2. No airspace consolidation or large pleural effusion is identified. ACT 112: Negative or not required by law. Electronically signed by: Baudilio Multani M.D. 04/20/2023 8:[address] 04/20/23 18:32 Exam(s): CT HEAD Without Contrast EXAM: CT Head Without Intravenous Contrast CLINICAL HISTORY: Reason for exam: fall. TECHNIQUE: Axial computed tomography images of the head/brain without intravenous contrast. CTDI is 37.12 mGy and DLP is 624.41 mGy-cm. Automated exposure control was utilized for the study. A dose lowering technique was utilized adhering to the principles of ALARA. COMPARISON: CT head on 05/15/2021. MRI brain on 05/16/2021. FINDINGS: Brain: No acute infarct or hemorrhage identified. No extra-axial fluid collection. No mass effect or midline shift. Scattered areas of hypoattenuation in the supratentorial white matter likely represent chronic small vessel ischemic changes. Small amount of encephalomalacia in the right posterior frontal region. Ventricles and sulci: Prominence of the ventricles and sulci is likely secondary to cerebral volume loss. Bones: Hyperostosis frontalis interna. No bony lesion or acute fracture. Subcutaneous tissues: Normal. Sinuses: Mucosal thickening in the maxillary sinuses and ethmoid air cells. Mastoid air cells: Normal. Orbits: Grossly unremarkable. Other: Atherosclerotic calcifications in the intracranial vasculature. IMPRESSION: 1. No acute intracranial abnormality. 2. Chronic small vessel ischemic changes and cerebral volume loss. Small amount of encephalomalacia in the right posterior frontal region. Electronically signed by: Joan Sethi M.D. 04/20/23 19:41 PM Pelvis X-Ray 04/20/23 18:32 SINGLE VIEW PELVIS CLINICAL HISTORY: Fall. FINDINGS: 2 AP, portable, supine pelvic radiographs are correlated with pelvic CT performed the same day 04/20/2023. The skeletal structures are osteopenic. There is no radiographic evidence of acute fracture involving the hips or pelvis. A bipolar right hip arthroplasty is in near anatomic alignment. Moderate osteoarthritic change and joint space narrowing is seen in the left hip. Enthesophytes arise from the anterior superior iliac spines. Lumbosacral spondylosis is partially imaged. There is degenerative sclerosis of the sacroiliac joints. Excreted IV contrast fills the bladder. Brachytherapy implants are noted in the pelvis. The overlying soft tissues are normal as imaged. A catheter projects over the pelvis. IMPRESSION: No acute fracture is identified. Electronically signed by: Baudilio Multani M.D. 04/20/2023 8:08 PM ECG Data Attestation: I personally reviewed and interpreted this ECG as follows: Additional Comments: Sinus rhythm with a rate of 71. NV 244 QRS 128 QTc 491. Right bundle branch block present. No ST elevation or ST depression. [facility] Narrative 182: The patient was evaluated in room B1. A complete history and physical exam was performed Cardiac monitoring: An order was placed for continuous cardiac monitoring. The monitor shows a rate of 70 with sinus rhythm interpreted by me Patient was found to be hypothermic in the emergency department. Bear hugger applied to the patient. 1999: Patient's temperature improving with Josue hugger. Labs show leukocytosis of 13.38, thought to be reactive. Coagulation studies are within normal limits. CPK within normal limits. Patient's troponin elevated at 1357. Patient not reporting any chest pain or difficulty breathing. Chest x-ray pelvis x-ray negative. CT of the head and C-spine negative. CT of the abdomen pelvis shows no acute bony fractures. There is some age-indeterminate widening of the anterior aspect of the intervertebral disc space at T11-T12. Given the patient's hypothermia and elevated troponin patient will be admitted to the [facility] and Dr. Leyva notified. 2029: Spoke with Dr. Multani staff radiology. He states that there is a acute disc space fracture of T11-T12 with paravertebral edema. No bony fracture. 2048: Spoke with Dr. Rubalcava spine surgery. He states that the disc base fracture could result in a Chance fracture. He states that the patient can be admitted here and he will see the patient in the morning. He recommends a thoracic spine MRI and he will evaluate the patient after review the MRIs in the morning. He recommends that the patient be on strict bedrest until then. Nursing staff were made aware of this as well as admitting team Dr. Leyva. Patient was also made aware of this to be on strict bedrest. Attempted to call patient's family to update them about this however they did not answer. Impression & Plan Hypothermia, Elevated troponin, CHI (closed head injury), Fall Discharge Plan Visit Data Chief Complaint: Fall Stated Complaint: FALL, OUTSIDE FOR 3 HOURS, HYPOTHERMIC ED Provider: Zev Mota Discharge Problem: Hypothermia, Elevated troponin, CHI (closed head injury), Fall Patient Disposition: Admitted As Inpatient Forms Stand Alone Forms: [facility] Prescriptions Prescriptions: No Action spironolactone 25 mg tablet 12.5 mg PO Q2D metoprolol succinate 25 mg tablet extended release 24 hr 25 mg PO QAM atorvastatin 40 mg Tablet 40 mg PO QAM 30 Days Qty: 30 2RF aspirin 81 mg Tablet,Delayed Release (Dr/Ec) 81 mg PO QAM 30 Days Qty: 30 2RF amlodipine 5 mg tablet 5 mg PO DAILY gabapentin 300 mg capsule 300 mg PO TID montelukast 10 mg tablet 10 mg PO HS furosemide 20 mg tablet 20 mg PO DAILY levocetirizine 5 mg tablet 5 mg PO DAILY Spiriva Respimat 2.5 mcg/actuation mist 2 puff INHALATION QAM fluticasone propion-salmeterol [Advair HFA] 230-21 mcg/actuation HFA aerosol inhaler 2 inh INHALATION BID Referrals Referrals: Rosalina Hanna DO [Primary Care Provider] - Discharge Problem: Hypothermia Qualifiers: Encounter type: initial encounter Qualified Code(s): T68.XXXA - Hypothermia, initial encounter CHI (closed head injury) Qualifiers: Encounter type: initial encounter Qualified Code(s): S09.90XA - Unspecified injury of head, initial encounter
[2023-04-21] MEDS: oxyCODONE HCL IR 5 MG TAB (IMMEDIATE RELEASE) PO PRN ×2 (00:38→21:10)
--- NOTE | 2023-04-21 00:39 | Magnetic Resonance Report ---
Exam(s): MRI T SPINE Without Contrast EXAM: MR Thoracic Spine Without Intravenous Contrast CLINICAL HISTORY: Reason for exam: traumatic back pain, abn ct. TECHNIQUE: Magnetic resonance images of the thoracic spine without intravenous contrast in multiple planes. COMPARISON: Same day CT abdomen/pelvis FINDINGS: Vertebrae: Acute fracture through the anterior osteophyte at T11-12 with widening of the anterior intervertebral disc space, measuring approximately 9 mm. No definite fracture of the vertebral bodies. Discs/spinal canal/neural foramina: Degenerative changes of the spine. No significant spinal canal stenosis or neural foraminal stenosis. Spinal cord: Conus medullaris terminates normally at the level of T12- L1. Normal signal. Soft tissues: Unremarkable. IMPRESSION: Acute fracture through the anterior osteophyte at T11-12 with widening of the anterior intervertebral disc space, measuring approximately 9 mm. No definite spinal cord injury. Electronically signed by: Joan Sethi M.D. 04/21/23 00:37 AM
[2023-04-21] MEDS: GABAPENTIN 300 MG CAP PO SCH ×4 (02:33→21:10)
[2023-04-21] MEDS: PIPERACILLIN/TAZOBACTAM 4.5 GM in DEXTROSE 5% MINI-B 100 ML IV SCH ×3 (06:11→22:19)
[2023-04-21 06:43] LABS: Basophils # (auto) 0.06 K/uL (0.00-0.20); Basophils % (auto) 0.7 %; Eosinophils # (auto) 0.14 K/uL (0.00-0.50); Eosinophils % (auto) 1.7 %; Hematocrit (blood only) 43.8 % (42.0-52.0); Immature Granulocytes # (auto) 0.02 K/uL (0.01-0.20); Immature Granulocytes % (auto) 0.2 %; Lymphocytes # (auto) 1.35 K/uL (1.20-3.40); Lymphocytes % (auto) 16.8 %; Mean Corpuscular Hemoglobin 33.4 pg (25.0-34.0); Mean Corpuscular Hgb Conc 36.5 g/dL (32.0-36.0); Mean Corpuscular Volume 91.4 fL (80.0-100.0); Mean Platelet Volume 10.8 fL (9.4-12.4); Monocytes # (auto) 0.77 K/uL (0.11-0.59); Monocytes % (auto) 9.6 %; Neutrophils # (auto) 5.69 K/uL (1.40-6.50); Platelet Count 148 K/uL (130-400); RDW Standard Deviation 47.4 fL (36.4-46.3); Red Blood Count 4.79 M/uL (4.70-6.10); White Blood Count 8.03 K/ul (4.8-10.8)
[2023-04-21 07:01] LABS: BUN Creatinine Ratio 22.3 (10-20); Calcium 8.3 mg/dl (8.6-10.3); Creatinine Clr Calc Pharmacy 63.4 ml/min; Est GFR (African American) 83.6 ml/min; Est GFR (Non-African American) 72.1 ml/min; Potassium 3.8 mmol/L (3.5-5.1)
--- OUTSIDE RECORDS SUMMARY | 2023-04-21 07:02 | External Medical Summary | Summary of Care ---
Author Name Unknown Organization [facility] Address [address] [place] [address] Phone [phone] Care Team Providers Care [employer] Name Role Phone Rosalina Hanna DO Primary Care Provider Reason for Visit * Reason Onset Date Comments Appointment 01/18/2023 Encounter Details Date Type Department Care Team (Late st Contact Info) Description 01/18/2023 Telephone [facility] [address] [place] [address] Rosalina Hanna DO [address] [place] [address] Appointment Allergies Active Allergy Reactions Criticality Noted Date Comments Dog Dander 06/11/2021 Dust 06/11/2021 Mold Sulfa Antibiotics Rash,Hives High 07/18/2017 documented as of this encounter (statuses as of 04/19/2023) Medications Medication Sig Dispensed Refills Start Date End Date Status IBUPROFEN 200 MG PO TABS Take 1 Tablet by mouth in the morning. 0 Active clotrimazole (LOTRIMIN) 1 % creamIndications:Ti consuelo pedis of both feet Apply to itching areas on the back and feet twice daily as needed for flares. 113 g 4 0 Active Kidney Oral Capsule Take 1 Capsule by mouth daily. To prevent kidney stones 0 Active Fiber Diet Oral Tablet Take 3 Tabs by mouth daily. 0 Active Albuterol Sulfate HFA 108 (90 Base) MCG/ACT Inhalation Aerosol Solution Inhale 2 Puffs by mouth every 6 hours as needed for Cough, Shortness of Breath or Wheezing. 18 g 3 1 Active QC Aspirin Low Dose 81 MG Oral Tablet Delayed Release Take 1 Tablet by mouth in the morning. 0 1 Active guaiFENesin ER 600 MG Oral Tablet Extended Release 12 Hour (Mucinex)Indication s:Bronchitis, complicated Take by mouth 1 Tablet 2 times a day as needed for Congestion. Take with plenty of water. Do not cut, crush or chew 20 Tablet 1 2 Active Atorvastatin Calcium 40 MG Oral Tablet (Lipitor) TAKE ONE TABLET BY MOUTH EVERY DAY IN THE MORNING 90 Tablet 1 3 Active Advair HFA 230-21 MCG/ACT Inhalation Aerosol (fluticasone-Salmet gregoria)Indications:Mo derate persistent asthma without complication Inhale 2 Puffs by mouth in the morning and 2 Puffs before bedtime. 12 g 5 3 Active Furosemide 20 MG Oral Tablet (Lasix) Take 1 Tablet by mouth in the morning. 90 Tablet 2 3 Active Mometasone Furoate 50 MCG/ACT Nasal Suspension Administer 2 Sprays into nostril in the morning. 18 g 12 3 Active Levocetirizine Dihydrochloride 5 MG Oral TabletIndications:A llergic rhinitis, unspecified seasonality, unspecified trigger Take 1 Tablet by mouth in the morning. 90 Tablet 3 3 Active Gabapentin 300 MG Oral Capsule (Neurontin)Indicati ons:Spinal stenosis of lumbar region with neurogenic claudication Take by mouth 1 Capsule in the morning AND 1 Capsule at noon AND 1 Capsule before bedtime. 90 Capsule 11 2 023 Discontinued Montelukast Sodium 10 MG Oral Tablet (Singulair) Take by mouth 1 Tablet before bedtime. 90 Tablet 3 2 023 Discontinued(Re fill) Spironolactone 25 MG Oral Tablet (Aldactone)Indicati ons:HTN, goal below 140/90,Chronic right heart failure (HCC) TAKE 1/2 TABLET BY MOUTH EVERY OTHER DAY 45 Tablet 3 2 023 Discontinued Metoprolol Succinate ER 25 MG Oral Tablet Extended Release 24 Hour (toPROL XL)Indications:HTN, goal below 140/90 TAKE ONE TABLET BY MOUTH EVERY DAY 90 Tablet 3 3 023 Discontinued(Re fill) amLODIPine Besylate 5 MG Oral Tablet (Norvasc)Indication s:HTN, goal below 140/90 Take 0.5 Tablets by mouth in the morning. 90 Tablet 3 3 023 Discontinued(Di scharged) Metoprolol Succinate ER 25 MG Oral Tablet Extended Release 24 Hour (toPROL XL)Indications:HTN, goal below 140/90 Take 0.5 Tablets by mouth in the morning. 90 Tablet 3 3 023 Discontinued(Re fill) documented as of this encounter (statuses as of 04/19/2023) Active Problems Problem Noted Date Diagnosed Date History of transient ischemic attack (TIA) 01/05 History of prostate cancer 06/14/2022 HTN, goal below 140/90 06/14/2022 Dyslipidemia, goal LDL below 70 06/14/2022 Pulmonary hypertension 06/14/2022 Paroxysmal supraventricular tachycardia 06/14/19 23 Carotid stenosis, symptomatic, with infarction 0 06/15/2021 SOB (shortness of breath) 11/20/2020 Chronic diastolic heart failure due to valvular disease 11/20/[address] scan, lung 11/20/2020 Asthma, moderate persistent 11/20/2020 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 documented as of this encounter (statuses as of 04/19/2023) Resolved Problems Problem Noted Date Diagnosed Date Resolved Date Heart failure 06/14/2022 06/14/2022 Gastro-esophageal reflux dis ease without esophagitis 01/05/2022 01/18/2023 TIA (transient ischemic attack) 06/15/2021 01/05/2023 Severe obesity with body mas s index (BMI) of 35.0 to 39.9 with serious comorbidity 11/20/2020 documented as of this encounter (statuses as of 04/19/2023) Immunizations Name Administration Dates Next Due COVID-19 mRNA, LNP-s, No Pre serve, 2-Dose Series (Moderna) 07/24/2020,06/26/2020 Pneumococcal Conjugate Vacc, 13 Valent (Prevnar) 04/26/2016 Pneumococcal Polysaccharide PPV23 (Pneumovax) 03/29/2003 Season Influenza, Quad, PF, Adjuvanted, 65+ Yrs, IM (FLUAD) 03/18/2022,02/12/2020 Seasonal Influenza Virus Vac cine, Unspecified Formulation 03/22/2019,02/27/2018,04/03/2017,03/23,03/23/2015 Seasonal Influenza, Quadriva lent Hd (Fluzone Hd) 03/12/2021 Seasonal Influenza, Trivalen t, High Dose, No Preserve, IM 03/22/2019,02/27/2018 TDAP (age 10 and older)(Boostrix) 02/12/2020 Varicella Zoster Vaccine (Adult) 01/24/2018 Zoster Vaccine Recombinant (Shingrix) 07/28/2018 ,01/27/2018 documented as of this encounter Social History Tobacco Use Types Packs/Day Years Used Date Smoking Tobacco: Never Passive Smoke Exposure: Past Smokeless Tobacco: Never Alcohol Use Standard Drinks/Week Comments Yes 14 (1 standard drink = 0.6 oz pure alcohol) 02/19/21 wine daily with dinner PHQ-2 Answer Date Recorded PHQ Adult Total Score 0 08/31/2020 Hunger Vital Sign Answer Date Recorded Within the past 12 months, y ou worried that your food would run out before you got the money to buy more. Never true 06/08/19 23 Within the past 12 months, t he food you bought just didn't last and you didn't have money to get more. Never true 06/08/2022 Sex and Gender Information Value Date Recorded Sex Assigned at Male 06/14/2022 10:35 AM EST Gender Identity Male 06/14/2022 10:35 AM EST Sexual Orientation Straight 08/31/2020 10 :50 AM EDT Job Start Date Occupation Industry Not on file Not on file Not on file documented as of this encounter Functional Status Functional Status Response Date of Assess ment Are you deaf or do you have serious difficulty h earing? Yes 06/15/2021 Are you blind or do you have serious difficulty seeing, even when wearing glasses? No 06/15/2021 Do you have serious difficul ty walking or climbing stairs? (5 years old or older) No 06/16/2021 Do you have difficulty dress ing or bathing? (5 years old or older) No 06/15/2021 Because of a physical, menta l, or emotional condition, do you have difficulty doing errands alone such as visiting a doctor s office or shopping? (15 years old or older) No 06/15/19 22 Cognitive Status Response Date of Assessm ent Because of a physical, menta l, or emotional condition, do you have serious difficulty concentrating, remembering, or making decisions? (5 years old or older) No 06/15/2021 documented as of this encounter Miscellaneous Notes * Telephone Encounter - Nubia Hanson OSA - 01/20/2023 12:30 PM EDT Nurse Visit scheduled. 01/20/2023 * Telephone Encounter - Capri Jade LPN - 01/19/2023 10:53 AM EDT Left detailed message on machine with instructions to call clinic with any questions. Will send to scheduling to have nurse visit scheduled for ZIO Patch * Telephone Encounter - Rosalina Hanna DO - 01/18/2023 1:28 PM EDT Had cardiology review his EKG, suggested that he stop NORVASC, and to cut his metoprolol in half to12.5 mg daily Suggested ZIO monitor this was ordered. To place ZIO on in 1 week. This will be for 14 days. Tried to call patient no answer, pls contact him and relay the above info * Telephone Encounter - Rosalina Hanna DO - 01/18/2023 1:28 PM EDT ----- Message from Jose Luis Hanna DO sent at 01/18/2023 11:45 AM EDT ----- Looks like he saw Cardiology yesterday. I would stop the Norvasc and cut metoprolol in half. He has a bifascicular block. Get 14 day Zio monitor on him in about a week. Graham ----- Message ----- From: Rosalina Hanna DO Sent: 01/18/2023 11:20 AM EDT To: Jose Luis Hanna DO When you get a chance can you look at his EKG today Does not appear any changes. He has some low BP readings and dizziness. No syncopal episodes. I lowered his norvasc to 2.5 mg from 5 mg, any other changes that you suggest Rosalina * Telephone Encounter - Eleonora Alcala OSA - 01/18/2023 11:22 AM EDT Apt for 02/14/23 got canceled and pt would like to be rescheduled. Please call to schedule. documented in this encounter Plan of Treatment Upcoming Encounters Date Type Department Care Team (Late st Contact Info) Description 04/26/2023 9:30 AM EST Office Visit Gastroenterology, [facility] [address] [place] [address] Madalyn Amaya CRNP [address] [facility] [place] [address] 05/03/2023 2:00 PM EST Office Visit Dermatology [place] [address] [facility] [place] [address] Carlos Kapadia MD [address] [place] [address] 05/04/2023 10:30 AM EST [address] [place] [phone] 09/12/2023 10:30 AM EDT Office Visit Cardiology, [facility] [address] [place] [address] Melisa Ramirez CRNP [address] [place] [address] Health Maintenance Due Date Last Done Comments COLONOSCOPY-EVERY 3 YRS AGES 18-100 10/05/2012 10/05/2009, 10/02/2006, 10/02/2006 COVID-19 Vaccine (3 - Moderna risk series) 08/21/2020 07/24/2020, 06/26/2020 Depression Screening 08/31/2021 08/31/2020 Albumin/Creatinine Ratio 01/18/2026 01/18/2023 DTaP,Tdap,and Td Vaccines (2 - Td or Tdap) 02/11/2030 02/12/2020 Pneumococcal Vaccine: 65+ Years Completed 04/26/2016, 03/29/2003 Zoster Vaccines Completed 07/28/2018, 12/2017, 01/24/2018 Influenza Vaccine (FLU shot) Completed , 03/18/2022, 03/12/2021, Additional history exists GARDASIL-HPV IMMUNIZATION SERIES Aged Out No longer eligible based on patient's age to complete this topic Hepatitis B Aged Out No longer eligi ble based on patient's age to complete this topic MENINGOCOCCAL (MENACTRA/MENVEO) Aged Out No longer eligible based on patient's age to complete this topic documented as of this encounter Medical Devices Implanted Type Area Cloth Shrinking Machine Operator Device Identifier Shelf Expiration Date Model / Serial / Lot Angioseal Vip 8 Fr - [id number] Implanted:Qty : 1 on 06/15/2021 by Latrell Peterson MD at [facility] [place] [place] Right: Carotid [employer] [id number] 02/18/2022 [id number] / / [id number] documented as of this encounter Results * EXTERNAL EKG 8 TO 15 DAYS (01/27/2023 12:00 AM EDT) 01/27/2023 Narrative Procedure Note Raul Ledbetter DO - 01/27/2023 12:00 AM EDT REASON FOR STUDY: bradycardia CONCLUSIONS: Preliminary Findings Prepared by Nataliia Rae, ISAAC 02/08/23 Duration: 60s, 21 hours ranging from 01/27/2023 until 02/03/2023 Patient had a min HR of 48 bpm, max HR of 128 bpm, and avg HR of 69 bpm. Predominant underlying rhythm was Sinus Rhythm. First Degree AV Blockwas present. 1622 Supraventricular Tachycardia runs occurred, the run with thefastest interval lasting 7 beats with a max rate of 128 bpm, the longest [id number] secs with an avg rate of 96 bpm. Supraventricular Tachycardia was detectedwithin +/- 45 seconds of symptomatic patient event(s). Isolated SVEs were occasional(1.5%, 19862), SVE Couplets were occasional (1.4%, 4784), and SVE Triplets were occasional (1.1%, 2472). Isolated VEs were occasional (2.0%, 10764), VECouplets were rare (<1.0%, 56), and VE Triplets were rare (<1.0%, 5). VentricularBigeminy and Trigeminy were present. 4 patient triggered events and 1 diary events were submitted for review.the diary event correlated with short runs of SVT. The patient triggered events correlate with sinus rhythm and sensed supraventricularand ventricular ectopic beats. Rosalina Hanna DO [facility] Organization Address City/State/[facility] Co vt Phone Number [facility] documented in this encounter Visit Diagnoses Diagnosis Abnormal EKG- Primary Nonspecific abnormal electrocardiogram (ECG) (EKG) HTN, goal below 140/90 Unspecified essential hypertension Abnormal EKG- Primary Nonspecific abnormal electrocardiogram (ECG) (EKG) documented in this encounter Advance Directives Latest Code Status on File Code Status Date Activated Date Inactivated Comments Full Code 06/15/2021 11:00 AM 06/16/2021 6:29 PM This order reflects the patients wishes and were consensually agreed upon. Question Answer Comments Discussion of Advance Directives occurred with: Not Discussed Healthcare Agents on File Name Relationship Healthcare Agent Relationshi p Communication Neva Joseph Spouse Power of Senior Windows Administrator Care Teams [employer] Relationship Specialty Start Date End Date Rosalina Hanna DO [address] [place] [address] PCP - General Family Medicine 08/31/20 documented as of this encounter
--- OUTSIDE RECORDS SUMMARY | 2023-04-21 07:02 | External Medical Summary | Summary of Care ---
Author Name Unknown Organization [facility] Address [address] [facility] [place] [address] Phone [phone] Care Team Providers Care Online Content Coordinator Name Role Phone Cyndi Rosalina Torres DO Primary Care Provider [phone] Reason for Visit * Reason Comments Follow Up 1 week follow up Encounter Details Date Type Department Care Team (Late st Contact Info) Description 03/27/2023 10:20 AM EST Office Visit [facility] [address] [place] [address] Alvaro Vyas MD [address] [place] [address] SOB (shortness of breath)*; Chronic allergic rhinitis; Bronchitis, complicated; Moderate persistent asthma without complication; Chronic diastolic heart failure due to valvular disease ; History of transient ischemic attack (TIA) Allergies Active Allergy Reactions Criticality Noted Date Comments Dog Dander 06/11/2021 Dust 06/11/2021 Mold Sulfa Antibiotics Rash,Hives High 07/18/2017 documented as of this encounter (statuses as of 03/27/2023) Medications Medication Sig Dispensed Refills Start Date End Date Status IBUPROFEN 200 MG PO TABS Take 1 Tablet by mouth in the morning. 0 Active clotrimazole (LOTRIMIN) 1 % creamIndications:Gladys a pedis of both feet Apply to itching areas on the back and feet twice daily as needed for flares. 113 g 4 01/15/2020 Active Kidney Oral Capsule Take 1 Capsule by mouth daily. To prevent kidney stones 0 Active Fiber Diet Oral Tablet Take 3 Tabs by mouth daily. 0 Active Albuterol Sulfate HFA 108 (90 Base) MCG/ACT Inhalation Aerosol Solution Inhale 2 Puffs by mouth every 6 hours as needed for Cough, Shortness of Breath or Wheezing. 18 g 3 11/20/2020 Active QC Aspirin Low Dose 81 MG Oral Tablet Delayed Release Take 1 Tablet by mouth in the morning. 0 05/17/2021 Active guaiFENesin ER 600 MG Oral Tablet Extended Release 12 Hour (Mucinex)Indications: Bronchitis, complicated Take by mouth 1 Tablet 2 times a day as needed for Congestion. Take with plenty of water. Do not cut, crush or chew 20 Tablet 1 03/03/2022 Active Atorvastatin Calcium 40 MG Oral Tablet (Lipitor) TAKE ONE TABLET BY MOUTH EVERY DAY IN THE MORNING 90 Tablet 1 06/16/2022 Active Advair HFA 230-21 MCG/ACT Inhalation Aerosol (fluticasone-Salmeter ol)Indications:Modera te persistent asthma without complication Inhale 2 Puffs by mouth in the morning and 2 Puffs before bedtime. 12 g 5 09/09/2022 Active Furosemide 20 MG Oral Tablet (Lasix) Take 1 Tablet by mouth in the morning. 90 Tablet 2 12/15/2022 Active Mometasone Furoate 50 MCG/ACT Nasal Suspension Administer 2 Sprays into nostril in the morning. 18 g 12 01/06/2023 Active Levocetirizine Dihydrochloride 5 MG Oral TabletIndications:All ergic rhinitis, unspecified seasonality, unspecified trigger Take 1 Tablet by mouth in the morning. 90 Tablet 3 01/18/2023 Active Gabapentin 300 MG Oral Capsule (Neurontin)Indication s:Spinal stenosis of lumbar region with neurogenic claudication take 1 capsule by mouth every morning then AT NOON and BEFORE BEDTIME 90 Capsule 10 01/25/2023 Active Metoprolol Succinate ER 25 MG Oral Tablet Extended Release 24 Hour (toPROL XL)Indications:HTN, goal below 140/90 Take 1 Tablet by mouth in the morning. 90 Tablet 3 02/17/2023 Active Spironolactone 25 MG Oral Tablet (Aldactone)Indication s:HTN, goal below 140/90,Chronic right heart failure (HCC) Take 0.5 Tablets by mouth every other day. 25 Tablet 3 03/13/2023 Active Montelukast Sodium 10 MG Oral Tablet (Singulair) Take 1 Tablet by mouth at bedtime. 90 Tablet 3 03/20/2023 Active methylPREDNISolone 4 MG Oral Tablet Therapy Pack (Medrol Dosepack) follow package directions 21 Tablet 0 03/20/2023 Active Amoxicillin-Pot Clavulanate 500-125 MG Oral Tablet (Augmentin) Take 1 Tablet by mouth in the morning and 1 Tablet before bedtime. Do all this for 10 days. 20 Tablet 0 03/20/2023 Active Spiriva Respimat 2.5 MCG/ACT Inhalation Aerosol Solution (Tiotropium [place] Monohydrate) Inhale 2 Puffs by mouth in the morning. 4 g 11 03/20/2023 Active documented as of this encounter (statuses as of 03/27/2023) Active Problems Problem Noted Date Diagnosed Date [...] as of this encounter (statuses as of 03/27/2023) Resolved Problems Problem Noted Date Diagnosed Date Resolved Date Heart failure 06/14/2022 06/14/2022 Gastro-esophageal reflux dis ease without esophagitis 01/05/2022 01/18/2023 TIA (transient ischemic attack) 06/15/2021 01/05/2023 Severe obesity with body mas s index (BMI) of 35.0 to 39.9 with serious comorbidity 11/20/2020 documented as of this encounter (statuses as of 03/27/2023) Immunizations Name Administration Dates Next Due COVID-19 mRNA, LNP-s, No Pre serve, 2-Dose Series (Moderna) 07/24/2020,06/26/2020 Pneumococcal Conjugate Vacc, 13 Valent (Prevnar) 04/26/2016 Pneumococcal Polysaccharide PPV23 (Pneumovax) 03/29/2003 Season Influenza, Quad, PF, Adjuvanted, 65+ Yrs, IM (FLUAD) 03/18/2022,02/12/2020 Seasonal Influenza Virus Vac cine, Unspecified Formulation 03/22/2019,02/27/2018,04/03/2017,03/23,03/23/2015 Seasonal Influenza, Quadriva lent Hd (Fluzone Hd) 03/20/2023,03/12/2021 Seasonal Influenza, Trivalen t, High Dose, No [...] the money to buy more. Never true 09/01/19 21 Within the past 12 months, t he food you bought just didn't last and you didn't have money to get more. Never true 08/31/2020 Sex and Gender Information Value Date Recorded Sex Assigned at Male 06/14/2022 10:35 AM EST Gender Identity Male 06/14/2022 10:35 AM EST Sexual Orientation Straight 08/31/2020 10 :50 AM EDT Job Start Date Occupation Industry Not on file Not on file Not on file documented as of this encounter Last Filed Vital Signs Vital Sign Reading Time Taken Comments Blood Pressure 122/62 03/27/2023 10:13 AM EST Pulse 55 03/27/2023 10:13 AM EST Temperature 36.5 C (97.7 F) 03/27/2023 1 0:13 AM EST Respiratory Rate 22 03/27/2023 10:1 3 AM EST Oxygen Saturation 95% 03/27/2023 10: 13 AM EST Inhaled Oxygen Concentration - - Weight 101.3 kg (223 lb 4.8 oz) 023 10:13 AM EST Height - - Body Mass Index 32.98 01/17/2023 10:17 AM EDT documented in this encounter Functional Status Functional Status Response [...] (15 years old or older) No 06/15/19 Cognitive Status Response Date of Assessm ent Because of a physical, menta l, or emotional condition, do you have serious difficulty concentrating, remembering, or making decisions? (5 years old or older No 06/15/2021 documented as of this encounter Progress Notes * Alvaro Vyas MD - 03/27/2023 10:32 AM EST Subjective Lorena Joseph is a 87 year old male. Chief Complaint Patient presents with Follow Up 1 week follow up HPI: Here for one week f/u on SOB, severe bronchitis Known chronic rhinitis, drainage, moderate asthma Possible micro aspiration too , hx of TIA Resumed singulair , cont other OTC allergy pill, Nasal sprays And cont advair and added spiriva Finished ABx, steroid Will use air purifier too Had CT chest due to high D dimer : negative PE but showed reactive airway ds Currently he feels much better, no wheezing, Occ cough, mild runny nose drainage PMH: Patient Active Problem List Diagnosis Code SOB (shortness of breath) R06.02 Chronic diastolic heart failure due to valvular disease I50.32, I38 Abnormal CT scan, lung R91.8 Asthma, moderate persistent J45.40 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 clotrimazole (LOTRIMIN) 1 % cream Apply to itching areas on the back and feet twice daily as neededfor flares. 113 g 4 Kidney Oral Capsule Take 1 Capsule by mouth daily. To prevent kidney stones Fiber Diet Oral Tablet Take 3 Tabs by mouth daily. Albuterol Sulfate HFA 108 (90 Base) MCG/ACT Inhalation Aerosol Solution Inhale 2 Puffs by mouth every 6 hours as needed for Cough, Shortness of Breath or Wheezing. 18 g 3 QC Aspirin Low Dose 81 MG Oral Tablet Delayed Release Take 1 Tablet by mouth in the morning. guaiFENesin ER 600 MG Oral Tablet Extended Release 12 Hour (Mucinex) Take by mouth 1 Tablet 2 timesa day as needed for Congestion. Take with plenty of water. Do not cut, crush or chew 20 Tablet 1 Atorvastatin Calcium 40 MG Oral Tablet (Lipitor) TAKE ONE TABLET BY MOUTH EVERY DAY IN THE MORNING 90 Tablet 1 Advair HFA 230-21 MCG/ACT Inhalation Aerosol (fluticasone-Salmeterol) Inhale 2 Puffs by mouth in the morning and 2 Puffs before bedtime. 12 g 5 Furosemide 20 MG Oral Tablet (Lasix) Take 1 Tablet by mouth in the morning. 90 Tablet 2 Mometasone Furoate 50 MCG/ACT Nasal Suspension Administer 2 Sprays into nostril in the morning. 18 g 12 Levocetirizine Dihydrochloride 5 MG Oral Tablet Take 1 Tablet by mouth in the morning. 90 Tablet 3 Gabapentin 300 MG Oral Capsule (Neurontin) take 1 capsule by mouth every morning then AT NOON and BEFORE BEDTIME 90 Capsule 10 Metoprolol Succinate ER 25 MG Oral Tablet Extended Release 24 Hour (toPROL XL) Take 1 Tablet by mouth in the morning. 90 Tablet 3 Spironolactone 25 MG Oral Tablet (Aldactone) Take 0.5 Tablets by mouth every other day. 25 Tablet 3 Montelukast Sodium 10 MG Oral Tablet (Singulair) Take 1 Tablet by mouth at bedtime. 90 Tablet 3 methylPREDNISolone 4 MG Oral Tablet Therapy Pack (Medrol Dosepack) follow package directions 21 Tablet 0 Amoxicillin-Pot Clavulanate 500-125 MG Oral Tablet (Augmentin) Take 1 Tablet by mouth in the morning and 1 Tablet before bedtime. Do all this for 10 days. 20 Tablet 0 Spiriva Respimat 2.5 MCG/ACT Inhalation Aerosol Solution (Tiotropium [place] Monohydrate) Inhale 2 Puffs by mouth in the morning. 4 g 11 No current facility-administered medications for this visit. Past Medical History: Diagnosis Date Asthma Benign neoplasm of colon 10/02/2006 Benign neoplasm of colon 10/05/2009 2 polyps -benign & diverticulosis Chronic right heart failure (HCC) Hypertension Pneumonia 2019 Prostate cancer (HCC) 2006 5 weeks beam radiation. and had radioactive seeds. develope urinary retention and had suprapubic catheter. Pulmonary arterial hypertension (HCC) Pulmonary hypertension (HCC) RBBB (right bundle branch block with left anterior fascicular block) TIA (transient ischemic attack) 06/15/2021 Past Surgical History: Procedure Laterality Date COLONOSCOPY W/ LESION REMOVAL, SNARE 10/02/2006 await pathology, repeat in 3 years COLONOSCOPY W/ LESION REMOVAL, SNARE 10/05/2009 2 polyps -benign & diverticulosis CT SINUSES WO CONTRAST 09/11/2002 611 MRI/CT CYSTO/URETERO W/LITHOTRIPSY N/A 11/09/2018 CYSTOURETHROSCOPY URETEROSCOPY WITH LITHOTRIPSY AND STENT INSERTION performed by Hemal Vera MD at [place] [facility] [place] INCISE SPINAL COLUMN/NERVE [address] Rodrigues. he is not sure which level. INJECT DX/THER SUBSTANCE INTERLAMINAR LUMBAR/SACRAL W IMAGE GUIDE 03/19/2020 INJECTION SPINE LUMBAR OR SACRAL performed by Lonnie Esteban DO at OR [facility] INJECT DX/THER SUBSTANCE INTERLAMINAR LUMBAR/SACRAL W IMAGE GUIDE 04/09/2020 INJECTION SPINE LUMBAR OR SACRAL performed by Lonnie Esteban DO at OR [facility] INTRACRANIAL ARTERIES CATH PLACEMENT Right 06/15/2021 CATHETER PLACEMENT EACH INTRACRANIAL BRANCH OF THE INTERNAL CAROTID OR VERTEBRAL ARTERIES performedby Latrell Peterson MD at [place] [facility] [place] INTRACRANIAL INTRAVASCULAR STENT,INCL ANGIO Right 06/15/2021 TRANSCATHETER PLACEMENT OF INTRAVASCULAR STENTS, INTRACRANIAL performed by Aidan Moe [place] [facility] [place] LAPAROSCOPY; CHOLECYSTECTOMY 2018 Dr Starks. REMOVAL OF NOSE POLYP(S), SIMPLE 08/09/2002 Dr. Lincoln REMOVE TONSILS & ADENOIDS, UNDER 12 Tonsillectomy/Adenoids,<12 Y/O Review of patient's allergies indicates: Allergen Reactions Sulfa Antibiotics Rash and Hives Dog Dander Environmental [Dust] Mold Family History Problem Relation Age of Onset Other (brain bleed) Mother at age 88 Other (MVA) Father at age 89 Heart Disorder Sister afib Kidney disease Brother at age 82 Other (Multiple fracture due fall) Sister Family Status Relation Status Mo Fa Sis Alive Bro Sis Alive Social History Socioeconomic History Marital status: Spouse name: Not on file Number of children: Not on file Years of education: Not on file Highest education level: Not on file Occupational History Occupation: retired Comment: Tobacco Use Smoking status: Never Passive exposure: Past Smokeless tobacco: Never Vaping Use Vaping Use: Never used Substance and Sexual Activity Alcohol use: Yes Alcohol/week: 14.0 standard drinks of alcohol Types: 14 5 oz of wine per week Comment: 02/19/21 wine daily with dinner Drug use: Never Sexual activity: Not on file Other Topics Concern Not on file Social History Narrative No mold 1 dog cocker span. Social Determinants of Health Financial Resource Strain: Not on file Food Insecurity: No Food Insecurity (08/31/2020) Hunger Vital Sign Worried About Running Out of Food in the Last Year: Never true Ran Out of Food in the Last Year: Never true Transportation Needs: Not on file Physical Activity: Not on file Stress: Not on file Social Connections: Not on file Intimate Partner Violence: Not on file Housing Stability: Not on file Review of Systems Constitutional: Positive for activity change (better) and fatigue. Negative for appetite change, chills, diaphoresis, fever and unexpected weight change. HENT: Positive for congestion, hearing loss (chronic), postnasal drip and rhinorrhea (better). Negative for ear pain, sinus pressure, sinus pain, sneezing and sore throat. Respiratory: Positive for cough (occ). Negative for chest tightness, shortness of breath and wheezing. Cardiovascular: Negative for chest pain, palpitations and leg swelling. Gastrointestinal: Negative for abdominal distention. Endocrine: Negative. Musculoskeletal: Positive for arthralgias, back pain and gait problem. Allergic/Immunologic: Positive for environmental allergies. Neurological: Negative for dizziness, light-headedness and headaches. Psychiatric/Behavioral: Positive for sleep disturbance. Negative for agitation and behavioral problems. Objective BP 122/62 | Pulse 55 | Temp 36.5 C (97.7 F) (Infrared ) | Resp 22 | Wt 101.3 kg (223 lb 4.8 oz)| SpO2 95% | BMI 32.98 kg/m | BSA 2.22 m Physical Exam Constitutional: General: He is not in acute distress. Appearance: Normal appearance. He is not ill-appearing, toxic-appearing or diaphoretic. HENT: Head: Normocephalic and atraumatic. Nose: Nose normal. Eyes: Extraocular Movements: Extraocular movements intact. Cardiovascular: Rate and Rhythm: Normal rate and regular rhythm. Pulses: Normal pulses. Heart sounds: Normal heart sounds. Pulmonary: Effort: Pulmonary effort is normal. No respiratory distress. Breath sounds: No stridor. No wheezing, rhonchi or rales. Chest: Chest wall: No tenderness. Neurological: General: No focal deficit present. Mental Status: He is alert and oriented to person, place, and time. Cranial Nerves: No cranial nerve deficit. Psychiatric: Behavior: Behavior normal. 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 disease History of transient ischemic attack (TIA) Improved Cont both allergy pills, nasal sprays And advair + spiriva Aspiration precaution , slow eating, multiple chewing Alvaro Vyas MD documented in this encounter Nursing Notes * Beronica Arguelles LPN - 03/27/2023 10:08 AM EST Chief Complaint Patient presents with Follow Up 1 week follow up documented in this encounter Plan of Treatment Upcoming Encounters Date Type Department Care Team (Late st Contact Info) Description 04/26/2023 9:30 AM EST Office Visit Gastroenterology, [address] [place] [address] Madalyn Amaya CRNP [address] [facility] [place] [address] 05/05/2023 2:00 PM EST Office Visit [facility] [address] [facility] [address] Carlos Kapadia MD [address] [facility] [place] [address] 09/12/2023 10:30 AM EDT Office Visit Cardiology, [facility] [address] [place] [address] Melisa Ramirez CRNP [address] [facility] [place] [address] Health Maintenance Due Date Last Done Comments [...] this encounter Medical Devices Implanted Type Area Casting Tester Device Identifier Shelf Expiration Date Model / Serial / Lot Angioseal Vip 8 Fr - [id number] Implanted:Qty : 1 on 06/15/2021 by Latrell Peterson MD at [place] [facility] [place] Right: Carotid [employer] [id number] 02/18/2022 [id number] / / [id number] documented as of this encounter Visit Diagnoses Diagnosis SOB (shortness of breath)- Primary Shortness of breath Chronic allergic rhinitis Allergic rhinitis, cause unspecified Bronchitis, complicated Bronchitis, not specified as acute or chronic Moderate persistent asthma without complication Unspecified asthma Chronic diastolic heart failure due to valvular disease History of transient ischemic attack (TIA) Transient ischemic attack (TIA), and cerebral infarction without residual deficits documented in this encounter Advance Directives Latest [...] p Communication Neva Joseph Spouse Power of Twister Tender Care Teams Online Content Coordinator Relationship Specialty Start Date End Date Rosalina Hanna DO [address] [place] [address] PCP - General Family Medicine 08/31/20 documented as of this encounter"
--- OUTSIDE RECORDS SUMMARY | 2023-04-21 07:03 | External Medical Summary | Summary of Care ---
Author Name Unknown Organization [facility] Address [address] [address] Phone [phone] Care Team Providers Care Blow Moulding Machine Operator Name Role Phone Rosalina Hanna DO Primary Care Provider [phone] Reason for Referral * Precert (Within 24 hrs (call dept; emergent)) - Pending Review Specialty Diagnoses / Procedures Referred By Contlaverne t Referred To Contact Radiology Diagnoses SOB (shortness of breath) Positive D dimer Procedures CT PULMONARY EMBOLUS W CONTRAST Alvaro Vyas MD [address] [place] [address] Referral ID Status Reason Start Date Expiration Date V isits Requested Visits Authorized [id number] Pending Review 03/21/2023 999 999 Reason for Visit * Reason Onset Date Comments Test Results 03/21/2023 Encounter Details Date Type Department Care Team (Late st Contact Info) Description 03/21/2023 Telephone [facility] [address] [place] [address] Alvaro Vyas MD [address] [place] [address] Test Results Allergies Active Allergy Reactions Criticality Noted Date Comments Dog Dander 06/11/2021 Dust 06/11/2021 Mold Sulfa Antibiotics Rash,Hives High 07/18/2017 documented as of this encounter (statuses as of 03/23/2023) Medications Medication Sig Dispensed Refills Start Date [...] Respimat 2.5 MCG/ACT Inhalation Aerosol Solution (Tiotropium [place] Monohydrate) Inhale 2 Puffs by mouth in the morning. 4 g 11 03/20/2023 Active documented as of this encounter (statuses as of 03/23/2023) Active Problems Problem Noted Date Diagnosed Date [...] as of this encounter (statuses as of 03/23/2023) Resolved Problems Problem Noted Date Diagnosed Date Resolved Date Heart failure 06/14/2022 06/14/2022 Gastro-esophageal reflux dis ease without esophagitis 01/05/2022 01/18/2023 TIA (transient ischemic attack) 06/15/2021 01/05/2023 Severe obesity with body mas s index (BMI) of 35.0 to 39.9 with serious comorbidity 11/20/2020 documented as of this encounter (statuses as of 03/23/2023) Immunizations Name Administration Dates Next Due COVID-19 [...] encounter Miscellaneous Notes * Telephone Encounter - Michelle Martinez LPN - 03/23/2023 8:56 AM EDT Patient aware and verbalized understanding States that when he swallows, there are times where things only go long-term down. He says that he was already aware of this spot. Is aware of what to do. Makes sure he chews his food good & has a glass of water with every meal Does not think he needs any more testing for this * Addendum Note - Alvaro Vyas MD - 03/23/2023 7:46 AM EDTAddended by: ALVARO VYAS on: 03/23/2023 07:46 AM Modules accepted: Orders * Telephone Encounter - Alvaro Vyas MD - 03/23/2023 7:[address] chest showed negative for PE And no PNA But showed peribronchial thickening and this is ass with aspiration ( it could be micro aspiration if he does not have chocking , swallowing problem ) Will refer him to swallowing test too and will see him on mar 27 as scheduled * Telephone Encounter - Olive Olguin MED ASSIST - 03/21/2023 10:18 AM EDT FYI * Telephone Encounter - Olive Olguin MED ASSIST - 03/21/2023 10:17 AM EDT Spoke with pt and notified. Verbalized understanding. Asked if appointment scheduled at 3pm at [facility] would work. Pt agreeable and will be there. * Telephone Encounter - Alvaro Vyas MD - 03/21/2023 10:05 AM EDT Blood tests showed eosinophilia which means allergy problem as expected But also d dimer was elevated which require test to rule out blood clot in lung Will order CT chest angio stat And please schedule documented in this encounter Plan of Treatment Upcoming Encounters Date Type Department Care Team (Late st Contact Info) Description 03/27/2023 10:20 AM EST Office Visit [facility] [address] [address] Alvaro Vyas MD [address] [facility] [place] [address] 04/26/2023 9:30 AM EST Office Visit Gastroenterology, [facility] [address] [place] [address] Madalyn Amaya CRNP [address] [place] [address] 05/05/2023 2:00 PM EST [facility] [facility] [place] [address] [place] [address] Carlos Kapadia MD [address] [place] [address] 09/12/2023 10:30 AM EDT Office Visit Cardiology, [facility] [address] [place] [address] Melisa Ramirez CRNP [address] [place] [address] Scheduled Orders Name Type Priority Associated Diagnoses Orde r Schedule FLUORO ESOPHAGRAM ENTIRE Medical Imaging Routine Aspiration into airway, initial encounter Chronic cough Ordered: 03/23/2023 Health Maintenance Due Date Last Done Comments [...] this encounter Medical Devices Implanted Type Area Brine Room Laborer Device Identifier Shelf Expiration Date Model / Serial / Lot Angioseal Vip 8 Fr - [id number] Implanted:Qty : 1 on 06/15/2021 by Latrell Peterson MD [place] [facility] [place]: Carotid [employer] [id number] 02/18/2022 [id number] / / [id number] documented as of this encounter Results * CT PULMONARY EMBOLUS W CONTRAST (03/21/2023 3:02 PM EDT) Anatomical Region Laterality Modality Chest, Cardio, Body Computed Graham ography 03/21/2023 3:57 PM EDT Impressions 03/21/2023 4:42 PM EDT IMPRESSION No pulmonary embolism. Dilated pulmonary artery may be pulmonary artery hypertension. Correlate clinically. Dendriform ossification in the lung bases with associated peribronchial thickening, this is benign process usually associated with aspiration. I have personally reviewed this examination and agree with the resident/fellow physician's interpretation. Narrative 03/21/2023 4:[address] PULMONARY EMBOLUS W [id number]/31/2023 3:02 pm HISTORY Pulmonary embolism; Wells score 2 - 4; D-Dimer elevated; No known/automatically detected potential contraindications to iodinated contrast TECHNIQUE CT chest with intravenous contrast: PE protocol. Axial 1 mm images were obtained. MPR and MIP images were reformatted from axial data. COMPARISON High-resolution chest CT dated 12/30/2020, CT chest images only dated 09/19/2018 FINDINGS LUNGS/AIRWAYS: Motion artifact obscuring fine details. Similar bilateral lower lobe bronchial wall thickening and dendriform pulmonary ossifications. Few scattered calcified granulomas. No new suspicious nodules. Airways are clear. PLEURA: No pleural effusion or pneumothorax. CARDIOVASCULAR: The heart appears normal in size. The pulmonary trunk measures 4.4 cm. Mild atherosclerotic calcification of the coronary arteries. No pericardial effusion. The overall quality of the study is good with the pulmonary arteries adequately evaluated through the proximal subsegmental level. There is no evidence of pulmonary embolism. LYMPH NODES: No thoracic lymphadenopathy. THYROID: Visualized gland unremarkable. ESOPHAGUS: Normally decompressed and poorly evaluated by CT. UPPER ABDOMEN: Cholecystectomy clips. SOFT TISSUES: Unremarkable. BONES: No acute or destructive osseous abnormality. Degenerative changes of the spine. Procedure Note Radha Garcia MD - 03/21/[address] PULMONARY EMBOLUS W [id number]/31/2023 3:02 pm HISTORY Pulmonary embolism; Wells score 2 - 4; D-Dimer elevated; Noknown/automatically detected potential contraindications to iodinatedcontrast TECHNIQUE CT chest with intravenous contrast: PE protocol. Axial 1 mm images were obtained. MPR and MIP images were reformatted fromaxial data. COMPARISON High-resolution chest CT dated 12/30/2020, CT chest images only dated09/19/2018 FINDINGS LUNGS/AIRWAYS: Motion artifact obscuring fine details. Similar bilaterallower lobe bronchial wall thickening and dendriform pulmonaryossifications. Few scattered calcified granulomas. No new suspiciousnodules. Airways are clear. PLEURA: No pleural effusion or pneumothorax. CARDIOVASCULAR: The heart appears normal in size. The pulmonary trunkmeasures 4.4 cm. Mild atherosclerotic calcification of the coronaryarteries. No pericardial effusion. The overall quality of the study is good with the pulmonary arteriesadequately evaluated through the proximal subsegmental level. There is noevidence of pulmonary embolism. LYMPH NODES: No thoracic lymphadenopathy. THYROID: Visualized gland unremarkable. ESOPHAGUS: Normally decompressed and poorly evaluated by CT. UPPER ABDOMEN: Cholecystectomy clips. SOFT TISSUES: Unremarkable. BONES: No acute or destructive osseous abnormality. Degenerative changesof the spine. IMPRESSION IMPRESSION No pulmonary embolism. Dilated pulmonary artery may be pulmonary artery hypertension. Correlateclinically. Dendriform ossification in the lung bases with associated peribronchialthickening, this is benign process usually associated with aspiration. I have personally reviewed this examination and agree with the resident/fellow physician's interpretation. Alvaro Vyas MD RAD CT documented in this encounter Visit Diagnoses Diagnosis SOB (shortness of breath)- Primary Shortness of breath Positive D dimer Abnormal coagulation profile Aspiration into airway, initial encounter Chronic cough Cough SOB (shortness of breath) Shortness of breath Positive D dimer Abnormal coagulation profile documented in this encounter Advance Directives Latest [...] p Communication Neva Joseph Spouse Power of Vehicle Delivery Worker Care Teams Blow Moulding Machine Operator Relationship Specialty Start Date End Date Rosalina Hanna DO [address] [place] [address] PCP - General Family Medicine 08/31/20 documented as of this encounter
--- OUTSIDE RECORDS SUMMARY | 2023-04-21 07:03 | External Medical Summary | Summary of Care ---
Author Name Unknown Organization [facility] Address [address] [address] [address] Phone [phone] Care Team Providers Care Shot Blaster Name Role Phone Rosalina Hanna DO Primary Care Provider [phone] Reason for Referral * Precert (Within 24 hrs (call dept; emergent)) - Pending Review Specialty Diagnoses / Procedures Referred By Contlaverne t Referred To Contact Radiology Diagnoses SOB (shortness of breath) Positive D dimer Procedures CT PULMONARY EMBOLUS W CONTRAST Alvaro Vyas MD [address] [place] [address] Referral ID Status Reason Start Date Expiration Date V isits Requested Visits Authorized [id number] Pending Review 03/21/2023 999 999 Reason for Visit * Reason Onset Date Comments Test Results 03/21/2023 Encounter Details Date Type Department Care Team (Late st Contact Info) Description 03/21/2023 Telephone [facility] [address] [place] [facility] [place] [address] Alvaro Vyas MD [address] [place] [facility] [place] [address] Test Results Allergies Active Allergy Reactions Criticality Noted Date Comments Dog Dander 06/11/2021 Dust 06/11/2021 Mold Sulfa Antibiotics Rash,Hives High 07/18/2017 documented as of this encounter (statuses as of 03/21/2023) Medications Medication Sig Dispensed Refills Start Date [...] Respimat 2.5 MCG/ACT Inhalation Aerosol Solution (Tiotropium [place] Monohydrate) Inhale 2 Puffs by mouth in the morning. 4 g 11 03/20/2023 Active documented as of this encounter (statuses as of 03/21/2023) Active Problems Problem Noted Date Diagnosed Date [...] as of this encounter (statuses as of 03/21/2023) Resolved Problems Problem Noted Date Diagnosed Date Resolved Date Heart failure 06/14/2022 06/14/2022 Gastro-esophageal reflux dis ease without esophagitis 01/05/2022 01/18/2023 TIA (transient ischemic attack) 06/15/2021 01/05/2023 Severe obesity with body mas s index (BMI) of 35.0 to 39.9 with serious comorbidity 11/20/2020 documented as of this encounter (statuses as of 03/21/2023) Immunizations Name Administration Dates Next Due COVID-19 [...] encounter Miscellaneous Notes * Telephone Encounter - Olive Olguin MED ASSIST - 03/21/2023 10:18 AM EDT FYI * Telephone Encounter - Olive Olguin MED ASSIST - 03/21/2023 10:17 AM EDT Spoke with pt and notified. Verbalized understanding. Asked if appointment scheduled at 3pm at [facility] would work. Pt agreeable and will [...] Team (Late st Contact Info) Description 03/21/2023 3:00 PM EDT Imaging Radiology [facility] [facility] [address] [facility] [place] [address] 03/27/2023 10:20 AM EST Office Visit [facility] [address] [place] [facility] [place] [address] Alvaro Vyas MD [address] [place] [address] 04/26/2023 9:30 AM EST Office Visit Gastroenterology, [facility] [address] [facility] [place] [address] Madalyn Amaya CRNP [address] [facility] [place] [address] 05/05/2023 2:00 PM EST Office [facility] [address] [facility] [address] Carlos Kapadia [facility] [address] [facility] [address] 09/12/2023 10:30 AM EDT Office Visit Cardiology, [facility] [address] [facility] [place] [address] Melisa Ramirez CRNP [address] [facility] [place] [address] Scheduled Orders Name Type Priority Associated Diagnoses Orde r Schedule CT PULMONARY EMBOLUS W CONTRAST Medical Imaging STAT SOB (shortness of breath) Positive D dimer Expected: 03/21/2023, Expires: 04/20/2024 Health Maintenance Due Date Last Done Comments [...] this encounter Medical Devices Implanted Type Area Psychology Instructor Device Identifier Shelf Expiration Date Model / Serial / Lot Angioseal Vip 8 Fr - [id number] Implanted:Qty : 1 on 06/15/2021 [place]atre[place] [facility] [place] Carotid [employer] [id number] 02/18/2022 [id number] / / [id number] documented as of this encounter Visit [...] Agents on File Name Relationship Healthcare Agent Natemd p Communication Neva Joseph Spouse Power of Roads Supervisor Care Teams Shot Blaster Relationship Specialty Start Date End Date Rosalina Hanna DO [address] [place] [address] PCP - General Family Medicine 08/31/20 documented as of this encounter
--- OUTSIDE RECORDS SUMMARY | 2023-04-21 07:03 | External Medical Summary | Summary of Care ---
Author Name Unknown Organization [facility] Address [address] [facility] [address] Phone [phone] Care Team Providers Care Metal Melter Name Role Phone Rosalina Hanna DO Primary Care Provider [phone] Reason for Referral * Precert (Within 24 hrs (call dept; emergent)) - Pending Review Specialty Diagnoses / Procedures Referred By Contlaverne t Referred To Contact Radiology Diagnoses SOB (shortness of breath) Positive D dimer Procedures CT PULMONARY EMBOLUS W CONTRAST Alvaro Vyas MD [address] [place] [address] Referral ID Status Reason Start Date Expiration Date V isits Requested Visits Authorized [id number] Pending Review 03/21/2023 999 999 Reason for Visit * Reason Onset Date Comments Test Results 03/21/2023 Encounter Details Date Type Department Care Team (Late st Contact Info) Description 03/21/2023 Telephone [facility] [address] [facility] [place] [address] Alvaro Vyas MD [address] [facility] [place] [address] Test Results Allergies Active [...] Respimat 2.5 MCG/ACT Inhalation Aerosol Solution (Tiotropium [place] Monohydrate) Inhale 2 Puffs by mouth in [...] Encounter - Michelle Martinez LPN - 03/23/2023 11:26 AM EDT Left message for pt to call back. * Telephone Encounter - Alvaro Vyas MD - 03/23/2023 11:14 AM EDT With bronchial changes, he will need check swallowing test This can be dangerous , and to evaluate the level of aspiration Please advise pt to get test done * Telephone Encounter - Michelle Martinez LPN - 03/23/2023 8:56 AM EDT Patient aware and verbalized understanding States that when he swallows, there are times where things only go chcf down. He says that he was already aware of this spot. Is aware of what to do. Makes sure he chews his food good & has a glass of water with every meal Does not think he needs any more testing for this * Addendum Note - Alvaro yVas MD - 03/23/2023 7:46 AM EDTAddended by: [...] Asked if appointment scheduled at 3pm at [facility] would work. Pt agreeable and will [...] Description 03/27/2023 10:20 AM EST Office Visit [facility] [address] [facility] [place] [id number] Alvaro Vyas MD [address] [facility] [place] [address] 04/26/2023 9:30 AM EST Office Visit Gastroenterology, [facility] [address] [facility] [place] [address] Madalyn Amaya CRNP [address] [facility] [facility] [place] [address] 05/05/2023 2:00 PM EST Office Visit Dermatology [facility] [address] [place] [address] Carlos Kapadia MD [address] [place] [address] 09/12/2023 10:30 AM EDT Office Visit Cardiology, [facility] [address] [facility] [place] [address] Melisa Ramirez CRNP [address] [facility] [facility] [place] [address] Scheduled Orders Name Type Priority Associated Diagnoses [...] this encounter Medical Devices Implanted Type Area Tube Sizer Operator Device Identifier Shelf Expiration Date Model / Serial / Lot Angioseal Vip 8 Fr - [id number] Implanted:Qty : 1 on 06/15/2021 by Latrell Peterson MD at [place] [facility] [place] Right: Carotid [place] [employer]ATH[employer] [id number] 02/18/2022 [id number] / / [id number] documented as of this encounter Results [...] PM EDT EXAM CT PULMONARY EMBOLUS W [id number]/31/2023 3:02 pm HISTORY Pulmonary embolism; Wells score [...] - 03/21/[address] PULMONARY EMBOLUS W [id number]/31/2023 3:02 pm HISTORY Pulmonary embolism; Wells score [...] p Communication Neva Joseph Spouse Power of Security Solutions Architect Care Teams Metal Melter Relationship Specialty Start Date End Date Rosalina Hanna DO [address] [place] [address] PCP - General Family Medicine 08/31/20 documented as of this encounter
--- OUTSIDE RECORDS SUMMARY | 2023-04-21 07:03 | External Medical Summary | Summary of Care ---
Author Name Unknown Organization [facility] Address [address] [facility] [place] [address] Phone [phone] Care Team Providers Care Sand Mixer Operator Name Role Phone Rosalina Hanna DO Primary Care Provider [phone] Reason for Visit * Reason Onset Date Comments Acute cough and runnin g noseTrouble breathing due to a dog allergy Medication Administration 03/20/2023 Flu an d/or Pneumo Inj Encounter Details Date Type Department Care Team (Late st Contact Info) Description 03/20/2023 3:40 PM EDT Office Visit [facility] [id number] [place] [address] Alvaro Vyas MD [address] [place] [address] SOB (shortness of breath)*; Need for prophylactic vaccination and inoculation against influenza; Moderate persistent asthma without complication; Pulmonary hypertension (HCC); Chronic allergic rhinitis; Bronchitis, complicated; Chronic diastolic heart failure due to valvular disease ; HTN, goal below 140/90 Allergies Active Allergy Reactions Criticality Noted Date Comments Dog Dander 06/11/2021 Dust 06/11/2021 Mold Sulfa Antibiotics Rash,Hives High 07/18/2017 documented as of this encounter (statuses as of 03/20/2023) Medications Medication Sig Dispensed Refills Start Date End Date Status IBUPROFEN 200 MG PO TABS Take 1 Tablet by mouth in the morning. 0 Active clotrimazole (LOTRIMIN) 1 % creamIndications:Tin ea pedis of both feet Apply to itching [...] MG Oral Tablet Extended Release 12 Hour (Mucinex)Indications :Bronchitis, complicated Take by mouth 1 Tablet 2 times a day as needed for Congestion. Take with plenty of water. Do not cut, crush or chew 20 Tablet 1 03/03/2022 Active Atorvastatin Calcium 40 MG Oral Tablet (Lipitor) TAKE ONE TABLET BY MOUTH EVERY DAY IN THE MORNING 90 Tablet 1 06/16/2022 Active Advair HFA 230-21 MCG/ACT Inhalation Aerosol (fluticasone-Salmete rol)Indications:Mode rate persistent asthma without complication Inhale 2 Puffs [...] 01/06/2023 Active Levocetirizine Dihydrochloride 5 MG Oral TabletIndications:Al lergic rhinitis, unspecified seasonality, unspecified trigger Take 1 Tablet by mouth in the morning. 90 Tablet 3 01/18/2023 Active Gabapentin 300 MG Oral Capsule (Neurontin)Indicatio ns:Spinal stenosis of lumbar region with neurogenic claudication take 1 capsule by mouth every morning then AT NOON and BEFORE BEDTIME 90 Capsule 10 01/25/2023 Active Metoprolol Succinate ER 25 MG Oral Tablet Extended Release 24 Hour (toPROL XL)Indications:HTN, goal below 140/90 Take 1 Tablet by mouth in the morning. 90 Tablet 3 02/17/2023 Active Spironolactone 25 MG Oral Tablet (Aldactone)Indicatio ns:HTN, goal below 140/90,Chronic right heart failure (HCC) [...] for 10 days. 20 Tablet 0 03/20/2023 3 Active Spiriva Respimat 2.5 MCG/ACT Inhalation Aerosol Solution (Tiotropium [place] Monohydrate) Inhale 2 Puffs by mouth in the morning. 4 g 11 03/20/2023 Active Montelukast Sodium 10 MG Oral Tablet (Singulair) Take by mouth 1 Tablet before bedtime. 90 Tablet 3 01/05/2022 3 Discontinu ed(Refill) documented as of this encounter (statuses as of 03/20/2023) Active Problems Problem Noted Date Diagnosed Date [...] as of this encounter (statuses as of 03/20/2023) Resolved Problems Problem Noted Date Diagnosed Date Resolved Date Heart failure 06/14/2022 06/14/2022 Gastro-esophageal reflux dis ease without esophagitis 01/05/2022 01/18/2023 TIA (transient ischemic attack) 06/15/2021 01/05/2023 Severe obesity with body mas s index (BMI) of 35.0 to 39.9 with serious comorbidity 11/20/2020 documented as of this encounter (statuses as of 03/20/2023) Immunizations Name Administration Dates Next Due COVID-19 [...] pure alcohol) 02/19/21 wine daily with dinner Sex and Gender Information Value Date Recorded Sex Assigned at Male 06/14/2022 10:35 AM EST Gender Identity Male 06/14/2022 10:35 AM EST Sexual Orientation Straight 08/31/2020 10 :50 AM EDT Job Start Date Occupation Industry Not on file Not on file Not on file documented as of this encounter Last Filed Vital Signs Vital Sign Reading Time Taken Comments Blood Pressure 102/62 03/20/2023 2:40 PM EDT Pulse 67 03/20/2023 2:40 PM EDT Temperature 35.7 C (96.2 F) 03/20/2023 2:40 PM ED T Respiratory Rate 22 03/20/2023 2:40 PM EDT Oxygen Saturation 92% 03/20/2023 2:40 PM EDT Inhaled Oxygen Concentration - - Weight 100.5 kg (221 lb 9.6 oz) 03/20/2023 2:40 PM EDT Height - - Body Mass Index 32.72 01/17/2023 10:17 AM EDT documented in this [...] No 06/15/2021 documented as of this encounter Patient Instructions * Patient Instructions* Alvaro Vyas MD - 03/20/2023 3:10 PM EDT Steroid package And oral antibiotic for 10 days New inhaler , called spiriva daily And continue advair twice daily And continue sigulair AM + zyrtec PM And nasal spray as needed And come back in one week documented in this encounter Progress Notes * Alvaro Vyas MD - 03/20/2023 4:00 PM EDT Subjective Lorena Joseph is a 87 year old male. Chief Complaint Patient presents with Acute cough and running nose Trouble breathing due to a dog allergy Medication Administration Flu and/or Pneumo Inj HPI: Here for progressing SOB, cough, chest tightness Which has been more persistent last whole year since he has 2nd dog which is very hairy and leavingall the hair balls , etc He has known dog allergy But last 2 wks it has been much worse Known moderate persistent asthma, chronic allergy Taking advair but not routinely And taking zyrtec but currently not taking singulair which he was supposed to be Denies CP , fever, palpitation, leg swelling Known chronic diastolic CHF, HTN , paroxysmal tachy Has been stable, Pul HTN + PMH: Patient Active Problem List Diagnosis Code SOB (shortness of breath) R06.02 Chronic diastolic heart failure due to valvular disease I50.32, I38 Abnormal CT scan, lung R91.8 Asthma, moderate persistent J45.40 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 18 g 12 Gabapentin 300 MG Oral Capsule (Neurontin) take [...] Respimat 2.5 MCG/ACT Inhalation Aerosol Solution (Tiotropium [place] Monohydrate) Inhale 2 Puffs by mouth in the morning. 4 g 11 Levocetirizine Dihydrochloride 5 MG Oral Tablet Take 1 Tablet by mouth in the morning. 90 Tablet 3 No current facility-administered medications for this visit. Past Medical History: Diagnosis Date Asthma Benign neoplasm of colon 10/02/2006 Benign neoplasm of colon 10/05/2009 2 polyps -benign & diverticulosis Chronic right heart failure (HCC) Hypertension Pneumonia 2020 Prostate cancer (HCC) 2006 5 weeks beam [...] performed [place] Hemal Vera [place] [facility]ERVE [address] Rodrigues. he is not sure which level. INJECT DX/THER SUBSTANCE INTERLAMINAR LUMBAR/SACRAL W IMAGE GUIDE 03/19/2020 INJECTION SPINE LUMBAR OR SACRAL performed by Lonnie Esteban, DO at [facility] INJECT DX/THER SUBSTANCE INTERLAMINAR LUMBAR/SACRAL W IMAGE GUIDE 04/09/2020 INJECTION SPINE LUMBAR OR SACRAL performed by Lonnie Esteban, DO at [facility] INTRACRANIAL ARTERIES CATH PLACEMENT Right 06/15/2021 CATHETER PLACEMENT EACH INTRACRANIAL BRANCH OF THE INTERNAL CAROTID OR VERTEBRAL ARTERIES performedby Latrell Peterson [place] [facility] [place] INTRAVASCULAR STENT,INCL ANGIO Right 06/15/2021 TRANSCATHETER PLACEMENT OF INTRAVASCULAR STENTS, INTRACRANIAL performed [place] Latrell Peterson [place] [facility] [place]; CHOLECYSTECTOMY 2017 Dr Starks. 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 Negative for appetite change, chills, diaphoresis, fever and unexpected weight change. HENT: Positive for congestion, hearing loss (chronic , hearing aids), postnasal drip, rhinorrhea and tinnitus. Negative for ear pain, sinus pressure, sinus pain, sneezing and sore throat. Eyes: Negative for visual disturbance. Respiratory: Positive for cough, chest tightness and shortness of breath. Negative for wheezing. Cardiovascular: Negative for chest pain, palpitations and leg swelling. Gastrointestinal: Negative for abdominal distention and abdominal pain. Endocrine: Negative. Musculoskeletal: Negative for joint swelling. Allergic/Immunologic: Positive for environmental allergies. Neurological: Positive for dizziness, weakness (general) and light-headedness. Negative for tremorsand headaches. Psychiatric/Behavioral: Positive for sleep disturbance. Negative for agitation and behavioral problems. Objective BP 102/62 | Pulse 67 | Temp 35.7 C (96.2 F) (Infrared ) | Resp 22 | Wt 100.5 kg (221 lb 9.6 oz)| SpO2 92% | BMI 32.72 kg/m | BSA 2.21 m Physical Exam Constitutional: General: He is in acute distress. Appearance: Normal appearance. He is not ill-appearing, toxic-appearing or diaphoretic. HENT: Head: Normocephalic and atraumatic. Nose: Congestion and rhinorrhea present. Eyes: Extraocular Movements: Extraocular movements intact. Cardiovascular: Rate and Rhythm: Normal rate and regular rhythm. Pulses: Normal pulses. Pulmonary: Effort: Respiratory distress present. Breath sounds: No stridor. Rhonchi present. No wheezing or rales. Chest: Chest wall: No tenderness. Abdominal: Palpations: Abdomen is soft. Musculoskeletal: Right lower leg: No edema. Left lower leg: No edema. Lymphadenopathy: Cervical: No cervical adenopathy. Neurological: General: No focal deficit present. Mental Status: He is alert and oriented to person, place, and time. Cranial Nerves: No cranial nerve deficit. Psychiatric: Behavior: Behavior normal. ASSESSMENT/PLAN: SOB (shortness of breath) (Primary) - D-DIMER; Future; Expected date: 03/20/2023 - CBC WITH WBC DIFFERENTIAL; Future; Expected date: 03/20/2023 - COMPREHENSIVE METABOLIC PANEL; Future; Expected date: 03/20/2023 Need for prophylactic vaccination and inoculation against influenza - INFLUENZA VACC, QUAD, HIGH DOSE (FLUZONE HD) Moderate persistent asthma without complication - CBC WITH WBC DIFFERENTIAL; Future; Expected date: 03/20/2023 - COMPREHENSIVE METABOLIC PANEL; Future; Expected date: 03/20/2023 Pulmonary hypertension (HCC) Chronic allergic rhinitis Bronchitis, complicated - CBC WITH WBC DIFFERENTIAL; Future; Expected date: 03/20/2023 - COMPREHENSIVE METABOLIC PANEL; Future; Expected date: 03/20/2023 Chronic diastolic heart failure due to valvular disease HTN, goal below 140/90 Other orders - Montelukast Sodium 10 MG Oral Tablet (Singulair); Take 1 Tablet by mouth at bedtime. - methylPREDNISolone 4 MG Oral Tablet Therapy Pack (Medrol Dosepack); follow package directions - Amoxicillin-Pot Clavulanate 500-125 MG Oral Tablet (Augmentin); Take 1 Tablet by mouth in the morning and 1 Tablet before bedtime. Do all this for 10 days. - Spiriva Respimat 2.5 MCG/ACT Inhalation Aerosol Solution (Tiotropium [place] Monohydrate); Inhale2 Puffs by mouth in the morning. Follow Up: Return in about 1 week (around 03/27/2023) for Clinic Visit. | For: Clinic Visit Patient Instructions Steroid package And oral antibiotic for 10 days New inhaler , called spiriva daily And continue advair twice daily And continue sigulair AM + zyrtec PM And nasal spray as needed And come back in one week Spent 40 min , high risk for admission Alvaro Vyas MD * Beronica Arguelles LPN - 03/20/2023 2:39 PM EDT PRE - ADMINISTRATION DOCUMENTATION Are you experiencing any cold symptoms or fever? No Have you had Guillain-Houlton Syndrome (an illness that causes paralysis) within the last 6 weeks? No Have you had the flu shot in the past? YES Have you ever had a reaction to the flu shot? No Beronica Arguelles LPN, 03/20/2023 2:39 PM Immunization Administration Documentation Time Out Procedure Performed: Yes Patient Identified (Ask Name/Date of ): Yes Does the patient have a fever greater than 101 degrees today? No Patient allergic to latex? No VFC Stock: No Immunization(s) verified: Yes, Immunization Name: Flu, VIS Sheet(s) given: Yes Verified Side and Site: Yes Verified Shot(s) with Parent(s)/Patient: Yes documented in this encounter Nursing Notes * Beronica Arguelles LPN - 03/20/2023 2:36 PM EDT Chief Complaint Patient presents with Acute cough and running nose Trouble breathing due to a dog allergy documented in this encounter Plan of Treatment Upcoming Encounters Date Type Department Care Team (Late st Contact Info) Description 03/27/2023 10:20 AM EST Office Visit [facility] [address] [place] [address] Alvaro Vyas MD [address] [place] [address] 04/26/2023 9:30 AM EST Office Visit Gastroenterology, [facility] [address] [facility] [place] [address] Madalyn Amaya CRNP [facility] [place] [address] 05/05/2023 2:00 PM EST Office Visit Dermatology [facility] [address] [facility] [place] [address] Carlos Kapadia MD [address] [facility] [place] [address] 09/12/2023 10:30 AM EDT Office Visit Cardiology, [facility] [address] [facility] [place] [address] Melisa Ramirez CRNP 132 [facility] [place] [address] Pending Results Name Type Priority Associated Diagnoses Date /Time D-DIMER Lab Routine SOB (shortness of breath) 03/20/2023 4:03 PM EDT CBC WITH WBC DIFFERENTIAL Lab Routine Moderate persistent asthma without complication SOB (shortness of breath) Bronchitis, complicated 03/20/2023 4:03 PM EDT COMPREHENSIVE METABOLIC PANEL Lab Routine Moderate persistent asthma without complication SOB (shortness of breath) Bronchitis, complicated 03/20/2023 4:03 PM EDT Scheduled Orders Name Type Priority Associated Diagnoses Orde r Schedule D-DIMER Lab Routine SOB (shortness of breath) Expected: 03/20/2023 (Approximate), Expires: 03/19/2024 CBC WITH WBC DIFFERENTIAL Lab Routine Moderate persistent asthma without complication SOB (shortness of breath) Bronchitis, complicated Expected: 03/20/2023 (Approximate), Expires: 03/20/2024 COMPREHENSIVE METABOLIC PANEL Lab Routine Moderate persistent asthma without complication SOB (shortness of breath) Bronchitis, complicated Expected: 03/20/2023 (Approximate), Expires: 03/19/2024 Health Maintenance Due Date Last Done Comments [...] this encounter Medical Devices Implanted Type Area Human Services Case Manager Device Identifier Shelf Expiration Date Model / Serial / Lot Angioseal Vip 8 Fr - [id number] Implanted:Qty : 1 on 06/15/2021 [place]atre[place] [facility] [place] Carotid [employer] [id number] 02/18/2022 [id number] / / [id number] documented as of this encounter Visit Diagnoses Diagnosis SOB (shortness of breath)- Primary Shortness of breath Need for prophylactic vaccination and inoculation against influenza Moderate persistent asthma without complication Unspecified asthma Pulmonary hypertension (HCC) Other chronic pulmonary heart diseases Chronic allergic rhinitis Allergic rhinitis, cause unspecified Bronchitis, complicated Bronchitis, not specified as acute or chronic Chronic diastolic heart failure due to valvular disease HTN, goal below 140/90 Unspecified essential hypertension documented in this encounter Advance Directives Latest Code Status on File Code Status Date Activated Date Inactivated Comments Full Code 06/15/2021 11:00 AM 06/16/2021 6:29 PM This order reflects the patients wishes and were consensually agreed upon. Question Answer Comments Discussion of Advance Directives occurred with: Not Discussed Healthcare Agents on File Name Relationship Healthcare Agent [facility] Communication Neva Joseph Spouse Power of Inspector Returned Materials Care Teams Sand Mixer Operator Relationship Specialty Start Date End Date Rosalina Hanna DO [address] [place] [address] PCP - General Family Medicine 08/31/20 documented as of this encounter"
--- OUTSIDE RECORDS SUMMARY | 2023-04-21 07:03 | External Medical Summary | Summary of Care ---
Author Name Unknown Organization [facility] Address [address] [facility] [place] [address] Phone [phone] Care Team Providers Care Iron Launder Operator Name Role Phone Rosalina Hanna DO Primary Care Provider [phone] Reason for Referral * Precert (Within 24 hrs (call dept; emergent)) - Pending Review Specialty Diagnoses / Procedures Referred By Contlaverne t Referred To Contact Radiology Diagnoses SOB (shortness of breath) Positive D dimer Procedures CT PULMONARY EMBOLUS W CONTRAST Alvaro Vyas MD [address] [place] [address] Referral ID Status Reason Start Date Expiration Date V isits Requested Visits Authorized [id number] Pending Review 03/21/2023 999 999 Reason for Visit * Reason Onset Date Comments Test Results 03/21/2023 Encounter Details Date Type Department Care Team (Late st Contact Info) Description 03/21/2023 Telephone [facility] [address] [place] [facility] [facility] [place] [address] Alvaro Vyas MD [address] [place] [facility] [facility] [place] [address] Test Results Allergies Active Allergy Reactions [...] Respimat 2.5 MCG/ACT Inhalation Aerosol Solution (Tiotropium [place] Monohydrate) Inhale 2 Puffs by mouth in [...] encounter Miscellaneous Notes * Telephone Encounter - Alvaro Vyas MD - 03/23/2023 12:37 PM EDT There could be a structural problem too So if he hadnt done any swallowing test, would strongly recommend it * Telephone Encounter - Lety Kim LPN - 03/23/2023 12:28 PM EDT Patient calling back advised of the message below. He stated that he saw the Neurology department and there is nothing that can be done with the swallowing issue, he said there is something loose in the brain that they cannot fix. He stated that he was having issues with his sinuses and now that he is on medication he is feeling better and he wouldlike to leave it at that. * Telephone Encounter - Michelle Martinez LPN [...] there are times where things only go intermediate down. He says that he was already [...] Modules accepted: Orders * Telephone Encounter - Avlaro Vyas MD - 03/23/2023 7:43 AM EDT [...] Asked if appointment scheduled at 3pm at [facility] would work. Pt agreeable and will be [...] Description 03/27/2023 10:20 AM EST Office Visit [facility] [address] [place] [phone] Alvaro Vyas MD [address] [place] [address] 04/26/2023 9:30 AM EST Office Visit [facility]ology, [facility] [place] [address] Madalyn Amaya CRNP [address] [facility] [place] [address] 05/05/2023 2:00 PM EST Office Visit Dermatology [facility] [place] [address] [place] [address] Carlos Kapadia MD [address] [place] [address] 09/12/2023 10:30 AM EDT Office Visit Cardiology, [facility] [address] [place] [address] Melisa Ramirez CRNP [address] [place] [address] Scheduled Orders Name Type Priority Associated Diagnoses [...] encounter Medical Devices Implanted Type Area Cloth Finisher Device Identifier Shelf Expiration Date Model / Serial / Lot Angioseal Vip 8 Fr - [id number] Implanted:Qty : 1 on 06/15/2021 by Latrell Peterson [place] [facility] [place] Carotid [employer] [id number] 02/18/2022 [id number] / / [id number] documented as of this encounter Results [...] PM EDT EXAM CT PULMONARY EMBOLUS W [id number]/31/2023 3:02 pm HISTORY Pulmonary embolism; Wells score [...] - 03/21/[address] PULMONARY EMBOLUS W [id number]/31/2023 3:02 pm HISTORY Pulmonary embolism; Wells score [...] p Communication Neva Joseph Spouse Power of Waiter/Waitress Cabin Class [phone] (Mobile) Care Teams Iron Launder Operator Relationship Specialty Start Date End Date Rosalina Hanna DO [address] [place] [address] PCP - General Family Medicine 08/31/20 documented as of this encounter
--- OUTSIDE RECORDS SUMMARY | 2023-04-21 07:03 | External Medical Summary | Summary of Care ---
Author Name Unknown Organization [facility] Address [address] [facility] [address] Phone [phone] Care Team Providers Care Coater Hand Name Role Phone Rosalina Hanna DO Primary Care Provider [phone] Reason for Referral * Precert (Within 24 hrs (call dept; emergent)) - Pending Review Specialty Diagnoses / Procedures Referred By Contlaverne t Referred To Contact Radiology Diagnoses SOB (shortness of breath) Positive D dimer Procedures CT PULMONARY EMBOLUS W CONTRAST Alvaro Vyas MD [address] [place] [address] Referral ID Status Reason Start Date Expiration Date V isits Requested Visits Authorized [id number] Pending Review 03/21/2023 999 999 Reason for Visit * Reason Onset Date Comments Test Results 03/21/2023 Encounter Details Date Type Department Care Team (Late st Contact Info) Description 03/21/2023 Telephone [facility] [address] [place] [facility] [place] [address] Alvaro Vyas MD [address] [place] [facility] [place] [address] Test Results Allergies Active Allergy Reactions [...] Respimat 2.5 MCG/ACT Inhalation Aerosol Solution (Tiotropium [place] Monohydrate) Inhale 2 Puffs by mouth in [...] there are times where things only go detention down. He says that he was already [...] * Telephone Encounter - Olive Olguin MED SERVICEINFINITY - 03/21/2023 10:18 AM EDT FYI * Telephone Encounter - Olive Olguin MED SERVICEINFINITY - 03/21/2023 10:17 AM EDT Spoke with pt and notified. Verbalized understanding. Asked if appointment scheduled at 3pm at [facility] would work. Pt agreeable and will be [...] Description 03/27/2023 10:20 AM EST Office Visit [facility] [address] [place] [facility] [place] [place] [address] Alvaro Vyas MD [address] [facility] [place] [address] 04/26/2023 9:30 AM EST Office Visit Gastroenterology, [facility] [address] [facility] [place] [address] Madalyn Amaya CRNP [address] [facility] [address] 05/05/2023 2:00 PM EST Office Visit Dermatology [facility] [address] [facility] [place] [address] Carlos Kapadia MD [address] [facility] [place] [address] 09/12/2023 10:30 AM EDT Office Visit Cardiology, [facility] [address] [facility] [place] [address] Melisa Ramirez CRNP [address] [facility] [address] Scheduled Orders Name Type Priority Associated Diagnoses [...] Completed 04/26/2016, 03/29/2003 Zoster Vaccines Completed 07/28/2018, 0912/2017, 01/24/2018 Influenza Vaccine (FLU shot) Completed , [...] this encounter Medical Devices Implanted Type Area Metal Furniture Repairer Device Identifier Shelf Expiration Date Model / Serial / Lot Angioseal Vip 8 Fr - [id number] Implanted:Qty : 1 on 06/15/20[place] [facility] [place] Carotid [employer] [id number] 02/18/2022 [id number] / / [id number] documented as of this encounter Results [...] PM EDT EXAM CT PULMONARY EMBOLUS W [id number]/31/2023 3:02 pm HISTORY Pulmonary embolism; Wells score [...] - 03/21/[address] PULMONARY EMBOLUS W [id number]/31/2023 3:02 pm HISTORY Pulmonary embolism; Wells score [...] p Communication Neva Joseph Spouse Power of Upkeep Worker Care Teams Coater Hand Relationship Specialty Start Date End Date Rosalina Hanna DO [address] [place], [place] [id number] PCP - General Family Medicine 08/31/20 documented as of this encounter
--- OUTSIDE RECORDS SUMMARY | 2023-04-21 07:03 | External Medical Summary | Summary of Care ---
Author Name Unknown Organization [facility] Address [address] [facility] [place] [address] Phone [phone] Care Team Providers Care Construction Project Assistant Name Role Phone Rosalina Hanna DO Primary Care Provider + [phone] Reason for Visit * Reason Comments Outpatient Testing Encounter Details Date Type Department Care Team (Late st Contact Info) Description 03/20/2023 4:10 PM EDT Laboratory Laboratory, [place] [address] [place] [address] [place], [facility] [address] [place] [address] [employer] Other*[id number]; SOB (shortness of breath); Moderate persistent asthma without complication; Bronchitis, complicated Allergies Active Allergy Reactions Criticality Noted Date [...] Respimat 2.5 MCG/ACT Inhalation Aerosol Solution (Tiotropium [place] Monohydrate) Inhale 2 Puffs by mouth in [...] No 06/15/2021 documented as of this encounter Plan of Treatment Upcoming Encounters Date Type Department Care Team (Late st Contact Info) Description 03/27/2023 10:20 AM EST Office Visit [facility] [address] [place] [facility] [place] [address] Alvaro Vyas MD [address] [place] [address] 04/26/2023 9:30 AM EST Office Visit Gastroenterology, [facility] 132 [facility] [place] [address] Madalyn Amaya CRNP [facility] [place] [address] 05/05/2023 2:00 PM EST Office Visit Dermatology [facility] [address] [place] [address] Carlos Kapadia MD [address] [facility] [place] [address] 09/12/2023 10:30 AM EDT Office Visit Cardiology, [facility] [place] [address] Melisa Ramirez CRNP 132 [facility] [place] [address] Pending Results Name Type Priority Associated Diagnoses Date /Time MYCODE SUBSEQUENT ADULT Lab Routine MyCode Research Other*[id number] 03/20/2023 4:03 PM EDT D-DIMER Lab Routine SOB (shortness of breath) 03/20/2023 4:03 PM EDT CBC WITH WBC DIFFERENTIAL Lab Routine Moderate persistent asthma without complication SOB (shortness of breath) Bronchitis, complicated 03/20/2023 4:03 PM EDT COMPREHENSIVE METABOLIC PANEL Lab Routine Moderate persistent asthma without complication SOB (shortness of breath) Bronchitis, complicated 03/20/2023 4:03 PM EDT MYCODE SST1 Lab Routine [employer] Other*[id number] 03/20/2023 4:03 PM EDT MYCODE SST2 Lab Routine [employer] Other*[id number] 03/20/2023 4:03 PM EDT CBC Lab Routine Moderate persistent asthma without complication SOB (shortness of breath) Bronchitis, complicated 03/20/2023 4:03 PM EDT DIFFERENTIAL, AUTOMATED Lab Routine Moderate persistent asthma without complication SOB (shortness of breath) Bronchitis, complicated 03/20/2023 4:03 PM EDT Health Maintenance Due Date Last Done Comments [...] this encounter Medical Devices Implanted Type Area Disposition Clerk Device Identifier Shelf Expiration Date Model / Serial / Lot Angioseal Vip 8 Fr - [id number] Implanted:Qty : 1 on 06/15/2021 by Latrell Peterson MD at OR [facility] Right: Carotid [employer] CATHY [id number] 02/18/2022 [id number] / / [id number] documented as of this encounter Visit Diagnoses Diagnosis MyCode Research Other*[id number] SOB (shortness of breath) Shortness of breath Moderate persistent asthma without complication Unspecified asthma Bronchitis, complicated Bronchitis, not specified as acute or chronic documented in this encounter Advance Directives Latest Code Status on File Code Status Date Activated Date Inactivated Comments Full Code 06/15/2021 11:00 AM 06/16/2021 6:29 PM This order reflects the patients wishes and were consensually agreed upon. Question Answer Comments Discussion of Advance Directives occurred with: Not Discussed Healthcare Agents on File Name Relationship Healthcare Agent Relationshi p Communication Neva Opal Spouse Power of Well Services Operator Care Teams Construction Project Assistant Relationship Specialty Start Date End Date Rosalina Hanna DO [address] [place] [address] PCP - General Family Medicine 08/31/20 documented as of this encounter
--- OUTSIDE RECORDS SUMMARY | 2023-04-21 07:03 | External Medical Summary | Summary of Care ---
Author Name Unknown Organization [facility] Address [address] [facility] [address] Phone [phone] Care Team Providers Care Home Supervisor Name Role Phone Rosalina Hanna DO Primary Care Provider [phone] Reason for Referral * Precert (Within 24 hrs (call dept; emergent)) - Pending Review Specialty Diagnoses / Procedures Referred By Contlaverne t Referred To Contact Radiology Diagnoses SOB (shortness of breath) Positive D dimer Procedures CT PULMONARY EMBOLUS W CONTRAST Alvaro Vyas MD [address] [place] [address] Referral ID Status Reason Start Date Expiration Date V isits Requested Visits Authorized [id number] Pending Review 03/21/2023 999 999 Reason for Visit * Reason Onset Date Comments Test Results 03/21/2023 Encounter Details Date Type Department Care Team (Late st Contact Info) Description 03/21/2023 Telephone [facility] [address] [place] [facility] [address] Alvaro Vyas MD [address] [place] [facility] [place] [address] Test Results Allergies Active Allergy Reactions [...] Respimat 2.5 MCG/ACT Inhalation Aerosol Solution (Tiotropium [place] Monohydrate) Inhale 2 Puffs by mouth in [...] as of this encounter Miscellaneous Notes * Addendum Note - Alvaro Vyas MD [...] Asked if appointment scheduled at 3pm at [facility] would work. Pt agreeable and will [...] Description 03/27/2023 10:20 AM EST Office Visit [place] [address] [place] [address] Alvaro Vyas MD [address] [place] [address] 04/26/2023 9:30 AM EST Office Visit Gastroenterology, [facility] 132 [facility] [place] [address] Madalyn Amaya CRNP 132 [facility] [place] [address] 05/05/2023 2:00 PM EST Office Visit Dermatology [facility] [address] [facility] [place] [address] Carlos Kapadia MD [address] [facility] [place] [address] 09/12/2023 10:30 AM EDT Office Visit Cardiology, [facility] 132 [facility] [place] [address] Melisa Ramirez CRNP [address] [place] [address] Scheduled Orders Name Type Priority Associated Diagnoses [...] this encounter Medical Devices Implanted Type Area Washateria Attendant Device Identifier Shelf Expiration Date Model / Serial / Lot Angioseal Vip 8 Fr - [id number] Implanted:Qty : 1 on 06/15/2021 by Latrell Peterson MD at [place] [facility] Right: Carotid [employer] CATHY [id number] 02/18/2022 [id number] / / [id number] documented as of this encounter Results [...] PM EDT EXAM CT PULMONARY EMBOLUS W [id number]/31/2023 3:02 pm HISTORY Pulmonary embolism; Wells score [...] - 03/21/[address] PULMONARY EMBOLUS W [id number]/31/2023 3:02 pm HISTORY Pulmonary embolism; Wells score [...] and agree with the resident/fellow physician's interpretation. Alvaor Vyas MD RAD CT documented in this [...] p Communication Neva Joseph Spouse Power of Mechanical Developer Prover Care Teams Home Supervisor Relationship Specialty Start Date End Date Rosalina Hanna DO [address] [place], [place] [id number] PCP - General Family Medicine 08/31/20 documented as of this encounter
--- OUTSIDE RECORDS SUMMARY | 2023-04-21 07:03 | External Medical Summary | Summary of Care ---
Author Name Unknown Organization [facility] Address [address] [facility] [place] [address] Phone [phone] Care Team Providers Care Chain Carrier Name Role Phone Rosalina Hanna DO Primary Care Provider + [phone] Reason for Visit * Reason Comments Outpatient Testing Encounter Details Date Type Department Care Team (Late st Contact Info) Description 03/20/2023 4:10 PM EDT Laboratory Laboratory, [place] [address] [place] [address] [place], [facility] [address] [place] [address] [employer] Other*[id number]; SOB (shortness of breath); Moderate persistent asthma [...] Respimat 2.5 MCG/ACT Inhalation Aerosol Solution (Tiotropium [place] Monohydrate) Inhale 2 Puffs by mouth in [...] Description 03/27/2023 10:20 AM EST Office Visit [facility] [address] [place] [facility] [place] [address] Alvaro Vyas MD [address] [place] [address] 04/26/2023 9:30 AM EST Office Visit Gastroenterology, [facility] 132 [facility] [place] [address] Madalyn Amaya CRNP 132 [facility] [place] [address] 05/05/2023 2:00 PM EST Office Visit Dermatology [facility] [address] [place] [address] Carlos Kapadia MD [address] [place] [address] 09/12/2023 10:30 AM EDT Office Visit Cardiology, [facility] [place] [address] Melisa Ramirez CRNP 132 [place] [address] Pending Results Name Type Priority Associated Diagnoses Date /Time MYCODE SUBSEQUENT ADULT Lab Routine MyCode Research Other*[id number] 03/20/2023 4:03 PM EDT D-DIMER Lab Routine SOB (shortness of breath) 03/20/2023 4:03 PM EDT CBC WITH WBC DIFFERENTIAL Lab Routine Moderate persistent asthma without complication SOB (shortness of breath) Bronchitis, complicated 03/20/2023 4:03 PM EDT COMPREHENSIVE METABOLIC PANEL Lab Routine Moderate persistent asthma without complication SOB (shortness of breath) Bronchitis, complicated 03/20/2023 4:03 PM EDT MYCODE SST1 Lab Routine My[employer] Research Other*[id number] 03/20/2023 4:03 PM EDT MYCODE SST2 Lab Routine My[employer] Research Other*[id number] 03/20/2023 4:03 PM EDT CBC Lab Routine [...] this encounter Medical Devices Implanted Type Area Coffee Farmer Device Identifier Shelf Expiration Date Model / Serial / Lot Angioseal Vip 8 Fr - [id number] Implanted:Qty : 1 on 06/15/2021 by Latrell Peterson MD at OR [facility] [place] [facility] Right: Carotid [employer] CATHY [id number] 02/18/2022 [id number] / / [id number] 1 documented as of this encounter Visit Diagnoses Diagnosis MyCode Research Other*[id number] SOB (shortness of breath) Shortness of breath [...] p Communication Neva Opal Spouse Power of Wedger And Gluer Care Teams Chain Carrier Relationship Specialty Start Date End Date Rosalina Hanna DO [address] [place] [address] PCP - General Family Medicine 08/31/20 documented as of this encounter
--- OUTSIDE RECORDS SUMMARY | 2023-04-21 07:03 | External Medical Summary | Summary of Care ---
Author Name Unknown Organization [facility] Address [address] [facility] [address] Phone [phone] Care Team Providers Care Drop Forger Name Role Phone Rosalina Hanna DO Primary Care Provider + [phone] Reason for Referral * Precert (Within 24 hrs (call dept; emergent)) - Pending Review Specialty Diagnoses / Procedures Referred By Contlaverne t Referred To Contact Radiology Diagnoses SOB (shortness of breath) Positive D dimer Procedures CT PULMONARY EMBOLUS W CONTRAST Alvaro Vyas MD [address] [place] [address] Referral ID Status Reason Start Date Expiration Date V isits Requested Visits Authorized [id number] Pending Review 03/21/2023 999 999 Reason for Visit * Reason Onset Date Comments Test Results 03/21/2023 Encounter Details Date Type Department Care Team (Late st Contact Info) Description 03/21/2023 Telephone [facility] [address] [place] [facility] [place] [address] Alvaro Vyas MD [address] [place] [facility] [place] [address] Test Results Allergies Active Allergy Reactions [...] Respimat 2.5 MCG/ACT Inhalation Aerosol Solution (Tiotropium [place] Monohydrate) Inhale 2 Puffs by mouth in [...] Asked if appointment scheduled at 3pm at [facility] would work. Pt agreeable and [...] Description 03/21/2023 3:00 PM EDT Imaging Radiology [facility] [address] [facility] [place] [address] 03/27/2023 10:20 AM EST Office Visit [facility] [address] [place] [facility] [place] [address] Alvaro Vyas MD [address] [place] [address] 04/26/2023 9:30 AM EST Office Visit Gastroenterology, [facility] [address] [facility] [place] [address] Madalyn Amaya CRNP 132 [facility] [place] [address] 05/05/2023 2:00 PM EST Office Visit [facility]ology [facility] [address] Carlos Kapadia MD [address] [facility] [address] 09/12/2023 10:30 AM EDT Office Visit Cardiology, [facility] [address] [facility] [place] [address] Melisa Ramirez CRNP 132 [facility] [place] [address] Scheduled Orders Name Type Priority Associated Diagnoses [...] this encounter Medical Devices Implanted Type Area Graduate Teaching Assistant Device Identifier Shelf Expiration Date Model / Serial / Lot Angioseal Vip 8 Fr - [id number] Implanted:Qty : 1 on 06/15/2021 by Latrell Peterson MD at [place] [facility] Right: Carotid [employer] CATHY [id number] 02/18/2022 [id number] / / [id number] documented as of this encounter Visit [...] Agents on File Name Relationship Healthcare Agent Nateks p Communication Neva Joseph Spouse Power of Wood Filler Care Teams Drop Forger Relationship Specialty Start Date End Date Rosalina Hanna DO [address] [place] [address] PCP - General Family Medicine 08/31/20 documented as of this encounter
--- OUTSIDE RECORDS SUMMARY | 2023-04-21 07:03 | External Medical Summary | Summary of Care ---
Author Name Unknown Organization [facility] Address [address] [facility] [address] Phone [phone] Care Team Providers Care Framing Mill Operator Name Role Phone Rosalina Hanna DO Primary Care Provider [phone] Reason for Referral * Precert (Within 24 hrs (call dept; emergent)) - Pending Review Specialty Diagnoses / Procedures Referred By Contlaverne t Referred To Contact Radiology Diagnoses SOB (shortness of breath) Positive D dimer Procedures CT PULMONARY EMBOLUS W CONTRAST Alvaro Vyas MD [address] [place] [address] Referral ID Status Reason Start Date Expiration Date V isits Requested Visits Authorized [id number] Pending Review 03/21/2023 999 999 Reason for Visit * Reason Onset Date Comments Test Results 03/21/2023 Encounter Details Date Type Department Care Team (Late st Contact Info) Description 03/21/2023 Telephone [facility] [address] [facility] [place] [address] Alvaro Vyas MD [address] [facility] [place] [address] Test Results Allergies Active Allergy Reactions [...] Respimat 2.5 MCG/ACT Inhalation Aerosol Solution (Tiotropium [place] Monohydrate) Inhale 2 Puffs by mouth in [...] encounter Miscellaneous Notes * Telephone Encounter - Josephine Waters LPN - 03/23/2023 2:44 PM EDT Called and spoke to pt's ,she stated pt is outside at this time. She will give him message and he will call back if he desires a swallowing study * Telephone Encounter - Alvaro Vyas MD [...] there are times where things only go long term down. He says that he was already [...] Asked if appointment scheduled at 3pm at [facility] would work. Pt agreeable and will [...] Description 03/27/2023 10:20 AM EST Office Visit [facility] [address] [facility] [address] Alvaro Vyas MD [address] [facility] [address] 04/26/2023 9:30 AM EST Office Visit Gastroenterology, [facility] [address] [place] [address] Madalyn Amaya CRNP 132 [place] [address] 05/05/2023 2:00 PM EST Office [facility] 200 [facility] [place] [address] Carlos Kapadia MD [address] [place] [address] 09/12/2023 10:30 AM EDT Office Visit Cardiology, [facility] [address] [address] Melisa Ramirez CRNP [address] [place] [address] Scheduled Orders Name Type Priority Associated Diagnoses [...] this encounter Medical Devices Implanted Type Area It Project Coordinator Device Identifier Shelf Expiration Date Model / Serial / Lot Angioseal Vip 8 Fr - [id number] Implanted:Qty : 1 on 06/15/2021 by Latrell Peterson MD at [place] [facility] Right: Carotid [employer] CATHY [id number] 02/18/2022 [id number] / / [id number] documented as of this encounter Results [...] PM EDT EXAM CT PULMONARY EMBOLUS W [id number]/31/2023 3:02 pm HISTORY Pulmonary embolism; Wells score [...] - 03/21/[address] PULMONARY EMBOLUS W VJRZJUYQ53/31/2023 3:02 pm HISTORY Pulmonary embolism; Wells score [...] p Communication Neva Joseph Spouse Power of Auto Radiator Mechanic Care Teams Framing Mill Operator Relationship Specialty Start Date End Date Rosalina Hanna DO [address] [facility] [place] [address] PCP - General Family Medicine 08/31/20 documented as of this encounter
--- OUTSIDE RECORDS SUMMARY | 2023-04-21 07:03 | External Medical Summary | Summary of Care ---
Author Name Unknown Organization [facility] Address [address] [facility] [address] Phone [phone] Care Team Providers Care Grid Caster Name Role Phone Rosalina Hanna DO Primary Care Provider [phone] Reason for Referral * Precert (Within 24 hrs (call dept; emergent)) - Pending Review Specialty Diagnoses / Procedures Referred By Contlaverne t Referred To Contact Radiology Diagnoses SOB (shortness of breath) Positive D dimer Procedures CT PULMONARY EMBOLUS W CONTRAST Alvaro Vyas MD [address] [place] [address] Referral ID Status Reason Start Date Expiration Date V isits Requested Visits Authorized [id number] Pending Review 03/21/2023 999 999 Reason for Visit * Reason Onset Date Comments Test Results 03/21/2023 Encounter Details Date Type Department Care Team (Late st Contact Info) Description 03/21/2023 Telephone [facility] [address] [place] [facility] [place] [address] Alvaro Vyas MD [address] [place] [facility] [place] [address] Test Results Allergies Active Allergy Reactions [...] Respimat 2.5 MCG/ACT Inhalation Aerosol Solution (Tiotropium [place] Monohydrate) Inhale 2 Puffs by mouth in [...] encounter Miscellaneous Notes * Telephone Encounter - Lety Kim LPN [...] there are times where things only go [facility] down. He says that he was already [...] Asked if appointment scheduled at 3pm at [facility] would work. Pt agreeable and will [...] Description 03/27/2023 10:20 AM EST Office Visit [address] [address] Alvaro Vyas MD [address] [place] [address] 04/26/2023 9:30 AM EST Office Visit Gastroenterology, [facility] 132 [facility] [place] [address] Madalyn Amaya CRNP 132 [facility] [place] [address] 05/05/2023 2:00 PM EST Office Visit Dermatology [facility] 200 [facility] [place] [address] Carlos Kapadia MD 200 [facility] [place] [address] 09/12/2023 10:30 AM EDT Office Visit Cardiology, [facility] [place] [address] Melisa Ramirez CRNP [facility] [place] [address] Scheduled Orders Name Type Priority Associated Diagnoses [...] this encounter Medical Devices Implanted Type Area Stove Refinisher Device Identifier Shelf Expiration Date Model / Serial / Lot Angioseal Vip 8 Fr - [id number] Implanted:Qty : 1 on 06/15/2021 by Latrell Peterson MD at OR [facility] Right: Carotid TER2,[id number] CATHY [id number] 02/18/2022 [id number] / / [id number] documented as of this encounter Results [...] PM EDT EXAM CT PULMONARY EMBOLUS W NYPHNFEE27/31/2023 3:02 pm HISTORY Pulmonary embolism; Wells score [...] - 03/21/[address] PULMONARY EMBOLUS W UGZVFWPA97/31/2023 3:02 pm HISTORY Pulmonary embolism; Wells score [...] p Communication Neva Joseph Spouse Power of Coil Builder Care Teams Grid Caster Relationship Specialty Start Date End Date Rosalina Hanna DO [address] [place] [address] PCP - General Family Medicine 08/31/20 documented as of this encounter
--- OUTSIDE RECORDS SUMMARY | 2023-04-21 07:03 | External Medical Summary | Summary of Care ---
Author Name Unknown Organization [facility] Address [address] [facility] [place] [address] Phone [phone] Care Team Providers Care Turf Farmer Name Role Phone Rosalina Hanna DO Primary Care Provider Reason for Visit * Reason Onset Date Comments Appointment 03/23/2023 FLUORO ESOPHAGRA M ENTIRE [FLESOPH] Encounter Details Date Type Department Care Team (Late st Contact Info) Description 03/23/2023 Telephone [place] [address] [place] [address] Rosalina Hanna DO [address] [place] [address] Appointment (FLUORO ESOPHAGRAM ENTIRE [FLE... Allergies Active Allergy Reactions Criticality Noted Date [...] Respimat 2.5 MCG/ACT Inhalation Aerosol Solution (Tiotropium [place] Monohydrate) Inhale 2 Puffs by mouth in [...] encounter Miscellaneous Notes * Telephone Encounter - Nayla Null OSA - 03/23/2023 4:25 PM EDT pt isnt sure they want testing * Telephone Encounter - Nubia Hanson OSA - 03/23/2023 3:24 PM EDT Please call patient to schedule FLUORO ESOPHAGRAM ENTIRE [FLESOPH] Dx: Aspiration into airway, initial encounter [T17.908A] Chronic cough [R05.3] Thank you. documented in this encounter Plan of Treatment Upcoming Encounters Date Type Department Care Team (Late st Contact Info) Description 03/27/2023 10:20 AM EST Office Visit [facility] [address] [place] [address] Alvaro Vyas MD [address] [place] [address] 04/26/2023 9:30 AM EST Office Visit Gastroenterology, [facility] [address] [place] [address] Madalyn Amaya CRNP 132 [place] [address] 05/05/2023 2:00 PM EST Office Visit Dermatology [facility] [address] [facility] [place] [address] Carlos Kapadia MD [address] [facility] [place] [address] 09/12/2023 10:30 AM EDT Office Visit Cardiology, [facility] [address] [place] [address] Melisa Ramirez CRNP [address] [place] [address] Health Maintenance Due Date Last Done Comments [...] this encounter Medical Devices Implanted Type Area Cnc Programmer Device Identifier Shelf Expiration Date Model / Serial / Lot Angioseal Vip 8 Fr - [id number] Implanted:Qty : 1 on 06/15/2021 by Latrell Peterson [place] [facility] [place]: Carotid [employer] CATHY [id number] 02/18/2022 [id number] / / [id number] documented as of this encounter Advance Directives Latest Code Status on File Code Status Date Activated Date Inactivated Comments Full Code 06/15/2021 11:00 AM 06/16/2021 6:29 PM This order reflects the patients wishes and were consensually agreed upon. Question Answer Comments Discussion of Advance Directives occurred with: Not Discussed Healthcare Agents on File Name Relationship Healthcare Agent Relationshi p Communication Neva Joseph Spouse Power of Playground Aide Care Teams Turf Farmer Relationship Specialty Start Date End Date Rosalina Hanna DO [address] [place], [place] [id number] PCP - General Family Medicine 08/31/20 documented as of this encounter
--- OUTSIDE RECORDS SUMMARY | 2023-04-21 07:04 | External Medical Summary | Summary of Care ---
Author Name Unknown Organization [facility] Address [address] [facility] [address] Phone [phone] Care Team Providers Care R D Internship Name Role Phone Rosalina Hanna DO Primary Care Provider Encounter Details Date Type Department Care Team Description 02/16/2023 Telephone [facility] [address] [place] [address] Rosalina Hanna DO [address] [place] [address] Allergies Active Allergy Reactions Severity Noted Date Comments Dog Dander 06/11/2021 Dust 06/11/2021 Mold Fluticasone Anaphylaxis,Other (Please comment) High 04/20/2022 Sulfa Antibiotics Rash,Hives High 07/18/2017 documented as of this encounter (statuses as of 02/23/2023) Medications Medication Sig Dispensed Refills Start Date [...] mouth in the morning. 0 05/17/2021 Active Montelukast Sodium 10 MG Oral Tablet (Singulair) Take by mouth 1 Tablet before bedtime. 90 Tablet 3 01/05/2022 Active Additional Information Patient not taking.Reported on 01/18/2023 guaiFENesin ER 600 MG Oral Tablet Extended Release 12 Hour (Mucinex)Indications :Bronchitis, complicated Take by mouth 1 Tablet 2 times a day as needed for Congestion. Take with plenty of water. Do not cut, crush or chew 20 Tablet 1 03/03/2022 Active Additional Information Patient not taking.Reported on 01/18/2023 Spironolactone 25 MG Oral Tablet (Aldactone)Indicatio ns:HTN, goal below 140/90,Chronic right heart failure (HCC) TAKE 1/2 TABLET BY MOUTH EVERY OTHER DAY 45 Tablet 3 03/11/2022 Active Atorvastatin Calcium 40 MG Oral Tablet [...] the morning. 90 Tablet 2 12/15/2022 Active Additional Information Patient not taking.Reported on 01/18/2023 Mometasone Furoate 50 MCG/ACT Nasal Suspension Administer [...] the morning. 90 Tablet 3 02/17/2023 Active Metoprolol Succinate ER 25 MG Oral Tablet Extended Release 24 Hour (toPROL XL)Indications:HTN, goal below 140/90 Take 0.5 Tablets by mouth in the morning. 90 Tablet 3 01/18/2023 02/18/20 23 Discontinu ed(Refill) documented as of this encounter (statuses as of 02/23/2023) Active Problems Problem Noted Date History of transient ischemic attack (TI A) 01/05/2023 History of prostate cancer 06/14/2022 HTN, goal below 140/90 06/14/2022 Dyslipidemia, goal LDL below 70 06/14/19 23 Pulmonary hypertension 06/14/2022 Paroxysmal supraventricular tachycardia 06/14/2022 Carotid stenosis, symptomatic, with infa rction 06/15/2021 SOB (shortness of breath) 11/20/2020 Chronic diastolic heart failure due to v alvular disease 11/20/[address] scan, lung 11/20/2020 Asthma, moderate persistent 11/20/2020 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 documented as of this encounter (statuses as of 02/23/2023) Resolved Problems Problem Noted Date Resolved Date Heart failure 06/14/2022 06/14/2022 Gastro-esophageal reflux disease without esophag itis 01/05/2022 01/18/2023 TIA (transient ischemic attack) 06/15/2021 01/05/2023 Severe obesity with body mas s index (BMI) of 35.0 to 39.9 with serious comorbidity 11/20/2020 06/14/2022 documented as of this encounter (statuses as of 02/23/2023) Immunizations Name Administration Dates Next Due COVID-19 [...] pure alcohol) 02/19/21 wine daily with dinner Food Insecurity Answer Date Recorded Within the past 12 months, y ou worried that your food would run out before you got money to buy more. Never true 08/31/2020 Within the past 12 months, t he food you bought just didn't last and you didn't have money to get more. Never true 08/31/2020 Sex Assigned at Date Recorded Male 06/14/2022 10:35 AM EST Job Start Date Occupation Industry Not on [...] Telephone Encounter - Michelle Martinez LPN - 02/23/2023 11:02 AM EDT Patient aware and verbalized understanding * Telephone Encounter - Rosalina Hanna DO - 02/23/2023 9:22 AM EDT That is fine as long as his blood pressure is not below 120/80 * Telephone Encounter - Michelle Martinez LPN - 02/22/2023 1:19 PM EDT Okay for pt to take amlodipine as well? * Telephone Encounter - Rosalina Hanna DO - 02/20/2023 8:02 PM EDT I would still suggest that he take 25 mg toprol daily. Due to his results on his monitor * Telephone Encounter - Michelle Martinez LPN - 02/17/2023 2:24 PM EDT Patient aware and verbalized understanding Pt states that he has been monitoring his BP at home & systolic has been in the 130s. Latest was 139/72 States he started taking his amlodipine 5 mg on his own again * Telephone Encounter - Rosalina Hanna DO - 02/17/2023 2:06 PM EDT Reviewed heart monitor results, he is having a lot of SVT, I would advise to go back up on his toprol to a full tablet 25 mg vs the 12.5 If still having light headed episodes needs to see cardiology * Telephone Encounter - Jose Luis Hanna DO - 02/16/2023 3:20 PM EDT I think it is reasonable to increase Toprol-XL back to 25 mg daily. If his symptoms do not improve,schedule follow-up appointment in Cardiology. * Telephone Encounter - Rosalina Hanna DO - 02/16/2023 2:15 PM EDT Reviewed pt's ZIO, completed due to dizziness and low heart rate. Zio showed increase in SVT. Does pt need to be seen, should I go back up on his metoprolol? Currently he is at 12.5 mg documented in this encounter Plan of Treatment Upcoming Encounters Date Type Specialty Care Team Description 04/26/2023 Office Visit Gastroenterology Madalyn Amaya CRNP [address] [place] [address] 05/05/2023 Office Visit Dermatology Carlos Kapadia MD [address] [place] [address], [place] [address] 09/12/2023 Office Visit Cardiology Melisa Ramirez CRNP [address] [place] [address] Health Maintenance Due Date Last Done Comments COLONOSCOPY-EVERY 3 YRS AGES 18-100 10/05/2012 10/05/2009, 10/02/2006, 10/02/2006 COVID-19 Vaccine (3 - Moderna risk series) 08/21/2020 07/24/2020, 06/26/2020 Depression Screening 08/31/2021 08/31/2020 Influenza Vaccine (FLU shot) (#1) 2023 03/18/2022, 03/12/2021, 02/12/2020, Additional history exists Albumin/Creatinine Ratio 01/18/2026 01/18/2023 DTaP,Tdap,and Td Vaccines (2 - Td or Tdap) 02/11/2030 02/12/2020 Pneumococcal Vaccine: 65+ Years Completed 04/26/2016, 03/29/2003 Zoster Vaccines Completed 07/28/2018, 12/2017, 01/24/2018 GARDASIL-HPV IMMUNIZATION SERIES Aged Out No longer eligible based on patient's age to complete this topic Hepatitis B Aged Out No longer eligi ble based on patient's age to complete this topic MENINGOCOCCAL (MENACTRA/MENVEO) Aged Out No longer eligible based on patient's age to complete this topic documented as of this encounter Medical Devices Implanted Type Area Cleaner Window Device Identifier Shelf Expiration Date Model / Serial / Lot Angioseal Vip 8 Fr - [id number] Implanted:Qty : 1 on 06/15/2021 by Latrell Peterson MD at [facility] Right: Carotid [employer] [id number] 02/18/2022 [id number] / / [id number] documented as of this encounter Visit Diagnoses Diagnosis HTN, goal below 140/90 Unspecified essential hypertension [...] p Communication Neva Joseph Spouse Power of Corporate Lawyer Care Teams R D Internship Relationship Specialty Start Date End Date Rosalina Hanna, [address] [place], [place] [phone] PCP - General Family Medicine 08/31/20 documented as of this encounter
--- OUTSIDE RECORDS SUMMARY | 2023-04-21 07:04 | External Medical Summary | Summary of Care ---
Author Name Unknown Organization [facility] Address [address] [facility] [address] Phone [phone] Care Team Providers Care Choral Director Name Role Phone Rosalina Hanna DO Primary Care Provider Encounter Details Date Type Department Care Team Description 02/16/2023 Telephone [facility] [address] [place] [address] Rosalina Hanna DO [address] [place] [address] Allergies Active Allergy Reactions Severity Noted Date Comments Dog Dander 06/11/2021 Dust 06/11/2021 Mold Fluticasone Anaphylaxis,Other (Please comment) High 04/20/2022 Sulfa Antibiotics Rash,Hives High 07/18/2017 documented as of this encounter (statuses as of 02/22/2023) Medications Medication Sig Dispensed Refills Start Date [...] as of this encounter (statuses as of 02/22/2023) Active Problems Problem Noted Date History of [...] as of this encounter (statuses as of 02/22/2023) Resolved Problems Problem Noted Date Resolved Date Heart failure 06/14/2022 06/14/2022 Gastro-esophageal reflux disease without esophag itis 01/05/2022 01/18/2023 TIA (transient ischemic attack) 06/15/2021 01/05/2023 Severe obesity with body mas s index (BMI) of 35.0 to 39.9 with serious comorbidity 11/20/2020 06/14/2022 documented as of this encounter (statuses as of 02/22/2023) Immunizations Name Administration Dates Next Due COVID-19 [...] heart rate. Zio showed increase in SVT. Doespt need to be seen, should I go back up on his metoprolol? Currently he is at 12.5 mg documented in this encounter Plan of Treatment Upcoming Encounters Date Type Specialty Care Team Description 04/26/2023 Office Visit Gastroenterology Madalyn Amaya CRNP [address] [place] [address] 05/05/2023 Office Visit Dermatology Carlos Kapadia MD [address] [place] [address] 09/12/2023 Office Visit Cardiology Melisa Ramirez CRNP [address] [place] [address] Health Maintenance Due Date Last Done Comments [...] this encounter Medical Devices Implanted Type Area Mechanic'S Assistant Device Identifier Shelf Expiration Date Model / Serial / Lot Angioseal Vip 8 Fr - [id number] Implanted:Qty : 1 on 06/15/2021 by Latrell Peterson [place] [facility] [place] Carotid [employer] [id number] 02/18/2022 [id number] / / [id number] documented as of this encounter Visit [...] Agents on File Name Relationship Healthcare Agent [facility] Neva Joseph Spouse Power of Cocktail Server Care Teams Choral Director Relationship Specialty Start Date End Date Rosalina Hanna, DO [address] [place] [address] PCP - General Family Medicine 08/31/20 documented as of this encounter
--- OUTSIDE RECORDS SUMMARY | 2023-04-21 07:04 | External Medical Summary | Summary of Care ---
Author Name Unknown Organization [facility] Address [address] [facility] [place] [address] Phone [phone] Care Team Providers Care Paint Laboratory Technician Name Role Phone Rosalina Hanna DO Primary Care Provider [phone] Encounter Details Date Type Department Care Team Description 01/20/2023 Telephone [facility] [address] [place] [address] Rosalina Hanna DO [address] [place] [address] Allergies Active Allergy Reactions Severity Noted Date Comments Dog Dander 06/11/2021 Dust 06/11/2021 Mold Fluticasone Anaphylaxis,Other (Please comment) High 04/20/2022 Sulfa Antibiotics Rash,Hives High 07/18/2017 documented as of this encounter (statuses as of 01/20/2023) Medications Medication Sig Dispensed Refills Start Date [...] mouth in the morning. 0 05/17/2021 Active Gabapentin 300 MG Oral Capsule (Neurontin)Indication s:Spinal stenosis of lumbar region with neurogenic claudication Take by mouth 1 Capsule in the morning AND 1 Capsule at noon AND 1 Capsule before bedtime. 90 Capsule 11 12/08/2021 Active Montelukast Sodium 10 MG Oral Tablet [...] on 01/18/2023 Spironolactone 25 MG Oral Tablet (Aldactone)Indication s:HTN, [...] the morning. 90 Tablet 3 01/18/2023 Active Metoprolol Succinate ER 25 MG Oral Tablet Extended Release 24 Hour (toPROL XL)Indications:HTN, goal below 140/90 Take 0.5 Tablets by mouth in the morning. 90 Tablet 3 01/18/2023 Active documented as of this encounter (statuses as of 01/20/2023) Active Problems Problem Noted Date History of [...] as of this encounter (statuses as of 01/20/2023) Resolved Problems Problem Noted Date Resolved Date Heart failure 06/14/2022 06/14/2022 Gastro-esophageal reflux disease without esophag itis 01/05/2022 01/18/2023 TIA (transient ischemic attack) 06/15/2021 01/05/2023 Severe obesity with body mas s index (BMI) of 35.0 to 39.9 with serious comorbidity 11/20/2020 06/14/2022 documented as of this encounter (statuses as of 01/20/2023) Immunizations Name Administration Dates Next Due COVID-19 [...] encounter Miscellaneous Notes * Telephone Encounter - JOSE Vega - 01/20/2023 12:33 PM EDT Please disregard message. 01/20/2023 documented in this encounter Plan of Treatment Upcoming Encounters Date Type Specialty Care Team Description 01/26/2023 [place] [address] 04/26/2023 Office Visit Gastroenterology Madalyn Amaya CRNP [address] [place] [address] 09/12/2023 Office Visit Cardiology Melisa Ramirez CRNP [address] [place] [address] Health Maintenance Due Date Last Done Comments COLONOSCOPY-EVERY 3 YRS AGES 18-100 10/05/2012 10/05/2009, 10/02/2006, 10/02/2006 COVID-19 Vaccine (3 - Moderna risk series) 08/21/2020 07/24/2020, 06/26/2020 Depression Screening, Annual for Pts 12 and Over 08/31/2021 08/31/2020 Influenza Vaccine (FLU shot) (#1) [...] this encounter Medical Devices Implanted Type Area Tool Radial Drill Press Set Up Operator Device Identifier Shelf Expiration Date Model / Serial / Lot Angioseal Vip 8 Fr - [id number] Implanted:Qty : 1 on 06/15/2021 by Latrell Petersno MD at OR [facility] [place] Right: Carotid [employer] [id number] 02/18/2022 [id number] / / [id number] documented as of this encounter Advance [...] p Communication Neva Joseph Spouse Power of Door Repairman Care Teams Paint Laboratory Technician Relationship Specialty Start Date End Date Rosalina Hanna, [address] [place], [place] [phone] PCP - General Family Medicine 08/31/20 documented as of this encounter
--- OUTSIDE RECORDS SUMMARY | 2023-04-21 07:04 | External Medical Summary | Summary of Care ---
Author Name Unknown Organization [facility] Address [address] [facility] [place] [address] Phone [phone] Care Team Providers Care Office Professional Name Role Phone HinaMatthew fitzgeraldgissell Torres DO Primary Care Provider Reason for Visit * Reason Comments eRx-Medication Refill Encounter Details Date Type Department Care Team (Late st Contact Info) Description 03/11/2023 Refill Cardiology, [facility] [address] [place] [address] Grecia Bedoya CRNP [address] [place] [address] HTN, goal below 140/90; Chronic right heart failure (HCC) Allergies Active Allergy Reactions Criticality Noted Date Comments Dog Dander 06/11/2021 Dust 06/11/2021 Mold Fluticasone Anaphylaxis,Other (Please comment) High 04/20/2022 Sulfa Antibiotics Rash,Hives High 07/18/2017 documented as of this encounter (statuses as of 03/13/2023) Medications Medication Sig Dispensed Refills Start Date [...] mouth in the morning. 0 1 Active Montelukast Sodium 10 MG Oral Tablet (Singulair) Take by mouth 1 Tablet before bedtime. 90 Tablet 3 2 Active Additional Information Patient not taking.Reported on 01/18/2023 guaiFENesin ER 600 MG Oral Tablet Extended Release 12 Hour (Mucinex)Indication s:Bronchitis, complicated Take by mouth 1 Tablet 2 times a day as needed for Congestion. Take with plenty of water. Do not cut, crush or chew 20 Tablet 1 2 Active Additional Information Patient not taking.Reported on 01/18/2023 Atorvastatin Calcium 40 MG Oral Tablet (Lipitor) [...] the morning. 90 Tablet 2 3 Active Additional Information Patient not taking.Reported on [...] NOON and BEFORE BEDTIME 90 Capsule 10 3 Active Metoprolol Succinate ER 25 MG Oral Tablet Extended Release 24 Hour (toPROL XL)Indications:HTN, goal below 140/90 Take 1 Tablet by mouth in the morning. 90 Tablet 3 3 Active Spironolactone 25 MG Oral Tablet (Aldactone)Indicati ons:HTN, goal below 140/90,Chronic right heart failure (HCC) Take 0.5 Tablets by mouth every other day. 25 Tablet 3 3 Active Spironolactone 25 MG Oral Tablet (Aldactone)Indicati ons:HTN, goal below 140/90,Chronic right heart failure (HCC) TAKE 1/2 TABLET BY MOUTH EVERY OTHER DAY 45 Tablet 3 2 03/13/20 23 Discontinued documented as of this encounter (statuses as of 03/13/2023) Active Problems Problem Noted Date Diagnosed Date History of transient ischemic attack (TIA) 01/05 History of prostate cancer 06/14/2022 HTN, goal below 140/90 06/14/2022 Dyslipidemia, goal LDL below 70 06/14/2022 Pulmonary hypertension 06/14/2022 Paroxysmal supraventricular tachycardia 06/14/19 Carotid stenosis, symptomatic, with infarction 0 06/15/2021 SOB (shortness of breath) 11/20/2020 Chronic diastolic heart failure due to valvular disease 11/20/[address] scan, lung 11/20/2020 Asthma, moderate persistent 11/20/2020 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 documented as of this encounter (statuses as of 03/13/2023) Resolved Problems Problem Noted Date Diagnosed Date Resolved Date Heart failure 06/14/2022 06/14/2022 Gastro-esophageal reflux dis ease without esophagitis 01/05/2022 01/18/2023 TIA (transient ischemic attack) 06/15/2021 01/05/2023 Severe obesity with body mas s index (BMI) of 35.0 to 39.9 with serious comorbidity 11/20/2020 documented as of this encounter (statuses as of 03/13/2023) Immunizations Name Administration Dates Next Due COVID-19 [...] encounter Miscellaneous Notes * Telephone Encounter - KRISSY Morris - 03/13/2023 7:51 AM EDTSigned Prescriptions: Disp Refills Spironolactone 25 MG Oral Tablet (Aldacton*25 Tab*3 Sig: Take 0.5 Tablets by mouth every other day. Authorizing Provider: GRECIA BEDOYA * Telephone Encounter - Courtney Parisi LPN - 03/11/2023 12:50 PM EDTPending Prescriptions: Disp Refills Spironolactone 25 MG Oral Tablet (Aldacton*25 Tab*3 Sig: Take 0.5 Tablets by mouth every other day. * Telephone Encounter - Courtney Parisi LPN - 03/11/2023 12:47 PM EDT Did you pend patient's preferred pharmacy and medication before forwarding?yes [facility]acy: [id number] [address] [place] [address] Pending Prescriptions: Disp Refills Spironolactone 25 MG Oral Tablet (Aldacto*25 Tab*3 Sig: Take 0.5 Tablets by mouth every other day. Last Visit: 11/16/2021 (in office), Visit date not found (telemedicine) Next Visit: 09/12/2023 If no future appointments scheduled, and last appointment is greater than a year ago, please schedule patient for a follow-up appointment Last date the medication was ordered: 03/11/2022 Is this request for a controlled substance? NO Urine Drug Screen:No results found for this or any previous visit. Patient Phone Numbers Labs: Lab Results Component Value Date/Time CREAT 0.9 01/18/2023 11:41 AM CREAT 0.8 01/23/2019 09:43 AM POTASSIUM 4.5 01/18/2023 11:41 AM POTASSIUM 4.0 01/23/2019 09:43 AM TSH 2.92 09/01/2020 02:54 PM TSH 2.68 10/21/2016 09:13 AM LDLCALC 50 01/18/2023 11:41 AM LDLCALC 91 10/21/2016 09:13 AM ALT 63 (H) 01/18/2023 11:41 AM ALT 24 01/23/2019 09:43 AM HGBA1C 5.7 (H) 08/15/2022 12:28 PM HGBA1C 5.6 10/21/2016 09:13 AM documented in this encounter Plan of Treatment Upcoming Encounters Date Type Department Care Team (Late st Contact Info) Description 04/26/2023 9:30 AM EST Office Visit Gastroenterology, [facility] [address] [place] [address] Madalyn Amaya CRNP [address] [place] [address] 05/05/2023 2:00 PM EST Office Visit [facility]ermatology [facility] [address] [facility] [place] [address] Carlos Kapadia MD [address] [facility] [place] [address] 09/12/2023 10:30 AM EDT Office Visit Cardiology, [facility] [address] [place] [address] Grecia Bedoya CRNP [address] [place] [address] Health Maintenance Due Date Last Done Comments [...] this encounter Medical Devices Implanted Type Area Freight Delivery Driver Device Identifier Shelf Expiration Date Model / Serial / Lot Angioseal Vip 8 Fr - [id number] Implanted:Qty : 1 on 06/15/2021 by Latrell Peterson MD at [place] [facility] [place] Right: Carotid [employer] [id number] 02/18/2022 [id number] / / [id number] documented as of this encounter Visit Diagnoses Diagnosis HTN, goal below 140/90 Unspecified essential hypertension Chronic right heart failure (HCC) documented in this encounter Advance Directives Latest [...] p Communication Neva Joseph Spouse Power of Vet Tech Care Teams Office Professional Relationship Specialty Start Date End Date Rosalina Hanna DO [address] [place] [address] PCP - General Family Medicine 08/31/20 documented as of this encounter
--- OUTSIDE RECORDS SUMMARY | 2023-04-21 07:04 | External Medical Summary | Summary of Care ---
Author Name Unknown Organization [facility] Address [address] [facility] [place] [address] Phone [phone] Care Team Providers Care Truckman Name Role Phone Rosalina Hanna DO Primary Care Provider + [phone] Reason for Visit * Reason Comments Re-Check Encounter Details Date Type Department Care Team Description 01/27/2023 Nurse Only Ancillary Department, [place] [address] [place] [address] [place], Nurse [address] [place] [address] Re-Check Allergies Active Allergy Reactions Severity Noted Date Comments Dog Dander 06/11/2021 Dust 06/11/2021 Mold Fluticasone Anaphylaxis,Other (Please comment) High 04/20/2022 Sulfa Antibiotics Rash,Hives High 07/18/2017 documented as of this encounter (statuses as of 01/27/2023) Medications Medication Sig Dispensed Refills Start Date [...] BEFORE BEDTIME 90 Capsule 10 01/25/2023 Active documented as of this encounter (statuses as of 01/27/2023) Active Problems Problem Noted Date History of [...] as of this encounter (statuses as of 01/27/2023) Resolved Problems Problem Noted Date Resolved Date Heart failure 06/14/2022 06/14/2022 Gastro-esophageal reflux disease without esophag itis 01/05/2022 01/18/2023 TIA (transient ischemic attack) 06/15/2021 01/05/2023 Severe obesity with body mas s index (BMI) of 35.0 to 39.9 with serious comorbidity 11/20/2020 06/14/2022 documented as of this encounter (statuses as of 01/27/2023) Immunizations Name Administration Dates Next Due COVID-19 [...] Team Description 04/26/2023 Office Visit Gastroenterology Madalyn Amaya, KRISSY [address] [place] [address] 09/12/2023 Office Visit Cardiology Melisa Ramirez CRNP [address] [place] [address] Health Maintenance Due Date Last Done Comments [...] this encounter Medical Devices Implanted Type Area Cadmium Burner Device Identifier Shelf Expiration Date Model / Serial / Lot Angioseal Vip 8 Fr - [id number] Implanted:Qty : 1 on 06/15/2021 [place] [facility] [place] Carotid [employer] [id number] 02/18/2022 [id number] / / [id number] documented as of this encounter Advance [...] p Communication Neva Joseph Spouse Power of Test Development Engineer Care Teams Truckman Relationship Specialty Start Date End Date Rosalina Hanna, DO [address] [place] [address] PCP - General Family Medicine 08/31/20 documented as of this encounter
--- OUTSIDE RECORDS SUMMARY | 2023-04-21 07:04 | External Medical Summary | Summary of Care ---
Author Name Unknown Organization [facility] Address [address] [facility] [place] [address] Phone [phone] Care Team Providers Care Coin Counter And Wrapper Name Role Phone Rosalina Hanna DO Primary Care Provider Reason for Visit * Reason Onset Date Comments Appointment 01/18/2023 Colonoscopy Refe rral Encounter Details Date Type Department Care Team Description 01/18/2023 Telephone [facility] [address] [place] [address] Rosalina Hanna DO [address] [place] [address] Appointment (Colonoscopy Referral) Allergies Active Allergy Reactions Severity Noted Date Comments Dog Dander 06/11/2021 Dust 06/11/2021 Mold Fluticasone Anaphylaxis,Other (Please comment) High 04/20/2022 Sulfa Antibiotics Rash,Hives High 07/18/2017 documented as of this encounter (statuses as of 01/18/2023) Medications Medication Sig Dispensed Refills Start Date [...] 05/17/2021 Active Gabapentin 300 MG Oral Capsule (Neurontin)Indicatio [...] BY MOUTH EVERY DAY 90 Tablet 3 07/21/2022 01/19/20 23 Discontinu ed(Refill) amLODIPine Besylate 5 MG Oral Tablet (Norvasc)Indications :HTN, goal below 140/90 Take 0.5 Tablets by mouth in the morning. 90 Tablet 3 01/18/2023 01/19/20 23 Discontinu ed(Dischar matias) documented as of this encounter (statuses as of 01/18/2023) Active Problems Problem Noted Date History of [...] as of this encounter (statuses as of 01/18/2023) Resolved Problems Problem Noted Date Resolved Date Heart failure 06/14/2022 06/14/2022 Gastro-esophageal reflux disease without esophag itis 01/05/2022 01/18/2023 TIA (transient ischemic attack) 06/15/2021 01/05/2023 Severe obesity with body mas s index (BMI) of 35.0 to 39.9 with serious comorbidity 11/20/2020 06/14/2022 documented as of this encounter (statuses as of 01/18/2023) Immunizations Name Administration Dates Next Due COVID-19 [...] Miscellaneous Notes * Telephone Encounter - JOSE Lou - 01/18/2023 4:03 PM EDT Will schedule after patient is seen for his office visit that is scheduled due to his age * Telephone Encounter - JOSE Vega - 01/18/2023 12:06 PM EDT Patient would like to go to [facility] for Colonscopy. Please call patient on his home phone to schedule. Dx: Special screening for malignant neoplasms, colon [Z12.11] - Primary 01/18/2023 documented in this encounter Plan of Treatment Upcoming Encounters Date Type Specialty Care Team Description 04/26/2023 Office Visit Gastroenterology Madalyn Amaya CRNP [address] [place] [address] 09/12/2023 Office Visit Cardiology Melisa Ramirez CRNP [address] [place] [address] Health Maintenance Due Date Last Done Comments Albumin/Creatinine Ratio 1952 COLONOSCOPY-EVERY 3 YRS AGES 18-100 10/05/2012 10/05/2009, 10/02/2006, 10/02/2006 COVID-19 Vaccine (3 - Moderna risk series) 08/21/2020 07/24/2020, 06/26/2020 Depression Screening, Annual for Pts 12 and Over 08/31/2021 08/31/2020 Influenza Vaccine (FLU shot) (#1) 2023 03/18/2022, 03/12/2021, 02/12/2020, Additional history exists DTaP,Tdap,and Td Vaccines (2 - Td or [...] this encounter Medical Devices Implanted Type Area Weapons Designer Device Identifier Shelf Expiration Date Model / Serial / Lot Angioseal Vip 8 Fr - [id number] Implanted:Qty : 1 on 06/15/2021 by Latrell Peterson MD at [place] [facility] [place] Right: Carotid [employer] [id number] 02/18/2022 [id number] / / [id number] documented as of this encounter Advance [...] p Communication Neva Joseph Spouse Power of Nut Former Care Teams Coin Counter And Wrapper Relationship Specialty Start Date End Date Rosalina Hanna, [address] [place], [place] [phone] PCP - General Family Medicine 08/31/20 documented as of this encounter
--- OUTSIDE RECORDS SUMMARY | 2023-04-21 07:04 | External Medical Summary | Summary of Care ---
Author Name Unknown Organization [facility] Address [address] [facility] [place] [address] Phone [phone] Care Team Providers Care Custom Protection Officer Name Role Phone Cyn Ortega DO Primary Care Provider [phone] Reason for Visit * Reason Comments eRx-Medication Refill Encounter Details Date Type Department Care Team Description 01/20/2023 Refill [facility] [address] [place] [address] Cyn Ortega DO [address] [place] [address] Spinal stenosis of lumbar region with neurogenic claudication Allergies Active Allergy Reactions Severity Noted Date Comments Dog Dander 06/11/2021 Dust 06/11/2021 Mold Fluticasone Anaphylaxis,Other (Please comment) High 04/20/2022 Sulfa Antibiotics Rash,Hives High 07/18/2017 documented as of this encounter (statuses as of 01/25/2023) Medications Medication Sig Dispensed Refills Start Date [...] on 01/18/2023 Spironolactone 25 MG Oral Tablet (Aldactone)Indicati ons:HTN, goal below 140/90,Chronic right heart failure (HCC) TAKE 1/2 TABLET BY MOUTH EVERY OTHER DAY 45 Tablet 3 2 Active Atorvastatin Calcium 40 MG Oral [...] the morning. 90 Tablet 3 3 Active Metoprolol Succinate ER 25 MG Oral Tablet Extended Release 24 Hour (toPROL XL)Indications:HTN, goal below 140/90 Take 0.5 Tablets by mouth in the morning. 90 Tablet 3 3 Active Gabapentin 300 MG Oral Capsule (Neurontin)Indicati ons:Spinal stenosis of lumbar region with neurogenic claudication take 1 capsule by mouth every morning then AT NOON and BEFORE BEDTIME 90 Capsule 10 3 Active Gabapentin 300 MG Oral Capsule (Neurontin)Indicati ons:Spinal stenosis of lumbar region with neurogenic claudication Take by mouth 1 Capsule in the morning AND 1 Capsule at noon AND 1 Capsule before bedtime. 90 Capsule 11 2 01/26/20 23 Discontinued documented as of this encounter (statuses as of 01/25/2023) Active Problems Problem Noted Date History of [...] as of this encounter (statuses as of 01/25/2023) Resolved Problems Problem Noted Date Resolved Date Heart failure 06/14/2022 06/14/2022 Gastro-esophageal reflux disease without esophag itis 01/05/2022 01/18/2023 TIA (transient ischemic attack) 06/15/2021 01/05/2023 Severe obesity with body mas s index (BMI) of 35.0 to 39.9 with serious comorbidity 11/20/2020 06/14/2022 documented as of this encounter (statuses as of 01/25/2023) Immunizations Name Administration Dates Next Due COVID-19 [...] encounter Miscellaneous Notes * Telephone Encounter - Cyn Ortega DO - 01/25/2023 8:22 AM EDTSigned Prescriptions: Disp Refills Gabapentin 300 MG Oral Capsule (Neurontin) 90 Cap*10 Sig: take 1 capsule by mouth every morning then AT NOON and BEFORE BEDTIME Authorizing Provider: CYN ORTEGA * Telephone Encounter - Capri Jade LPN - 01/21/2023 8:39 AM EDTPending Prescriptions: Disp Refills Gabapentin 300 MG Oral Capsule [Pharmacy M*810 Ca* Sig: take 1 capsule by mouth every morning then AT NOON and BEFORE BEDTIME * Telephone Encounter - Mireya Murguia - 01/20/2023 4:33 PM EDTPending Prescriptions: Disp Refills Gabapentin 300 MG Oral Capsule [Pharmacy M*810 Ca* Sig: take 1capsule by mouth every morning then AT NOON and BEFORE BEDTIME documented in this encounter Plan of Treatment Upcoming Encounters Date Type Specialty Care Team Description 01/26/2023 Nurse Only Ancillary Nurse Ruth Leslie [place] [address] 04/26/2023 Office Visit Gastroenterology Madalyn Amaya CRNP [address] [place] [address] 09/12/2023 Office Visit Cardiology Melisa Ramirez CRNP [address] [place] [address] Health Maintenance Due Date Last Done Comments [...] this encounter Medical Devices Implanted Type Area Computerized Machine Fabric Cutter Device Identifier Shelf Expiration Date Model / Serial / Lot Angioseal Vip 8 Fr - [id number] Implanted:Qty : 1 on 06/15/2021 by Latrell Peterson [place] [facility] [place] Carotid [employer] [id number] 02/18/2022 [id number] / / [id number] documented as of this encounter Visit Diagnoses Diagnosis Spinal stenosis of lumbar region with neurogenic claudication Spinal stenosis, lumbar region, with neurogenic claudication documented in this encounter Advance Directives Latest [...] p Communication Neva Joseph Spouse Power of Tree Inspector Care Teams Custom Protection Officer Relationship Specialty Start Date End Date Cyn Ortega, DO [address] [place], [place] [phone] PCP - General Family Medicine 08/31/20 documented as of this encounter
--- OUTSIDE RECORDS SUMMARY | 2023-04-21 07:04 | External Medical Summary | Summary of Care ---
Author Name Unknown Organization [facility] Address [address] [facility] [address] Phone [phone] Care Team Providers Care Bookkeeper Receptionist Name Role Phone Rosalina Hanna DO Primary Care Provider + [phone] Reason for Visit * Reason Comments Follow Up Ziopatch placement Encounter Details Date Type Department Care Team Description 01/26/2023 Nurse Only Ancillary Department, [place] [address] [place], [place] [phone] [place], Nurse [address] [place] [address] Follow Up (Ziopatch placement) Allergies Active Allergy Reactions Severity Noted Date Comments Dog Dander 06/11/2021 Dust 06/11/2021 Mold Fluticasone Anaphylaxis,Other (Please comment) High 04/20/2022 Sulfa Antibiotics Rash,Hives High 07/18/2017 documented as of this encounter (statuses as of 01/26/2023) Medications Medication Sig Dispensed Refills Start Date [...] as of this encounter (statuses as of 01/26/2023) Active Problems Problem Noted Date History of transient ischemic attack (TI A) 01/05/2023 History of prostate cancer 06/14/2022 HTN, goal below 140/90 06/14/2022 Dyslipidemia, goal LDL below 70 06/14/19 Pulmonary hypertension 06/14/2022 Paroxysmal supraventricular tachycardia 06/14/2022 Carotid stenosis, symptomatic, with infa rction 06/15/2021 SOB (shortness of breath) 11/20/2020 Chronic diastolic heart failure due to v alvular disease 11/20/[address] scan, lung 11/20/2020 Asthma, moderate persistent 11/20/2020 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 documented as of this encounter (statuses as of 01/26/2023) Resolved Problems Problem Noted Date Resolved Date Heart failure 06/14/2022 06/14/2022 Gastro-esophageal reflux disease without esophag itis 01/05/2022 01/18/2023 TIA (transient ischemic attack) 06/15/2021 01/05/2023 Severe obesity with body mas s index (BMI) of 35.0 to 39.9 with serious comorbidity 11/20/2020 06/14/2022 documented as of this encounter (statuses as of 01/26/2023) Immunizations Name Administration Dates Next Due COVID-19 [...] as of this encounter Progress Notes * Beronica Arguelles LPN - 01/26/2023 11:43 AM EDT Zio patch applied. Pt was given instructions on what to do with it and how to send it back in the mail. Pt had no complaints documented in this encounter Plan of Treatment Upcoming Encounters Date Type Specialty Care Team Description 04/26/2023 Office Visit Gastroenterology Madalyn Amaya CRNP [address] [place] [address] 09/12/2023 Office Visit Cardiology Melisa Ramirez CRNP [address] [place] [address] Health Maintenance Due Date Last Done Comments [...] this encounter Medical Devices Implanted Type Area Wooden Frame Builder Device Identifier Shelf Expiration Date Model / Serial / Lot Angioseal Vip 8 Fr - [id number] Implanted:Qty : 1 on 06/15/2021 by Latrell Peterson MD [place] [facility] [place]: Carotid [employer] [id number] 02/18/2022 [id number] / / [id number] documented as of this encounter Visit Diagnoses Diagnosis Abnormal EKG- [...] p Communication Neva Joseph Spouse Power of Rumper Care Teams Bookkeeper Receptionist Relationship Specialty Start Date End Date Rosalina Hanna DO [address] [place] [address] PCP - General Family Medicine 08/31/20 documented as of this encounter
--- OUTSIDE RECORDS SUMMARY | 2023-04-21 07:04 | External Medical Summary ---
Author Name Unknown Address Unknown Organization [id number][place] [place] [address] [facility] [place] [address] Laboratory Report Ordering Provider Test Date Status REY LINK 03/20/2023 16:03:56 Final Observation Date Value Abnormality Reference (Units ) Status SYNC LEUKOCYTES IN BLOOD BY AUTOMATED COUNT 03/20/2023 16:03:56 9.59 4.00-10.80 (K/uL) Final Segs 03/20/2023 16:03:56 65.1 40.0-75.0 (%) Final Lymphs % 03/20/2023 16:03:56 19.5 18.0-42.0 (%) Final Monos 03/20/2023 16:03:56 7.0 1.0-11.0 (%) Final Eosinophils 03/20/2023 16:03:56 7.4 Above high normal 0.0-6.0 (%) Final Basos 03/20/2023 16:03:56 0.7 0.0-2.0 (%) Final Immature Granulocyte, Percent 03/20/2023 16:03:56 0.3 0.0-2.0 (%) Final Absolute Segs 03/20/2023 16:03:56 6.24 1.80-7.70 (K/uL) Final Lymphs, absolute 03/20/2023 16:03:56 1.87 1.00-4.80 (K/ul) Final Monos, Abs 03/20/2023 16:03:56 0.67 0.00-1.10 (K/uL) Final Eos, Abs 03/20/2023 16:03:56 0.71 Above high normal 0.00-0.70 (K/uL) Final Basos, Abs 03/20/2023 16:03:56 0.07 0.00-0.20 (K/uL) Final Immature Granulocytes, Number 03/20/2023 16:03:56 0.03 0.00-0.20 (K/uL) Final Performing Location [facility] [place] [facility] [place] [address]
--- OUTSIDE RECORDS SUMMARY | 2023-04-21 07:04 | External Medical Summary ---
Author Name Unknown Address Unknown Organization K01:[facility] [place] - [facility] [address] [place] [address] Laboratory Report Ordering Provider Test Date Status REY LINK 03/20/2023 16:03:56 Final Rheumatoid factor at a level above 50 IU/mL may lead to an overestimation of the D-dimer level. A normal D-dimer result (<0.50 ug/mL FEU) has a negative predictive value of approximately 95% for the exclusion of acute pulmonary embolism (PE) or deep vein thrombosis when there is low or moderate pretest PE probability. Increased D-dimer values are abnormal but do not indicate a specific disease state and the D-dimer increase does not definitively correlate with clinical severity of disease. Observation Date Value Abnormality Reference (Units ) Status Fibrin D-dimer FEU [Mass/volume] in Platelet poor plasma by Immunoassay 03/20/2023 16:03:56 1.27 Above high normal <0.50 (ug/mL FEU) Final Performing Location [facility] [place] - [facility] [address] [facility] [place] [address]
--- OUTSIDE RECORDS SUMMARY | 2023-04-21 07:04 | External Medical Summary | Summary of Care ---
Author Name Unknown Organization [facility] Address [address] [facility] [place] [address] Phone [phone] Care Team Providers Care Chief Of Vital Statistics Name Role Phone Rosalina Hanna DO Primary Care Provider [phone] Encounter Details Date Type Department Care Team Description 01/27/2023 Telephone [facility] [address] [place] [address] Rsoalina Hanna DO [address] [place] [address] Allergies Active Allergy Reactions Severity [...] Amaya CRNP [address] [place] [address] 09/12/2023 Office Visit Cardiology Melisa Ramirez CRNP [address] [place] [address] Scheduled Orders Name Type Priority Associated Diagnoses Orde r Schedule EXTERNAL EKG 2 TO 7 DAYS Holter Routine Bradycardia Expected: 01/28/2023 (Approximate), Expires: 01/28/2024 Health Maintenance Due Date Last Done Comments [...] this encounter Medical Devices Implanted Type Area Learning And Development Coordinator Device Identifier Shelf Expiration Date Model / Serial / Lot Angioseal Vip 8 Fr - [id number] Implanted:Qty : 1 on 06/15/2021 by Latrell Peterson MD at [place] [facility] [place] Right: Carotid [employer] [id number] 02/18/2022 [id number] / / [id number] 1 documented as of this encounter Visit Diagnoses Diagnosis Bradycardia- Primary Other specified cardiac dysrhythmias documented in this encounter Advance Directives Latest [...] p Communication Neva Joseph Spouse Power of Returns Clerk Care Teams Chief Of Vital Statistics Relationship Specialty Start Date End Date Rosalina Hanna, [address] [place] [address] PCP - General Family Medicine 08/31/20 documented as of this encounter
--- OUTSIDE RECORDS SUMMARY | 2023-04-21 07:04 | External Medical Summary ---
Author Name Unknown Address Unknown Organization K01[place] [place] [address] [place] [address] Laboratory Report Ordering Provider Test Date Status CARL CERDA 03/20/2023 16:03:56 Final Observation Date Value Abnormality Reference (Units ) Status MYCODE SPECIMEN-SST 03/20/2023 16:03:56 Freezing of extracted DNA, whole blood and/or serum. Final Performing Location [facility] [place] [address] [place] [address]
--- OUTSIDE RECORDS SUMMARY | 2023-04-21 07:04 | External Medical Summary | Summary of Care ---
Author Name Unknown Organization [facility] Address [address] [facility] [place] [address] Phone [phone] Care Team Providers Care Manager Helpdesk Name Role Phone Rosalina Hanna DO Primary Care Provider Encounter Details Date Type Department Care Team Description 01/30/2023 Telephone [facility] [address] [place] [address] Rosalina Hanna DO [address] [place] [address] Allergies Active Allergy Reactions Severity Noted Date Comments Dog Dander 06/11/2021 Dust 06/11/2021 Mold Fluticasone Anaphylaxis,Other (Please comment) High 04/20/2022 Sulfa Antibiotics Rash,Hives High 07/18/2017 documented as of this encounter (statuses as of 01/30/2023) Medications Medication Sig Dispensed Refills Start Date [...] as of this encounter (statuses as of 01/30/2023) Active Problems Problem Noted Date History of [...] as of this encounter (statuses as of 01/30/2023) Resolved Problems Problem Noted Date Resolved Date Heart failure 06/14/2022 06/14/2022 Gastro-esophageal reflux disease without esophag itis 01/05/2022 01/18/2023 TIA (transient ischemic attack) 06/15/2021 01/05/2023 Severe obesity with body mas s index (BMI) of 35.0 to 39.9 with serious comorbidity 11/20/2020 06/14/2022 documented as of this encounter (statuses as of 01/30/2023) Immunizations Name Administration Dates Next Due COVID-19 [...] encounter Miscellaneous Notes * Telephone Encounter - Capri Jade LPN - 01/30/2023 10:24 AM EDT ----- Message from Rosalina Hanna DO sent at 01/26/2023 1:45 PM EDT ----- Recent labwork was normal, this includes kidney function, electrolytes and blood counts. Results for orders placed or performed in visit on 01/18/23 -LIPID PANEL WITH DIRECT LDL IF TG IS HIGH: Result Value Ref Range Triglycerides 93 <=174 mg/dL Cholesterol 125 <200 mg/dL HDL Cholesterol 56 >39 mg/dL Non-HDL Cholesterol 69 <=159 mg/dL LDL Cholesterol 50 <=129 mg/dL -COMPREHENSIVE METABOLIC PANEL: Result Value Ref Range BUN 24 (H) 6 - 20 mg/dL Creatinine 0.9 0.6 - 1.2 mg/dL Estimated Glomerular Filtration Rate 80 >=60 mL/min Sodium 142 135 - 146 mmol/L Potassium 4.5 3.5 - 5.1 mmol/L Chloride 103 98 - 107 mmol/L CO2 29 22 - 32 mmol/L Anion Gap 10 7 - 15 mmol/L Glucose 94 70 - 120 mg/dL Albumin 3.9 3.8 - 5.0 g/dL AST 37 10 - 50 U/L Alkaline Phosphatase 159 (H) 35 - 130 U/L Bilirubin, Total 0.7 <=1.2 mg/dL Calcium 9.1 8.4 - 10.2 mg/dL Protein 6.0 6.0 - 8.3 g/dL ALT 63 (H) 10 - 50 U/L -CBC: Result Value Ref Range WBC 8.35 4.00 - 10.80 K/uL RBC 5.28 4.50 - 5.25 M/uL HGB 16.8 14.0 - 16.8 g/dL HCT 51.8 (H) 40.0 - 48.4 % MCV 98.1 82.0 - 99.5 fL MCH 31.8 27.0 - 34.0 pg MCHC 32.4 32.0 - 36.0 g/dL RDW 13.9 11.5 - 15.5 % PLT 192 140 - 400 K/uL MPV 12.0 6.6 - 11.1 fL nRBCs 0 <=0 /100 WBCs -ALBUMIN / CREATININE RATIO, URINE: Result Value Ref Range Albumin, Random Urine 2.79 mg/dL Creatinine, Random Urine 67 mg/dL Albumin / Creatinine Ratio, Urine 42 (H) <30 mg/g Creat documented in this encounter Plan of Treatment Upcoming Encounters Date Type Specialty Care Team Description 04/26/2023 Office Visit Gastroenterology Madalyn Amaya CRNP [address] [place] [address] 09/12/2023 Office Visit Cardiology Melisa Ramirez CRNP [address] [place] [address] Health Maintenance Due Date Last Done Comments [...] this encounter Medical Devices Implanted Type Area Military Pilot Device Identifier Shelf Expiration Date Model / Serial / Lot Angioseal Vip 8 Fr - [id number] Implanted:Qty : 1 on 06/15/2021 by Latrell Peterson MD [place] [facility] [place]: Carotid [employer] [id number] 02/18/2022 [id number] / / [id number] documented as of this encounter Advance [...] p Communication Neva Joseph Spouse Power of Marketing Liaison Care Teams Manager Helpdesk Relationship Specialty Start Date End Date Rosalina Hanna, [address] [place], [place] [phone] PCP - General Family Medicine 08/31/20 documented as of this encounter
--- OUTSIDE RECORDS SUMMARY | 2023-04-21 07:04 | External Medical Summary | Summary of Care ---
Author Name Unknown Organization [facility] Address [address] [facility] [address] Phone [phone] Care Team Providers Care Branch Operations Coordinator Name Role Phone Rosalina Hanna DO Primary Care Provider Encounter Details Date Type Department Care Team Description 02/16/2023 Telephone [facility] [address] [place] [address] Rosalina Hanna DO [address] [place] [address] Allergies Active Allergy Reactions Severity Noted Date Comments Dog Dander 06/11/2021 Dust 06/11/2021 Mold Fluticasone Anaphylaxis,Other (Please comment) High 04/20/2022 Sulfa Antibiotics Rash,Hives High 07/18/2017 documented as of this encounter (statuses as of 02/20/2023) Medications Medication Sig Dispensed Refills Start Date [...] as of this encounter (statuses as of 02/20/2023) Active Problems Problem Noted Date History of [...] as of this encounter (statuses as of 02/20/2023) Resolved Problems Problem Noted Date Resolved Date Heart failure 06/14/2022 06/14/2022 Gastro-esophageal reflux disease without esophag itis 01/05/2022 01/18/2023 TIA (transient ischemic attack) 06/15/2021 01/05/2023 Severe obesity with body mas s index (BMI) of 35.0 to 39.9 with serious comorbidity 11/20/2020 06/14/2022 documented as of this encounter (statuses as of 02/20/2023) Immunizations Name Administration Dates Next Due COVID-19 [...] encounter Miscellaneous Notes * Telephone Encounter - Rosalina Hanna DO [...] Madalyn Amaya CRNP [address] [place] [address] 05/05/2023 Office Visit Dermatology Carlos Kapadia MD [address] [place] [address] 09/12/2023 Office Visit Cardiology Melisa Ramirez CRNP [address] [place] [address] Health Maintenance Due Date Last Done Comments [...] this encounter Medical Devices Implanted Type Area Buckle Frame Shaper Device Identifier Shelf Expiration Date Model / Serial / Lot Angioseal Vip 8 Fr - [id number] Implanted:Qty : 1 on 06/15/2021 by Latrell Peterson MD [place] [facility] [facility] [place] Right: Carotid [employer] [id number] 02/18/2022 [id number] / / [id number] documented as of this encounter Visit [...] p Communication Neva Joseph Spouse Power of Tax Attorney Care Teams Branch Operations Coordinator Relationship Specialty Start Date End Date Rosalina Hanna, DO [address] [place], [place] [phone] PCP - General Family Medicine 08/31/20 documented as of this encounter
--- OUTSIDE RECORDS SUMMARY | 2023-04-21 07:04 | External Medical Summary ---
Author Name Unknown Address Unknown Organization [id number]:[place] [facility] [place] [address] [facility] [place] [address] Laboratory Report Ordering Provider Test Date Status REY LINK 03/20/2023 16:03:56 Final Observation Date Value Abnormality Reference (Units ) Status BUN 03/20/2023 16:03:56 26 Above high normal 6-20 (mg/dL) Final Creatinine 03/20/2023 16:03:56 1.0 0.6-1.2 (mg/dL) Final Glomerular filtration rate/1.73 sq M.predicted [Volume Rate/Area] in Serum, Plasma or Blood by Creatinine-based formula (CKD-EPI) 03/20/2023 16:03:56 71 >=60 (mL/min) Final eGFR is calculated based on the CKD-EPI 2020 equation SODIUM 03/20/2023 16:03:56 142 135-146 (m mol/L) Final Potassium 03/20/2023 16:03:56 5.3 Above high normal 3. 5-5.1 (mmol/L) Final Cl 03/20/2023 16:03:56 102 98-107 (mm ol/L) Final CO2 03/20/2023 16:03:56 31 22-32 (mmo l/L) Final Anion gap 03/20/2023 16:03:56 9 7-15 (mmol /L) Final Glucose 03/20/2023 16:03:56 100 70-120 (mg /dL) Final Albumin 03/20/2023 16:03:56 4.2 3.8-5.0 (g /dL) Final AST (Aspartate aminotransferase) 03/20/2023 16:03:56 76 Above high normal 10-50 (U/L) Final Alk Phos 03/20/2023 16:03:56 154 Above high normal 35 -130 (U/L) Final Bilirubin, Total 03/20/2023 16:03:56 0.7 <=1 .2 (mg/dL) Final Calcium 03/20/2023 16:03:56 9.3 8.4-10.2 ( mg/dL) Final Protein 03/20/2023 16:03:56 6.2 6.0-8.3 (g /dL) Final ALT (Alanine aminotransferase) 03/20/2023 16:03:56 136 Above high normal 10-50 (U/L) Final Performing Location [facility] [place] [address] [facility] [address]
--- OUTSIDE RECORDS SUMMARY | 2023-04-21 07:04 | External Medical Summary | Summary of Care ---
Author Name Unknown Organization [facility] Address [address] [facility] [address] [address] Phone [phone] Care Team Providers Care Sample Card Maker Name Role Phone Rosalina Hanna DO Primary Care Provider [phone] Reason for Referral * Ancillary Services (Within 30 days (routine)) - Authorized Specialty Diagnoses / Procedures Referred By Contlaverne t Referred To Contact Gastroenterology Diagnoses Special screening for malignant neoplasms, colon Rosalina Hanna DO [address] [place] [address] Referral ID Status Reason Start Date Expiration Date Visits Requested Visits Authorized [id number] Authorized Ancillary Services Required 01/18/2023 999 999 Question Answer Referral Priority Within 30 days (routine) Comments ALERT: Do not order for pediatric patients (18 years or younger). Cancel off screen and order PEDS GASTROENTEROLOGY CONSULT (Type: 1 visit only-Evaluate and Treat) The following Pt. Instructions are available: - Gastro Colonoscopy Prep Instructions [80407] - Gastro Colonoscopy Prep Instructions (Chinese Version) [[id number]] Go to the Pt. Instructions section within the Visit Navigator to access. Colonoscopy ASGE Guidelines: Average risk screening (begin at age 50, 10 year intervals) ADDITIONAL INFORMATION 1. Is the patient on Coumadin? No 2. Is the patient on Pradaxa? No Reason for Visit * Reason Comments Follow Up Leg spasms, some flory es after working hard he has blood in his superpubic cath. Encounter Details Date Type Department Care Team Description 01/18/2023 Office Visit [facility] [address] [place] [address] Rosalina Hanna DO [address] [place] [address] Special screening for malignant neoplasms, colon*; HTN, goal below 140/90; Chronic diastolic heart failure due to valvular disease (HCC); Paroxysmal supraventricular tachycardia (HCC); History of transient ischemic attack (TIA); Allergic rhinitis, unspecified seasonality, unspecified trigger; Hematuria, unspecified type Allergies Active Allergy Reactions Severity Noted Date [...] the morning. 90 Tablet 3 01/18/2023 Active Levocetirizine Dihydrochloride 5 MG Oral Tablet Take by mouth 1 Tablet in the morning. 90 Tablet 3 01/05/2022 01/19/20 23 Discontinu ed(Refill) Dexamethasone 6 MG Oral Tablet (Decadron) Take 1 Tablet by mouth in the morning. 0 01/19/20 23 Discontinu ed(Dischar ged) Metoprolol Succinate ER 25 MG Oral Tablet Extended Release 24 Hour (toPROL XL)Indications:HTN, goal below 140/90 TAKE ONE TABLET BY MOUTH EVERY DAY 90 Tablet 3 07/21/2022 01/19/20 23 Discontinu ed(Refill) amLODIPine Besylate 5 MG Oral Tablet (Norvasc)Indications :HTN, goal below 140/90 TAKE ONE TABLET BY MOUTH DAILY 90 Tablet 3 09/19/2022 01/19/20 23 Discontinu ed(Refill) amLODIPine Besylate 5 MG Oral Tablet (Norvasc)Indications :HTN, goal below 140/90 Take 0.5 Tablets by mouth in the morning. 90 Tablet 3 01/18/2023 01/19/20 23 Discontinu ed(Dischcoretta salcedo) documented as of this encounter (statuses as [...] Passive Smoke Exposure: Past Smokeless Tobacco: Never Tobacco Cessation:Counseling Given: Not Answered Alcohol Use Standard Drinks/Week Comments Yes 14 [...] Sign Reading Time Taken Comments Blood Pressure 102/60 01/18/2023 10:12 AM EDT Pulse 64 01/18/2023 10:12 AM EDT Temperature 37.1 C (98.7 F) 01/18/2023 1 0:12 AM EDT Respiratory Rate 20 01/18/2023 10:1 2 AM EDT Oxygen Saturation 93% 01/18/2023 10: 12 AM EDT Inhaled Oxygen Concentration - - Weight 102.2 kg (225 lb 3.2 oz) 023 10:12 AM EDT Height - - Body Mass Index 33.26 01/17/2023 10:17 AM EDT documented in this [...] as of this encounter Progress Notes * Rosalina Hanna, DO - 01/18/2023 10:02 AM EDT Subjective: Lorena Joseph is a 87 year old male. Chief Complaint Patient presents with Follow Up Leg spasms, some times after working hard he has blood in his superpubic cath. HPI: 87 year old male here today for a follow up. He has hx of Chronic Diastolic Heart Failure, Asthma, SVT and hx of having R front parietal CVA, hx of R carotid disease and had stent placed over 1 year ago He has been having intermittent dizzy spells today his BP is low. We had a discussion and lowered his norvasc down to 2.5 mg from 5 mg. Will check labs. He states he did see cardiology yesterday in [place]. He does not think there were any changes made to his medications. His last echo was 8 months back an showed nml ef, pulm htn seen. This was reviewed. He had aortic stenosis as well. He has been using a suprapubic cath for years. He has some blood in his bag about 2-3 times after riding in a boat and then on a car ride. He has seen urology, Dr Faustin, and they talked about doing a CT scan if this occurs again. Still having some L lateral hip pain, and sudden sharp pains as well. We talked about seeing Dr Nash at his last OV but he did not feel that the injections would help. We have tried PT as well and made his pain worse. 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 Gabapentin 300 MG Oral Capsule (Neurontin) Take by mouth 1 Capsule in the morning AND 1 Capsule at noon AND 1 Capsule before bedtime. 90 Capsule 11 Spironolactone 25 MG Oral Tablet (Aldactone) TAKE 1/2 TABLET BY MOUTH EVERY OTHER DAY 45 Tablet 3 Atorvastatin Calcium 40 MG Oral Tablet (Lipitor) TAKE ONE TABLET BY MOUTH EVERY DAY IN THE MORNING 90 Tablet 1 Mometasone Furoate 50 MCG/ACT Nasal Suspension Administer 2 Sprays into nostril in the morning. 18 g 12 Levocetirizine Dihydrochloride 5 MG Oral Tablet Take 1 Tablet by mouth in the morning. 90 Tablet 3 Montelukast Sodium 10 MG Oral Tablet (Singulair) Take by mouth 1 Tablet before bedtime. (Patient not taking: Reported on 01/18/2023) 90 Tablet 3 guaiFENesin ER 600 MG Oral Tablet Extended Release 12 Hour (Mucinex) Take by mouth 1 Tablet 2 timesa day as needed for Congestion. Take with plenty of water. Do not cut, crush or chew (Patient not taking: Reported on 01/18/2023) 20 Tablet 1 Advair HFA 230-21 MCG/ACT Inhalation Aerosol (fluticasone-Salmeterol) Inhale 2 Puffs by mouth in the morning and 2 Puffs before bedtime. 12 g 5 Furosemide 20 MG Oral Tablet (Lasix) Take 1 Tablet by mouth in the morning. (Patient not taking: Reported on 01/18/2023) 90 Tablet 2 Metoprolol Succinate ER 25 MG Oral Tablet Extended Release 24 Hour (toPROL XL) Take 0.5 Tablets by mouth in the morning. 90 Tablet 3 No current facility-administered medications for this visit. Review of patient's allergies indicates: Allergen Reactions Fluticasone Anaphylaxis and Other (Please comment) Sulfa Antibiotics Rash and Hives Dog Dander Environmental [Dust] Mold Objective: BP 102/60 | Pulse 64 | Temp 37.1 C (98.7 F) (Infrared ) | Resp 20 | Wt 102.2 kg (225 lb 3.2 oz)| SpO2 93% | BMI 33.26 kg/m | BSA 2.23 m Physical Exam: General: alert, healthy, and no distress Heart: regular rate & rhythm, no murmur, and no gallops Lungs: chest symmetric with normal AP diameter, no chest deformities noted, no chest wall tenderness, lungs clear to auscultation Abdomen: abdomen soft, non-tender, normal bowel sounds, and no masses or organomegaly ASSESSMENT/PLAN: Special screening for malignant neoplasms, colon (Primary) - COLONOSCOPY, GI REFERRAL OP HTN, goal below 140/90 - ALBUMIN / CREATININE RATIO, URINE; Future; Expected date: 01/18/2023 - BASIC METABOLIC PANEL; Future; Expected date: 01/18/2023 - EKG; Future; Expected date: 01/18/2023 - EKG Chronic diastolic heart failure due to valvular disease (HCC) Paroxysmal supraventricular tachycardia (HCC) History of transient ischemic attack (TIA) Allergic rhinitis, unspecified seasonality, unspecified trigger - Levocetirizine Dihydrochloride 5 MG Oral Tablet; Take 1 Tablet by mouth in the morning. Hematuria, unspecified type - CBC; Future; Expected date: 01/18/2023 BP low, to HOLD norvasc Cut the metoprolol in half. EKG showed bifascicular block ZIO to be placed next week. Rosalina Hanna DO documented in this encounter Procedure Notes * Raul Ledbetter DO - 01/18/2023 10:03 AM EDTAssociated Order(s): EKG REASON FOR STUDY: low blood pressure CONCLUSIONS: Sinus rhythm with 1st degree AV block Right bundle branch block Left anterior fascicular block Bifascicular block Abnormal ECG When compared with ECG of 16-JUN-2021 00:40, MO interval has decreased Criteria for Anteroseptal infarct are no longer Present QT has lengthened Ventricular Rate: 61 Atrial Rate: 61 MO Interval: 258 QRS Duration: 146 QT/QTc: 470/473 ms P-R-T Crockett: 25 : -68 : -16 degrees documented in this encounter Nursing Notes * Beronica Arguelles LPN - 01/18/2023 9:59 AM EDT Chief Complaint Patient presents with Follow Up documented in this encounter Plan of Treatment Upcoming Encounters Date Type Specialty Care Team Description 04/26/2023 Office Visit Gastroenterology Madalyn Amaya CRNP [address] [place] [address] 09/12/2023 Office Visit Cardiology Melisa Ramirez CRNP [address] [place] [address] Pending Results Name Type Priority Associated Diagnoses Date /Time CBC Lab Routine Hematuria, unspecified type 01/18/2023 11:41 AM EDT ALBUMIN / CREATININE RATIO, URINE Lab Routine HTN, goal below 140/90 01/18/2023 11:41 AM EDT Scheduled Orders Name Type Priority Associated Diagnoses Orde r Schedule CBC Lab Routine Hematuria, unspecified type Expected: 01/18/2023 (Approximate), Expires: 01/18/2024 ALBUMIN / CREATININE RATIO, URINE Lab Routine HTN, goal below 140/90 Expected: 01/18/2023 (Approximate), Expires: 01/18/2024 Scheduled Referrals Name Type Priority Associated Diagnoses Orde r Schedule COLONOSCOPY, GI REFERRAL OP Referral Within 30 days (routine) Special screening for malignant neoplasms, colon Ordered: 01/18/2023 Health Maintenance Due Date Last Done Comments [...] this encounter Medical Devices Implanted Type Area Water Use Inspector Device Identifier Shelf Expiration Date Model / Serial / Lot Angioseal Vip 8 Fr - [id number] Implanted:Qty : 1 on 06/15/2021 by Latrell Peterson MD at [place] [facility] [place] Right: Carotid [employer] [id number] 02/18/2022 [id number] / / [id number] documented as of this encounter Procedures Procedure Name Priority Date/Time Associated Diagnosis Comments MO ECG ROUTINE ECG W/LEAST 12 LDS I&R ONLY Routine 01/18/2023 10:03 AM EDT HTN, goal below 140/90 documented in this encounter Results * EKG (01/18/2023 10:03 AM EDT) 01/18/2023 10:0 3 AM EDT Procedure Note Raul Barakat Anatoly, DO - 01/18/2023 10:03 AM EDT REASON FOR STUDY: low blood pressure CONCLUSIONS: Sinus rhythm with 1st degree AV block Right bundle branch block Left anterior fascicular block Bifascicular block Abnormal ECG When compared with ECG of 16-JUN-2021 00:40, MO interval has decreased Criteria for Anteroseptal infarct are no longer Present QT has lengthened Ventricular Rate: 61 Atrial Rate: 61 MO Interval: 258 QRS Duration: 146 QT/QTc: 470/473 ms P-R-T Crockett: 25 : -68 : -16 degrees Rosalina Hanna DO EKG [facility] [address] CARDIOLOGY documented in this encounter Visit Diagnoses Diagnosis Special screening for malignant neoplasms, colon- Primary HTN, goal below 140/90 Unspecified essential hypertension Chronic diastolic heart failure due to valvular disease (HCC) Paroxysmal supraventricular tachycardia (HCC) Paroxysmal supraventricular tachycardia History of transient ischemic attack (TIA) Transient ischemic attack (TIA), and cerebral infarction without residual deficits Allergic rhinitis, unspecified seasonality, unspecified trigger Hematuria, unspecified type documented in this encounter Advance Directives Latest [...] p Communication Neva Joseph Spouse Power of Manager Communication Care Teams Sample Card Maker Relationship Specialty Start Date End Date Rosalina Hanna DO [address] [place] [address] PCP - General Family Medicine 08/31/20 documented as of this encounter"
--- OUTSIDE RECORDS SUMMARY | 2023-04-21 07:04 | External Medical Summary | Summary of Care ---
Author Name Unknown Organization [facility] Address [address] [facility] [place] [address] Phone [phone] Care Team Providers Care Transitional Care Nurse Name Role Phone Rosalina Hanna DO Primary Care Provider [phone] Reason for Visit * Reason Onset Date Comments Appointment 01/18/2023 Colonoscopy Refe rral Encounter Details Date Type Department Care Team Description 01/18/2023 Telephone [facility] [address] [place] [address] Rosalina Hanna DO [address] [place] [address] Appointment (Colonoscopy Referral) Allergies Active [...] THE MORNING 90 Tablet 1 06/16/2022 Active Metoprolol Succinate ER 25 MG Oral Tablet Extended Release 24 Hour (toPROL XL)Indications:HTN, goal below 140/90 TAKE ONE TABLET BY MOUTH EVERY DAY 90 Tablet 3 07/21/2022 Active Advair HFA 230-21 MCG/ACT Inhalation Aerosol [...] the morning. 90 Tablet 3 01/18/2023 Active amLODIPine Besylate 5 MG Oral Tablet (Norvasc)Indications: HTN, goal below 140/90 Take 0.5 Tablets by [...] EDT Patient would like to go to [facility] for Colonscopy. Please call patient on his home phone to schedule. Dx: Special screening for malignant neoplasms, colon [Z12.11] - Primary 01/18/2023 documented in this encounter Plan of Treatment Upcoming Encounters Date Type Specialty Care Team Description 04/26/2023 Office Visit Gastroenterology Madalyn Amaya CRNP [address] [place] [address] 09/12/2023 Office Visit Cardiology Melisa Ramirez CRNP [address] [place] [address] Health Maintenance Due Date Last Done Comments [...] this encounter Medical Devices Implanted Type Area Head Of Operation And Logistics Device Identifier Shelf Expiration Date Model / Serial / Lot Angioseal Vip 8 Fr - [id number] Implanted:Qty : 1 on 06/15/2021 by Latrell Peterson MD at OR [facility] Right: Carotid [employer] [id number] 02/18/2022 [id number] / / [id number] documented as of this encounter Advance [...] p Communication Neva Joseph Spouse Power of Lube Technician Care Teams Transitional Care Nurse Relationship Specialty Start Date End Date Rosalina Hanna, [address] [place] [address] PCP - General Family Medicine 08/31/20 documented as of this encounter
--- OUTSIDE RECORDS SUMMARY | 2023-04-21 07:04 | External Medical Summary ---
Author Name Unknown Address Unknown Organization K01:[facility]ORY [facility] [place] - [address] [facility] [address] Laboratory Report Ordering Provider Test Date Status REY LINK 03/20/2023 16:03:56 Final Observation Date Value Abnormality Reference (Units ) Status WBC, Total 03/20/2023 16:03:56 9.59 4.00-10.80 (K/uL) Final RBC 03/20/2023 16:03:56 5.66 4.50-5.25 (M/uL) Final Hemoglobin 03/20/2023 16:03:56 17.8 Above high normal 14.0-16.8 (g/dL) Final HCT 03/20/2023 16:03:56 55.9 Above high normal 40.0-48.4 (%) Final MCV 03/20/2023 16:03:56 98.8 82.0-99.5 (fL) Final MCH 03/20/2023 16:03:56 31.4 27.0-34.0 (pg) Final MCHC 03/20/2023 16:03:56 31.8 32.0-36.0 (g/dL) Final RDW 03/20/2023 16:03:56 13.3 11.5-15.5 (%) Final Platelets 03/20/2023 16:03:56 177 140-400 (K/uL) Final MPV 03/20/2023 16:03:56 12.5 6.6-11.1 (fL) Final Nucleated erythrocytes/100 leukocytes [Ratio] in Blood by Automated count 03/20/2023 16:03:56 0 <=0 (/100 WBCs) Final Performing Location LABORATORY [facility] [place] - [address] [place] [address]
--- OUTSIDE RECORDS SUMMARY | 2023-04-21 07:04 | External Medical Summary | Summary of Care ---
Author Name Unknown Organization [facility] Address [address] [facility] [address] Phone [phone] Care Team Providers Care Supervisor Graphite Name Role Phone Rosalina Hanna DO Primary Care Provider Encounter Details Date Type Department Care Team Description 02/16/2023 Telephone [facility] [address] [place] [address] Rosalina Hanna DO [address] [place] [address] Allergies Active Allergy Reactions Severity [...] Amaya CRNP [address] [place] [address] 05/05/2023 Office Visit Dermatology Carlos Kapadia MD [address] [facility] [place] [address] 09/12/2023 Office Visit Cardiology Melisa Ramirez CRNP [address] [place] [address] Health Maintenance Due Date Last Done Comments [...] this encounter Medical Devices Implanted Type Area Media Sales Consultant Device Identifier Shelf Expiration Date Model / Serial / Lot Angioseal Vip 8 Fr - [id number] Implanted:Qty : 1 on 06/15/2021 by Latrell Peterson MD at [facility] Right: Carotid [employer] [id number] 02/18/2022 [id number] / / [id number] documented as of this encounter Visit [...] p Communication Neva Joseph Spouse Power of Drip Molder Care Teams Supervisor Graphite Relationship Specialty Start Date End Date Rosalina Hanna, [address] [place] [address] PCP - General Family Medicine 08/31/20 documented as of this encounter
--- OUTSIDE RECORDS SUMMARY | 2023-04-21 07:05 | External Medical Summary ---
Author Name Unknown Address Unknown Organization K01:LAB[facility]ORY [facility] [place] - [address] [address] Laboratory Report Ordering Provider Test Date Status SHANNON ADDISON 01/18/2023 11:41:21 Final Normal: <30 mg/g creatinine< br/>High: 30-300 mg/g creatinine
Very High: >300 mg/g creatinine
Nephrotic: >2200 mg/g creatinine Observation Date Value Abnormality Reference (Units ) Status Albumin, Urine 01/18/2023 11:41:21 2.79 (mg/dL) Final Creatinine, Urine 01/18/2023 11:41:21 67 (mg/dL) Final Albumin/Creatinine [Mass Ratio] in Urine 01/18/2023 11:41:21 42 Above high normal <30 (mg/g Creat) Final Performing Location LABORATORY [facility] - [address] [place] [address]
--- OUTSIDE RECORDS SUMMARY | 2023-04-21 07:05 | External Medical Summary | Summary of Care ---
Author Name Unknown Organization [facility] Address [address] [facility] [place] [place] [address] Phone [phone] Care Team Providers Care Gage Maker Name Role Phone Rosalina Hanna DO Primary Care Provider [phone] Reason for Visit * Reason Comments Outpatient Testing Encounter Details Date Type Department Care Team Description 01/18/2023 Laboratory Laboratory, [place] [address] [place] [address] [place] [address] [place] [address] Chronic right heart failure (HCC); Nonrheumatic aortic valve stenosis; HTN, goal below 140/90; Moderate right ventricular systolic dysfunction; Hematuria, unspecified type Allergies Active Allergy Reactions [...] Amaya CRNP [address] [place] [address] 09/12/2023 Office Visit Cardiology Melisa Ramirez CRNP [address] [place] [address] Pending Results Name Type Priority Associated Diagnoses Date /Time LIPID PANEL WITH DIRECT LDL IF TG IS HIGH Lab Routine Chronic right heart failure (HCC) Nonrheumatic aortic valve stenosis HTN, goal below 140/90 Moderate right ventricular systolic dysfunction 01/18/2023 11:41 AM EDT COMPREHENSIVE METABOLIC PANEL Lab Routine Chronic right heart failure (HCC) Nonrheumatic aortic valve stenosis HTN, goal below 140/90 Moderate right ventricular systolic dysfunction 01/18/2023 11:41 AM EDT CBC Lab Routine Hematuria, unspecified type 01/18/2023 11:41 AM EDT ALBUMIN / CREATININE RATIO, URINE Lab Routine HTN, goal below 140/90 01/18/2023 11:41 AM EDT Health Maintenance Due Date Last Done [...] this encounter Medical Devices Implanted Type Area Joiner Device Identifier Shelf Expiration Date Model / Serial / Lot Angioseal Vip 8 Fr - [id number] Implanted:Qty : 1 on 06/15/2021 by Latrell Peterson MD at [facility] Right: Carotid [employer] [id number] 02/18/2022 [id number] / / [id number] documented as of this encounter Visit Diagnoses Diagnosis Chronic right heart failure (HCC) Nonrheumatic aortic valve stenosis Aortic valve disorders HTN, goal below 140/90 Unspecified essential hypertension Moderate right ventricular systolic dysfunction Hematuria, unspecified type documented in this encounter Advance Directives Latest Code Status on File Code Status Date Activated Date Inactivated Comments Full Code 06/15/2021 11:00 AM 06/16/2021 6:29 PM This order reflects the patients wishes and were consensually agreed upon. Question Answer Comments Discussion of Advance Directives occurred with: Not Discussed Healthcare Agents on File Name Relationship Healthcare Agent [facility] Communication Neva Joseph Spouse Power of Principal Military Analyst Care Teams Gage Maker Relationship Specialty Start Date End Date Rosalina Hanna, [address] [place] [address] PCP - General Family Medicine 08/31/20 documented as of this encounter
--- OUTSIDE RECORDS SUMMARY | 2023-04-21 07:05 | External Medical Summary ---
Author Name Unknown Address Unknown Organization K01:LABORATORY [facility] [place] - [address] [place] [address] Laboratory Report Ordering Provider Test Date Status SHANNON ADDISON 01/18/2023 11:41:21 Final Observation Date Value Abnormality Reference (Units ) Status WBC, Total 01/18/2023 11:41:21 8.35 4.00-10.80 (K/uL) Final RBC 01/18/2023 11:41:21 5.28 4.50-5.25 (M/uL) Final Hemoglobin 01/18/2023 11:41:21 16.8 14.0-16.8 (g/dL) Final HCT 01/18/2023 11:41:21 51.8 Above high normal 40.0-48.4 (%) Final MCV 01/18/2023 11:41:21 98.1 82.0-99.5 (fL) Final MCH 01/18/2023 11:41:21 31.8 27.0-34.0 (pg) Final MCHC 01/18/2023 11:41:21 32.4 32.0-36.0 (g/dL) Final RDW 01/18/2023 11:41:21 13.9 11.5-15.5 (%) Final Platelets 01/18/2023 11:41:21 192 140-400 (K/uL) Final MPV 01/18/2023 11:41:21 12.0 6.6-11.1 (fL) Final Nucleated erythrocytes/100 leukocytes [Ratio] in Blood by Automated count 01/18/2023 11:41:21 0 <=0 (/100 WBCs) Final Performing Location LABORATORY [facility] - [address] [place] [address]
--- OUTSIDE RECORDS SUMMARY | 2023-04-21 07:05 | External Medical Summary | Summary of Care ---
Author Name Unknown Organization [facility] Address [address] [facility] [place] [address] Phone [phone] Care Team Providers Care Vp Ad Products And Planning Name Role Phone Rosalina Hanna DO Primary Care Provider + [phone] Reason for Visit * Reason Comments Outpatient Testing Encounter Details Date Type Department Care Team Description 12/13/2022 Laboratory Laboratory, [place] [address] [place] [address] [place] [address] [place] [address] Gross hematuria Allergies Active Allergy Reactions Severity Noted Date Comments Dog Dander 06/11/2021 Dust 06/11/2021 Mold Sulfa Antibiotics Rash High 07/18/2017 documented as of this encounter (statuses as of 12/13/2022) Medications Medication Sig Dispensed Refills Start Date [...] mouth in the morning. 0 05/17/2021 Active Furosemide 20 MG Oral Tablet (Lasix) TAKE ONE TABLET BY MOUTH EVERY MORNING 90 Tablet 2 11/14/2021 Active Gabapentin 300 MG Oral Capsule (Neurontin)Indication s:Spinal stenosis of lumbar region with neurogenic claudication Take by mouth 1 Capsule in the morning AND 1 Capsule at noon AND 1 Capsule before bedtime. 90 Capsule 11 12/08/2021 Active Fluticasone Propionate 50 MCG/ACT Nasal SuspensionIndications :Chronic rhinitis Administer into each nostril 2 Sprays in the morning AND 2 Sprays before bedtime. 18 g 11 01/05/2022 Active Montelukast Sodium 10 MG Oral Tablet (Singulair) Take by mouth 1 Tablet before bedtime. 90 Tablet 3 01/05/2022 Active Levocetirizine Dihydrochloride 5 MG Oral Tablet Take by mouth 1 Tablet in the morning. 90 Tablet 3 01/05/2022 Active guaiFENesin ER 600 MG Oral Tablet Extended Release 12 Hour (Mucinex)Indications: Bronchitis, complicated Take by mouth 1 Tablet 2 times a day as needed for Congestion. Take with plenty of water. Do not cut, crush or chew 20 Tablet 1 03/03/2022 Active Spironolactone 25 MG Oral Tablet (Aldactone)Indication s:HTN, goal below 140/90,Chronic right heart failure (HCC) TAKE 1/2 TABLET BY MOUTH EVERY OTHER DAY 45 Tablet 3 03/11/2022 Active Dexamethasone 6 MG Oral Tablet (Decadron) Take 1 Tablet by mouth in the morning. 0 Active Atorvastatin Calcium 40 MG Oral Tablet (Lipitor) TAKE ONE TABLET BY MOUTH EVERY DAY IN THE MORNING 90 Tablet 1 06/16/2022 Active Metoprolol Succinate ER 25 MG Oral Tablet Extended Release 24 Hour (toPROL XL)Indications:HTN, goal below 140/90 TAKE ONE TABLET BY MOUTH EVERY DAY 90 Tablet 3 07/21/2022 Active Fluticasone-Salmetero l 230-21 MCG/ACT Inhalation Aerosol (Advair) TWICE A DAY 0 06/03/2022 Active Advair HFA 230-21 MCG/ACT Inhalation Aerosol (fluticasone-Salmeter ol)Indications:Modera te persistent asthma without complication Inhale 2 Puffs by mouth in the morning and 2 Puffs before bedtime. 12 g 5 09/09/2022 Active amLODIPine Besylate 5 MG Oral Tablet (Norvasc)Indications: HTN, goal below 140/90 TAKE ONE TABLET BY MOUTH DAILY 90 Tablet 3 09/19/2022 Active documented as of this encounter (statuses as of 12/13/2022) Active Problems Problem Noted Date History of prostate cancer 06/14/2022 HTN, goal below 140/90 06/14/2022 Dyslipidemia, goal LDL below 70 06/14/19 23 Pulmonary hypertension 06/14/2022 Paroxysmal supraventricular tachycardia 06/14/2022 Gastro-esophageal reflux disease without esophagitis 01/05/2022 TIA (transient ischemic attack) 06/15/19 22 Carotid stenosis, symptomatic, with infa rction 06/15/2021 SOB (shortness of breath) 11/20/2020 Chronic diastolic heart failure due to v alvular disease 11/20/[address] scan, lung 11/20/2020 Asthma, moderate persistent 11/20/2020 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 documented as of this encounter (statuses as of 12/13/2022) Resolved Problems Problem Noted Date Resolved Date Heart failure 06/14/2022 06/14/2022 Severe obesity with body mas s index (BMI) of 35.0 to 39.9 with serious comorbidity 11/20/2020 06/14/2022 documented as of this encounter (statuses as of 12/13/2022) Immunizations Name Administration Dates Next Due COVID-19 mRNA, LNP-s, No Pre serve, 2-Dose Series (Moderna) 07/24/2020,06/26/2020 Pneumococcal Conjugate Vacc, 13 Valent (Prevnar) 04/26/2016 Pneumococcal Polysaccharide PPV23 (Pneumovax) 03/29/2003 Seasonal Influenza Virus Vac cine, Unspecified Formulation 03/22/2019,02/27/2018,04/03/2017,03/23,03/23/2015 Seasonal Influenza, Quadriva lent Hd (Fluzone Hd) 03/12/2021 Seasonal Influenza, Quadriva lent, No Preserve, Adjuvanted, 65+ Yrs, IM 03/18/2022,02/12/2020 Seasonal Influenza, Trivalen t, High Dose, No Preserve, IM 03/22/2019,02/27/2018 TDAP (age 10 and older)(Boostrix) 02/12/2020 Varicella Zoster Vaccine (Adult) 01/24/2018 Zoster Vaccine Recombinant (Shingrix) 07/28/2018 ,01/27/2018 documented as of this encounter Social History Tobacco Use Types Packs/Day Years Used Date Smoking Tobacco: Never Smokeless Tobacco: Never Alcohol Use Standard Drinks/Week [...] Encounters Date Type Specialty Care Team Description 01/06/2023 Telemedicine Pulmonary Andre Pickett MD [address] [place] [address] Cart, Telemed Pulm [address] [facility] [place] [address] 01/17/2023 Office Visit Cardiology Melisa Webb CRNP [address] [place] [phone] 01/18/2023 Office Visit Family Medicine Rosalina Hanna, [address] [place] [address] Pending Results Name Type Priority Associated Diagnoses Date /Time PSA Lab Routine Gross hematuria 12/13/2022 11:43 AM EDT URINALYSIS, REFLEX TO CULTURE (NOT FOR NEUTROPENIC PATIENTS) Lab Routine Gross hematuria 12/13/2022 11:43 AM EDT BASIC METABOLIC PANEL Lab Routine Gross hematuria 12/13/2022 11:43 AM EDT CULTURE, URINE, QUANTITATIVE Lab Routine Gross hematuria 12/13/2022 11:43 AM EDT URINALYSIS, REFLEX TO CULTURE (CUP ONLY) Lab Routine Gross hematuria 12/13/2022 11:43 AM EDT URINALYSIS, REFLEX TO CULTURE Lab Routine Gross hematuria 12/13/2022 11:43 AM EDT Health Maintenance Due Date Last [...] this encounter Medical Devices Implanted Type Area Log Chipper Device Identifier Shelf Expiration Date Model / Serial / Lot Angioseal Vip 8 Fr - [id number] Implanted:Qty : 1 on 06/15/2021 by Latrell Peterson MD at [facility] Right: Carotid [employer] [id number] 02/18/2022 [id number] / / [id number] documented as of this encounter Visit Diagnoses Diagnosis Gross hematuria documented in this encounter Advance Directives Latest [...] p Communication Neva Joseph Spouse Power of Methodologist Care Teams Vp Ad Products And Planning Relationship Specialty Start Date End Date Rosalina Hanna, [address] [place] [address] PCP - General Family Medicine 08/31/20 documented as of this encounter
--- OUTSIDE RECORDS SUMMARY | 2023-04-21 07:05 | External Medical Summary ---
Author Name Unknown Address Unknown Organization K01:[facility] [address] [place] [id number] Laboratory Report Ordering Provider Test Date Status SALLIE DE LA CRUZ 12/13/2022 11:43:02 Final Observation Date Value Abnormality Reference (Units ) Status PSA 12/13/2022 11:43:02 <0.02 <4.10 (ng/ mL) Final Performing Location [facility] [address] [place] [address]
--- OUTSIDE RECORDS SUMMARY | 2023-04-21 07:05 | External Medical Summary | Summary of Care ---
Author Name Unknown Organization [facility] Address [address] [facility] [place] [address] Phone [phone] Care Team Providers Care Weed Thinner Name Role Phone Cyn Ortega DO Primary Care Provider Reason for Visit * Reason Onset Date Comments Medication Refill 12/14/2022 Encounter Details Date Type Department Care Team Description 12/14/[address] [facility] [address] [place] [address] Cyn Ortega DO [address] [place] [address] Allergies Active Allergy Reactions Severity Noted Date Comments Dog Dander 06/11/2021 Dust 06/11/2021 Mold Sulfa Antibiotics Rash High 07/18/2017 documented as of this encounter (statuses as of 12/15/2022) Medications Medication Sig Dispensed Refills Start Date [...] 12/08/2021 Active Fluticasone Propionate 50 MCG/ACT Nasal SuspensionIndication s:Chronic rhinitis Administer into each nostril 2 Sprays [...] 03/03/2022 Active Spironolactone 25 MG Oral Tablet (Aldactone)Indicatio [...] EVERY DAY 90 Tablet 3 07/21/2022 Active Fluticasone-Salmeter ol 230-21 MCG/ACT Inhalation Aerosol (Advair) TWICE A DAY 0 06/03/2022 Active Advair HFA 230-21 MCG/ACT Inhalation Aerosol (fluticasone-Salmete rol)Indications:Mode rate persistent asthma without complication Inhale 2 Puffs by mouth in the morning and 2 Puffs before bedtime. 12 g 5 09/09/2022 Active amLODIPine Besylate 5 MG Oral Tablet (Norvasc)Indications :HTN, goal below 140/90 TAKE ONE TABLET BY MOUTH DAILY 90 Tablet 3 09/19/2022 Active Furosemide 20 MG Oral Tablet (Lasix) Take 1 Tablet by mouth in the morning. 90 Tablet 2 12/15/2022 Active Furosemide 20 MG Oral Tablet (Lasix) TAKE ONE TABLET BY MOUTH EVERY MORNING 90 Tablet 2 11/14/2021 3 Discontinu ed(Refill) documented as of this encounter (statuses as of 12/15/2022) Active Problems Problem Noted Date History of [...] as of this encounter (statuses as of 12/15/2022) Resolved Problems Problem Noted Date Resolved Date Heart failure 06/14/2022 06/14/2022 Severe obesity with body mas s index (BMI) of 35.0 to 39.9 with serious comorbidity 11/20/2020 06/14/2022 documented as of this encounter (statuses as of 12/15/2022) Immunizations Name Administration Dates Next Due COVID-19 [...] encounter Miscellaneous Notes * Telephone Encounter - Maury Weiss [facility] - 12/15/2022 12:04 PM EDTSigned Prescriptions: Disp Refills Furosemide 20 MG Oral Tablet (Lasix) 90 Tab*2 Sig: Take 1 Tablet by mouth in the morning.Authorizing Provider: CYN ORTEGA User: MAURY WEISS--- * Telephone Encounter - Paz Gomez seismic prospecting observer - 12/14/2022 4:23 PM EDT Did you pend patient's preferred pharmacy and medication before forwarding?yes Pharmacy: [facility] [id number] Pending Prescriptions: Disp Refills Furosemide 20 MG Oral Tablet (Lasix) 90 Tab*2 Sig: Take 1 Tablet by mouth in the morning. In the morning.. Last Visit: 08/15/2022 (in office), Visit date not found (telemedicine) Next Visit: 01/18/2023 If no future appointments scheduled, and last appointment is greater than a year ago, please schedule patient for a follow-up appointment Last date the medication was ordered: 11/14/2021 Is this request for a controlled substance?No Urine Drug Screen:No results found for this or any previous visit. Patient Phone Numbers Labs: Lab Results Component Value Date/Time CREAT 0.8 12/13/2022 11:43 AM CREAT 0.8 01/23/2019 09:43 AM POTASSIUM 4.3 12/13/2022 11:43 AM POTASSIUM 4.0 01/23/2019 09:43 AM TSH 2.92 09/01/2020 02:54 PM TSH 2.68 10/21/2016 09:13 AM LDLCALC 46 12/15/2021 09:13 AM LDLCALC 91 10/21/2016 09:13 AM ALT 143 (H) 06/14/2022 11:38 AM ALT 24 01/23/2019 09:43 AM HGBA1C 5.7 (H) 08/15/2022 12:28 PM HGBA1C 5.6 10/21/2016 09:13 AM documented in this encounter Plan of Treatment Upcoming Encounters Date Type Specialty Care Team Description 01/06/2023 Telemedicine Pulmonary Andre Pickett MD [address] [place] [address] Cart, Telemed Pulm G[address] [facility] [place] [address] 01/17/2023 Office Visit Cardiology Melisa Webb CRNP [address] [facility] [place] [phone] 01/18/2023 Office Visit Family Medicine Cyn Ortega, DO [address], [place] [id number] Health Maintenance Due Date Last Done Comments [...] this encounter Medical Devices Implanted Type Area Director Of Individual Giving Device Identifier Shelf Expiration Date Model / Serial / Lot Angioseal Vip 8 Fr - [id number] Implanted:Qty : 1 on 06/15/2021 by Latrell Peterson MD at [place] [facility] [place] Right: Carotid [employer] [id number] 02/18/2022 [id number] / / [id number] documented as of this encounter Advance [...] p Communication Neva Joseph Spouse Power of Evidence Custodian Care Teams Weed Thinner Relationship Specialty Start Date End Date Cyn Ortega, DO [address] [place] [address] PCP - General Family Medicine 08/31/20 documented as of this encounter
--- OUTSIDE RECORDS SUMMARY | 2023-04-21 07:05 | External Medical Summary | Summary of Care ---
Author Name Unknown Organization [facility] Address [address] [place] [address] Phone [phone] Care Team Providers Care Belt Dresser Name Role Phone Rosalina Hanna DO Primary Care Provider Reason for Visit * Reason Comments NEW PATIENT Encounter Details Date Type Department Care Team Description 01/06/2023 [facility] Pulmonary Medicine, [place] [address] [place] [address] Andre Pickett MD [address] [place] [address] Cart, Telemed Pulm G[address] [facility] [place] [address] Mild persistent asthma without complication* Allergies Active Allergy Reactions Severity Noted Date Comments Dog Dander 06/11/2021 Dust 06/11/2021 Mold Sulfa Antibiotics Rash High 07/18/2017 documented as of this encounter (statuses as of 01/06/2023) Medications Medication Sig Dispensed Refills Start Date [...] the morning. 18 g 12 01/06/2023 Active Fluticasone Propionate 50 MCG/ACT Nasal SuspensionIndication s:Chronic rhinitis Administer into each nostril 2 Sprays in the morning AND 2 Sprays before bedtime. 18 g 11 01/05/2022 3 Discontinu ed(Medicat ion List Clean Up) Fluticasone-Salmeter ol 230-21 MCG/ACT Inhalation Aerosol (Advair) TWICE A DAY 0 06/03/2022 3 Discontinu ed(Medicat ion List Clean Up) documented as of this encounter (statuses as of 01/06/2023) Active Problems Problem Noted Date History of transient ischemic attack (TI A) 01/05/2023 History of prostate cancer 06/14/2022 HTN, goal below 140/90 06/14/2022 Dyslipidemia, goal LDL below 70 06/14/19 23 Pulmonary hypertension 06/14/2022 Paroxysmal supraventricular tachycardia 06/14/2022 Gastro-esophageal reflux disease without esophagitis 01/05/2022 Carotid stenosis, symptomatic, with infa rction 06/15/2021 SOB (shortness of breath) 11/20/2020 Chronic diastolic heart failure due to v alvular disease 11/20/[address] scan, lung 11/20/2020 Asthma, moderate persistent 11/20/2020 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 documented as of this encounter (statuses as of 01/06/2023) Resolved Problems Problem Noted Date Resolved Date Heart failure 06/14/2022 06/14/2022 TIA (transient ischemic attack) 06/15/2021 01/05/2023 Severe obesity with body mas s index (BMI) of 35.0 to 39.9 with serious comorbidity 11/20/2020 06/14/2022 documented as of this encounter (statuses as of 01/06/2023) Immunizations Name Administration Dates Next Due COVID-19 [...] Sign Reading Time Taken Comments Blood Pressure 120/60 01/06/2023 10:43 AM EDT Pulse 67 01/06/2023 10:43 AM EDT Temperature - - Respiratory Rate 16 01/06/2023 10:43 AM EDT Oxygen Saturation 90% 01/06/2023 10:43 AM EDT rm air Inhaled Oxygen Concentration - - Weight 94.3 kg (208 lb) 01/06/2023 10:43 AM EDT Height 172.7 cm (5' 8") 01/06/2023 10:43 AM EDT Body Mass Index 31.63 01/06/2023 10:43 AM EDT documented in this encounter Functional [...] as of this encounter Progress Notes * Andre Pickett MD - 01/06/2023 11:01 AM EDT Patient location: CLINIC. I was not in a hospital or clinic location. After connecting through [employer], patient was verified with two unique identifiers. Patient (or authorized legal labor union business representative) was then informed that this was a Telemedicine visit and being conducted confidentially over secure lines. My office door was closed. No one else was in the room with me. Patient acknowledged consent and understanding of privacy and security of the Telemedicine visit, and gave permission to have atelemedicine presenter stay in the room in order to assist with the history and to conduct the examas needed. I informed the patient that I have reviewed their record in [employer] and presented the opportunity for them to ask any questions regarding the visit today. The patient agreed to participate. This is an 87 year old male with asthma presenting for evaluation of this. He is using Advair as needed. He does not require it often. He has no leg swelling or wheezing or chest discomfort. Current Outpatient Medications Medication Sig Dispense Refill [...] 1 Capsule before bedtime. 90 Capsule 11 Montelukast Sodium 10 MG Oral Tablet (Singulair) Take by mouth 1 Tablet before bedtime. 90 Tablet 3 Levocetirizine Dihydrochloride 5 MG Oral Tablet Take by mouth 1 Tablet in the morning. 90 Tablet 3 guaiFENesin ER 600 MG Oral Tablet Extended Release 12 Hour (Mucinex) Take by mouth 1 Tablet 2 timesa day as needed for Congestion. Take with plenty of water. Do not cut, crush or chew 20 Tablet 1 Spironolactone 25 MG Oral Tablet (Aldactone) TAKE 1/2 TABLET BY MOUTH EVERY OTHER DAY 45 Tablet 3 Dexamethasone 6 MG Oral Tablet (Decadron) Take 1 Tablet by mouth in the morning. Atorvastatin Calcium 40 MG Oral Tablet (Lipitor) TAKE ONE TABLET BY MOUTH EVERY DAY IN THE MORNING 90 Tablet 1 Metoprolol Succinate ER 25 MG Oral Tablet Extended Release 24 Hour (toPROL XL) TAKE ONE TABLET BY MOUTH EVERY DAY 90 Tablet 3 Advair HFA 230-21 MCG/ACT Inhalation Aerosol (fluticasone-Salmeterol) Inhale 2 Puffs by mouth in the morning and 2 Puffs before bedtime. 12 g 5 amLODIPine Besylate 5 MG Oral Tablet (Norvasc) TAKE ONE TABLET BY MOUTH DAILY 90 Tablet 3 Furosemide 20 MG Oral Tablet (Lasix) Take 1 Tablet by mouth in the morning. 90 Tablet 2 No current facility-administered medications for this visit. In general, pleasant male in no distress BP 120/60 | Pulse 67 | Resp 16 | Ht 1.727 m (5' 8") | Wt 94.3 kg (208 lb) | SpO2 90% Comment: rm air | BMI 31.63 kg/m | BSA 2.13 m Awake and alert No conversational dyspnea No audible wheezing Nl affect Impression- Well controlled asthma Plan 1. Continue Advair as needed. 2. Nasonex prescribed. 3. Follow up as needed. I have answered the patient's questions. Andre Pickett MD documented in this encounter Nursing Notes * Kayla Mares LPN - 01/06/2023 10:44 AM EDT FU: SOB (shortness of breath) Moderate persistent asthma without complication Pulmonary hypertension (HCC) Chronic diastolic heart failure due to valvular disease (HCC) Severe obesity with body mass index (BMI) of 35.0 to 39.9 with serious comorbidity (HCC) Chronic rhinitis Vaccine counseling Gastro-esophageal reflux disease without esophagitis Interm History/Respiratory Symptoms Cough: on occasion Hemoptysis: no Sinus Symptoms: PND Hospitalizations: no ED Trips: no Triggers: no Nocturnal: no CPAP/BiPAP/O2: no Flu Vaccine: 2021 Pneumovax: 2002 Prevnar: 2015 COVID 19: x 2 PULMONARY HYPERTENSION WHO CLASSIFICATION 2 (Patient with pulmonary hypertension resulting in slight limitation of physical activity. They are comfortable at rest. Ordinary physical activity results in undue fatigue or dyspnea, chest pain, or heart syncope) MMRC Dyspnea Scale = 1 (I get short of breath when hurrying on level ground or walking up a slight hill) Asthma Control Test Question 01/06/2023 10:46 AM EDT - Filed by Kayla Mares LPN Please select the best response to the five questions below, by clicking the appropriate option button. In the past 4 weeks, how much of the time did your asthma keep you from getting as much done at work, school or at home? (5) None of the time During the past 4 weeks, how often have you had shortness of breath? (5) Not at all During the past 4 weeks, how often did your asthma symptoms (wheezing, coughing, shortness of breath, chest tightness or pain) wake you up at night or earlier than usual in the morning? (5) Not at all During the past 4 weeks, how often have you used your rescue inhaler or nebulizer medication (such as albuterol)? (5) Not at all How would you rate your asthma control during the past 4 weeks? (5) Completely controlled Total ACT Adult Score (range: 5 - 25) 25 (Well Controlled) Total ACT Child Score (range: 0 - 27) Incomplete documented in this encounter Plan of Treatment Upcoming Encounters Date Type Specialty Care Team Description 01/17/2023 Office Visit Cardiology Melisa Webb CRNP [address] [place] [phone] 01/18/2023 Office Visit [facility] [address] [facility] [address] Health Maintenance Due Date Last Done Comments [...] this encounter Medical Devices Implanted Type Area Rand Butting Machine Operator Device Identifier Shelf Expiration Date Model / Serial / Lot Angioseal Vip 8 Fr - [id number] Implanted:Qty : 1 on 06/15/2021 by Latrell Peterson MD at [place] [facility] [place] [facility] [place] Right: Carotid [employer] [id number] 02/18/2022 [id number] / / [id number] documented as of this encounter Visit Diagnoses Diagnosis Mild persistent asthma without complication- Primary Unspecified asthma documented in this encounter Advance Directives Latest [...] p Communication Neva Joseph Spouse Power of Shredding Machine Tender Care Teams Belt Dresser Relationship Specialty Start Date End Date Rosalina Hanna DO [address] [place] [address] PCP - General Family Medicine 08/31/20 documented as of this encounter
--- OUTSIDE RECORDS SUMMARY | 2023-04-21 07:05 | External Medical Summary | Summary of Care ---
Author Name Unknown Organization [facility] Address [address] [facility] [place] [address] Phone [phone] Team Prov[address] Care Ct Manager Name Role Phone Rosalina Hanna DO Primary Care Provider + [phone] Reason for Referral * Evaluate & Treat - Unlimited Visits (Within 30 days (routine)) - Authorized Specialty Diagnoses / Procedures Referred By Rodney ortiz Referred To Contact Ophthalmology Diagnoses Problem focusing eyes Rosalina Hanna DO [address] [place] [address] Referral ID Status Reason Start Date Expiration Date Visits Requested Visits Authorized [id number] Authorized Specialty Services Required 12/19/2022 999 999 Question Answer Referral Priority Within 30 days (routine) Reason for Visit * Reason Onset Date Comments Referral 12/19/2022 Eye Doctor Encounter Details Date Type Department Care Team Description 12/19/2022 Telephone [facility] [address] [place] [facility] [place] [address] Rosalina Hanna DO [address] [place] [address] Referral (Eye Doctor) Allergies Active Allergy Reactions Severity Noted Date Comments Dog Dander 06/11/2021 Dust 06/11/2021 Mold Sulfa Antibiotics Rash High 07/18/2017 documented as of this encounter (statuses as of 12/19/2022) Medications Medication Sig Dispensed Refills Start Date [...] the morning. 90 Tablet 2 12/15/2022 Active documented as of this encounter (statuses as of 12/19/2022) Active Problems Problem Noted Date History of [...] as of this encounter (statuses as of 12/19/2022) Resolved Problems Problem Noted Date Resolved Date Heart failure 06/14/2022 06/14/2022 Severe obesity with body mas s index (BMI) of 35.0 to 39.9 with serious comorbidity 11/20/2020 06/14/2022 documented as of this encounter (statuses as of 12/19/2022) Immunizations Name Administration Dates Next Due COVID-19 [...] Miscellaneous Notes * Telephone Encounter - JOSE Taylor - 12/19/2022 9:25 AM EDT Has the patient been seen for this problem? (Y/N)?: no, pt states insurance needs referral for him to return to eye Dr. To have prescription glasses checked, he isn't able to focus. Offered appt, declined. If No, an appt needs to be scheduled before a referral will be placed (exception: proceed with referral request if referral request is for a yearly routine appointment with speciality) Patient Name: Lorena Joseph Patient Primary care provider: Rosalina Hanna, DO Does this need to be an insurance referral (Y/N)?: Yes, Dyllan Leung If Yes, does the insurance referral need to be placed into the [employer] system? Name of preferred specialist: unable to obtain, pls call pt Type of specialist: Eye Location of specialist: pls call pt Specialist's Phone #: Specialist's Fax #: Reason for visit: unable to focus with new glasses Date of visit: 12/19/22 documented in this encounter Plan of Treatment Upcoming Encounters Date Type Specialty Care Team Description 01/06/2023 Telemedicine Pulmonary Andre Pickett MD [address] [facility] [place] [address] [facility] [address] [facility] [place] [address] 01/17/2023 Office Visit Cardiology [facility] [address] [facility] [address] 01/18/2023 Office Visit Family Medicine Rosalina Hanna, DO [address] [place] [address] Scheduled Referrals Name Type Priority Associated Diagnoses Order Schedule OPHTHALMOLOGY REFERRAL OP Referral Within 30 days (routine) Problem focusing eyes Ordered: 12/19/2022 Health Maintenance Due Date Last Done Comments [...] this encounter Medical Devices Implanted Type Area Quality Engineer Device Identifier Shelf Expiration Date Model / Serial / Lot Angioseal Vip 8 Fr - [id number] Implanted:Qty : 1 on 06/15/2021 [place] Latrell Peterson [place] [facility] [place] Carotid [employer] [id number] 02/18/2022 [id number] / / [id number] documented as of this encounter Visit Diagnoses Diagnosis Problem focusing eyes- Primary Problems with sight documented in this encounter Advance Directives Latest [...] p Communication Neva Joseph Spouse Power of Rn Operating Room Care Teams Ct Manager Relationship Specialty Start Date End Date Rosalina Hanna, DO [address] [place] [address] PCP - General Family Medicine 08/31/20 documented as of this encounter
--- OUTSIDE RECORDS SUMMARY | 2023-04-21 07:05 | External Medical Summary ---
Author Name Unknown Address Unknown Organization [id number]:[facility]ORY [facility] [place] - [address] [place] [address] Laboratory Report Ordering Provider Test Date Status RISSA PAIGEA 01/18/2023 11:41:21 Final Observation Date Value Abnormality Reference (Units ) Status Triglyceride 01/18/2023 11:41:21 93 <=174 ( mg/dL) Final Triglyceride Reference Range s (mg/dL):
<150 Acceptable
150-174 Borderline high
175-499 High
>=500 Very high Cholesterol 01/18/2023 11:41:21 125 <200 (mg /dL) Final Total Cholesterol Reference Ranges (mg/dL):
<200 Desirable
200-239 Borderline high
>=240 High HDL 01/18/2023 11:41:21 56 >39 (mg/dL ) Final HDL Cholesterol Reference Ra nges (mg/dL):
>=60 High (Desirable)
<50 Low (Undesirable) For Females
<40 Low (Undesirable) For Males NON-HDL CHOLESTEROL 01/18/2023 11:41:21 69 <=159 (mg/dL) Final Non-HDL Cholesterol Referenc e Range (mg/dL):
<100 Target level for high risk ASCVD patient
<130 Optimal for general population
130-159 Near optimal for general population
160-189 Borderline High
190-219 High
>=220 Very High LDL, (calculated) 01/18/2023 11:41:21 50 <= 129 (mg/dL) Final LDL Cholesterol Reference Ra nges (mg/dL):
<70 Target level for high risk ASCVD patient
<100 Optimal for general population
100-129 Near optimal for general population
130-159 Borderline high
160-189 High
>=190 Very high Performing Location LABORATORY [facility] [place] - [address] [facility] [address]
--- OUTSIDE RECORDS SUMMARY | 2023-04-21 07:05 | External Medical Summary ---
Author Name Unknown Address Unknown Organization [id number]:[facility]ORATORY [facility] [place] - [address] [place] [address] Laboratory Report Ordering Provider Test Date Status SALLIE DE LA CRUZ 12/13/2022 11:43:02 Final Observation Date Value Abnormality Reference (Units) Status Bacteria identified in Unspecified specimen by Culture 12/13/2022 11:43:02 Multiple ton suggests contamination or colonization Final Test: Culture, Urine, Quanti tative
Specimen Source: Urine, Clean Catch
Specimen Type: Urine
Specimen Date: 12/13/2022 11:43 AM
Result Date: 12/14/2022 4:46 PM
Result Status: Final result
Resulting Lab: LAB[facility]ATORY [facility] [place]
[address]
[place] [id number]

CULTURE

Multiple ton suggests contamination or colonization

null Performing Location LABORATORY [facility] – [place] - [address] [facility] [address]
--- OUTSIDE RECORDS SUMMARY | 2023-04-21 07:05 | External Medical Summary ---
Author Name Unknown Address Unknown Organization [id number]:[facility]ORY [facility] [place] [facility] [place] - [address] [facility] [place] [address] Laboratory Report Ordering Provider Test Date Status ZARA PAIGE 01/18/2023 11:41:21 Final Observation Date Value Abnormality Reference (Units ) Status BUN 01/18/2023 11:41:21 24 Above high normal 6-20 (mg/dL) Final Creatinine 01/18/2023 11:41:21 0.9 0.6-1.2 (mg/dL) Final Glomerular filtration rate/1.73 sq M.predicted [Volume Rate/Area] in Serum, Plasma or Blood by Creatinine-based formula (CKD-EPI) 01/18/2023 11:41:21 80 >=60 (mL/min) Final eGFR is calculated based on the CKD-EPI 2020 equation SODIUM 01/18/2023 11:41:21 142 135-146 (m mol/L) Final Potassium 01/18/2023 11:41:21 4.5 3.5-5.1 (m mol/L) Final Cl 01/18/2023 11:41:21 103 98-107 (mm ol/L) Final CO2 01/18/2023 11:41:21 29 22-32 (mmo l/L) Final Anion gap 01/18/2023 11:41:21 10 7-15 (mmol /L) Final Glucose 01/18/2023 11:41:21 94 70-120 (mg /dL) Final Albumin 01/18/2023 11:41:21 3.9 3.8-5.0 (g /dL) Final AST (Aspartate aminotransferase) 01/18/2023 11:41:21 37 10-50 (U/L) Fin al Alk Phos 01/18/2023 11:41:21 159 Above high normal 35 -130 (U/L) Final Bilirubin, Total 01/18/2023 11:41:21 0.7 <=1 .2 (mg/dL) Final Calcium 01/18/2023 11:41:21 9.1 8.4-10.2 ( mg/dL) Final Protein 01/18/2023 11:41:21 6.0 6.0-8.3 (g /dL) Final ALT (Alanine aminotransferase) 01/18/2023 11:41:21 63 Above high normal 10-50 (U/L) Final Performing Location [facility] [place] [facility] [place] - [address] [facility] [address]
--- OUTSIDE RECORDS SUMMARY | 2023-04-21 07:05 | External Medical Summary | Summary of Care ---
Author Name Unknown Organization [facility] Address [address] [facility] [place] [address] Phone [phone] Care Team Providers Care Insurance Counselor Name Role Phone Rosalina Hanna DO Primary Care Provider + [phone] Reason for Visit * Reason Onset Date Comments Follow Up 11/21/2022 Encounter Details Date Type Department Care Team Description 11/21/2022 Collar Sewer Telephone [facility] [address] [place] [address] Payal Mckeon, GAGE [address] [place] [address] Follow Up Allergies Active Allergy Reactions Severity Noted Date Comments Dog Dander 06/11/2021 Dust 06/11/2021 Mold Sulfa Antibiotics Rash High 07/18/2017 documented as of this encounter (statuses as of 11/21/2022) Medications Medication Sig Dispensed Refills Start Date [...] as of this encounter (statuses as of 11/21/2022) Active Problems Problem Noted Date History of [...] as of this encounter (statuses as of 11/21/2022) Resolved Problems Problem Noted Date Resolved Date Heart failure 06/14/2022 06/14/2022 Severe obesity with body mas s index (BMI) of 35.0 to 39.9 with serious comorbidity 11/20/2020 06/14/2022 documented as of this encounter (statuses as of 11/21/2022) Immunizations Name Administration Dates Next Due COVID-19 [...] encounter Miscellaneous Notes * Telephone Encounter - Payal Mckeon RN - 11/21/2022 8:06 AM EDT Epic reviewed, patient without recent utilization, noted to be stable by PCP & urology, has follow up appointments scheduled, will close, current case management needs met Payal Mckeon RN documented in this encounter Plan of Treatment Upcoming Encounters Date Type Specialty Care Team Description 12/13/2022 Office Visit Cardiology Jose Luis Hanna, DO [address] [place] [address] 01/06/2023 Telemedicine Pulmonary Andre Pickett MD [address] [place] [address] Cart, Telemed Pulm Gw [address] [place] [address] 01/18/2023 Office Visit Family Medicine Rosalina Hanna DO [address] [place] [address] Health Maintenance Due Date Last Done Comments [...] this encounter Medical Devices Implanted Type Area Consulting Technical Manager Device Identifier Shelf Expiration Date Model / Serial / Lot Angioseal Vip 8 Fr - [id number] Implanted:Qty : 1 on 06/15/2021 by Latrell Peterson MD at [facility] Right: Carotid [employer] [id number] 02/18/2022 [id number] / / [id number] documented as of this encounter Advance [...] p Communication Neva Opal Spouse Power of Soft Work Wrapper Layer And Examiner Care Teams Insurance Counselor Relationship Specialty Start Date End Date Rosalina Hanna, [address] [place] [address] PCP - General Family Medicine 08/31/20 documented as of this encounter
--- OUTSIDE RECORDS SUMMARY | 2023-04-21 07:05 | External Medical Summary ---
Author Name Unknown Address Unknown Organization K01:[facility] [place] [facility] [address] [facility] [place] [address] Laboratory Report Ordering Provider Test Date Status SALLIE DE LA CRUZ 12/13/2022 11:43:02 Final Observation Date Value Abnormality Reference (Units ) Status Color of Urine by Auto 12/13/2022 11:43:02 Light Yellow Colorless, Light Yellow, Yellow, Dark Yellow Final Clarity, Urine 12/13/2022 11:43:02 Clear Clear Final Glucose [Mass/volume] in Urine by Automated test strip 12/13/2022 11:43:02 Negative Negative (mg/dL) Final Bilirubin.total [Presence] in Urine by Automated test strip 12/13/2022 11:43:02 Negative Negative Final Ketones [Mass/volume] in Urine by Automated test strip 12/13/2022 11:43:02 Negative Negative (mg/dL) Final Specific gravity, Urine 12/13/2022 11:43:02 1.013 1.003-1.030 Final Hemoglobin [Presence] in Urine by Automated test strip 12/13/2022 11:43:02 Negative Negative Final pH, Urine 12/13/2022 11:43:02 7.0 5.0-7.5 (Units) Final Protein [Mass/volume] in Urine by Automated test strip 12/13/2022 11:43:02 Negative Negative (mg/dL) Final Urobilinogen [Mass/volume] in Urine by Automated test strip 12/13/2022 11:43:02 Normal Normal (mg/dL) Final Nitrite [Presence] in Urine by Automated test strip 12/13/2022 11:43:02 Negative Negative Final Leukocyte esterase [Presence] in Urine by Automated test strip 12/13/2022 11:43:02 Large Abnormal Negative Final RBC, Urine 12/13/2022 11:43:02 0-2 0-2 (/HPF) Final WBC, Urine 12/13/2022 11:43:02 20-29 Abnormal 0-2 (/HPF) Final Bacteria [#/area] in Urine sediment by Microscopy high power field 12/13/2022 11:43:02 51-100 Abnormal 0-25 (/HPF) Final Performing Location [facility] [place] [facility] [place] - [facility] [place] [address] [facility] [address]
--- OUTSIDE RECORDS SUMMARY | 2023-04-21 07:05 | External Medical Summary | Summary of Care ---
Author Name Unknown Organization [facility] Address [address] [facility] [place] [address] Phone [phone] Care Team Providers Care Television Operator Name Role Phone Rosalina Hanna DO Primary Care Provider [phone] Reason for Visit * Reason Onset Date Comments Order Request 12/13/2022 Encounter Details Date Type Department Care Team Description 12/13/2022 Telephone [facility] [address] [place] [address] Rosalina Hanna DO [address] [place] [address] Order Request Allergies Active Allergy Reactions Severity Noted Date [...] encounter Miscellaneous Notes * Telephone Encounter - Enma Dodson PA-C - 12/13/2022 11:39 AM EDT Lab aware to cc Ramin Gross hematuria (Primary) - PSA; Future; Expected date: 12/13/2022 - URINALYSIS, REFLEX TO CULTURE (NOT FOR NEUTROPENIC PATIENTS); Future; Expected date: 12/13/2022 - BASIC METABOLIC PANEL; Future; Expected date: 12/13/2022 - CULTURE, URINE, QUANTITATIVE; Future; Expected date: 12/13/2022 Enma Dodson PA-C 12/13/2022 11:39 AM * Telephone Encounter - JOSE Zavala - 12/13/2022 10:53 AM EDT An order was requested for this patient. Name of Requesting Provider: patient Order Requested:labs (psa)-blood in urine the last couple of days Diagnosis/Reason for Request: Patient wants results sent to Dr. German Faustin at [facility] If order request is for Mammogram: Is the patient having any breast symptoms?n/a Is there a chance of ? n/a Has the patient had any breast problems in the past?n/a Fax Number, if applicable: Call Back Number: [phone] If the caller is not a current patient, please advise the patient to call their current PCP to havethe order's prior to being seen in our office. The patient was informed that our providers would not order anything (medication, labs, etc.) prior to being seen. documented in this encounter Plan of Treatment Upcoming Encounters Date Type Specialty Care Team Description 01/06/2023 Telemedicine Pulmonary [facility] [address] [facility] [place] [address] Shaila Lunsforded Pulm [address] [facility] [place] [address] 01/17/2023 Office Visit Cardiology Melisa Webb CRNP [address] [place] [address] 01/18/2023 Office Visit Family Medicine Rosalina Hanna DO [address] [place] [address] Pending Results Name Type Priority Associated Diagnoses Date /Time PSA Lab Routine Gross hematuria 12/13/2022 11:43 AM EDT URINALYSIS, REFLEX TO CULTURE (NOT FOR NEUTROPENIC PATIENTS) Lab Routine Gross hematuria 12/13/2022 11:43 AM EDT BASIC METABOLIC PANEL Lab Routine Gross hematuria 12/13/2022 11:43 AM EDT CULTURE, URINE, QUANTITATIVE Lab Routine Gross hematuria 12/13/2022 11:43 AM EDT Scheduled Orders Name Type Priority Associated Diagnoses Orde r Schedule PSA Lab Routine Gross hematuria Expected: 12/13/2022 (Approximate), Expires: 12/13/2023 URINALYSIS, REFLEX TO CULTURE (NOT FOR NEUTROPENIC PATIENTS) Lab Routine Gross hematuria Expected: 12/13/2022, Expires: 12/14/2023 BASIC METABOLIC PANEL Lab Routine Gross hematuria Expected: 12/13/2022 (Approximate), Expires: 12/13/2023 CULTURE, URINE, QUANTITATIVE Lab Routine Gross hematuria Expected: 12/13/2022, Expires: 12/14/2023 Health Maintenance Due Date Last Done Comments [...] this encounter Medical Devices Implanted Type Area Customer Acquisition Specialist Device Identifier Shelf Expiration Date Model / Serial / Lot Angioseal Vip 8 Fr - [id number] Implanted:Qty : 1 on 06/15/2021 by Latrell Peterson MD at [place] [facility] [place] Right: Carotid [employer] [id number] 02/18/2022 [id number] / / [id number] documented as of this encounter Visit Diagnoses Diagnosis Gross hematuria- Primary documented in this encounter Advance Directives Latest [...] p Communication Neva Joseph Spouse Power of Bending Frame Operator Care Teams Television Operator Relationship Specialty Start Date End Date Rosalina Hanna, [address] [place] [address] PCP - General Family Medicine 08/31/20 documented as of this encounter
--- OUTSIDE RECORDS SUMMARY | 2023-04-21 07:05 | External Medical Summary ---
Author Name Unknown Address Unknown Organization K01:LABORATORY [facility] [place] - [address] [place] [address] Laboratory Report Ordering Provider Test Date Status SALLIE DE LA CRUZ 12/13/2022 11:43:02 Final Observation Date Value Abnormality Reference (Units ) Status BUN 12/13/2022 11:43:02 22 Above high normal 6-20 (mg/dL) Final Creatinine 12/13/2022 11:43:02 0.8 0.6-1.2 (mg/dL) Final Glomerular filtration rate/1.73 sq M.predicted [Volume Rate/Area] in Serum, Plasma or Blood by Creatinine-based formula (CKD-EPI) 12/13/2022 11:43:02 84 >=60 (mL/min) Final eGFR is calculated based on the CKD-EPI 2020 equation SODIUM 12/13/2022 11:43:02 140 135-146 (m mol/L) Final Potassium 12/13/2022 11:43:02 4.3 3.5-5.1 (m mol/L) Final Cl 12/13/2022 11:43:02 104 98-107 (mm ol/L) Final CO2 12/13/2022 11:43:02 26 22-32 (mmo l/L) Final Anion gap 12/13/2022 11:43:02 10 7-15 (mmol /L) Final Glucose 12/13/2022 11:43:02 95 70-120 (mg /dL) Final Calcium 12/13/2022 11:43:02 8.8 8.4-10.2 ( mg/dL) Final Performing Location [facility] [place] - [address] [place] [address]
--- OUTSIDE RECORDS SUMMARY | 2023-04-21 07:05 | External Medical Summary | Summary of Care ---
Author Name Unknown Organization [facility] Address [address] [place] [address] Phone [phone] Care Team Providers Care Shafting Cleaner Name Role Phone Rosalina Hanna DO Primary Care Provider [phone] Reason for Visit * Reason Comments Follow Up Rm 4 Encounter Details Date Type Department Care Team Description 01/17/2023 Office Visit Cardiology Jose David Martin [address] [place] [id number] Melisa Webb CRNP [address] [place] [id number] Chronic right heart failure (HCC)*; Nonrheumatic aortic valve stenosis; HTN, goal below 140/90; Moderate right ventricular systolic dysfunction Allergies Active Allergy Reactions Severity Noted Date [...] 01/06/2023 Active Levocetirizine Dihydrochloride 5 MG Oral Tablet Take by mouth 1 Tablet in the morning. 90 Tablet 3 01/05/2022 01/19/20 23 Discontinu ed(Refill) Dexamethasone 6 MG Oral Tablet (Decadron) Take 1 Tablet by mouth in the morning. 0 01/19/20 23 Discontinu ed(Dischar ged) amLODIPine Besylate 5 MG Oral Tablet (Norvasc)Indications :HTN, goal below 140/90 TAKE ONE TABLET BY MOUTH DAILY 90 Tablet 3 09/19/2022 01/19/20 23 Discontinu ed(Refill) documented as of this [...] Sign Reading Time Taken Comments Blood Pressure 122/54 01/17/2023 10:17 AM EDT Pulse 72 01/17/2023 10:17 AM EDT Temperature - - Respiratory Rate 16 01/17/2023 10:17 AM EDT Oxygen Saturation - - Inhaled Oxygen Concentration - - Weight 101.6 kg (224 lb) 01/17/2023 10:17 AM EDT Height 175.3 cm (5' 9") 01/17/2023 10:17 AM EDT Body Mass Index 33.08 01/17/2023 10:17 AM EDT documented in this [...] this encounter Patient Instructions * Patient Instructions* KRISSY Childs - 01/17/2023 10:41 AM EDT Please get Fasting Lab Work with your next routine labs Nothing to eat or drink for 12 hours prior to blood work . May have black coffee/tea or water in that period of time documented in this encounter Progress Notes * KRISSY Childs - 01/17/2023 10:06 AM EDT Subjective Lorena Joseph is a 87 year old male. Chief Complaint Patient presents with Follow Up 4 Primary Stave Bolt Equalizer: Dr. Hanna Cardiac Problems: pSVT Right Sided CHF Mild Aortic Stenosis HTN Carotid Artery Stenosis, s/p R Carotid Stent 05/2021 at [facility] HPI: 87 year old male presents for routine cardiology follow up. Last seen in the clinic 1 year ago. Feeling well since their last visit with no acute concerns today. Denies chest pain, palpitations, dizziness, syncope, edema, orthopnea and PND. No change in activity tolerance. Chronic SOB, unchanged from baseline. Reports compliance with medications without any untoward side effects, or difficulty with affordability. PMH: Patient Active Problem List Diagnosis Code SOB (shortness of breath) R06.02 Chronic diastolic heart failure due to valvular disease (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) I63.239 Gastro-esophageal reflux disease without esophagitis K21.9 History of prostate cancer Z85.46 HTN, goal below 140/90 I10 Dyslipidemia, goal LDL below 70 E78.5 Pulmonary hypertension ([facility]) I27.20 Paroxysmal supraventricular tachycardia ([facility]) I47.1 History of transient ischemic attack (TIA) [...] nostril in the morning. 18 g 12 No current facility-administered medications for this visit. [...] performed by Hemal Vera MD at [facility] INC[facility] SPINAL COLUMN/NERVE [address] Rodrigues. he is not sure which level. INJECT DX/THER SUBSTANCE INTERLAMINAR LUMBAR/SACRAL W IMAGE GUIDE 03/19/2020 INJECTION SPINE LUMBAR OR SACRAL performed by Lonnie Esteban DO at OR [facility] INJECT DX/THER SUBSTANCE INTERLAMINAR LUMBAR/SACRAL W IMAGE GUIDE 04/09/2020 INJECTION SPINE LUMBAR OR SACRAL performed by Lonnie Esteban DO at OR [facility] INTRACRANIAL ARTERIES CATH PLACEMENT Right 06/15/2021 CATHETER PLACEMENT EACH INTRACRANIAL BRANCH OF THE INTERNAL CAROTID OR VERTEBRAL ARTERIES performedby Latrell Peterson MD at [facility] INTRACRANIAL INTRAVASCULAR STENT,INCL ANGIO Right 06/15/2021 TRANSCATHETER PLACEMENT OF INTRAVASCULAR STENTS, INTRACRANIAL performed by Aidan Moe [facility] LAPAROSCOPY; CHOLECYSTECTOMY 2017 Dr Starks. REMOVAL OF NOSE POLYP(S), SIMPLE 08/09/2002 Dr. 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 HENT: Positive for congestion and sinus pressure. Eyes: Negative for visual disturbance. Respiratory: Positive for shortness of breath. Negative for wheezing. Cardiovascular: Negative for chest pain, palpitations and leg swelling. Gastrointestinal: Negative for blood in stool, constipation, diarrhea, nausea and vomiting. Genitourinary: Negative for hematuria. Musculoskeletal: Positive for gait problem. Negative for arthralgias. Skin: Negative for wound. Neurological: Negative for dizziness and syncope. Objective BP 122/54 | Pulse 72 | Resp 16 | Ht 1.753 m (5' 9") | Wt 101.6 kg (224 lb) | BMI 33.08 kg/m | BSA2.22 m Physical Exam Vitals and nursing note reviewed. Constitutional: General: He is awake. He is not in acute distress. Appearance: Normal appearance. He is well-developed. He is not ill-appearing. HENT: Head: Normocephalic and atraumatic. Eyes: General: No scleral icterus. Extraocular Movements: Extraocular movements intact. Conjunctiva/sclera: Conjunctivae normal. Pupils: Pupils are equal, round, and reactive to light. Neck: Thyroid: No thyromegaly. Vascular: No carotid bruit or JVD. Cardiovascular: Rate and Rhythm: Normal rate. Pulses: Normal pulses. Carotid pulses are 2+ on the right side and 2+ on the left side. Radial pulses are 2+ on the right side and 2+ on the left side. Posterior tibial pulses are 2+ on the right side and 2+ on the left side. Heart sounds: Normal heart sounds, S1 normal and S2 normal. No murmur heard. Pulmonary: Effort: Pulmonary effort is normal. No respiratory distress. Breath sounds: Normal breath sounds. No wheezing, rhonchi or rales. Abdominal: General: Bowel sounds are normal. There is no distension. Palpations: Abdomen is soft. There is no mass. Tenderness: There is no abdominal tenderness. Musculoskeletal: General: No swelling. Cervical back: Neck supple. Right lower leg: No edema. Left lower leg: No edema. Skin: General: Skin is warm and dry. Capillary Refill: Capillary refill takes less than 2 seconds. Findings: No rash or wound. Neurological: General: No focal deficit present. Mental Status: He is alert and oriented to person, place, and time. Psychiatric: Attention and Perception: Attention and perception normal. Behavior: Behavior is cooperative. Judgment: Judgment normal. Results Labs & Imaging Reviewed Below: ECG 06/16/21 SB, 1st Deg AV Block; nonconducted beat after 7th QRS complex with 2nd pause RBBB 47 bpm QTc 426 ms 08/31/20 NSR, 1st Deg AV Block RBBB 67 bpm QTc 467 ms Echocardiograms 05/18/22 The primary indication after review was deemed appropriate and the examination was performed. Normal LV chamber size with mild concentric LVH. Normal LV systolic function without regional wall motion abnormalities. Calculated LV ejection Fraction = 57% (bi-plane method of discs). Grade 1 diastolic dysfunction. Mildly calcified, trileaflet aortic valve with mild stenosis. Mild mitral regurgitation. Mild tricuspid regurgitation. Pulmonary hypertension is present. The estimated pulmonary artery systolic pressure is 43mm Hg. 09/17/20 Qualitative LV ejection fraction 60-64% No evidence of intracardiac shunt with injection of agitated saline contrast. The right ventricular cavity size is enlarged (basal dimension > 4.2 cm RV apical 4 chamber view). The right ventricular systolic function is qualitatively normal. Mild tricuspid regurgitation is present. The estimated pulmonary artery systolic pressure is 36mm Hg Zio 09/17/20 CONCLUSIONS: Preliminary Findings Patient had a min HR of 49 bpm, max HR of 162 bpm, and avg HR of 71 bpm. Predominant underlying rhythm was Sinus Rhythm. First Degree AV Block was present. Bundle Branch Block/IVCD was present. 1 run of Ventricular Tachycardia occurred lasting 6 beats with a max rate of 160 bpm (avg 146 bpm). 239 Supraventricular Tachycardia runs occurred, the run with the fastest interval lasting 5 beats with a max rate of 162 bpm, the longest lasting 17.4 secs with an avg rate of 97 bpm. Isolated SVEs were rare (<1.0%), SVE Couplets were rare (<1.0%), and SVE Triplets were rare (<1.0%). Isolated VEs were occasional (3.1%, 9478), VE Couplets were rare (<1.0%, 301), and no VE Triplets were present. Ventricular Bigeminy and Trigeminy were present. Holter Labs Latest Reference Range & Units 06/14/22 11:38 08/15/22 12:28 12/13/22 11:43 Sodium 135 - 146 mmol/L 141 144 140 Potassium 3.5 - 5.1 mmol/L 4.2 4.6 4.3 Chloride 98 - 107 mmol/L 101 106 104 CO2 22 - 32 mmol/L 34 (H) 29 26 BUN 6 - 20 mg/dL 27 (H) 26 (H) 22 (H) Creatinine 0.6 - 1.2 mg/dL 1.0 0.9 0.8 Estimated Glomerular Filtration Rate >=60 mL/min 77 83 84 Anion Gap 7 - 15 mmol/L 6 (L) 9 10 Glucose 70 - 120 mg/dL 113 90 95 Calcium 8.4 - 10.2 mg/dL 9.2 9.2 8.8 Magnesium 1.5 - 2.6 mg/dL 2.1 Phosphorus 2.5 - 4.8 mg/dL 3.6 Protein 6.0 - 8.3 g/dL 5.5 (L) Estimated Average Glucose <126 mg/dL 117 Hemoglobin A1C 4.0 - 5.6 % 5.7 (H) ANEMIA CBC Rpt ! WBC 4.00 - 10.80 K/uL 11.91 (H) HGB 14.0 - 16.8 g/dL 17.8 (H) HCT 40.0 - 48.4 % 54.2 (H) MCV 82.0 - 99.5 fL 97.5 PLT 140 - 400 K/uL 181 Absolute Neutrophils 1.80 - 7.70 K/uL 8.97 (H) Absolute Lymphocytes 1.00 - 4.80 K/ul 1.64 Absolute Monocytes 0.00 - 1.10 K/uL 0.85 Absolute Eosinophils 0.00 - 0.70 K/uL 0.19 Absolute Basophils 0.00 - 0.20 K/uL 0.02 URINALYSIS, REFLEX TO CULTURE (CUP ONLY) Rpt URINALYSIS, REFLEX TO CULTURE Rpt ! CULTURE, URINE, QUANTITATIVE Rpt Albumin 3.8 - 5.0 g/dL 3.5 (L) AST 10 - 50 U/L 40 ALT 10 - 50 U/L 143 (H) Alkaline Phosphatase 35 - 130 U/L 153 (H) Bilirubin, Total <=1.2 mg/dL 1.1 PSA <4.10 ng/mL <0.02 Color, Urine Colorless, Light Yellow, Yellow, Dark Yellow Light Yellow Clarity, Urine Clear Clear Glucose, Urine Negative mg/dL Negative Bilirubin, Urine Negative Negative Ketone, Urine Negative mg/dL Negative Specific [place], Urine 1.003 - 1.030 1.013 Blood, Urine Negative Negative pH, Urine 5.0 - 7.5 Units 7.0 Protein, Urine Negative mg/dL Negative Urobilinogen, Urine Normal mg/dL Normal Nitrite, Urine Negative Negative Esterase, Urine Negative Large ! Bacteria, Urine 0 - 25 /HPF 51-100 ! WBC, Urine 0 - 2 /HPF 20-29 ! RBC, Urine 0 - 2 /HPF 0-2 URINALYSIS, REFLEX TO CULTURE (NOT FOR NEUTROPENIC PATIENTS) Rpt ! Latest Reference Range & Units 12/15/21 09:13 Triglycerides <=174 mg/dL 82 Cholesterol <200 mg/dL 123 Non-HDL Cholesterol <=159 mg/dL 62 HDL Cholesterol >39 mg/dL 61 LDL Cholesterol <=129 mg/dL 46 Impression pSVT Right Sided CHF Mild Aortic Stenosis HTN HLD Carotid Artery Stenosis, s/p R Carotid Stent 05/2021 at [facility] Plan: -HR and BP well controlled -he is euvolemic on exam -he is due for updated fasting lipid panel which I have advised him to get with his next routine lab work, historically LDL has been well controlled -discussed his echocardiogram results from April of last year; ejection fraction remains normal with evidence of mild aortic stenosis still present -stable from a cardiac standpoint -continue spironolactone, furosemide, atorvastatin, aspirin, metoprolol -Educated patient on caution with change in positions to minimize symptomatic orthostatic hypotension -Discussed importance of diet & exercise with the patient. -Discussed with patient subtle changes in how they are feeling or completing daily activities to contact us sooner; don't wait days or weeks. DISPOSITION: Follow up 8 months or if symptoms worsen/fail to improve. All questions were answered to the patients satisfaction. Patient advised to report to ED with any and all emergencies. The patient agrees to the above plan and will call with additional questions or concerns. KRISSY Teague Cardiology [address] [address] This chart was completed in part utilizing [employer] Speech Voice Recognition Software. Grammatical errors, random word insertions, pronoun errors, and incomplete sentences are an occasional consequence of this system due to software limitations, ambient noise, and hardware issues. Any formal questions or concerns about the content, text, or information contained within the body of this dictation should be directly addressed to the provider for clarification. documented in this encounter Nursing Notes * LILIA Brice - 01/17/2023 10:17 AM EDT Patient was identified by name and date of . Examination Room: 4 Name: Lorena Joseph Date of : (1935). Reason for Visit: ret visit Interim Hospitalization(s): no Problems/Concerns: no Chest Pain/SOB: no Medications reviewed and are up to date via: [employer] [facility] is a way you can talk to your provider online through e-mail. Would you like to sign up? I can activate it for you? ALREADY ACTIVE Do you have video visit capabilities (email and smart phone)? No. Would you be interested in 6 or 12 return visit being scheduled as a video visit if the provider approves? No Patient was instructed to not get up on the exam table/exam chair until directed and assisted by their provider; patient is to remain seated in the chair/ wheelchair/ exam table/ exam chair for fall prevention and safety reasons. Patient is aware to have assistance to step down off exam table/exam chair with personnel. Patient voiced full comprehension of instructions. LILIA Wan documented in this encounter Plan of Treatment Upcoming Encounters Date Type Specialty Care Team Description 04/26/2023 Office Visit Gastroenterology Madalyn Amaya CRNP [address] [place] [address] 09/12/2023 Office Visit Cardiology Melisa Ramirez CRNP [address] [place] [address] Pending Results Name Type Priority Associated Diagnoses [...] ventricular systolic dysfunction 01/18/2023 11:41 AM EDT Scheduled Orders Name Type Priority Associated Diagnoses Orde r Schedule LIPID PANEL WITH DIRECT LDL IF TG IS HIGH Lab Routine Chronic right heart failure (HCC) Nonrheumatic aortic valve stenosis HTN, goal below 140/90 Moderate right ventricular systolic dysfunction Expected: 01/17/2023, Expires: 01/18/2024 COMPREHENSIVE METABOLIC PANEL Lab Routine Chronic right heart failure (HCC) Nonrheumatic aortic valve stenosis HTN, goal below 140/90 Moderate right ventricular systolic dysfunction Expected: 01/17/2023 (Approximate), Expires: 01/18/2024 Health Maintenance Due Date Last Done Comments [...] this encounter Medical Devices Implanted Type Area Fabric And Accessories Estimator Device Identifier Shelf Expiration Date Model / Serial / Lot Angioseal Vip 8 Fr - [id number] Implanted:Qty : 1 on 06/15/2021 by Latrell Peterson MD at OR [facility] Right: Carotid [employer] [id number] 02/18/2022 [id number] / / [id number] documented as of this encounter Visit Diagnoses Diagnosis Chronic right heart failure (HCC)- Primary Nonrheumatic aortic valve stenosis Aortic valve disorders HTN, goal below 140/90 Unspecified essential hypertension Moderate right ventricular systolic dysfunction documented in this encounter Advance Directives Latest Code Status on File Code Status Date Activated Date Inactivated Comments Full Code 06/15/2021 11:00 AM 06/16/2021 6:29 PM This order reflects the patients wishes and were consensually agreed upon. Question Answer Comments Discussion of Advance Directives occurred with: Not Discussed Healthcare Agents on File Name Relationship [facility] Neva Joseph Spouse Power of Measurement And Sensing Technician Care Teams Shafting Cleaner Relationship Specialty Start Date End Date Rosalina Hanna, DO [address] [place] [address] PCP - General Family Medicine 08/31/20 documented as of this encounter
[2023-04-21] MEDS: SPIRONOLACTONE 12.5 MG TAB PO SCH (08:44)
[2023-04-21] MEDS: FUROSEMIDE 20 MG TAB PO SCH (08:44)
[2023-04-21] MEDS: METOPROLOL SUCC 25MG EXT REL TAB PO SCH (08:44)
[2023-04-21] MEDS: ATORVASTATIN 40 MG TAB PO SCH (08:44)
[2023-04-21] MEDS: UMECLIDINIUM BROMIDE 62.5MCG/BLISTER 7 PUFFS/INHALER INH SCH (08:44)
[2023-04-21] MEDS: CETIRIZINE HCL 10 MG TABLET PO SCH (08:44)
[2023-04-21] MEDS: amLODIPine BESYLATE 5 MG TAB PO SCH (08:44)
[2023-04-21] MEDS ORDERED: HEPARIN SODIUM/DEXTROSE 25,000 UNITS/500 ML BAG IV SCH (12:00)
[2023-04-21] MEDS ORDERED: Heparin IV Adult Wt-Based Low-Dose w/ INITIAL Bolus Protocol IV STA (12:16)
[2023-04-21] MEDS ORDERED: HEPARIN SOD (PORCINE) 1000 UNIT/ML IV ONE (13:15)
--- NOTE | 2023-04-21 13:45 | Cardiology Consultation ---
Date of Consultation April 21, 2023 Assessment & Plan (1) Fall: (2) CHI (closed head injury): (3) Elevated troponin: (4) Hypothermia: (5) Chronic diastolic heart failure: Plan 87 year old male with mild to moderate aortic valve stenosis admitted following a complex initially mechanical fall as detailed below. Cardiology consultation requested due to elevated high sensitivity troponin. Patient asymptomatic. EKG without acute change. Resting echocardiography with new moderate reduction in LV systolic function and wall motion abnormality. Overall clinical picture appears to be that of a stress-induced cardiomyopathy however findings may reflect multivessel coronary artery disease. Without cardiac symptoms, in the setting of a scalp laceration, reported concussion, and a thoracic spine fracture, the risks of anticoagulation with heparin appeared to be greater then the benefit. Recommend adding/resuming aspirin 81 mg/day when determined to be safe. Continue evidence-based beta-joanne therapy with metoprolol succinate. Add low-dose SIMONA inhibition as blood pressure allows. Maintain electrolytes. Continue telemetry. Repeat limited TTE in a few days to reassess LV function and wall motion. Further recommendations pending evaluation by Dr. Hanna. Supervising Physician Co-Signing Physician Notes 87-year-old patient admitted with a mechanical fall and syncopal episode. Cardiology evaluation requested due to elevated troponin. Patient denies chest pain or heaviness throughout the event. Currently pain-free. ECG without ischemic changes. His echocardiogram reveals hypokinesis to akinesis of the mid and apical LV myocardial wall segments with sparing in the bases. Findings suggest possible stress-induced cardiomyopathy versus underlying multivessel ischemic heart disease. PE: VSS. Gen: NAD, AAOx3. Heart: Regular rhythm, Normal S1S2. Pulm: Clear bilateral, no rales, rhonchi, wheeze. Extremities: No edema, stasis changes noted. A/P: Agree with above PA-C history, physical exam, assessment and plan. Clinical picture suggesting stress-induced cardiomyopathy versus multivessel ischemic heart disease. Patient remains asymptomatic from a cardiovascular perspective. Compensated from a heart failure standpoint. Recommend repeat resting 2D transthoracic echocardiogram in 48 to 72 hours for reassessment of LV systolic function and wall motion. Repeat ECG with any chest discomfort. Risk of intravenous anticoagulation appears to outweigh benefit in the setting of acute trauma, head injury with scalp laceration, possible concussion, and spinal fracture. Resume low-dose aspirin when cleared by orthopedic surgery. Continue evidence-based medical therapy including metoprolol succinate. Consider addition of low-dose SIMONA inhibitor or ARB as blood pressure allows. History of Present Illness Reason for Consultation: Significantly elevated troponin I Requesting Physician: Dr. Lisbeth Mckinney Attending Physician: Dr. Lisbeth Mckinney History of Present Illness Mr. Lorena Joseph is a very pleasant 87 year old male who was working in and around the [employer] yesterday afternoon. When finished he reached up to close the overhead door, twisting and falling onto his knees before striking his head (left temporal area). He notes crawling to the garage door railing and attempting to pull himself up when he experienced loss of consciousness and fall backwards striking the back of his head. He notes coming to with significant back pain. He notes that it took him about an hour to crawl over to his four mejía. He attempted to pull himself up but did not have the strength in his legs. He notes sitting against the four mejía until his fed the dog and found him. She called 911 and his son helped get him up and into a warm vehicle until help arrived. Patient notes being in his normal state, active, until this incident. He describes riding a pedal bicycle at the [facility] twice a week for 10 minutes at a good resistance without difficulty. He did not have any chest pain or discomfort or unusual shortness of breath in or around the above incident. Patient hypothermic on presentation High-sensitivity troponin elevated as follows: 1357.2 -> 2340.8 -> 3511.7 EKG on presentation was technically limited, revealing sinus rhythm at 71 bpm with a first-degree AV block, left axis deviation, right bundle branch block, left anterior fascicular block. Continuous teletypesetter monitor reveals sinus with first-degree AV block throughout Chest x-ray reported as cardiomegaly with pulmonary vascular congestion, without airspace consolidation or large pleural effusion. Notable imaging included a CT of the abdomen and pelvis revealing an age- indeterminate mild widening of the anterior aspect of the intervertebral disc space at T11-12, new compared to prior, possibly acute that was evaluated further via MRI which revealed an acute fracture through the anterior osteophyte at T11-12 with widening of the anterior intervertebral disc space measuring approximately 9 mm with no definite spinal cord injury. CT of the cervical spine and head showed no acute abnormality, revealing chronic small vessel ischemic changes and cerebral volume loss with a small amount of encephalomalacia in the right posterior frontal region Past Medical and Surgical History: Choking episode in April 2021 requiring Heimlich maneuver followed by focal neurological deficit including left-sided paresthesias and abnormal speech, MRI demonstrating subacute right frontal parietal CVA. CTA of the neck revealing high-grade right internal carotid artery stenosis status post stenting on June 15, 2021 Aortic valve stenosis Chronic right bundle branch block, left anterior fascicular block RV dysfunction Hypertension Chronic diastolic heart failure Paroxysmal supraventricular tachycardia Dyslipidemia Asthma Prostate cancer s/p radiation therapy, s/p suprapubic catheter placement Status postcholecystectomy Status post nasal polyp removal Status post tonsillectomy/adenoidectomy as a child Lumbar spine injections Family History: Mother with a brain bleed at 88. Father with an MVA at 89. Sister with atrial fibrillation Social History: Never smoker. No smokeless tobacco. Social alcohol only. No illegal drug use. 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 Lives in [facility] in a log cabin with his , son [address] [place] Allergies Allergy/AdvReac Type Severity Reaction Status Date / Time Sulfa (Sulfonamide Allergy Intermediate RASH Verified 04/20/23 19:32 Antibiotics) house dust mite Allergy Mild Congested Verified 04/20/23 23:28 mold Allergy Mild CONGESTION Verified 04/20/23 19:32 fluticasone furoate AdvReac Intermediate LARYNGITIS Verified 04/20/23 19:32 [From [facility]] vilanterol AdvReac Intermediate LARYNGITIS Verified 04/20/23 19:32 [From [facility]] Home Medications Medication Instructions Recorded Confirmed Type metoprolol succinate 25 mg 25 mg PO QAM 05/15/21 04/20/23 History tablet,extended release 24 hr spironolactone 25 mg tablet 12.5 mg PO Q2D 05/15/21 04/20/23 History aspirin 81 mg tablet,delayed 81 mg PO QAM 30 days #30 tabs 05/17/21 04/20/23 Rx release atorvastatin 40 mg tablet 40 mg PO QAM 30 days #30 tabs 05/17/21 04/20/23 Rx amlodipine 5 mg tablet 5 mg PO DAILY 06/03/22 04/20/23 History furosemide 20 mg tablet 20 mg PO DAILY 06/03/22 04/20/23 History gabapentin 300 mg capsule 300 mg PO TID 06/03/22 04/20/23 History levocetirizine 5 mg tablet 5 mg PO DAILY 06/03/22 04/20/23 History montelukast 10 mg tablet 10 mg PO HS 06/03/22 04/20/23 History fluticasone propionate 230 2 inh inhalation BID 04/20/23 04/20/23 History mcg-salmeterol 21 mcg/actuation HFA inhaler (Advair HFA) tiotropium bromide 2.5 2 puff inhalation QAM 04/20/23 04/20/23 History mcg/actuation mist for inhalation (Spiriva Respimat) Patient History Medical History History of CVA (cerebrovascular accident) Chronic diastolic heart failure Asthma History of nephrolithiasis Suprapubic catheter HTN (hypertension) History of radiation therapy Prostate cancer Surgical History History of cholecystectomy History of parotidectomy History of right hip replacement H/O shoulder surgery S/P TURP Family History Mother TIA (transient ischemic attack) Other Cancer Diabetes Social History Smoking Status: Never smoker Second Hand Exposure: No; Do You Dip or Chew Tobacco: No; Tobacco Cessation Education Requested by Patient: No Hx Alcohol Use: Yes Alcohol type: wine Hx Substance Use: No Preferred Language: Macedonian Communication Ability: Effective Hearing Ability: Use of Hearing Aid Poker Dealer Required: No Beliefs That Will Affect Care: None marital status: Current Living Situation: Spouse Current Living Situation Comment: at home with spouse current occupational status: retired How many Children do You have: 2 Other Information That Helps Us Care for You: No Feels Safe at Home: Yes Safety Concerns: Feels Safe At This Time Seatbelt Use: always Sunscreen Use: No Assistive Devices: Cane Review of Systems Review of Systems: Complete review of systems is otherwise as stated above, negative, noncontributory. Physical Exam Physical Exam: General: A&Ox3. NAD. HENT: Ecchymosis above the left eye. + Dressing above the left hip. + Hematoma. Eyes: PER. Conjunctiva pink, sclera clear. Neck: No carotid bruits. No JVD. Heart: RRR, 82 bpm. Grade II systolic ejection murmur. Lungs: Clear to auscultation anteriorly. Abdomen: +BS. Soft. Nontender. No masses or organomegaly. + Catheter Extremities: No clubbing, cyanosis, or significant edema. Limited neurological examination is without focal deficits. Pulses: Posterior tibial=1/4. Results & Data Vital Signs (Past 12 Hours) Vital Signs Pulse Pulse Resp BP BP Pulse Ox O2 Del Method 04/21/23 13:30 60 17 97 04/21/23 13:00 58 L 19 95 04/21/23 12:30 59 L 16 93 04/21/23 12:00 107/56 L 04/21/23 12:00 57 L 17 97 04/21/23 11:30 58 L 15 97 04/21/23 11:00 59 L 15 97 04/21/23 08:00 60 14 109/71 97 Room Air 04/21/23 07:11 61 04/21/23 04:52 63 20 118/71 96 Nasal Cannula 04/21/23 04:49 Nasal Cannula O2 Flow Rate 04/21/23 13:30 04/21/23 13:00 04/21/23 12:30 04/21/23 12:00 04/21/23 12:00 04/21/23 11:30 04/21/23 11:00 04/21/23 08:00 04/21/23 07:11 04/21/23 04:52 2 04/21/23 04:49 2 Laboratory Results Cardiac Enzymes 04/20/23 04/20/23 04/21/23 Range/Units 18:35 22:10 06:10 Troponin I High Sens 1357.2 H* 2340.8 H* D 3511.7 H* D (0-20) pg/ml B-Natriuretic Peptide 174 H (0-100) pg/ml Coagulation 04/20/23 Range/Units 18:35 PT 11.6 (9.0-12.0) Seconds APTT 27.6 (21.0-31.0) Seconds B-Natriuretic Peptide 174 H (0-100) pg/ml CBC 04/20/23 04/21/23 Range/Units 18:35 06:10 WBC 13.38 H 8.03 (4.8-10.8) K/ul RBC 5.46 4.79 (4.70-6.10) M/uL Hgb 17.4 16.0 (14.0-18.0) g/dl Hct 50.3 43.8 (42.0-52.0) % Plt Count 163 148 (130-400) K/uL Neut # (Auto) 10.93 H 5.69 (1.40-6.50) K/uL Lymph # (Auto) 1.21 1.35 (1.20-3.40) K/uL Hickman # (Auto) 1.00 H 0.77 H (0.11-0.59) K/uL Eos # (Auto) 0.11 0.14 (0.00-0.50) K/uL Baso # (Auto) 0.04 0.06 (0.00-0.20) K/uL Comprehensive Metabolic Panel 04/20/23 04/21/23 Range/Units 18:35 06:10 Sodium 139 140 (136-145) mmol/L Potassium 4.1 3.8 (3.5-5.1) mmol/L Chloride 105 106 (98-107) mmol/L Carbon Dioxide 26 29 (21-32) mmol/L BUN 23 21 (6-23) mg/dl Creatinine 0.87 0.94 (0.6-1.4) mg/dl Glucose 97 132 H (70-99(Fasting)) mg/dl Calcium 8.8 8.3 L (8.6-10.3) mg/dl Intake and Output 04/20/23 04/21/23 04/21/23 22:59 06:59 14:59 Intake Total 200 / 200 100 / 100 Output Total 900 / 900 500 / 500 Balance -700 / -700 -400 / -400 Intake: IV 200 / 200 100 / 100 Albumin 25% 25 gm In 100 ml @ 100 / 100 50 mls/hr IV ONE ONE Rx#: [id number] Piperacillin/Tazobactam 4.5 gm 100 / 100 In Dextrose 5% Mini-B 100 ml @ 25 mls/hr IV Q8H [facility] Rx#: [id number] Piperacillin/Tazobactam 4.5 gm 100 / 100 In 100 ml @ 200 mls/hr IV NOW ONE Rx#:[id number] Output: Urine Amount (Catheter) 900 / 900 500 / 500 Ruiz/Indwelling 900 / 900 500 / 500 Other: Weight 103.8 kg Weight Measurement Method Built in [facility] (1) Fall Encounter type: initial encounter Qualified Code(s): W19.XXXA - Unspecified fall, initial encounter (2) CHI (closed head injury) Encounter type: initial encounter Qualified Code(s): S09.90XA - Unspecified injury of head, initial encounter (4) Hypothermia Encounter type: initial encounter Qualified Code(s): T68.XXXA - Hypothermia, initial encounter
[2023-04-21] MEDS ORDERED: PIPERACILLIN/TAZOBACTAM 4.5 GM/100ML D5W IV ONE (13:47)
--- NOTE | 2023-04-21 14:32 | Electrocardiogram Report ---
Test Reason : Blood Pressure : / mmHG Vent. Rate : 071 BPM Atrial Rate : 071 BPM P-R Int : 244 ms QRS Dur : 128 ms QT Int : 452 ms P-R-T Axes : 095 -77 016 degrees QTc Int : 491 ms Sinus rhythm with 1st degree A-V block Left anterior fascicular block Right bundle branch block Poor R wave progression, consider anterior LA vs. lead placement vs. LVH Abnormal ECG When compared with ECG of 07-JUN-2022 05:22, Significant changes have occurred Confirmed by German Grigsby ([id number]) on 04/21/2023 2:31:43 PM Referred By: REFERRED SELF Confirmed By:Wilton Grigsby
[2023-04-21 15:07] LABS: iSTAT Creatinine 0.9 mg/dl (0.6-1.3); iSTAT Ionized Calcium 1.12 mmol/l (1.12-1.32)
--- NOTE | 2023-04-21 16:08 | Neurology Consultation ---
Date of Consultation April 21, 2023 Assessment & Plan (1) CHI (closed head injury): Recommend obtain MRI brain with and without contrast during this admission if he is able to tolerate Recommend continue to monitor mentation Try to limit sedative medications as possible while still controlling pain Continue to monitor neurological assessments Therapy services evaluation and treatment Provide fall precautions Plan for continued outpatient follow up with adult neurology Plan Hx stroke and carotid stenosis Recommend continue antiplatelet & statin therapy Monitor/control blood pressure/blood glucose Continue to monitor telemetry closely Thoracic spine fx- recommend continue to monitor/control pain Agree with cardiology Consultation Agree with spine surgery consultation Telehealth Consultation Telehealth Information Telehealth Information: I performed this visit using a real-time telehealth connection between my location and the patients location ([facility]). After connecting through interactive tele-video, patient was identified by name and date of and/or wristband check.Patient (or authorized healthcare represen kta) was informed that this was a telemedicine visit and it was being conducted confidentially over secure lines. My office door was closed and no one else was present in the room with me.Patient (or authorized healthcare automotive sales representative) provided consent to proceed with the visit, expressed an understanding of privacy and security of the telemedicine visit, and gave permission to have a hospital automotive sales representative in the room in order to assist with the visit and to conduct portions of the visit, as needed. I informed the patient (or authorized healthcare automotive sales representative) that I reviewed their record and presented the opportunity for them to ask any questions regarding the visit today. The patient agreed to participate. History of Present Illness Reason for Consultation: Concussion/closed head injury with subsequent LOC Requesting Physician: Dr. Mckinney Attending Physician: Lisbeth Mckinney MD History of Present Illness 87 yo old male presents after unfortunately suffering fall with closed head injury (twice).He reports belief he lost consciousness after falling second time. He reports working on his property and tried to close a door when he fell forward and hit the front of his head. Then he was able crawl on ground to a railing to pull himself up but when doing so fell backwards hitting the back of his head and he believes he lost consciousness after his second fall. He has undergone a CT brain without contrast fortunately revealing no evidence of hemorrhage. I have performed televideo consultation. Patient demonstrate hypoacusis bilaterally- he is able to hear with volume up while he reports his hearing aid are charging. He currently denies pain. He is able to answer questions and follow commands without difficulty noting he reports some pain when lifting BLE. Neurological exam is nonlateralizing/nonfocal in terms of motor strength and coordination. He denies visual auditory olfactory gustatory or gastrointestinal sensation leading up the these events. There is no evidence of tongue biting or loss of bowel or bladder. I do not suspect seizure. Notably has hx of aortic stenosis but again reports falling prior to any lightheadedness dizziness or loss of consciousness. At this time there is no reported cephalgia or cervicalgia. Denies chest pain/palpitations or shortness of breath. No reported changes in vision hearing seizure like activity or paresthesia. Denies recent fevers chills nausea vomiting changes in bowels or bladder. Denies recent medication changes, recent illness or sick contacts, no reported recent travel. He does report finding a tick on his neck and is concerned he may have Lyme disease again. He reports having been diagnosed with Lyme disease in the past. Cariology has been consulted, spine surgery has been consulted due to concern of thoracic fracture. I have explained my recommendation to undergo MRI brain with and without contrast prior to DC and recommend follow up with adult neurology for which he is agreeable. *He also notes finding a tick on his neck recently and he is concerned for another infection with Lyme disease as he reports he has a history of Lyme Disease. Allergies Allergy/AdvReac Type Severity Reaction Status Date / Time Sulfa (Sulfonamide Allergy Intermediate RASH Verified 04/20/23 19:32 Antibiotics) house dust mite Allergy Mild Congested Verified 04/20/23 23:28 mold Allergy Mild CONGESTION Verified 04/20/23 19:32 fluticasone furoate AdvReac Intermediate LARYNGITIS Verified 04/20/23 19:32 [From Breo Ellipta] vilanterol AdvReac Intermediate LARYNGITIS Verified 04/20/23 19:32 [From Breo Ellipta] Home Medications Medication Instructions Recorded Confirmed Type metoprolol succinate 25 mg 25 mg PO QAM 05/15/21 04/20/23 History tablet,extended release 24 hr spironolactone 25 mg tablet 12.5 mg PO Q2D 05/15/21 04/20/23 History aspirin 81 mg tablet,delayed 81 mg PO QAM 30 days #30 tabs 05/17/21 04/20/23 Rx release atorvastatin 40 mg tablet 40 mg PO QAM 30 days #30 tabs 05/17/21 04/20/23 Rx amlodipine 5 mg tablet 5 mg PO DAILY 06/03/22 04/20/23 History furosemide 20 mg tablet 20 mg PO DAILY 06/03/22 04/20/23 History gabapentin 300 mg capsule 300 mg PO TID 06/03/22 04/20/23 History levocetirizine 5 mg tablet 5 mg PO DAILY 06/03/22 04/20/23 History montelukast 10 mg tablet 10 mg PO HS 06/03/22 04/20/23 History fluticasone propionate 230 2 inh inhalation BID 04/20/23 04/20/23 History mcg-salmeterol 21 mcg/actuation HFA inhaler (Advair HFA) tiotropium bromide 2.5 2 puff inhalation QAM 04/20/23 04/20/23 History mcg/actuation mist for inhalation (Spiriva Respimat) Patient History Medical History History of CVA (cerebrovascular accident) Chronic diastolic heart failure Asthma History of nephrolithiasis Suprapubic catheter HTN (hypertension) History of radiation therapy Prostate cancer Surgical History History of cholecystectomy History of parotidectomy History of right hip replacement H/O shoulder surgery S/P TURP Family History Mother TIA (transient ischemic attack) Other Cancer Diabetes Social History Smoking Status: Never smoker Second Hand Exposure: No; Do You Dip or Chew Tobacco: No; Tobacco Cessation Education Requested by Patient: No Hx Alcohol Use: Yes Alcohol type: wine Hx Substance Use: No Preferred Language: Maltese Communication Ability: Effective Hearing Ability: Use of Hearing Aid Cruller Maker Machine Required: No Beliefs That Will Affect Care: None marital status: Current Living Situation: Spouse Current Living Situation Comment: at home with spouse current occupational status: retired How many Children do You have: 2 Other Information That Helps Us Care for You: No Feels Safe at Home: Yes Safety Concerns: Feels Safe At This Time Seatbelt Use: always Sunscreen Use: No Assistive Devices: Cane Physical Exam Neurological Examination: Mental Status: Awake and alert. Oriented to person, place, and time. Fluency naming repetition and comprehension appear grossly intact. Affect remains appropriate. 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 No apparent evidence of dysmetria or dysdiadochokinesia Reflexes: Deferred Gait: Deferred Results & Data Vital Signs (Past 12 Hours) Vital Signs Pulse Pulse Resp BP BP Pulse Ox O2 Del Method 04/21/23 13:30 60 17 97 04/21/23 13:00 58 L 19 95 04/21/23 12:30 59 L 16 93 04/21/23 12:00 107/56 L 04/21/23 12:00 57 L 17 97 04/21/23 11:30 58 L 15 97 04/21/23 11:00 59 L 15 97 04/21/23 08:00 60 14 109/71 97 Room Air 04/21/23 07:11 61 04/21/23 04:52 63 20 118/71 96 Nasal Cannula 04/21/23 04:49 Nasal Cannula O2 Flow Rate 04/21/23 13:30 04/21/23 13:00 04/21/23 12:30 04/21/23 12:00 04/21/23 12:00 04/21/23 11:30 04/21/23 11:00 04/21/23 08:00 04/21/23 07:11 04/21/23 04:52 2 04/21/23 04:49 2 Laboratory Results Abnormal lab results 04/20/23 04/20/23 04/20/23 Range/Units 18:35 18:42 18:46 WBC 13.38 H (4.8-10.8) K/ul POC Hct 53 H (42-52) % MCHC (32.0-36.0) g/dL RDW Std Deviation 47.1 H (36.4-46.3) fL Neut # (Auto) 10.93 H (1.40-6.50) K/uL Miller # (Auto) 1.00 H (0.11-0.59) K/uL POC BUN 24 H (7-18) mg/dl BUN/Creatinine Ratio 26.4 H (10-20) Glucose (70-99(Fasting)) mg/dl POC Glucose 112 H (70-99) mg/dl Calcium (8.6-10.3) mg/dl Troponin I High Sens 1357.2 H* (0-20) pg/ml B-Natriuretic Peptide 174 H (0-100) pg/ml Urine Appearance (Clear) Urine pH (4.5-7.5) Urine Protein (Negative) Urine Blood (Negative) Urine Nitrite (Negative) Ur Leukocyte Esterase (Negative) Urine WBC (Auto) (0-5) /hpf Urine Bacteria (Auto) (Negative) 04/20/23 04/21/23 Range/Units 22:10 06:10 WBC (4.8-10.8) K/ul POC Hct (42-52) % MCHC 36.5 H (32.0-36.0) g/dL RDW Std Deviation 47.4 H (36.4-46.3) fL Neut # (Auto) (1.40-6.50) K/uL Miller # (Auto) 0.77 H (0.11-0.59) K/uL POC BUN (7-18) mg/dl BUN/Creatinine Ratio 22.3 H (10-20) Glucose 132 H (70-99(Fasting)) mg/dl POC Glucose (70-99) mg/dl Calcium 8.3 L (8.6-10.3) mg/dl Troponin I High Sens 2340.8 H* D 3511.7 H* D (0-20) pg/ml B-Natriuretic Peptide (0-100) pg/ml Urine Appearance Cloudy A (Clear) Urine pH >= 9.0 H (4.5-7.5) Urine Protein 3+ H (Negative) Urine Blood Trace H (Negative) Urine Nitrite Positive A (Negative) Ur Leukocyte Esterase 2+ H (Negative) Urine WBC (Auto) >30 H (0-5) /hpf Urine Bacteria (Auto) 3+ H (Negative) Diagnostic Findings Abdomen/Pelvis CT 04/20/23 18:31 Exam(s): CT ABDOMEN + PELVIS With Contrast IV Amt: 90 ml optiray 320 EXAM: CT Abdomen and Pelvis With Intravenous Contrast CLINICAL HISTORY: Reason for exam: fall. TECHNIQUE: Axial computed tomography images of the abdomen and pelvis with intravenous contrast. CTDI is 28.14 mGy and DLP is 1598.33 mGy-cm. Automated exposure control was utilized for the study. A dose lowering technique was utilized adhering to the principles of ALARA. CONTRAST: Patient received 90 ml optiray 320 of IV contrast COMPARISON: CT abdomen/pelvis on 06/03/2022 FINDINGS: Lung bases: Lower lung atelectasis. Calcified granulomas. Heart: Mild cardiomegaly. Coronary artery, aortic valve, and mitral annular calcifications. ABDOMEN: Liver: Probable small left hepatic cyst which could be further evaluated with ultrasound if clinically indicated. Gallbladder and bile ducts: Prior cholecystectomy. No ductal dilation. Pancreas: Mild atrophy of the pancreas. No ductal dilation. Spleen: Unremarkable. No splenomegaly. Adrenals: Unremarkable. No mass. Kidneys and ureters: Punctate nonobstructing left renal stone. No hydronephrosis or ureteral stone. Stomach and bowel: Evaluation of the stomach is limited by under distention. Diverticulosis without evidence of diverticulitis. No small bowel obstruction. PELVIS: Appendix: Appendix is nonvisualized on this exam. Bladder: Bladder stones noted. Mild prominence of the bladder wall is nonspecific. Please correlate with urinalysis if concerned for cystitis. Suprapubic catheter and small amount of gas. Reproductive: Probable prostatectomy. ABDOMEN and PELVIS: Intraperitoneal space: See below. Bones/joints: Right hip arthroplasty causes artifact that limits evaluation of portions of the pelvis. Degenerative changes of the spine. Minimal retrolisthesis of L2 on L3 and L3 on L4. No acute fracture. No dislocation. Soft tissues: Mild bilateral gynecomastia. Small fat-containing umbilical hernia. Vasculature: Atherosclerotic changes of the vasculature. No aortic aneurysm or dissection. Lymph nodes: Mild haziness in the central mesentery with mildly prominent mesenteric lymph nodes may represent mesenteric panniculitis. Other findings: Age indeterminate mild widening of the anterior aspect of the intervertebral disc space at T11-12, new compared to prior exam on 06/03/2022. IMPRESSION: 1. Bladder stones noted. Mild prominence of the bladder wall is nonspecific. Please correlate with urinalysis if concerned for cystitis. 2. Age indeterminate mild widening of the anterior aspect of the intervertebral disc space at T11-12, new compared to prior exam on 06/03/2022 and possibly acute. Further evaluation could be performed with MRI if clinically indicated. Electronically signed by: Joan Sethi M.D. 04/20/23 19:[address] 04/20/23 18:32 Exam(s): CT C SPINE EXAM: CT Cervical Spine Without Intravenous Contrast CLINICAL HISTORY: Reason for exam: fall. TECHNIQUE: Axial computed tomography images of the cervical spine without intravenous contrast. CTDI is 26.35 mGy and DLP is 543.82 mGy-cm. Automated exposure control was utilized for the study. A dose lowering technique was utilized adhering to the principles of ALARA. COMPARISON: None FINDINGS: Bones: Normal alignment. No acute fracture or bony lesion. Ossifications in the nuchal ligament are likely related to remote trauma. Disc spaces: No subluxation. Degenerative changes of the spine. Soft tissues: Normal. Other: Mild mucosal thickening in the maxillary sinuses. Polyp versus mucous retention cyst in the right maxillary sinus. Atherosclerotic changes of the vasculature. Right carotid artery stent. Calcified granulomas partially seen in the right lung apex. IMPRESSION: No acute traumatic abnormality. Electronically signed by: Joan Sethi M.D. 04/20/23 19:28 PM Chest X-Ray 04/20/23 18:32 SINGLE VIEW CHEST CLINICAL HISTORY: Fall. FINDINGS: 2 AP, portable, supine chest radiographs are compared to study dated 06/03/2022. Correlation is made with chest CT dated 12/16/2015. The examination is degraded by portable technique and patient rotation. The heart is enlarged. There is pulmonary vascular congestion. Chronic interstitial thickening is similar to previous. Foci of parenchymal scarring are seen throughout both lungs. There are scattered calcified granulomas. No airspace consolidation or large pleural effusion is identified. No pneumothorax is seen. The skeletal structures are osteopenic. The bony thorax is grossly intact. IMPRESSION: 1. Cardiomegaly with pulmonary vascular congestion. 2. No airspace consolidation or large pleural effusion is identified. ACT 112: Negative or not required by law. Electronically signed by: Baudilio Multani M.D. 04/20/2023 8:[address] 04/20/23 18:32 Exam(s): CT HEAD Without Contrast EXAM: CT Head Without Intravenous Contrast CLINICAL HISTORY: Reason for exam: fall. TECHNIQUE: Axial computed tomography images of the head/brain without intravenous contrast. CTDI is 37.12 mGy and DLP is 624.41 mGy-cm. Automated exposure control was utilized for the study. A dose lowering technique was utilized adhering to the principles of ALARA. COMPARISON: CT head on 05/15/2021. MRI brain on 05/16/2021. FINDINGS: Brain: No acute infarct or hemorrhage identified. No extra-axial fluid collection. No mass effect or midline shift. Scattered areas of hypoattenuation in the supratentorial white matter likely represent chronic small vessel ischemic changes. Small amount of encephalomalacia in the right posterior frontal region. Ventricles and sulci: Prominence of the ventricles and sulci is likely secondary to cerebral volume loss. Bones: Hyperostosis frontalis interna. No bony lesion or acute fracture. Subcutaneous tissues: Normal. Sinuses: Mucosal thickening in the maxillary sinuses and ethmoid air cells. Mastoid air cells: Normal. Orbits: Grossly unremarkable. Other: Atherosclerotic calcifications in the intracranial vasculature. IMPRESSION: 1. No acute intracranial abnormality. 2. Chronic small vessel ischemic changes and cerebral volume loss. Small amount of encephalomalacia in the right posterior frontal region. Electronically signed by: Joan Sethi M.D. 04/20/23 19:41 PM Pelvis X-Ray 04/20/23 18:32 SINGLE VIEW PELVIS CLINICAL HISTORY: Fall. FINDINGS: 2 AP, portable, supine pelvic radiographs are correlated with pelvic CT performed the same day 04/20/2023. The skeletal structures are osteopenic. There is no radiographic evidence of acute fracture involving the hips or pelvis. A bipolar right hip arthroplasty is in near anatomic alignment. Moderate osteoarthritic change and joint space narrowing is seen in the left hip. Enthesophytes arise from the anterior superior iliac spines. Lumbosacral spondylosis is partially imaged. There is degenerative sclerosis of the sacroiliac joints. Excreted IV contrast fills the bladder. Brachytherapy implants are noted in the pelvis. The overlying soft tissues are normal as imaged. A catheter projects over the pelvis. IMPRESSION: No acute fracture is identified. Electronically signed by: Baudilio Multani M.D. 04/20/2023 8:08 PM Thoracic Spine MRI 04/20/23 22:18 Exam(s): MRI T SPINE Without Contrast EXAM: MR Thoracic Spine Without Intravenous Contrast CLINICAL HISTORY: Reason for exam: traumatic back pain, abn ct. TECHNIQUE: Magnetic resonance images of the thoracic spine without intravenous contrast in multiple planes. COMPARISON: Same day CT abdomen/pelvis FINDINGS: Vertebrae: Acute fracture through the anterior osteophyte at T11-12 with widening of the anterior intervertebral disc space, measuring approximately 9 mm. No definite fracture of the vertebral bodies. Discs/spinal canal/neural foramina: Degenerative changes of the spine. No significant spinal canal stenosis or neural foraminal stenosis. Spinal cord: Conus medullaris terminates normally at the level of T12- L1. Normal signal. Soft tissues: Unremarkable. IMPRESSION: Acute fracture through the anterior osteophyte at T11-12 with widening of the anterior intervertebral disc space, measuring approximately 9 mm. No definite spinal cord injury. Electronically signed by: Joan Stehi M.D. 04/21/23 00:37 AM Medications Administered Home Medications Medication Instructions Recorded Confirmed Last Taken metoprolol succinate 25 mg 25 mg PO QAM 05/15/21 04/20/23 06/02/22 tablet,extended release 24 hr spironolactone 25 mg tablet 12.5 mg PO Q2D 05/15/21 04/20/23 06/02/22 aspirin 81 mg tablet,delayed 81 mg PO QAM 30 days #30 tabs 05/17/21 04/20/23 06/02/22 release atorvastatin 40 mg tablet 40 mg PO QAM 30 days #30 tabs 05/17/21 04/20/23 06/02/22 amlodipine 5 mg tablet 5 mg PO DAILY 06/03/22 04/20/23 06/02/22 furosemide 20 mg tablet 20 mg PO DAILY 06/03/22 04/20/23 06/02/22 gabapentin 300 mg capsule 300 mg PO TID 06/03/22 04/20/23 06/02/22 levocetirizine 5 mg tablet 5 mg PO DAILY 06/03/22 04/20/23 06/02/22 montelukast 10 mg tablet 10 mg PO HS 06/03/22 04/20/23 06/02/22 fluticasone propionate 230 2 inh inhalation BID 04/20/23 04/20/23 Unknown mcg-salmeterol 21 mcg/actuation HFA inhaler (Advair HFA) tiotropium bromide 2.5 2 puff inhalation QAM 04/20/23 04/20/23 Unknown mcg/actuation mist for inhalation (Spiriva Respimat) Active Medications Generic Name Dose Route Start Last Admin Trade Name Freq PRN Reason Stop Dose Admin Amlodipine Besylate 5 mg 04/21/23 09:00 04/21/23 08:44 Amlodipine Besylate 5 Mg Tab PO 05/21/23 08:59 5 mg DAILY SANDRA Administration Atorvastatin Calcium 40 mg 04/21/23 09:00 04/21/23 08:44 Atorvastatin 40 Mg Tab PO 05/21/23 08:59 40 mg QAM SANDRA Administration Cetirizine HCl 10 mg 04/21/23 09:00 04/21/23 08:44 Cetirizine Hcl 10 Mg Tablet PO 05/21/23 08:59 10 mg DAILY SANDRA Administration Furosemide 20 mg 04/21/23 09:00 04/21/23 08:44 Furosemide 20 Mg Tab PO 05/21/23 08:59 20 mg QAM SANDRA Administration Gabapentin 300 mg 04/21/23 01:05 04/21/23 13:50 Gabapentin 300 Mg Cap PO 05/21/23 01:04 300 mg TID SANDRA Administration Piperacillin Sod/Tazobactam 100 mls @ 25 mls/hr 04/21/23 06:00 04/21/23 13:51 Sod 4.5 gm/ Dextrose IV 05/01/23 05:59 25 mls/hr Q8H SANDRA Administration Protocol Metoprolol Succinate 25 mg 04/21/23 09:00 04/21/23 08:44 Metoprolol Succ 25mg Ext Rel Tab PO 05/21/23 08:59 25 mg QAM SANDRA Administration Miscellaneous 1 each 04/21/23 09:00 04/21/23 08:45 Remove Lidoderm Patch N/A 05/21/23 08:59 1 each DAILY@0900 SANDRA Administration Miscellaneous 1 each 04/21/23 08:00 04/21/23 15:04 Order Awaiting Action: Fluticasone Propion-Salmeterol [Advair Hfa] 230-21 Mcg/Actuation N/A 05/21/23 07:59 Not Given QS SANDRA Oxycodone HCl 5 mg 04/20/23 22:16 04/21/23 00:38 Oxycodone Hcl Ir 5 Mg Tab (Immediate Release) PO 05/04/23 22:15 5 mg Q4H PRN Administration Pain Spironolactone 12.5 mg 04/21/23 09:00 04/21/23 08:44 Spironolactone 12.5 Mg Tab PO 05/21/23 08:59 12.5 mg Q48H SANDRA Administration Umeclidinium Hawkeye 1 puffs 04/21/23 09:00 04/21/23 08:44 Umeclidinium Hawkeye 62.5mcg/Blister 7 Puffs/Inhaler INH 05/21/23 08:59 1 puffs DAILY SANDRA Administration (1) CHI (closed head injury) Encounter type: initial encounter Qualified Code(s): S09.90XA - Unspecified injury of head, initial encounter
[2023-04-21 20:32] LABS: Partial Thromboplastin Ratio 1.1; Partial Thromboplastin Time 29.9 Seconds (21.0-31.0)
[2023-04-21] MEDS: MONTELUKAST SODIUM 10 MG TABLET PO SCH (21:10)
[2023-04-21] MEDS: LIDOCAINE 5% 1 PATCH TD SCH (21:11)
[2023-04-21] MEDS: DICLOFENAC SOD 1% GEL 100 GM TUBE EXT PRN (22:31)
--- NOTE | 2023-04-22 01:16 | Hospitalist Progress Note ---
Date of Service April 21, 2023 Assessment & Plan (1) CHI (closed head injury): (2) Elevated troponin: (3) Hypothermia: (4) History of CVA (cerebrovascular accident): (5) Fall: (6) Chronic diastolic heart failure: (7) Asthma: Plan 87-year-old male with PMHx significant for dyslipidemia, asthma, chronic diastolic CHF, aortic stenosis, carotid stenosis s/p right carotid artery stenting, HTN, paroxysmal SVT, history of prostate cancer s/p radiation therapy, s/p suprapubic catheter placement, history of CVA who presents to the ED for evaluation after a fall. Sepsis secondary to complicated UTI History of suprapubic catheter placement history of prostate cancer status post radiation Pt presented with tachycardia, temp below 36 Urine suggestive of infection, cx growing gram negative bacteria Lactate and procal not elevated Continue Zosyn, hx cefepime resistant Pseudomonas according to records T11-T12 vertebral fracture Noted on CT imaging, confirmed with MRI Ortho spine consulted- appreciate recs -reportedly ER provider was in touch with Dr. Rubalcava who recommended bedrest for now and MRI Cerebral concussion Lacerated wound on the scalp secondary to above GCS neurochecks Neurology consult for cerebral concussion Troponin elevation chronic diastolic heart failure/right-sided heart failure Valvular 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/) History of PSVT (EF 60 to 65), TTE 2022 Patient denies chest pain, SOB symptoms hs-trops with significant elevation Cardiology consult-appreciate recs Hypertension stable Hyperlipidemia on statin Rx Bronchial asthma stable Hx of TIA Stable Hyperglycemia likely prediabetes hemoglobin A1c of 5.7 last July 2022 Recent tick bite Pt concerned about a tick bite he had from 2 weeks ago States was not treated Lyme and Anaplasma testing ordered DVT prophylaxis: SCDs Diet: HH Full code Admission and Anticipated Discharge Date Admission Date: April 20, 2023 Subjective Pt seen, was trying to sleep. AAOx3. Long discussion. Notes he is concerned about a tick bite that happened 2 weeks ago. States bite was on his neck. Has also removed other ticks since then that were not attached. States his dog brings them in and [facility]. Denied pain at the time of the encounter. Review of Systems Review of Systems: All systems reviewed & are unremarkable except as noted in Subjective Physical Exam Physical Exam: General: Alert, orientedx3. No acute distress Psych: Appropriate mood and affect Neuro: noted difficulty moving in the bed HEENT: left side of the head bandaged Chest: Nontender to palpation. CV: RRR Resp: no increased effort of breathing Abdomen: Soft, nontender, nondistended. Extremities: Trace edema in lower extremities bilaterally. Results & Data Results & Data Vital Signs (Past 12 Hours) Vital Signs Pulse Pulse Resp BP BP Pulse Ox O2 Del Method 04/21/23 08:00 60 14 109/71 97 Room Air 04/21/23 07:11 61 04/21/23 04:52 63 20 118/71 96 Nasal Cannula 04/21/23 04:49 Nasal Cannula 04/21/23 01:40 72 04/21/23 00:01 79 20 118/69 O2 Flow Rate 04/21/23 08:00 04/21/23 07:11 04/21/23 04:52 2 04/21/23 04:49 2 04/21/23 01:40 04/21/23 00:01 (1) CHI (closed head injury) Encounter type: initial encounter Qualified Code(s): S09.90XA - Unspecified injury of head, initial encounter (3) Hypothermia Encounter type: initial encounter Qualified Code(s): T68.XXXA - Hypothermia, initial encounter (5) Fall Encounter type: initial encounter Qualified Code(s): W19.XXXA - Unspecified fall, initial encounter
[2023-04-22 03:28] LABS: Lyme Ab IgM w/WB Rflx Negative (Negative)
[2023-04-22 03:36] LABS: Lyme Ab IgG w/WB Rflx Positive (Negative)
[2023-04-22] MEDS: PIPERACILLIN/TAZOBACTAM 4.5 GM in DEXTROSE 5% MINI-B 100 ML IV SCH ×3 (05:48→19:44)
[2023-04-22 06:32] LABS: Basophils # (auto) 0.03 K/uL (0.00-0.20); Basophils % (auto) 0.3 %; Eosinophils % (auto) 2.1 %; Hemoglobin 16.2 g/dl (14.0-18.0); Immature Granulocytes # (auto) 0.05 K/uL (0.01-0.20); Immature Granulocytes % (auto) 0.5 %; Lymphocytes # (auto) 1.49 K/uL (1.20-3.40); Lymphocytes % (auto) 15.4 %; Mean Corpuscular Hemoglobin 31.7 pg (25.0-34.0); Mean Corpuscular Hgb Conc 33.8 g/dL (32.0-36.0); Mean Corpuscular Volume 93.9 fL (80.0-100.0); Mean Platelet Volume 11.1 fL (9.4-12.4); Monocytes # (auto) 1.15 K/uL (0.11-0.59); Monocytes % (auto) 11.9 %; Neutrophils # (auto) 6.78 K/uL (1.40-6.50); Neutrophils % (auto) 69.8 %; Platelet Count 135 K/uL (130-400); RDW Coefficient of Variation 14.3 % (11.5-14.5); RDW Standard Deviation 49.7 fL (36.4-46.3); Red Blood Count 5.11 M/uL (4.70-6.10)
[2023-04-22 06:38] LABS: Albumin Globulin Ratio 1.7 (0.9-2); Albumin Level 3.6 gm/dl (3.4-5.0); BUN Creatinine Ratio 21.3 (10-20); Bilirubin,Total 1.9 mg/dl (0.2-1.0); Calcium 8.4 mg/dl (8.6-10.3); Creatinine Clr Calc Pharmacy 63.1 ml/min; Est GFR (African American) 83.6 ml/min; Est GFR (Non-African American) 72.1 ml/min; Globulin 2.1 gm/dl (2.5-4.0); Magnesium 1.9 mg/dl (1.7-2.4); Phosphorus 2.6 mg/dl (2.5-4.9); Potassium 4.1 mmol/L (3.5-5.1); Total Protein 5.7 gm/dl (6.0-8.3)
--- NOTE | 2023-04-22 06:58 | Cardiology Progress Note ---
Date of Service April 22, 2023 Assessment & Plan (1) Acute HFrEF (heart failure with reduced ejection fraction): (2) Chronic diastolic heart failure: (3) Elevated troponin: (4) Fall: (5) CHI (closed head injury): (6) Hypothermia: Plan IMPRESSION: 87 year old male with mild to moderate aortic valve stenosis admitted following a complex initially mechanical fall as detailed below. Cardiology consultation requested due to elevated high sensitivity troponin. Patient asymptomatic. EKG without acute change. Resting echocardiography with new moderate reduction in LV systolic function and wall motion abnormality. Overall clinical picture appears to be that of a stress-induced cardiomyopathy however findings may reflect multivessel coronary artery disease. PLAN: Without cardiac symptoms, in the setting of a scalp laceration, reported concussion, and a thoracic spine fracture, the risks of anticoagulation with heparin appeared to be greater then the benefit. Recommend adding/resuming aspirin 81 mg/day when determined to be safe. Continue evidence-based beta-joanne therapy with metoprolol succinate. Add low-dose SIMONA inhibition as blood pressure allows. Euvolemic on exam-- continue Lasix and Aldactone as ordered Maintain electrolytes. Continue telemetry. Repeat limited TTE on Monday to reassess LV function and wall motion. Consider treatment for Lyme-- will defer to primary team. Further recommendations pending evaluation by Dr. Phillips. Admission and Anticipated Discharge Date Admission Date: April 20, 2023 Supervising Physician Co-Signing Physician Notes Patient seen and personally examined. Main complaints discomfort knees and hip at sites of injury. No cardiac complaints no chest pain or shortness of breath. No acute neurologic complaints. No tachypalpitations or arrhythmias Plan as outlined above Patient on appropriate medical therapies Echocardiogram suggestive of stress mediated cardiomyopathy, certainly stress mediated circumstances. We will repeat echocardiogram on Monday Gradual increase in activities in hospital with maintenance of telemetry Subjective 87-year-old male admitted to [facility] due to a mechanical fall and syncopal episode. High-sensitivity troponin elevated as follows: 1357.2 -> 2340.8 -> 3511.7. EKG without ischemic changes. Echocardiogram revealed hypokinesis to akinesis of the mid and apical LV myocardial wall segments with sparing in the bases, stress-induced cardiomyopathy versus underlying multivessel ischemic heart disease. Heparin was avoided due to bleeding/fall risk. Aspirin okay'd by neurology. GDMT: Metoprolol succinate continued. Blood pressures were running on the softer side, SIMONA/ARB not started. 04/22/2023: Upon entrance into the room patient resting in the chair. Noting some pain-- just got a pain pill. No chest pain or shortness of breath. No lightheadedness or palpitations. Notes recent tick bite on his neck a few days back. Lyme blood work ordered-- IgG positive, the rest of the panel pending Tele: SR 1st degree AVB 60-70s I&O: -1.4L Weight: 102.8 kg Review of Systems Review of Systems: All systems reviewed & are unremarkable except as noted in HPI & below Physical Exam Physical Exam: General: A&Ox3. NAD. HENT: Ecchymosis above the left eye. + Dressing above the left hip. + Hematoma. Eyes: PER. Conjunctiva pink, sclera clear. Neck: No carotid bruits. No JVD. Heart: RRR, 82 bpm. Grade II systolic ejection murmur. Lungs: Clear to auscultation anteriorly. Abdomen: +BS. Soft. Nontender. No masses or organomegaly. + Catheter Extremities: No clubbing, cyanosis, or significant edema. Limited neurological examination is without focal deficits. Pulses: Posterior tibial=1/4. Results & Data Vital Signs (Past 12 Hours) Vital Signs Temp Pulse Resp BP Pulse Ox O2 Del Method 04/22/23 03:36 36.6 C 63 18 113/68 90 Room Air 04/21/23 23:18 37.2 C 66 20 115/73 90 Room Air 04/21/23 19:53 Room Air 04/21/23 19:36 36.8 C 67 21 99/46 L 92 Room Air (4) Fall Encounter type: initial encounter Qualified Code(s): W19.XXXA - Unspecified fall, initial encounter (5) CHI (closed head injury) Encounter type: initial encounter Qualified Code(s): S09.90XA - Unspecified injury of head, initial encounter (6) Hypothermia Encounter type: initial encounter Qualified Code(s): T68.XXXA - Hypothermia, initial encounter
[2023-04-22] MEDS: ACETAMINOPHEN 325 MG TAB PO PRN (08:30)
[2023-04-22] MEDS: GABAPENTIN 300 MG CAP PO SCH ×3 (08:31→19:41)
[2023-04-22] MEDS: FUROSEMIDE 20 MG TAB PO SCH (08:31)
[2023-04-22] MEDS: MONTELUKAST SODIUM 10 MG TABLET PO SCH (08:31)
[2023-04-22] MEDS: SPIRONOLACTONE 12.5 MG TAB PO SCH (08:32)
[2023-04-22] MEDS: CETIRIZINE HCL 10 MG TABLET PO SCH (08:32)
[2023-04-22] MEDS: ATORVASTATIN 40 MG TAB PO SCH (08:32)
[2023-04-22] MEDS: amLODIPine BESYLATE 5 MG TAB PO SCH (08:32)
[2023-04-22] MEDS: METOPROLOL SUCC 25MG EXT REL TAB PO SCH (08:32)
[2023-04-22] MEDS: UMECLIDINIUM BROMIDE 62.5MCG/BLISTER 7 PUFFS/INHALER INH SCH (08:35)
--- NOTE | 2023-04-22 08:37 | Orthopedic Consultation ---
Date of Consultation April 22, 2023 Assessment & Plan (1) Thoracic spine fracture: Patient has evidence of a T11-T12 Chance fracture. This can be highly unstable. Clearly at his age and other medical issues would like to treat this nonoperatively. We will attempt bed to chair transfers. He is to wear the brace when out of bed. I will obtain a CAT scan of the thoracic spine early next week to assess alignment. History of Present Illness Reason for Consultation: Thoracic spine fracture Requesting Physician: This is a very pleasant 87-year-old male who presents the emergency room after a fall at home. He was hypothermic at the time. He also suffered a head injury. Imaging did demonstrate evidence of a T11-T12 Chance fracture. This morning he states he is comfortable. He sitting up in bed. Denies any abdominal discomfort. Denies any numbness or tingling in lower extremities. He does have some pain in the left knee from the injury. Attending Physician: Lisbeth Mckinney MD Allergies Allergy/AdvReac Type Severity Reaction Status Date / Time Sulfa (Sulfonamide Allergy Intermediate RASH Verified 04/20/23 19:32 Antibiotics) house dust mite Allergy Mild Congested Verified 04/20/23 23:28 mold Allergy Mild CONGESTION Verified 04/20/23 19:32 fluticasone furoate AdvReac Intermediate LARYNGITIS Verified 04/20/23 19:32 [From Breo Ellipta] vilanterol AdvReac Intermediate LARYNGITIS Verified 04/20/23 19:32 [From Breo Ellipta] Home Medications Medication Instructions Recorded Confirmed Type metoprolol succinate 25 mg 25 mg PO QAM 05/15/21 04/20/23 History tablet,extended release 24 hr spironolactone 25 mg tablet 12.5 mg PO Q2D 05/15/21 04/20/23 History aspirin 81 mg tablet,delayed 81 mg PO QAM 30 days #30 tabs 05/17/21 04/20/23 Rx release atorvastatin 40 mg tablet 40 mg PO QAM 30 days #30 tabs 05/17/21 04/20/23 Rx amlodipine 5 mg tablet 5 mg PO DAILY 06/03/22 04/20/23 History furosemide 20 mg tablet 20 mg PO DAILY 06/03/22 04/20/23 History gabapentin 300 mg capsule 300 mg PO TID 06/03/22 04/20/23 History levocetirizine 5 mg tablet 5 mg PO DAILY 06/03/22 04/20/23 History montelukast 10 mg tablet 10 mg PO HS 06/03/22 04/20/23 History fluticasone propionate 230 2 inh inhalation BID 04/20/23 04/20/23 History mcg-salmeterol 21 mcg/actuation HFA inhaler (Advair HFA) tiotropium bromide 2.5 2 puff inhalation QAM 04/20/23 04/20/23 History mcg/actuation mist for inhalation (Spiriva Respimat) Patient History Medical History History of CVA (cerebrovascular accident) Chronic diastolic heart failure Asthma History of nephrolithiasis Suprapubic catheter HTN (hypertension) History of radiation therapy Prostate cancer Surgical History History of cholecystectomy History of parotidectomy History of right hip replacement H/O shoulder surgery S/P TURP Family History Mother TIA (transient ischemic attack) Other Cancer Diabetes Social History Smoking Status: Never smoker Second Hand Exposure: No; Do You Dip or Chew Tobacco: No; Tobacco Cessation Education Requested by Patient: No Hx Alcohol Use: Yes Alcohol type: wine Hx Substance Use: No Preferred Language: [place] Communication Ability: Effective Hearing Ability: Use of Hearing Aid Screen Printer Helper Required: No Beliefs That Will Affect Care: None marital status: Current Living Situation: Spouse Current Living Situation Comment: at home with spouse current occupational status: retired How many Children do You have: 2 Other Information That Helps Us Care for You: No Feels Safe at Home: Yes Safety Concerns: Feels Safe At This Time Seatbelt Use: always Sunscreen Use: No Assistive Devices: Cane Physical Exam Physical Exam: On exam he is alert and oriented. He has good strength testing lower extremities. Sensory is intact. Results & Data Vital Signs (Past 12 Hours) Vital Signs Temp Pulse Resp BP Pulse Ox O2 Del Method 04/22/23 07:36 36.8 C 66 17 108/70 91 Room Air 04/22/23 03:36 36.6 C 63 18 113/68 90 Room Air 04/21/23 23:18 37.2 C 66 20 115/73 90 Room Air
--- NOTE | 2023-04-22 08:48 | XRay Report ---
XR knee LT 3V CLINICAL HISTORY: pain, trauma hx COMPARISON: Left knee radiographs September 04, 2018. FINDINGS: Alignment of the left knee is anatomic. There is no acute fracture. Moderate size joint ef fusion is noted without lipohemarthrosis. Severe patellofemoral compartment joint space narrowing is noted with osteophytosis. There is osteophytosis within the lateral compartment. Moderate vascular ca lcification is incidentally noted. IMPRESSION: 1. No acute fractures within the left knee. 2. Moderate-sized left knee joint effusion. 3. Severe patellofemoral compartment osteoarthritis. ACT 112: Negative or not required by law. Electronically signed by: Vinnie Grimm M.D. 04/22/2023 8:47 AM
[2023-04-22] MEDS: oxyCODONE HCL IR 5 MG TAB (IMMEDIATE RELEASE) PO PRN ×2 (10:52→19:42)
--- NOTE | 2023-04-22 11:19 | Hospitalist Progress Note ---
Date of Service April 22, 2023 Assessment & Plan (1) CHI (closed head injury): (2) Elevated troponin: (3) Hypothermia: (4) History of CVA (cerebrovascular accident): (5) Fall: (6) Chronic diastolic heart failure: (7) Asthma: Plan 87-year-old male with PMHx significant for dyslipidemia, asthma, chronic diastolic CHF, aortic stenosis, carotid stenosis s/p right carotid artery stenting, HTN, paroxysmal SVT, history of prostate cancer s/p radiation therapy, s/p suprapubic catheter placement, history of CVA who presents to the ED for evaluation after a fall. Sepsis secondary to complicated UTI History of suprapubic catheter placement history of prostate cancer status post radiation Pt presented with tachycardia, temp below 36 Urine suggestive of infection, cx growing gram negative bacteria Lactate and procal not elevated Continue Zosyn, hx cefepime resistant Pseudomonas according to records T11-T12 vertebral fracture Noted on CT imaging, confirmed with MRI Ortho spine consulted- appreciate recs -reportedly ER provider was in touch with Dr. Rubalcava who recommended bedrest for now and MRI -ortho recommending brace use on 04/22, and ambulation to chair at bedside Cerebral concussion Lacerated wound on the scalp secondary to above GCS neurochecks Neurology consult for cerebral concussion Troponin elevation chronic diastolic heart failure/right-sided heart failure Valvular 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/) History of PSVT (EF 60 to 65), TTE 2022 Patient denies chest pain, SOB symptoms hs-trops with significant elevation Cardiology consult-appreciate recs Hypertension stable Hyperlipidemia on statin Rx Bronchial asthma stable Hx of TIA Stable Hyperglycemia likely prediabetes hemoglobin A1c of 5.7 last July 2022 Recent tick bite Pt concerned about a tick bite he had from 2 weeks ago States was not treated Lyme IgG positive- noted that it was positive in 2018 Started on Doxycycline given the recent Hx of tick bite Anaplasma testing pending DVT prophylaxis: SCDs Diet: HH Full code Admission and Anticipated Discharge Date Admission Date: April 20, 2023 Subjective Pt was seen in the AM with nursing at bedside. Discussion of lyme testing. States that pain controlled, would like to get into chair per directions of ortho spine. Review of Systems Review of Systems: All systems reviewed & are unremarkable except as noted in Subjective Physical Exam Physical Exam: General: Alert, orientedx3. No acute distress Psych: Appropriate mood and affect Neuro: noted difficulty moving in the bed HEENT: left side of the head bandaged Chest: Nontender to palpation. CV: RRR Resp: no increased effort of breathing Abdomen: Soft, nontender, nondistended. Extremities: Trace edema in lower extremities bilaterally. Results & Data Results & Data Vital Signs (Past 12 Hours) Vital Signs Temp Pulse Resp BP Pulse Ox O2 Del Method 04/22/23 07:36 36.8 C 66 17 108/70 91 Room Air 04/22/23 03:36 36.6 C 63 18 113/68 90 Room Air (1) CHI (closed head injury) Encounter type: initial encounter Qualified Code(s): S09.90XA - Unspecified injury of head, initial encounter (3) Hypothermia Encounter type: initial encounter Qualified Code(s): T68.XXXA - Hypothermia, initial encounter (5) Fall Encounter type: initial encounter Qualified Code(s): W19.XXXA - Unspecified fall, initial encounter
[2023-04-22] MEDS: DOXYCYCLINE HYCLATE 100 MG CAP PO SCH ×2 (11:29→19:41)
[2023-04-22] MEDS: LIDOCAINE 5% 1 PATCH TD SCH (19:41)
[2023-04-23] MEDS: PIPERACILLIN/TAZOBACTAM 4.5 GM in DEXTROSE 5% MINI-B 100 ML IV SCH (05:30)
[2023-04-23 06:25] LABS: Basophils # (auto) 0.05 K/uL (0.00-0.20); Basophils % (auto) 0.6 %; Eosinophils % (auto) 3.3 %; Hematocrit (blood only) 45.7 % (42.0-52.0); Hemoglobin 15.5 g/dl (14.0-18.0); Immature Granulocytes # (auto) 0.08 K/uL (0.01-0.20); Immature Granulocytes % (auto) 0.9 %; Lymphocytes # (auto) 1.71 K/uL (1.20-3.40); Mean Corpuscular Hemoglobin 31.8 pg (25.0-34.0); Mean Corpuscular Hgb Conc 33.9 g/dL (32.0-36.0); Mean Corpuscular Volume 93.6 fL (80.0-100.0); Mean Platelet Volume 11.1 fL (9.4-12.4); Monocytes # (auto) 1.05 K/uL (0.11-0.59); Monocytes % (auto) 11.6 %; Neutrophils # (auto) 5.83 K/uL (1.40-6.50); Neutrophils % (auto) 64.6 %; Platelet Count 126 K/uL (130-400); Red Blood Count 4.88 M/uL (4.70-6.10); White Blood Count 9.02 K/ul (4.8-10.8)
[2023-04-23 06:41] LABS: Albumin Globulin Ratio 1.5 (0.9-2); Albumin Level 3.4 gm/dl (3.4-5.0); BUN Creatinine Ratio 21.6 (10-20); Bilirubin,Total 1.8 mg/dl (0.2-1.0); Calcium 8.1 mg/dl (8.6-10.3); Creatinine Clr Calc Pharmacy 58.2 ml/min; Est GFR (African American) 75.7 ml/min; Est GFR (Non-African American) 65.3 ml/min; Globulin 2.2 gm/dl (2.5-4.0); Magnesium 1.7 mg/dl (1.7-2.4); Phosphorus 2.4 mg/dl (2.5-4.9); Potassium 3.7 mmol/L (3.5-5.1); Total Protein 5.6 gm/dl (6.0-8.3)
[2023-04-23] MEDS: ATORVASTATIN 40 MG TAB PO SCH (09:00)
[2023-04-23] MEDS: FUROSEMIDE 20 MG TAB PO SCH (09:00)
[2023-04-23] MEDS: CETIRIZINE HCL 10 MG TABLET PO SCH (09:00)
[2023-04-23] MEDS: CALCIUM CITRATE 950 MG TAB PO SCH ×3 (09:00→19:38)
[2023-04-23] MEDS: DOXYCYCLINE HYCLATE 100 MG CAP PO SCH ×2 (09:00→20:19)
[2023-04-23] MEDS: GABAPENTIN 300 MG CAP PO SCH ×3 (09:00→20:19)
[2023-04-23] MEDS: METOPROLOL SUCC 25MG EXT REL TAB PO SCH (09:00)
[2023-04-23] MEDS: CEFDINIR 300 MG CAP PO SCH ×2 (09:00→20:19)
[2023-04-23] MEDS: UMECLIDINIUM BROMIDE 62.5MCG/BLISTER 7 PUFFS/INHALER INH SCH (09:30)
[2023-04-23] MEDS: amLODIPine BESYLATE 5 MG TAB PO SCH (09:45)
[2023-04-23] MEDS: POLYETHYLENE (MIRALAX) 17 GM PACK PO SCH ×2 (11:30→20:19)
[2023-04-23] MEDS: POT PHOSPHATE MONOBASIC W/ SOD TAB PO SCH ×4 (12:00→20:20)
--- NOTE | 2023-04-23 12:30 | Cardiology Progress Note ---
Date of Service April 23, 2023 Assessment & Plan (1) Acute HFrEF (heart failure with reduced ejection fraction): (2) Chronic diastolic heart failure: (3) Elevated troponin: (4) Fall: (5) CHI (closed head injury): (6) Hypothermia: Plan IMPRESSION: 87 year old male with mild to moderate aortic valve stenosis admitted following a complex initially mechanical fall as detailed below. Cardiology consultation requested due to elevated high sensitivity troponin. Patient asymptomatic. EKG without acute change. Resting echocardiography with new moderate reduction in LV systolic function and wall motion abnormality. Overall clinical picture appears to be that of a stress-induced cardiomyopathy however findings may reflect multivessel coronary artery disease. PLAN: Without cardiac symptoms, in the setting of a scalp laceration, reported concussion, and a thoracic spine fracture, the risks of anticoagulation with heparin appeared to be greater then the benefit. Recommend adding/resuming aspirin 81 mg/day when determined to be safe. Continue evidence-based beta-joanne therapy with metoprolol succinate. Add low-dose SIMONA inhibition as blood pressure allows. Euvolemic on exam-- continue Lasix and Aldactone as ordered Maintain electrolytes. Continue telemetry. Repeat limited TTE on Monday to reassess LV function and wall motion. Consider treatment for Lyme-- will defer to primary team. 04/23/2023 Stable hemodynamically and from cardiac standpoint. We will repeat echocardiogram given wall motion abnormality question stress mediated. Patient on appropriate medical therapies no acute complaints or arrhythmias Admission and Anticipated Discharge Date Admission Date: April 20, 2023 Subjective Patient seen and examined, chart, telemetry reviewed. Feels improved. Knee pain less discomfort. Mild cough but wearing chest and back brace No arrhythmias on telemetry No edema Review of Systems Review of Systems: All systems reviewed & are unremarkable except as noted in Subjective Physical Exam Constitutional: WD/WN, vitals as above no acute distress Eyes: Ecchymosis left temporal area ENMT: external ear and nose normal, oropharynx normal Neck: trachea midline, no thyromegaly Respiratory: normal respiratory effort, lungs clear to auscultation Cardiovascular: Rate/Rhythm: regular rate and regular rhythm Heart Sounds: + murmur Vessels: no JVD Extremities: no edema Gastrointestinal (Abdomen): normal bowel sounds, soft, nontender, no hepatosplenomegaly Results & Data Vital Signs (Past 12 Hours) Vital Signs Temp Pulse Pulse Resp BP BP Pulse Ox 04/23/23 11:54 36.3 C L 68 18 111/67 93 04/23/23 07:46 36.8 C 63 19 113/69 90 04/23/23 07:30 04/23/23 03:46 36.4 C L 62 20 116/72 90 04/23/23 00:36 65 O2 Del Method 04/23/23 11:54 Room Air 04/23/23 07:46 Room Air 04/23/23 07:30 Room Air 04/23/23 03:46 Room Air 04/23/23 00:36 Laboratory Results Laboratory Results - last 24 hr 04/23/23 05:38 WBC 9.02 RBC 4.88 Hgb 15.5 Hct 45.7 MCV 93.6 MCH 31.8 MCHC 33.9 RDW Std Deviation 48.0 H RDW Coeff of Fredrick 14.0 Plt Count 126 L MPV 11.1 Immature Gran % (Auto) 0.9 Neut % (Auto) 64.6 Lymph % (Auto) 19.0 [place] % (Auto) 11.6 Eos % (Auto) 3.3 Baso % (Auto) 0.6 Neut # (Auto) 5.83 Lymph # (Auto) 1.71 [place] # (Auto) 1.05 H Eos # (Auto) 0.30 Baso # (Auto) 0.05 Immature Gran # (Auto) 0.08 Sodium 137 Potassium 3.7 Chloride 104 Carbon Dioxide 29 Anion Gap 4 BUN 22 Creatinine 1.02 Est Cr Clr Drug Dosing 58.2 Est GFR ( Amer) 75.7 Est GFR (Non-Af Amer) 65.3 BUN/Creatinine Ratio 21.6 H Glucose 111 H Calcium 8.1 L Ionized Calcium 1.11 L Phosphorus 2.4 L Magnesium 1.7 Total Bilirubin 1.8 H AST 34 ALT 55 H Alkaline Phosphatase 104 Total Protein 5.6 L Albumin 3.4 Globulin 2.2 L Albumin/Globulin Ratio 1.5 (4) Fall Encounter type: initial encounter Qualified Code(s): W19.XXXA - Unspecified fall, initial encounter (5) CHI (closed head injury) Encounter type: initial encounter Qualified Code(s): S09.90XA - Unspecified injury of head, initial encounter (6) Hypothermia Encounter type: initial encounter Qualified Code(s): T68.XXXA - Hypothermia, initial encounter
--- NOTE | 2023-04-23 12:36 | Hospitalist Progress Note ---
Date of Service April 23, 2023 Assessment & Plan (1) CHI (closed head injury): (2) Elevated troponin: (3) Hypothermia: (4) History of CVA (cerebrovascular accident): (5) Fall: (6) Chronic diastolic heart failure: (7) Asthma: Plan 87-year-old male with PMHx significant for dyslipidemia, asthma, chronic diastolic CHF, aortic stenosis, carotid stenosis s/p right carotid artery stenting, HTN, paroxysmal SVT, history of prostate cancer s/p radiation therapy, s/p suprapubic catheter placement, history of CVA who presents to the ED for evaluation after a fall. 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 Zosyn switched to PO cefdinir on 02/21, continue T11-T12 vertebral fracture Noted on CT imaging, confirmed with MRI Ortho spine consulted- appreciate recs -reportedly ER provider was in touch with Dr. Rubalcava who recommended bedrest for now and MRI -ortho recommending brace use on 04/22, and ambulation to chair at bedside Cerebral concussion Lacerated wound on the scalp secondary to above GCS neurochecks Neurology consult for cerebral concussion Troponin elevation chronic diastolic heart failure/right-sided heart failure Valvular 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/) History of PSVT (EF 60 to 65), TTE 2022 Patient denies chest pain, SOB symptoms hs-trops with significant elevation Cardiology consult-appreciate recs Hypertension stable Hyperlipidemia on statin Rx Bronchial asthma stable Hx of TIA Stable Hyperglycemia likely prediabetes hemoglobin A1c of 5.7 last July 2022 Recent tick bite Pt concerned about a tick bite he had from 2 weeks ago States was not treated Lyme IgG positive- noted that it was positive in 2018 Started on Doxycycline given the recent Hx of tick bite Anaplasma testing pending DVT prophylaxis: SCDs Diet: HH Full code Admission and Anticipated Discharge Date Admission Date: April 20, 2023 Subjective Pt seen in the AM, sitting at bedside in a chair with brace on. Denied acute concerns. Stated that he had not had a BM yet. Review of Systems Review of Systems: All systems reviewed & are unremarkable except as noted in Subjective Physical Exam Physical Exam: General: Alert, orientedx3. No acute distress Psych: Appropriate mood and affect Neuro: sitting up in chair with brace on HEENT: left side of the head with healing scar Chest: Nontender to palpation. CV: RRR Resp: no increased effort of breathing Abdomen: Soft, nontender, nondistended. Extremities: Trace edema in lower extremities bilaterally. Results & Data Results & Data Vital Signs (Past 12 Hours) Vital Signs Temp Pulse Pulse Resp BP BP Pulse Ox 04/23/23 11:54 36.3 C L 68 18 111/67 93 04/23/23 07:46 36.8 C 63 19 113/69 90 04/23/23 07:30 04/23/23 03:46 36.4 C L 62 20 116/72 90 04/23/23 00:36 65 O2 Del Method 04/23/23 11:54 Room Air 04/23/23 07:46 Room Air 04/23/23 07:30 Room Air 04/23/23 03:46 Room Air 04/23/23 00:36 (1) CHI (closed head injury) Encounter type: initial encounter Qualified Code(s): S09.90XA - Unspecified injury of head, initial encounter (3) Hypothermia Encounter type: initial encounter Qualified Code(s): T68.XXXA - Hypothermia, initial encounter (5) Fall Encounter type: initial encounter Qualified Code(s): W19.XXXA - Unspecified fall, initial encounter
[2023-04-23] MEDS: LIDOCAINE 5% 1 PATCH TD SCH (19:36)
[2023-04-23] MEDS: MONTELUKAST SODIUM 10 MG TABLET PO SCH (20:19)
[2023-04-23] MEDS: ACETAMINOPHEN 325 MG TAB PO PRN (20:35)
[2023-04-23] MEDS: oxyCODONE HCL IR 5 MG TAB (IMMEDIATE RELEASE) PO PRN (20:36)
[2023-04-24] MEDS: ACETAMINOPHEN 325 MG TAB PO PRN ×2 (05:46→17:59)
[2023-04-24] MEDS: oxyCODONE HCL IR 5 MG TAB (IMMEDIATE RELEASE) PO PRN ×2 (05:46→19:33)
[2023-04-24 07:05] LABS: Basophils # (auto) 0.04 K/uL (0.00-0.20); Basophils % (auto) 0.5 %; Eosinophils # (auto) 0.31 K/uL (0.00-0.50); Eosinophils % (auto) 3.8 %; Hematocrit (blood only) 45.8 % (42.0-52.0); Immature Granulocytes # (auto) 0.03 K/uL (0.01-0.20); Immature Granulocytes % (auto) 0.4 %; Lymphocytes # (auto) 1.55 K/uL (1.20-3.40); Lymphocytes % (auto) 19.1 %; Mean Corpuscular Hemoglobin 32.2 pg (25.0-34.0); Mean Corpuscular Hgb Conc 34.9 g/dL (32.0-36.0); Mean Corpuscular Volume 92.2 fL (80.0-100.0); Monocytes # (auto) 0.75 K/uL (0.11-0.59); Monocytes % (auto) 9.3 %; Neutrophils # (auto) 5.42 K/uL (1.40-6.50); Neutrophils % (auto) 66.9 %; Platelet Count 154 K/uL (130-400); RDW Standard Deviation 47.4 fL (36.4-46.3); Red Blood Count 4.97 M/uL (4.70-6.10)
[2023-04-24] MEDS: POT PHOSPHATE MONOBASIC W/ SOD TAB PO SCH ×4 (08:02→19:26)
[2023-04-24] MEDS: CALCIUM CITRATE 950 MG TAB PO SCH ×3 (08:03→17:56)
[2023-04-24] MEDS: GABAPENTIN 300 MG CAP PO SCH ×3 (08:03→19:24)
[2023-04-24] MEDS: DOXYCYCLINE HYCLATE 100 MG CAP PO SCH ×2 (08:04→19:23)
[2023-04-24] MEDS: CEFDINIR 300 MG CAP PO SCH ×2 (08:04→19:22)
[2023-04-24] MEDS: METOPROLOL SUCC 25MG EXT REL TAB PO SCH (08:05)
[2023-04-24] MEDS: ATORVASTATIN 40 MG TAB PO SCH (08:05)
[2023-04-24] MEDS: FUROSEMIDE 20 MG TAB PO SCH (08:06)
[2023-04-24] MEDS: CETIRIZINE HCL 10 MG TABLET PO SCH (08:06)
[2023-04-24] MEDS: UMECLIDINIUM BROMIDE 62.5MCG/BLISTER 7 PUFFS/INHALER INH SCH (08:07)
[2023-04-24] MEDS: POLYETHYLENE (MIRALAX) 17 GM PACK PO SCH ×4 (08:07→21:27)
[2023-04-24 08:11] LABS: Albumin Level 3.3 gm/dl (3.4-5.0); Bilirubin,Total 1.3 mg/dl (0.2-1.0); Calcium 8.5 mg/dl (8.6-10.3); Magnesium 1.7 mg/dl (1.7-2.4); Potassium 3.9 mmol/L (3.5-5.1)
[2023-04-24 08:21] LABS: Albumin Globulin Ratio 1.4 (0.9-2); BUN Creatinine Ratio 21.4 (10-20); Creatinine Clr Calc Pharmacy 60.3 ml/min; Est GFR (African American) 79.5 ml/min; Est GFR (Non-African American) 68.6 ml/min; Globulin 2.3 gm/dl (2.5-4.0); Total Protein 5.6 gm/dl (6.0-8.3)
[2023-04-24] MEDS ORDERED: STAT IV/IM STA (09:51)
[2023-04-24] MEDS: CALCIUM GLUCONATE 10% 1,000 MG in SODIUM CHLOR 0.9% MINI-B 50 ML IV SCH ×2 (10:25→10:42)
[2023-04-24] MEDS: DOCUSATE SODIUM 100 MG CAP PO SCH ×2 (11:01→19:23)
--- NOTE | 2023-04-24 12:19 | Cardiology Progress Note ---
Date of Service April 24, 2023 Assessment & Plan (1) Acute HFrEF (heart failure with reduced ejection fraction): (2) Chronic diastolic heart failure: (3) Elevated troponin: (4) Fall: (5) CHI (closed head injury): (6) Hypothermia: Plan IMPRESSION: 87 year old male with mild to moderate aortic valve stenosis admitted following a complex initially mechanical fall as detailed below. Cardiology consultation requested due to elevated high sensitivity troponin. Patient asymptomatic. EKG without acute change. 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 Patient hemodynamically stable, without angina or evidence of volume overload PLAN: Follow-up echocardiogram pending, question stress mediated cardiomyopathy versus other Continue evidence-based beta-joanne therapy with metoprolol succinate Continue aspirin 81 mg/day Continue furosemide and spironolactone as prescribed Consider addition of low-dose SIMONA inhibition pending the follow-up echo results, as blood pressure allows. Amlodipine discontinued prior to admission due to symptomatic hypotension Admission and Anticipated Discharge Date Admission Date: April 20, 2023 Supervising Physician Co-Signing Physician Notes Patient was seen and examined on 04/24/2023 Overall continued improvement since hospitalization evaluation as above. Repeat echocardiogram done day of examination demonstrates improved LV systolic function including apical ballooning cardiomyopathy findings. Subjective Patient seen and examined. Chart, medications, and telemetry reviewed. Back and knee pain have improved. No chest pain. No palpitations. No worsening shortness of breath. Anticipating rehabilitation stay postdischarge. Follow-up echo pending today Telemetry: Sinus in the 70s with occasional ventricular ectopy, asymptomatic. Review of Systems Review of Systems: Complete review of systems is otherwise as stated above, negative, noncontributory. Physical Exam Physical Exam: General: A&Ox3. NAD. HENT: Healing ecchymosis Eyes: PER. Conjunctiva pink, sclera clear. Neck: No carotid bruits. No JVD. Heart: RRR, 70 bpm. Grade II systolic ejection murmur. Lungs: Clear to auscultation anteriorly. Abdomen: +BS. Soft. Nontender. No masses or organomegaly. Suprapubic catheter Extremities: No clubbing, cyanosis, or significant edema. Limited neurological examination is without focal deficits. Pulses: Posterior tibial=1/4. Results & Data Vital Signs (Past 12 Hours) Vital Signs Temp Pulse Pulse Resp BP BP Pulse Ox 04/24/23 11:09 64 18 126/82 91 04/24/23 08:49 64 04/24/23 07:21 04/24/23 07:14 36.5 C 64 18 108/63 93 04/24/23 03:57 65 04/24/23 03:36 36.4 C L 81 18 114/74 92 04/24/23 00:35 60 16 93 O2 Del Method 04/24/23 11:09 Room Air 04/24/23 08:49 04/24/23 07:21 Room Air 04/24/23 07:14 Room Air 04/24/23 03:57 04/24/23 03:36 Room Air 04/24/23 00:35 Room Air Laboratory Results Cardiac Enzymes 04/24/23 Range/Units 06:35 AST 38 (13-39) U/L CBC 04/24/23 Range/Units 06:35 WBC 8.10 (4.8-10.8) K/ul RBC 4.97 (4.70-6.10) M/uL Hgb 16.0 (14.0-18.0) g/dl Hct 45.8 (42.0-52.0) % Plt Count 154 (130-400) K/uL Neut # (Auto) 5.42 (1.40-6.50) K/uL Lymph # (Auto) 1.55 (1.20-3.40) K/uL [place] # (Auto) 0.75 H (0.11-0.59) K/uL Eos # (Auto) 0.31 (0.00-0.50) K/uL Baso # (Auto) 0.04 (0.00-0.20) K/uL Comprehensive Metabolic Panel 04/24/23 Range/Units 06:35 Sodium 139 (136-145) mmol/L Potassium 3.9 (3.5-5.1) mmol/L Chloride 102 (98-107) mmol/L Carbon Dioxide 31 (21-32) mmol/L BUN 21 (6-23) mg/dl Creatinine 0.98 (0.6-1.4) mg/dl Glucose 127 H (70-99(Fasting)) mg/dl Calcium 8.5 L (8.6-10.3) mg/dl AST 38 (13-39) U/L ALT 55 H (7-52) U/L Alkaline Phosphatase 108 H (34-104) U/L Total Protein 5.6 L (6.0-8.3) gm/dl Albumin 3.3 L (3.4-5.0) gm/dl Intake and Output 04/23/23 04/24/23 04/24/23 22:59 06:59 14:59 Intake Total 1160 / 1160 120 / 120 Output Total 1300 / 1725 425 / 1725 Balance -140 / -565 -425 / -565 120 / 120 Intake: IV 100 / 100 120 / 120 Calcium Gluconate 10% 1,000 mg 120 / 120 In Sodium Chlor 0.9% Mini-B 50 ml @ 240 mls/hr IV Q15M [facility] Rx# :[id number] Piperacillin/Tazobactam 4.5 gm 100 / 100 In Dextrose 5% Mini-B 100 ml @ 25 mls/hr IV Q8H [facility] Rx#: [id number] Oral 1060 / 1060 Output: Urine Amount (Catheter) 1300 / 1725 425 / 1725 Ruiz/Indwelling 800 / 800 Suprapubic 500 / 925 425 / 925 Other: Weight 102 kg Weight Measurement Method Built in [facility] (4) Fall Encounter type: initial encounter Qualified Code(s): W19.XXXA - Unspecified fall, initial encounter (5) CHI (closed head injury) Encounter type: initial encounter Qualified Code(s): S09.90XA - Unspecified injury of head, initial encounter (6) Hypothermia Encounter type: initial encounter Qualified Code(s): T68.XXXA - Hypothermia, initial encounter
--- NOTE | 2023-04-24 12:46 | Orthopedic Progress Note ---
Date of Service April 24, 2023 Assessment & Plan (1) Thoracic spine fracture: Plan: Would like to obtain standing x-rays of the thoracolumbar spine to assess his fracture alignment. Pending these results we may obtain a follow-up CAT scan for further anatomic detail. Again I expressed to the patient I have concern about instability secondary to the fracture pattern and he may ultimately require surgical stabilization. Make further conditions upon review of imaging. Admission and Anticipated Discharge Date Admission Date: April 20, 2023 Subjective Patient states he is has very little back pain. It troubles him most when he transfers to the chair. He denies any leg pain numbness or tingling. Physical Exam Physical Exam: On exam is currently in bed. Appears comfortable. Is constricted testing. Results & Data Vital Signs (Past 12 Hours) Vital Signs Temp Pulse Pulse Resp BP BP Pulse Ox 04/24/23 11:09 64 18 126/82 91 04/24/23 08:49 64 04/24/23 07:21 04/24/23 07:14 36.5 C 64 18 108/63 93 04/24/23 03:57 65 04/24/23 03:36 36.4 C L 81 18 114/74 92 O2 Del Method 04/24/23 11:09 Room Air 04/24/23 08:49 04/24/23 07:21 Room Air 04/24/23 07:14 Room Air 04/24/23 03:57 04/24/23 03:36 Room Air
--- NOTE | 2023-04-24 13:53 | Hospitalist Progress Note ---
Date of Service April 24, 2023 Assessment & Plan (1) CHI (closed head injury): (2) Elevated troponin: (3) Hypothermia: (4) History of CVA (cerebrovascular accident): (5) Fall: (6) Chronic diastolic heart failure: (7) Asthma: Plan 87-year-old male with PMHx significant for dyslipidemia, asthma, chronic diastolic CHF, aortic stenosis, carotid stenosis s/p right carotid artery stenting, HTN, paroxysmal SVT, history of prostate cancer s/p radiation therapy, s/p suprapubic catheter placement, history of CVA who presents to the ED for evaluation after a fall. 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 Zosyn switched to PO cefdinir on 02/21, continue T11-T12 vertebral fracture Noted on CT imaging, confirmed with MRI Ortho spine consulted- appreciate recs -reportedly ER provider was in touch with Dr. Rubalcava who recommended bedrest and MRI on admission -ortho recommending brace use on 04/22, and ambulation to chair at bedside -04/24- ortho spine advising will repeat imaging, surgery not yet off the table Constipation Pt with difficulty moving bowels Miralax increased to q6h dosing scheduled on 04/24 with scheduled colace 100mg BID Will hold PO calcium citrate which can contribute to bloating and constipation Continue to monitor Hypocalcemia Ionized sebastien decreased IV calcium gluconate replacement as needed Cerebral concussion Lacerated wound on the scalp secondary to above GCS neurochecks Neurology consult for cerebral concussion Troponin elevation chronic diastolic heart failure/right-sided heart failure Valvular 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/) History of PSVT (EF 60 to 65), TTE 2022 Patient denies chest pain, SOB symptoms hs-trops with significant elevation Cardiology consult-appreciate recs Hypertension stable Hyperlipidemia on statin Rx Bronchial asthma stable Hx of TIA Stable Hyperglycemia likely prediabetes hemoglobin A1c of 5.7 last July 2022 Recent tick bite Pt concerned about a tick bite he had from 2 weeks ago States was not treated 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 Following ortho/spine recs for next steps Admission and Anticipated Discharge Date Admission Date: April 20, 2023 Subjective Pt concerned about BM today. Has not yet had one despite being on miralax. States this happens when he is taking narcotics. Otherwise denied acute concerns, Review of Systems Review of Systems: All systems reviewed & are unremarkable except as noted in Subjective Physical Exam Physical Exam: General: Alert, orientedx3. No acute distress Psych: Appropriate mood and affect Neuro: laying in bed HEENT: left side of the head with healing scar Chest: Nontender to palpation. CV: RRR Resp: no increased effort of breathing Abdomen: Soft, nontender, nondistended. Extremities: Trace edema in lower extremities bilaterally. Results & Data Results & Data Vital Signs (Past 12 Hours) Vital Signs Temp Pulse Pulse Resp BP BP Pulse Ox 04/24/23 11:09 64 18 126/82 91 04/24/23 08:49 64 04/24/23 07:21 04/24/23 07:14 36.5 C 64 18 108/63 93 04/24/23 03:57 65 04/24/23 03:36 36.4 C L 81 18 114/74 92 O2 Del Method 04/24/23 11:09 Room Air 04/24/23 08:49 04/24/23 07:21 Room Air 04/24/23 07:14 Room Air 04/24/23 03:57 04/24/23 03:36 Room Air (1) CHI (closed head injury) Encounter type: initial encounter Qualified Code(s): S09.90XA - Unspecified injury of head, initial encounter (3) Hypothermia Encounter type: initial encounter Qualified Code(s): T68.XXXA - Hypothermia, initial encounter (5) Fall Encounter type: initial encounter Qualified Code(s): W19.XXXA - Unspecified fall, initial encounter
--- NOTE | 2023-04-24 13:54 | XRay Report ---
XR thoracic spine 3V routine CLINICAL HISTORY: standing thoracolumbar films, asses T11-12 fx TECHNIQUE: 3 views of the thoracic spine were obtained. Comparison: None available at the time of this dictation. FINDINGS: No fractures or subluxations are identified. Degenerative changes are seen in the thoracic spine. Pre vertebral soft tissues are within normal limits. IMPRESSION: No acute fracture or subluxation. ACT 112: Negative or not required by law. Electronically signed by: Devin Lynn M.D. 04/24/2023 1:53 PM
[2023-04-24 14:27] LABS: 18KDIGG Band REACTIVE; 23KDIGG Band NON-REACTIVE; 23KDIGM Band NON-REACTIVE; 28KDIGG Band NON-REACTIVE; 30KDIGG Band NON-REACTIVE; 39KDIGG Band REACTIVE; 39KDIGM Band NON-REACTIVE; 41KDIGG Band REACTIVE; 41KDIGM Band NON-REACTIVE; 45KDIGG Band NON-REACTIVE; 58KDIGG Band NON-REACTIVE; 66KDIGG Band NON-REACTIVE; 93KDIGG Band REACTIVE; Lyme Antibodies, WB IgG NEGATIVE (NEGATIVE); Lyme Antibodies, WB IgM NEGATIVE (NEGATIVE)
[2023-04-24] MEDS: LIDOCAINE 5% 1 PATCH TD SCH (19:24)
[2023-04-24] MEDS: MONTELUKAST SODIUM 10 MG TABLET PO SCH (19:25)
[2023-04-25] MEDS: POLYETHYLENE (MIRALAX) 17 GM PACK PO SCH (05:48)
[2023-04-25 07:20] LABS: Basophils # (auto) 0.05 K/uL (0.00-0.20); Basophils % (auto) 0.7 %; Eosinophils # (auto) 0.43 K/uL (0.00-0.50); Eosinophils % (auto) 6.2 %; Hematocrit (blood only) 45.8 % (42.0-52.0); Hemoglobin 15.5 g/dl (14.0-18.0); Immature Granulocytes # (auto) 0.02 K/uL (0.01-0.20); Immature Granulocytes % (auto) 0.3 %; Lymphocytes # (auto) 1.16 K/uL (1.20-3.40); Lymphocytes % (auto) 16.7 %; Mean Corpuscular Hemoglobin 31.6 pg (25.0-34.0); Mean Corpuscular Hgb Conc 33.8 g/dL (32.0-36.0); Mean Corpuscular Volume 93.3 fL (80.0-100.0); Mean Platelet Volume 11.2 fL (9.4-12.4); Monocytes # (auto) 0.71 K/uL (0.11-0.59); Monocytes % (auto) 10.2 %; Neutrophils # (auto) 4.57 K/uL (1.40-6.50); Neutrophils % (auto) 65.9 %; Platelet Count 151 K/uL (130-400); RDW Coefficient of Variation 13.9 % (11.5-14.5); RDW Standard Deviation 47.6 fL (36.4-46.3); Red Blood Count 4.91 M/uL (4.70-6.10); White Blood Count 6.94 K/ul (4.8-10.8)
[2023-04-25 07:49] LABS: Albumin Globulin Ratio 1.4 (0.9-2); Albumin Level 3.2 gm/dl (3.4-5.0); BUN Creatinine Ratio 20.2 (10-20); Bilirubin,Total 1.2 mg/dl (0.2-1.0); Calcium 8.6 mg/dl (8.6-10.3); Creatinine Clr Calc Pharmacy 41.3 ml/min; Est GFR (African American) 90.6 ml/min; Est GFR (Non-African American) 78.2 ml/min; Globulin 2.3 gm/dl (2.5-4.0); Magnesium 1.7 mg/dl (1.7-2.4); Phosphorus 3.4 mg/dl (2.5-4.9); Potassium 4.1 mmol/L (3.5-5.1); Total Protein 5.5 gm/dl (6.0-8.3)
[2023-04-25] MEDS: oxyCODONE HCL IR 5 MG TAB (IMMEDIATE RELEASE) PO PRN (09:12)
[2023-04-25] MEDS: DOCUSATE SODIUM 100 MG CAP PO SCH ×2 (09:12→21:24)
[2023-04-25] MEDS: ACETAMINOPHEN 325 MG TAB PO PRN (09:13)
[2023-04-25] MEDS: SPIRONOLACTONE 12.5 MG TAB PO SCH (09:14)
[2023-04-25] MEDS: GABAPENTIN 300 MG CAP PO SCH ×3 (09:15→20:44)
[2023-04-25] MEDS: UMECLIDINIUM BROMIDE 62.5MCG/BLISTER 7 PUFFS/INHALER INH SCH (09:15)
[2023-04-25] MEDS: CEFDINIR 300 MG CAP PO SCH ×2 (09:16→20:45)
[2023-04-25] MEDS: DOXYCYCLINE HYCLATE 100 MG CAP PO SCH ×2 (09:16→20:45)
[2023-04-25] MEDS: POT PHOSPHATE MONOBASIC W/ SOD TAB PO SCH ×4 (09:17→20:44)
[2023-04-25] MEDS: CETIRIZINE HCL 10 MG TABLET PO SCH (09:17)
[2023-04-25] MEDS: METOPROLOL SUCC 25MG EXT REL TAB PO SCH (09:17)
[2023-04-25] MEDS: ATORVASTATIN 40 MG TAB PO SCH (09:18)
[2023-04-25] MEDS: FUROSEMIDE 20 MG TAB PO SCH (09:18)
--- NOTE | 2023-04-25 11:07 | Cardiology Progress Note ---
Date of Service April 25, 2023 Assessment & Plan (1) Acute HFrEF (heart failure with reduced ejection fraction): (2) Chronic diastolic heart failure: (3) Elevated troponin: (4) Fall: (5) CHI (closed head injury): (6) Hypothermia: Plan IMPRESSION: 87 year old male with mild to moderate aortic valve stenosis admitted following a complex fall. Cardiology consultation requested due to elevated high sensitivity troponin. Patient without new or worsening cardi opulmonary symptoms. EKG without acute change. Initial resting echocardiography with moderate reduction in LV systolic function and wall motion abnormality with follow-up resting echocardiography on April 24, 2023 revealing substantial improvement in overall LV systolic function and contractility, resolved apical ballooning, EF 55 to 60%. Patient remains hemodynamically stable, without evidence of angina, volume overload, or arrhythmia. PLAN: Continue evidence-based beta-joanne therapy, metoprolol succinate Continue aspirin 81 mg/day Continue furosemide and spironolactone as prescribed Hold off on adding low-dose SIMONA inhibition Amlodipine discontinued prior to admission due to symptomatic hypotension Increase activity as tolerated Admission and Anticipated Discharge Date Admission Date: April 20, 2023 Supervising Physician Co-Signing Physician Notes Patient was seen and personally examined. Overall continues to demonstrate improvement. Echocardiogram yesterday very reassuring with resolve of apical ballooning cardiomyopathy with only subtle hypokinesis septum still present No cardiac symptoms or Clinical history and pattern of admission consistent with acute stress mediated complaints Plan as above Subjective Patient seen and examined. In chair, back brace on. Chart, medications, telemetry reviewed. Telemetry: Sinus with heart rates predominantly in the mid 50s to 70s. April 24, 2023 TTE Interpretation Summary: Normal size LV. Mild concentric LVH. Mild hypokinesis of the anteroseptum and apex. When compared to prior study of April 21, 2023, there has been substantial improvement in overall LV systolic function and contractility. Apical ballooning has resolved. EF 55 to 60%. Review of Systems Review of Systems: Complete review of systems is otherwise as stated above, negative, noncontributory. Physical Exam Physical Exam: General: A&Ox3. NAD. Neck: No JVD. Heart: RRR, 66 bpm. Grade II systolic ejection murmur. Lungs: Clear Abdomen: Not evaluated. Extremities: No distal edema. Limited neurological examination is without focal deficits. Results & Data Vital Signs (Past 12 Hours) Vital Signs Temp Pulse Pulse Resp BP Pulse Ox Pulse Ox 04/25/23 08:15 36.5 C 74 18 115/71 91 04/25/23 01:00 92 04/24/23 23:51 61 O2 Del Method O2 Del Method 04/25/23 08:15 Room Air 04/25/23 01:00 Room Air 04/24/23 23:51 Laboratory Results Cardiac Enzymes 04/25/23 Range/Units 07:00 AST 108 H (13-39) U/L CBC 04/25/23 Range/Units 07:00 WBC 6.94 (4.8-10.8) K/ul RBC 4.91 (4.70-6.10) M/uL Hgb 15.5 (14.0-18.0) g/dl Hct 45.8 (42.0-52.0) % Plt Count 151 (130-400) K/uL Neut # (Auto) 4.57 (1.40-6.50) K/uL Lymph # (Auto) 1.16 L (1.20-3.40) K/uL [place] # (Auto) 0.71 H (0.11-0.59) K/uL Eos # (Auto) 0.43 (0.00-0.50) K/uL Baso # (Auto) 0.05 (0.00-0.20) K/uL Comprehensive Metabolic Panel 04/25/23 Range/Units 07:00 Sodium 138 (136-145) mmol/L Potassium 4.1 (3.5-5.1) mmol/L Chloride 100 (98-107) mmol/L Carbon Dioxide 33 H (21-32) mmol/L BUN 17 (6-23) mg/dl Creatinine 0.84 (0.6-1.4) mg/dl Glucose 173 H (70-99(Fasting)) mg/dl Calcium 8.6 (8.6-10.3) mg/dl AST 108 H (13-39) U/L ALT 147 H (7-52) U/L Alkaline Phosphatase 158 H (34-104) U/L Total Protein 5.5 L (6.0-8.3) gm/dl Albumin 3.2 L (3.4-5.0) gm/dl Intake and Output 04/24/23 04/25/23 04/25/23 22:59 06:59 14:59 Intake Total 320 / 1280 500 / 1280 Output Total 700 / 1451 751 / 1451 Balance -380 / -171 -251 / -171 Intake: Oral 320 / 1160 500 / 1160 Output: Urine Amount (Catheter) 700 / 1450 750 / 1450 Suprapubic 700 / 1450 750 / 1450 # Bowel Movements Other: Weight 48 kg Weight Measurement Method Built in [facility] (4) Fall Encounter type: initial encounter Qualified Code(s): W19.XXXA - Unspecified fall, initial encounter (5) CHI (closed head injury) Encounter type: initial encounter Qualified Code(s): S09.90XA - Unspecified injury of head, initial encounter (6) Hypothermia Encounter type: initial encounter Qualified Code(s): T68.XXXA - Hypothermia, initial encounter
[2023-04-25] MEDS ORDERED: POLYETHYLENE (MIRALAX) 17 GM PACK PO PRN (11:10)
--- NOTE | 2023-04-25 13:16 | Hospitalist Progress Note ---
Date of Service April 25, 2023 Assessment & Plan (1) CHI (closed head injury): (2) Elevated troponin: (3) Hypothermia: (4) History of CVA (cerebrovascular accident): (5) Fall: (6) Chronic diastolic heart failure: (7) Asthma: Plan 87-year-old male with PMHx significant for dyslipidemia, asthma, chronic diastolic CHF, aortic stenosis, carotid stenosis s/p right carotid artery stenting, HTN, paroxysmal SVT, history of prostate cancer s/p radiation therapy, s/p suprapubic catheter placement, history of CVA who presents to the ED for evaluation after a fall. 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 Zosyn switched to PO cefdinir on 04/23, continue T11-T12 vertebral fracture Noted on CT imaging, confirmed with MRI Ortho spine consulted- appreciate recs -reportedly ER provider was in touch with Dr. Rubalcava who recommended bedrest and MRI on admission -ortho recommending brace use on 04/22, and ambulation to chair at bedside -04/24- ortho spine advising will repeat imaging, surgery not yet off the table -xrays now showing no acute fracture, awaiting further ortho/spine recs for next steps Transaminitis Noted with labs on 04/25 Holding Atorvastatin, consider discontinuing Tylenol use Trend with AM labs, if still elevated consider hepatic US Constipation Pt with difficulty moving bowels Miralax increased to q6h dosing scheduled on 04/24 with scheduled colace 100mg BID Will hold PO calcium citrate which can contribute to bloating and constipation Finally with BM on 04/25 Continue to monitor Hypocalcemia Ionized sebastien decreased IV calcium gluconate replacement as needed Cerebral concussion Lacerated wound on the scalp secondary to above GCS neurochecks Neurology consult for cerebral concussion Troponin elevation chronic diastolic heart failure/right-sided heart failure Valvular 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/) History of PSVT (EF 60 to 65), TTE 2022 Patient denies chest pain, SOB symptoms hs-trops with significant elevation Cardiology consult-appreciate recs Hypertension stable Hyperlipidemia on statin Rx Bronchial asthma stable Hx of TIA Stable Hyperglycemia likely prediabetes hemoglobin A1c of 5.7 last July 2022 Recent tick bite Pt concerned about a tick bite he had from 2 weeks ago States was not treated 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 Following ortho/spine recs for next steps Admission and Anticipated Discharge Date Admission Date: April 20, 2023 Subjective Pt seen in the AM. States that he is ready to go home. States he would like to get out of the hospital. Discussion that we are awaiting further recs from ortho/spine based on recent repeat imaging. Pt verbalized understanding and agreement, states that he hopes the plan does not include surgery. States he finally had a significant BM and is feeling better. Review of Systems Review of Systems: All systems reviewed & are unremarkable except as noted in Subjective Physical Exam Physical Exam: General: Alert, orientedx3. No acute distress Psych: Appropriate mood and affect Neuro: laying in bed HEENT: left side of the head with healing scar Chest: Nontender to palpation. CV: RRR Resp: no increased effort of breathing Abdomen: Soft, nontender, nondistended. Extremities: Trace edema in lower extremities bilaterally. Results & Data Results & Data Vital Signs (Past 12 Hours) Vital Signs Temp Pulse Resp BP Pulse Ox O2 Del Method 04/25/23 11:07 36.3 C L 68 18 106/63 91 Room Air 04/25/23 08:15 36.5 C 74 18 115/71 91 Room Air (1) CHI (closed head injury) Encounter type: initial encounter Qualified Code(s): S09.90XA - Unspecified injury of head, initial encounter (3) Hypothermia Encounter type: initial encounter Qualified Code(s): T68.XXXA - Hypothermia, initial encounter (5) Fall Encounter type: initial encounter Qualified Code(s): W19.XXXA - Unspecified fall, initial encounter
[2023-04-25] MEDS ORDERED: STAT IV/IM STA (19:37)
[2023-04-25] MEDS: CALCIUM GLUCONATE 10% 1,000 MG in SODIUM CHLOR 0.9% MINI-B 50 ML IV SCH ×2 (20:27→20:44)
[2023-04-25] MEDS: LIDOCAINE 5% 1 PATCH TD SCH (20:48)
[2023-04-25] MEDS: MONTELUKAST SODIUM 10 MG TABLET PO SCH (20:49)
[2023-04-26] MEDS: MoRPHine SULFATE 2 MG/ML CARP IV PRN ×2 (03:47→08:18)
[2023-04-26] MEDS: ACETAMINOPHEN 325 MG TAB PO PRN ×2 (07:19→18:14)
[2023-04-26] MEDS: oxyCODONE HCL IR 5 MG TAB (IMMEDIATE RELEASE) PO PRN (07:20)
[2023-04-26] MEDS: DOCUSATE SODIUM 100 MG CAP PO SCH ×2 (07:23→20:24)
[2023-04-26] MEDS: DOXYCYCLINE HYCLATE 100 MG CAP PO SCH ×2 (07:23→20:24)
[2023-04-26] MEDS: CEFDINIR 300 MG CAP PO SCH ×2 (07:23→20:24)
[2023-04-26] MEDS: METOPROLOL SUCC 25MG EXT REL TAB PO SCH ×2 (07:23→13:35)
[2023-04-26] MEDS: POT PHOSPHATE MONOBASIC W/ SOD TAB PO SCH ×4 (07:24→20:24)
[2023-04-26] MEDS: CETIRIZINE HCL 10 MG TABLET PO SCH (07:25)
[2023-04-26] MEDS: GABAPENTIN 300 MG CAP PO SCH ×3 (07:26→20:24)
[2023-04-26] MEDS: UMECLIDINIUM BROMIDE 62.5MCG/BLISTER 7 PUFFS/INHALER INH SCH (07:27)
[2023-04-26 07:30] LABS: Basophils # (auto) 0.05 K/uL (0.00-0.20); Basophils % (auto) 0.6 %; Eosinophils # (auto) 0.38 K/uL (0.00-0.50); Eosinophils % (auto) 4.9 %; Hematocrit (blood only) 49.2 % (42.0-52.0); Hemoglobin 16.4 g/dl (14.0-18.0); Immature Granulocytes # (auto) 0.03 K/uL (0.01-0.20); Immature Granulocytes % (auto) 0.4 %; Lymphocytes # (auto) 1.65 K/uL (1.20-3.40); Lymphocytes % (auto) 21.2 %; Mean Corpuscular Hemoglobin 31.2 pg (25.0-34.0); Mean Corpuscular Hgb Conc 33.3 g/dL (32.0-36.0); Mean Corpuscular Volume 93.7 fL (80.0-100.0); Mean Platelet Volume 10.8 fL (9.4-12.4); Monocytes # (auto) 0.64 K/uL (0.11-0.59); Monocytes % (auto) 8.2 %; Neutrophils # (auto) 5.05 K/uL (1.40-6.50); Neutrophils % (auto) 64.7 %; Platelet Count 177 K/uL (130-400); RDW Coefficient of Variation 13.8 % (11.5-14.5); RDW Standard Deviation 47.6 fL (36.4-46.3); Red Blood Count 5.25 M/uL (4.70-6.10)
[2023-04-26 07:45] LABS: Albumin Globulin Ratio 1.4 (0.9-2); Albumin Level 3.4 gm/dl (3.4-5.0); BUN Creatinine Ratio 16.9 (10-20); Bilirubin,Total 1.2 mg/dl (0.2-1.0); Calcium 8.9 mg/dl (8.6-10.3); Creatinine Clr Calc Pharmacy 67.9 ml/min; Est GFR (African American) 88.5 ml/min; Est GFR (Non-African American) 76.3 ml/min; Globulin 2.5 gm/dl (2.5-4.0); Magnesium 1.8 mg/dl (1.7-2.4); Phosphorus 3.7 mg/dl (2.5-4.9); Potassium 4.1 mmol/L (3.5-5.1); Total Protein 5.9 gm/dl (6.0-8.3)
--- NOTE | 2023-04-26 10:36 | CT Scan Report ---
CT SCAN OF THE THORACIC SPINE WITHOUT IV CONTRAST CLINICAL HISTORY: Follow-up thoracic fracture. COMPARISON STUDY: Abdominal CT dated 04/20/2023. MRI of the thoracic spine dated 04/20/2023. TECHNIQUE: CT scan of the thoracic spine is performed from the lower cervical spine to the upper lumb ar spine. Images are reviewed in the axial, sagittal, and coronal planes. IV contrast was not adminis tered for this examination. A dose lowering technique was utilized adhering to the principles of SHANNA Parry. CT DOSE: 1670.07 mGy.cm FINDINGS: The skeletal structures are osteopenic. Again seen is widening between the anterior endplat es of T11 and T12. There is paravertebral edema at this site, and this is consistent with fracture to the disc space at T11-T12. Fracture also extends through a left marginal osteophyte, as well as the left superior cortex of T12. This is best seen on sagittal image #55. There is no clear posterior vipul ment involvement. No additional fracture is seen involving the thoracic spine. Vertebral body height and alignment are maintained. Anterior and lateral osteophytes are seen throughout. The transverse an d spinous processes appear intact. No lytic or blastic lesion is seen. The imaged posterior ribs appe ar intact. There is fatty atrophy of the paraspinous musculature. Imaged lung parenchyma shows no air space consolidation or pleural effusion. Dependent scarring/atelectasis is seen in both lungs and the re are scattered calcific granulomas. The heart is enlarged. There is atherosclerotic calcification o f the thoracic aorta. Cholecystectomy clips are noted. There is a small hiatal hernia. IMPRESSION: 1. Again seen is widening between the anterior endplates of T11 and T12 with fracture through the dis c space at this level. There is associated paravertebral edema. 2. Fracture involves a left marginal osteophyte at T11-T12, as well as the left superior endplate of the T12 vertebral body. 3. There is no clear evidence of posterior element involvement. 4. No additional acute fracture is identified. There is no malalignment. 5. Additional findings as above. ACT 112: Negative or not required by law. Dictated: 04/26/2023 9:02 AM Transcribed: 04/26/2023 9:19 AM [place] [id number] [email or web address] Electronically signed by: Baudilio Multani M.D. 04/26/2023 10:35 AM
--- NOTE | 2023-04-26 11:40 | Cardiology Progress Note ---
Date of Service April 26, 2023 Assessment & Plan (1) Acute HFrEF (heart failure with reduced ejection fraction): (2) Chronic diastolic heart failure: (3) Elevated troponin: (4) Fall: (5) CHI (closed head injury): (6) Hypothermia: Plan IMPRESSION: 87 year old male with mild to moderate aortic valve stenosis admitted following a complex fall. Cardiology consultation requested due to elevated high sensitivity troponin. Patient without new or worsening cardi opulmonary symptoms. EKG without acute change. Initial resting echocardiography with moderate reduction in LV systolic function and wall motion abnormality with follow-up resting echocardiography on April 24, 2023 revealing substantial improvement in overall LV systolic function and contractility, resolved apical ballooning, EF 55 to 60%. Patient remains hemodynamically stable, without evidence of angina, volume overload, or arrhythmia. PLAN: Continue evidence-based beta-joanne therapy, metoprolol succinate, aspirin 81 mg/day, furosemide and spironolactone as prescribed Please contact with any questions or concerns. Admission and Anticipated Discharge Date Admission Date: April 20, 2023 Supervising Physician Co-Signing Physician Notes Patient was seen and personally examined. Continues to demonstrate clinical improvement No further cardiac concerns We will continue current medications as ordered above Contact cardiology with further question Subjective Patient seen and examined. Chart, medications, telemetry reviewed. Notes anxiously awaiting Thoracic CT findings and recommendations by Dr. Rubalcava No chest pain, palpitations, unusual shortness of breath, orthopnea, PND, or peripheral edema. Telemetry: Sinus with heart rates predominantly in the 60-80 bpm range. April 21, 2023 TTE Interpretation Summary (as per Dr. Hanna): Compared to study dated June 04, 2022, left ventricular systolic dysfunction and regional wall motion abnormalities as specified now present. Findings suggest multivessel ischemic coronary disease versus stress-induced cardiomyopathy. Left ventricular systolic function is moderately reduced. Ejection fraction 35 to 40%. Mild concentric LVH. There is a large size apical, septal, anteroseptal, anterior, inferior, posterior, and lateral wall motion abnormality with hypokinesis to akinesis of the segments. The aortic valve is trileaflet, moderately calcified, with mild to moderate aortic valve stenosis. Mild tricuspid regurgitation. Estimated systolic pulmonary pressure 44 mmHg. April 24, 2023 TTE Interpretation Summary: Normal size LV. Mild concentric LVH. Mild hypokinesis of the anteroseptum and apex. When compared to prior study of April 21, 2023, there has been substantial improvement in overall LV systolic function and contractility. Apical ballooning has resolved. EF 55 to 60%. Review of Systems Review of Systems: Complete review of systems is otherwise as stated above, negative, noncontributory. Physical Exam Physical Exam: General: A&Ox3. NAD. Neck: No JVD. Heart: RRR, 70 bpm. Grade II systolic ejection murmur. Lungs: Clear Abdomen: Not evaluated. Extremities: No distal edema. Limited neurological examination is without focal deficits. Results & Data Vital Signs (Past 12 Hours) Vital Signs Temp Pulse Pulse Resp BP Pulse Ox O2 Del Method 04/26/23 11:13 36.2 C L 75 17 118/71 91 Room Air 04/26/23 07:09 36.7 C 55 L 18 136/70 91 Room Air 04/26/23 03:48 36.7 C 50 L 18 124/67 91 Room Air 04/25/23 23:49 60 Laboratory Results Cardiac Enzymes 04/26/23 Range/Units 06:52 AST 50 H (13-39) U/L CBC 04/26/23 Range/Units 06:52 WBC 7.80 (4.8-10.8) K/ul RBC 5.25 (4.70-6.10) M/uL Hgb 16.4 (14.0-18.0) g/dl Hct 49.2 (42.0-52.0) % Plt Count 177 (130-400) K/uL Neut # (Auto) 5.05 (1.40-6.50) K/uL Lymph # (Auto) 1.65 (1.20-3.40) K/uL [place] # (Auto) 0.64 H (0.11-0.59) K/uL Eos # (Auto) 0.38 (0.00-0.50) K/uL Baso # (Auto) 0.05 (0.00-0.20) K/uL Comprehensive Metabolic Panel 04/26/23 Range/Units 06:52 Sodium 140 (136-145) mmol/L Potassium 4.1 (3.5-5.1) mmol/L Chloride 102 (98-107) mmol/L Carbon Dioxide 33 H (21-32) mmol/L BUN 15 (6-23) mg/dl Creatinine 0.89 (0.6-1.4) mg/dl Glucose 117 H (70-99(Fasting)) mg/dl Calcium 8.9 (8.6-10.3) mg/dl AST 50 H (13-39) U/L ALT 103 H (7-52) U/L Alkaline Phosphatase 155 H (34-104) U/L Total Protein 5.9 L (6.0-8.3) gm/dl Albumin 3.4 (3.4-5.0) gm/dl Intake and Output 04/25/23 04/26/23 04/26/23 22:59 06:59 14:59 Intake Total 920 / 1600 0 / 1600 Output Total 1033 / 2483 800 / 2483 Balance -113 / -883 -800 / -883 Intake: IV 120 / 120 Calcium Gluconate 10% 1,000 mg 120 / 120 In Sodium Chlor 0.9% Mini-B 50 ml @ 240 mls/hr IV Q15M [facility] Rx# :[id number] Oral 800 / 1480 0 / 1480 Output: Urine Amount (Catheter) 1032 / 2482 800 / 2482 Suprapubic 1032 / 2482 800 / 2482 # Bowel Movements Other: Weight 106.7 kg (4) Fall Encounter type: initial encounter Qualified Code(s): W19.XXXA - Unspecified fall, initial encounter (5) CHI (closed head injury) Encounter type: initial encounter Qualified Code(s): S09.90XA - Unspecified injury of head, initial encounter (6) Hypothermia Encounter type: initial encounter Qualified Code(s): T68.XXXA - Hypothermia, initial encounter
[2023-04-26] MEDS: FUROSEMIDE 20 MG TAB PO SCH (13:40)
--- NOTE | 2023-04-26 13:42 | Hospitalist Progress Note ---
Date of Service April 26, 2023 Assessment & Plan (1) CHI (closed head injury): (2) Elevated troponin: (3) Hypothermia: (4) History of CVA (cerebrovascular accident): (5) Fall: (6) Chronic diastolic heart failure: (7) Asthma: Plan 87-year-old male with PMHx significant for dyslipidemia, asthma, chronic diastolic CHF, aortic stenosis, carotid stenosis s/p right carotid artery stenting, HTN, paroxysmal SVT, history of prostate cancer s/p radiation therapy, s/p suprapubic catheter placement, history of CVA who presents to the ED for evaluation after a fall. 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 Zosyn switched to PO cefdinir on 04/23, continue Denies any urinary symptoms Likely discharge in a day or 2 T11-T12 vertebral fracture Noted on CT imaging, confirmed with MRI Ortho spine consulted- appreciate recs -reportedly ER provider was in touch with Dr. Rubalcava who recommended bedrest and MRI on admission -ortho recommending brace use on 04/22, and ambulation to chair at bedside -04/24- ortho spine advising will repeat imaging, surgery not yet off the table -xrays now showing no acute fracture, awaiting further ortho/spine recs for next steps CT of the thoracic spine showed widening between the anterior endplates of T11 and T12 with fracture through the disc space at that level with associated paravertebral edema. Fracture involves a left marginal osteophyte at T11-T12 as well as left superior endplate of the T12 vertebral body Awaiting further recommendation from the orthospine Transaminitis Noted with labs on 04/25 Holding Atorvastatin, consider discontinuing Tylenol use Trend with AM labs, if still elevated consider hepatic US Liver function has been improving-will monitor Constipation Pt with difficulty moving bowels Miralax increased to q6h dosing scheduled on 04/24 with scheduled colace 100mg BID Will hold PO calcium citrate which can contribute to bloating and constipation Finally with BM on 04/25 Continue to monitor Hypocalcemia Ionized sebastien decreased IV calcium gluconate replacement as needed Cerebral concussion Lacerated wound on the scalp secondary to above GCS neurochecks Neurology consult for cerebral concussion Troponin elevation chronic diastolic heart failure/right-sided heart failure Valvular 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/) History of PSVT (EF 60 to 65), TTE 2022 Patient denies chest pain, SOB symptoms hs-trops with significant elevation Cardiology consult-appreciate recs Hypertension stable Hyperlipidemia on statin Rx Bronchial asthma stable Hx of TIA Stable Hyperglycemia likely prediabetes hemoglobin A1c of 5.7 last July 2022 Recent tick bite Pt concerned about a tick bite he had from 2 weeks ago States was not treated 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 Following ortho/spine recs for next steps Admission and Anticipated Discharge Date Admission Date: April 20, 2023 Subjective 04/26/2023 The patient was seen and examined in telemetry unit He has been feeling much better and complains to have some weakness Denies any other significant symptoms Review of Systems Review of Systems: No acute arthritis involving any of the joint Physical Exam Physical Exam: Lying in bed comfortably Constitutional: well developed and well nourished; not ill appearing Eyes: PERRL, conjunctivae normal, anicteric sclerae ENMT: external ear and nose normal, oropharynx normal Neck: trachea midline, no thyromegaly Respiratory: no respiratory distress Auscultation: lungs clear to auscultation bilaterally; no crackles Cardiovascular: Rate/Rhythm: regular rate and regular rhythm; not tachycardic Heart Sounds: normal S1, normal S2 and + murmur (2/6 ESM over precordium) Extremities: no edema Gastrointestinal (Abdomen): Inspection/Auscultation: normal bowel sounds; abdomen not distended Percussion/Palpation: abdomen soft; abdomen nontender Musculoskeletal: No acute arthritis involving any of the joint Neurologic: normal touch/pain/proprioception and moves all extremities; no focal motor deficits Lymphatic: no cervical or axillary lymphadenopathy Results & Data Results & Data Vital Signs (Past 12 Hours) Vital Signs Temp Pulse Resp BP Pulse Ox O2 Del Method 04/26/23 11:13 36.2 C L 75 17 118/71 91 Room Air 04/26/23 07:09 36.7 C 55 L 18 136/70 91 Room Air 04/26/23 03:48 36.7 C 50 L 18 124/67 91 Room Air Laboratory Results Short CBC 04/26/23 Range/Units 06:52 WBC 7.80 (4.8-10.8) K/ul Hgb 16.4 (14.0-18.0) g/dl Hct 49.2 (42.0-52.0) % Plt Count 177 (130-400) K/uL BMP 04/26/23 06:52 Sodium 140 Potassium 4.1 Chloride 102 Carbon Dioxide 33 H BUN 15 Creatinine 0.89 Glucose 117 H Calcium 8.9 Liver Function 04/26/23 Range/Units 06:52 Total Bilirubin 1.2 H (0.2-1.0) mg/dl AST 50 H (13-39) U/L ALT 103 H (7-52) U/L Alkaline Phosphatase 155 H (34-104) U/L Albumin 3.4 (3.4-5.0) gm/dl (1) CHI (closed head injury) Encounter type: initial encounter Qualified Code(s): S09.90XA - Unspecified injury of head, initial encounter (3) Hypothermia Encounter type: initial encounter Qualified Code(s): T68.XXXA - Hypothermia, initial encounter (5) Fall Encounter type: initial encounter Qualified Code(s): W19.XXXA - Unspecified fall, initial encounter
--- NOTE | 2023-04-26 15:14 | Orthopedic Progress Note ---
Date of Service April 26, 2023 Assessment & Plan (1) Thoracic spine fracture: Plan: At this time his x-rays and CAT scan demonstrate no changes in the fracture alignment. We will need to continue to obtain weekly x-rays. Is from my standpoint he is safe for rehab. Admission and Anticipated Discharge Date Admission Date: April 20, 2023 Subjective Patient's back pain is controlled. He is tolerating transitions to a chair and ambulation with a walker. He is tolerating the brace. Denies any numbness or tingling in the legs. Physical Exam Physical Exam: On exam he is currently in bed. Is constricted testing. Appears comfortable. Results & Data Vital Signs (Past 12 Hours) Vital Signs Temp Pulse Resp BP Pulse Ox O2 Del Method 04/26/23 14:59 36.7 C 65 19 118/59 L 94 Room Air 04/26/23 11:13 36.2 C L 75 17 118/71 91 Room Air 04/26/23 07:09 36.7 C 55 L 18 136/70 91 Room Air 04/26/23 03:48 36.7 C 50 L 18 124/67 91 Room Air
[2023-04-26] MEDS: LIDOCAINE 5% 1 PATCH TD SCH (20:23)
[2023-04-26] MEDS: MONTELUKAST SODIUM 10 MG TABLET PO SCH (20:24)
[2023-04-27] MEDS: MoRPHine SULFATE 2 MG/ML CARP IV PRN (03:03)
[2023-04-27 08:00] LABS: Basophils # (auto) 0.05 K/uL (0.00-0.20); Basophils % (auto) 0.8 %; Eosinophils # (auto) 0.37 K/uL (0.00-0.50); Hematocrit (blood only) 47.9 % (42.0-52.0); Immature Granulocytes # (auto) 0.03 K/uL (0.01-0.20); Immature Granulocytes % (auto) 0.5 %; Lymphocytes % (auto) 21.2 %; Mean Corpuscular Hemoglobin 31.4 pg (25.0-34.0); Mean Corpuscular Hgb Conc 33.4 g/dL (32.0-36.0); Mean Corpuscular Volume 93.9 fL (80.0-100.0); Mean Platelet Volume 10.7 fL (9.4-12.4); Monocytes # (auto) 0.53 K/uL (0.11-0.59); Monocytes % (auto) 8.7 %; Neutrophils # (auto) 3.84 K/uL (1.40-6.50); Neutrophils % (auto) 62.8 %; Platelet Count 177 K/uL (130-400); RDW Coefficient of Variation 13.8 % (11.5-14.5); RDW Standard Deviation 48.2 fL (36.4-46.3); White Blood Count 6.12 K/ul (4.8-10.8)
[2023-04-27 08:24] LABS: Albumin Globulin Ratio 1.4 (0.9-2); Albumin Level 3.3 gm/dl (3.4-5.0); BUN Creatinine Ratio 19.8 (10-20); Calcium 8.5 mg/dl (8.6-10.3); Creatinine Clr Calc Pharmacy 69.9 ml/min; Est GFR (African American) 89.7 ml/min; Est GFR (Non-African American) 77.4 ml/min; Globulin 2.4 gm/dl (2.5-4.0); Magnesium 1.8 mg/dl (1.7-2.4); Phosphorus 3.5 mg/dl (2.5-4.9); Potassium 4.2 mmol/L (3.5-5.1); Total Protein 5.7 gm/dl (6.0-8.3)
[2023-04-27] MEDS: ACETAMINOPHEN 325 MG TAB PO PRN (08:35)
[2023-04-27] MEDS: oxyCODONE HCL IR 5 MG TAB (IMMEDIATE RELEASE) PO PRN (08:36)
[2023-04-27] MEDS: CEFDINIR 300 MG CAP PO SCH ×2 (09:52→20:09)
[2023-04-27] MEDS: DOCUSATE SODIUM 100 MG CAP PO SCH ×2 (09:52→19:47)
[2023-04-27] MEDS: SPIRONOLACTONE 12.5 MG TAB PO SCH (09:53)
[2023-04-27] MEDS: POT PHOSPHATE MONOBASIC W/ SOD TAB PO SCH ×3 (09:53→20:09)
[2023-04-27] MEDS: METOPROLOL SUCC 25MG EXT REL TAB PO SCH (09:54)
[2023-04-27] MEDS: FUROSEMIDE 20 MG TAB PO SCH (09:55)
[2023-04-27] MEDS: CETIRIZINE HCL 10 MG TABLET PO SCH (09:55)
[2023-04-27] MEDS: DOXYCYCLINE HYCLATE 100 MG CAP PO SCH ×2 (09:55→20:09)
[2023-04-27] MEDS: UMECLIDINIUM BROMIDE 62.5MCG/BLISTER 7 PUFFS/INHALER INH SCH (09:56)
[2023-04-27] MEDS: GABAPENTIN 300 MG CAP PO SCH ×3 (09:57→20:09)
--- NOTE | 2023-04-27 13:11 | Hospitalist Progress Note ---
Date of Service April 27, 2023 Assessment & Plan (1) CHI (closed head injury): (2) Elevated troponin: (3) Hypothermia: (4) History of CVA (cerebrovascular accident): (5) Fall: (6) Chronic diastolic heart failure: (7) Asthma: Plan 87-year-old male with PMHx significant for dyslipidemia, asthma, chronic diastolic CHF, aortic stenosis, carotid stenosis s/p right carotid artery stenting, HTN, paroxysmal SVT, history of prostate cancer s/p radiation therapy, s/p suprapubic catheter placement, history of CVA who presents to the ED for evaluation after a fall. 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 Zosyn switched to PO cefdinir on 04/23, continue Denies any urinary symptoms Likely discharge in a day or 2 Remains afebrile and the white count has been normal We will continue Ceftin the for the next few days T11-T12 vertebral fracture Noted on CT imaging, confirmed with MRI Ortho spine consulted- appreciate recs -reportedly ER provider was in touch with Dr. Rubalcava who recommended bedrest and MRI on admission -ortho recommending brace use on 04/22, and ambulation to chair at bedside -04/24- ortho spine advising will repeat imaging, surgery not yet off the table -xrays now showing no acute fracture, awaiting further ortho/spine recs for next steps CT of the thoracic spine showed widening between the anterior endplates of T11 and T12 with fracture through the disc space at that level with associated paravertebral edema. Fracture involves a left marginal osteophyte at T11-T12 as well as left superior endplate of the T12 vertebral body Awaiting further recommendation from the orthospine He will need to have his spinal x-ray every week for the next 4 to 6 weeks as per Transaminitis Noted with labs on 04/25 Holding Atorvastatin, consider discontinuing Tylenol use Trend with AM labs, if still elevated consider hepatic US Liver function has been improving and improved a lot Constipation Pt with difficulty moving bowels Miralax increased to q6h dosing scheduled on 04/24 with scheduled colace 100mg BID Will hold PO calcium citrate which can contribute to bloating and constipation Finally with BM on 04/25 Continue to monitor Hypocalcemia Ionized sebastien decreased IV calcium gluconate replacement as needed Cerebral concussion Lacerated wound on the scalp secondary to above GCS neurochecks Neurology consult for cerebral concussion Troponin elevation chronic diastolic heart failure/right-sided heart failure Valvular 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/) History of PSVT (EF 60 to 65), TTE 2022 Patient denies chest pain, SOB symptoms hs-trops with significant elevation Cardiology consult-appreciate recs No more cardiac symptoms Hypertension stable Hyperlipidemia on statin Rx Bronchial asthma stable Hx of TIA Stable Hyperglycemia likely prediabetes hemoglobin A1c of 5.7 last July 2022 Recent tick bite Pt concerned about a tick bite he had from 2 weeks ago States was not treated 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 Following ortho/spine recs for next steps Awaiting approval from the rehab facility Admission and Anticipated Discharge Date Admission Date: April 20, 2023 Subjective 04/26/2023 The patient was seen and examined in telemetry unit He has been feeling much better and complains to have some weakness Denies any other significant symptoms 04/27/2023 The patient was seen and examined in telemetry unit He has been feeling much better and the pain is reasonably controlled He wants to go to rehab as soon as possible Awaiting approval Review of Systems Review of Systems: All systems reviewed and are unremarkable except as noted below Physical Exam Physical Exam: Lying in bed comfortably Constitutional: well developed and well nourished; not ill appearing Eyes: PERRL, conjunctivae normal, anicteric sclerae ENMT: external ear and nose normal, oropharynx normal Neck: trachea midline, no thyromegaly Respiratory: no respiratory distress Auscultation: lungs clear to auscultation bilaterally; no crackles Cardiovascular: Rate/Rhythm: regular rate and regular rhythm; not tachycardic Heart Sounds: normal S1, normal S2 and + murmur (2/6 ESM over precordium) Extremities: no edema Gastrointestinal (Abdomen): Inspection/Auscultation: normal bowel sounds; abdomen not distended Percussion/Palpation: abdomen soft; abdomen nontender Neurologic: normal touch/pain/proprioception and moves all extremities; no focal motor deficits Lymphatic: no cervical or axillary lymphadenopathy Results & Data Results & Data Vital Signs (Past 12 Hours) Vital Signs Temp Pulse Resp BP BP Pulse Ox O2 Del Method 04/27/23 11:08 36.3 C L 70 18 119/69 90 Room Air 04/27/23 10:40 Room Air 04/27/23 07:27 36.3 C L 61 18 156/85 H 90 Room Air 04/27/23 03:01 36.6 C 62 18 156/87 H 95 Room Air Laboratory Results Short CBC 04/27/23 Range/Units 07:17 WBC 6.12 (4.8-10.8) K/ul Hgb 16.0 (14.0-18.0) g/dl Hct 47.9 (42.0-52.0) % Plt Count 177 (130-400) K/uL BMP 04/27/23 07:17 Sodium 140 Potassium 4.2 Chloride 104 Carbon Dioxide 31 BUN 17 Creatinine 0.86 Glucose 120 H Calcium 8.5 L Liver Function 04/27/23 Range/Units 07:17 Total Bilirubin 1.0 (0.2-1.0) mg/dl AST 47 H (13-39) U/L ALT 87 H (7-52) U/L Alkaline Phosphatase 139 H (34-104) U/L Albumin 3.3 L (3.4-5.0) gm/dl Medications Administered Current Inpatient Medications Acetaminophen (Acetaminophen 325 Mg Tab) 650 mg PO QID PRN PRN Reason: pain/fever Stop: 05/20/23 22:15 Last Admin: 04/27/23 08:35 Dose: 650 mg Atorvastatin Calcium (Atorvastatin 40 Mg Tab) 40 mg PO QAM [facility] Stop: 05/21/23 08:59 Last Admin: 04/25/23 09:18 Dose: 40 mg Cefdinir (Cefdinir 300 Mg Cap) 300 mg PO BID [facility]; Protocol Stop: 05/03/23 08:59 Last Admin: 04/27/23 09:52 Dose: 300 mg Cetirizine HCl (Cetirizine Hcl 10 Mg Tablet) 10 mg PO DAILY [facility] Stop: 05/21/23 08:59 Last Admin: 04/27/23 09:55 Dose: 10 mg Diclofenac Sodium (Diclofenac Sod 1% Gel 100 Gm Tube) 2 gm EXT Q6H PRN; Protocol PRN Reason: joint pain Stop: 05/21/23 20:50 Last Admin: 04/21/23 22:31 Dose: 2 gm Docusate Sodium (Docusate Sodium 100 Mg Cap) 100 mg PO BID [facility] Stop: 05/24/23 10:29 Last Admin: 04/27/23 09:52 Dose: 100 mg Doxycycline Hyclate (Doxycycline Hyclate 100 Mg Cap) 100 mg PO BID [facility] Stop: 05/02/23 10:14 Last Admin: 04/27/23 09:55 Dose: 100 mg Furosemide (Furosemide 20 Mg Tab) 20 mg PO QAM [facility] Stop: 05/21/23 08:59 Last Admin: 04/27/23 09:55 Dose: 20 mg Gabapentin (Gabapentin 300 Mg Cap) 300 mg PO TID [facility] Stop: 05/21/23 01:04 Last Admin: 04/27/23 09:57 Dose: 300 mg Promethazine HCl 6.25 mg/ (Sodium Chloride) 50.25 mls @ 201 mls/hr IV Q6H PRN PRN Reason: Nausea And Vomiting Stop: 05/20/23 22:15 Lidocaine (Lidocaine 5% 1 Patch) 1 patch TD HS [facility] Stop: 05/21/23 20:59 Last Admin: 04/26/23 20:23 Dose: 1 patch Metoprolol Succinate (Metoprolol Succ 25mg Ext Rel Tab) 25 mg PO QAM [facility] Stop: 05/21/23 08:59 Last Admin: 04/27/23 09:54 Dose: 25 mg Miscellaneous (Remove Lidoderm Patch) 1 each N/A DAILY@0900 [facility] Stop: 05/21/23 08:59 Last Admin: 04/27/23 09:56 Dose: 1 each Miscellaneous (Order Awaiting Action: Fluticasone Propion-Salmeterol [Advair Hfa] 230-21 Mcg/Actuation) 1 each N/A QS [facility] Stop: 05/21/23 07:59 Last Admin: 04/27/23 09:31 Dose: Not Given Montelukast Sodium (Montelukast Sodium 10 Mg Tablet) 10 mg PO HS [facility] Stop: 05/21/23 20:59 Last Admin: 04/26/23 20:24 Dose: 10 mg Morphine Sulfate (Morphine Sulfate 2 Mg/Ml Carp) 2 mg IV Q3H PRN PRN Reason: Pain Stop: 05/04/23 22:15 Last Admin: 04/27/23 03:03 Dose: 2 mg Oxycodone HCl (Oxycodone Hcl Ir 5 Mg Tab (Immediate Release)) 5 mg PO Q4H PRN PRN Reason: Pain Stop: 05/04/23 22:15 Last Admin: 04/27/23 08:36 Dose: 5 mg Polyethylene Glycol (Polyethylene (Miralax) 17 Gm Pack) 17 gm PO Q6 PRN PRN Reason: Constipation Stop: 05/24/23 11:59 Potassium Phosphate (Pot Phosphate Monobasic W/ Sod Tab) 2 tab PO QID [facility] Stop: 05/23/23 08:59 Last Admin: 04/27/23 09:53 Dose: 2 tab Spironolactone (Spironolactone 12.5 Mg Tab) 12.5 mg PO Q48H [facility] Stop: 05/21/23 08:59 Last Admin: 04/27/23 09:53 Dose: 12.5 mg Umeclidinium [place] (Umeclidinium [place] 62.5mcg/Blister 7 Puffs/Inhaler) 1 puffs INH DAILY [facility] Stop: 05/21/23 08:59 Last Admin: 04/27/23 09:56 Dose: Not Given (1) CHI (closed head injury) Encounter type: initial encounter Qualified Code(s): S09.90XA - Unspecified injury of head, initial encounter (3) Hypothermia Encounter type: initial encounter Qualified Code(s): T68.XXXA - Hypothermia, initial encounter (5) Fall Encounter type: initial encounter Qualified Code(s): W19.XXXA - Unspecified fall, initial encounter
[2023-04-27] MEDS: LIDOCAINE 5% 1 PATCH TD SCH (20:10)
[2023-04-27] MEDS: MONTELUKAST SODIUM 10 MG TABLET PO SCH (20:11)
[2023-04-28] MEDS ORDERED: Nursing to Pharmacy Communication SCH (00:15)
[2023-04-28] MEDS: POT PHOSPHATE MONOBASIC W/ SOD TAB PO SCH ×2 (01:22→08:52)
[2023-04-28] MEDS: oxyCODONE HCL IR 5 MG TAB (IMMEDIATE RELEASE) PO PRN (05:45)
[2023-04-28 07:24] LABS: Basophils # (auto) 0.08 K/uL (0.00-0.20); Eosinophils # (auto) 0.37 K/uL (0.00-0.50); Eosinophils % (auto) 4.8 %; Hematocrit (blood only) 46.6 % (42.0-52.0); Hemoglobin 16.2 g/dl (14.0-18.0); Immature Granulocytes # (auto) 0.04 K/uL (0.01-0.20); Immature Granulocytes % (auto) 0.5 %; Lymphocytes # (auto) 1.47 K/uL (1.20-3.40); Lymphocytes % (auto) 19.1 %; Mean Corpuscular Hemoglobin 32.1 pg (25.0-34.0); Mean Corpuscular Hgb Conc 34.8 g/dL (32.0-36.0); Mean Corpuscular Volume 92.5 fL (80.0-100.0); Mean Platelet Volume 10.2 fL (9.4-12.4); Monocytes # (auto) 0.54 K/uL (0.11-0.59); Neutrophils # (auto) 5.19 K/uL (1.40-6.50); Neutrophils % (auto) 67.6 %; Platelet Count 185 K/uL (130-400); RDW Standard Deviation 47.7 fL (36.4-46.3); Red Blood Count 5.04 M/uL (4.70-6.10); White Blood Count 7.69 K/ul (4.8-10.8)
[2023-04-28 07:43] LABS: Albumin Globulin Ratio 1.4 (0.9-2); Albumin Level 3.3 gm/dl (3.4-5.0); Bilirubin,Total 1.1 mg/dl (0.2-1.0); Calcium 8.5 mg/dl (8.6-10.3); Est GFR (African American) 92.4 ml/min; Est GFR (Non-African American) 79.8 ml/min; Globulin 2.4 gm/dl (2.5-4.0); Magnesium 1.8 mg/dl (1.7-2.4); Phosphorus 3.2 mg/dl (2.5-4.9); Potassium 4.1 mmol/L (3.5-5.1); Total Protein 5.7 gm/dl (6.0-8.3)
[2023-04-28] MEDS: DOCUSATE SODIUM 100 MG CAP PO SCH (08:52)
[2023-04-28] MEDS: METOPROLOL SUCC 25MG EXT REL TAB PO SCH (08:52)
[2023-04-28] MEDS: DOXYCYCLINE HYCLATE 100 MG CAP PO SCH (08:53)
[2023-04-28] MEDS: FUROSEMIDE 20 MG TAB PO SCH (08:53)
[2023-04-28] MEDS: CEFDINIR 300 MG CAP PO SCH (08:53)
[2023-04-28] MEDS: CETIRIZINE HCL 10 MG TABLET PO SCH (08:54)
[2023-04-28] MEDS: UMECLIDINIUM BROMIDE 62.5MCG/BLISTER 7 PUFFS/INHALER INH SCH (08:55)
[2023-04-28] MEDS: GABAPENTIN 300 MG CAP PO SCH (08:55)
[2023-04-28] MEDS: DICLOFENAC SOD 1% GEL 100 GM TUBE EXT PRN (08:58)
--- NOTE | 2023-04-28 10:37 | Hospitalist Progress Note ---
Date of Service April 28, 2023 Assessment & Plan (1) CHI (closed head injury): (2) Elevated troponin: (3) Hypothermia: (4) History of CVA (cerebrovascular accident): (5) Fall: (6) Chronic diastolic heart failure: (7) Asthma: (8) Thoracic spine fracture: Plan 87-year-old male with PMHx significant for dyslipidemia, asthma, chronic diastolic CHF, aortic stenosis, carotid stenosis s/p right carotid artery stenting, HTN, paroxysmal SVT, history of prostate cancer s/p radiation therapy, s/p suprapubic catheter placement, history of CVA who presents to the ED for evaluation after a fall. 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 Zosyn switched to PO cefdinir on 04/23, continue Denies any urinary symptoms Likely discharge in a day or 2 Remains afebrile and the white count has been normal We will continue Ceftin the for the next few days Discharged on cefdinir and doxycycline to complete the course T11-T12 vertebral fracture Noted on CT imaging, confirmed with MRI Ortho spine consulted- appreciate recs -reportedly ER provider was in touch with Dr. Rubalcava who recommended bedrest and MRI on admission -ortho recommending brace use on 04/22, and ambulation to chair at bedside -04/24- ortho spine advising will repeat imaging, surgery not yet off the table -xrays now showing no acute fracture, awaiting further ortho/spine recs for next steps CT of the thoracic spine showed widening between the anterior endplates of T11 and T12 with fracture through the disc space at that level with associated paravertebral edema. Fracture involves a left marginal osteophyte at T11-T12 as well as left superior endplate of the T12 vertebral body Awaiting further recommendation from the orthospine He will need to have his spinal x-ray every week for the next 4 to 6 weeks as per Transaminitis Noted with labs on 04/25 Holding Atorvastatin, consider discontinuing Tylenol use Trend with AM labs, if still elevated consider hepatic US Liver function has been improving and improved a lot LFTs keep improving Constipation Pt with difficulty moving bowels Miralax increased to q6h dosing scheduled on 04/24 with scheduled colace 100mg BID Will hold PO calcium citrate which can contribute to bloating and constipation Finally with BM on 04/25 Continue to monitor Strongly advised to use narcotic cautiously because of constipation Hypocalcemia Ionized sebastien decreased IV calcium gluconate replacement as needed Cerebral concussion Lacerated wound on the scalp secondary to above GCS neurochecks Neurology consult for cerebral concussion Troponin elevation chronic diastolic heart failure/right-sided heart failure Valvular 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/) History of PSVT (EF 60 to 65), TTE 2022 Patient denies chest pain, SOB symptoms hs-trops with significant elevation Cardiology consult-appreciate recs No more cardiac symptoms Hypertension stable Hyperlipidemia on statin Rx Bronchial asthma stable Hx of TIA Stable Hyperglycemia likely prediabetes hemoglobin A1c of 5.7 last July 2022 Recent tick bite Pt concerned about a tick bite he had from 2 weeks ago States was not treated 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 Following ortho/spine recs for next steps Awaiting approval from the rehab facility Admission and Anticipated Discharge Date Admission Date: April 20, 2023 Subjective 04/26/2023 The patient was seen and examined in telemetry unit He has been feeling much better and complains to have some weakness Denies any other significant symptoms 04/27/2023 The patient was seen and examined in telemetry unit He has been feeling much better and the pain is reasonably controlled He wants to go to rehab as soon as possible Awaiting approval 04/28/2023 The patient was seen and examined in telemetry unit He has been feeling much better and denies any pain Has not been requiring any narcotic for a while He will be discharged to rehab this afternoon Review of Systems Review of Systems: All systems reviewed and are unremarkable except as noted below Physical Exam Physical Exam: Lying in bed comfortably Constitutional: well developed and well nourished; not ill appearing Eyes: PERRL, conjunctivae normal, anicteric sclerae ENMT: external ear and nose normal, oropharynx normal Neck: trachea midline, no thyromegaly Respiratory: no respiratory distress Auscultation: lungs clear to auscultation bilaterally; no crackles Cardiovascular: Rate/Rhythm: regular rate and regular rhythm; not tachycardic Heart Sounds: normal S1, normal S2 and + murmur (2/6 ESM over precordium) Extremities: no edema Gastrointestinal (Abdomen): Inspection/Auscultation: normal bowel sounds; abdomen not distended Percussion/Palpation: abdomen soft; abdomen nontender Neurologic: normal touch/pain/proprioception and moves all extremities; no focal motor deficits Lymphatic: no cervical or axillary lymphadenopathy Results & Data Results & Data Vital Signs (Past 12 Hours) Vital Signs Temp Pulse Pulse Resp BP Pulse Ox O2 Del Method 04/28/23 07:57 36.4 C L 65 18 130/74 92 Room Air 04/28/23 03:00 36.3 C L 60 14 127/72 91 Room Air 04/27/23 23:00 58 L 04/27/23 22:53 36.7 C 66 18 119/71 90 Room Air Laboratory Results Short CBC 04/28/23 Range/Units 06:50 WBC 7.69 (4.8-10.8) K/ul Hgb 16.2 (14.0-18.0) g/dl Hct 46.6 (42.0-52.0) % Plt Count 185 (130-400) K/uL BMP 04/28/23 06:50 Sodium 139 Potassium 4.1 Chloride 105 Carbon Dioxide 30 BUN 16 Creatinine 0.80 Glucose 114 H Calcium 8.5 L Liver Function 04/28/23 Range/Units 06:50 Total Bilirubin 1.1 H (0.2-1.0) mg/dl AST 39 (13-39) U/L ALT 74 H (7-52) U/L Alkaline Phosphatase 143 H (34-104) U/L Albumin 3.3 L (3.4-5.0) gm/dl (1) CHI (closed head injury) Encounter type: initial encounter Qualified Code(s): S09.90XA - Unspecified injury of head, initial encounter (3) Hypothermia Encounter type: initial encounter Qualified Code(s): T68.XXXA - Hypothermia, initial encounter (5) Fall Encounter type: initial encounter Qualified Code(s): W19.XXXA - Unspecified fall, initial encounter
--- NOTE | 2023-04-29 08:35 | Discharge Summary ---
Date of Service April 29, 2023 Admission HPI Per Admitting Provider 87-year-old male with PMH dyslipidemia, asthma, chronic diastolic CHF, aortic stenosis, carotid stenosis s/p right carotid artery stenting, HTN, paroxysmal SVT, history of prostate cancer s/p radiation therapy, s/p suprapubic catheter placement, history of CVA, and other problems listed below who presents to the ED for evaluation after a fall. Patient reports that he was reaching up to close the garage door on his shop when he fell forward and struck his head on the ground. Patient reports he was able to crawl over to the garage door railing and attempted to pull himself up however then fell backwards. Patient believes he passed out briefly after this fall and striking the back of his head. Patient states that he then crawled outside to attempt to pull himself up on a piece of equipment however he was unable to. Patient states that he was on the ground for about 2-1/2 hours until his found him. Patient reports he otherwise has been feeling well recently. He continues to be very active. He denies any episode of chest pain and shortness of breath. No abdominal pain, nausea, vomiting, diarrhea. No fevers or chills. Reports suprapubic catheter is functioning appropriately. In the ED, patient was found to be hypothermic and had Josue hugger placed with improvement. Other vitals are stable. Labs show WBC 13 K, troponin 1300. Head CT, cervical spine CT, CXR, pelvis x-ray all unremarkable. CT ABD/pelvis shows Age indeterminate mild widening of the anterior aspect of the intervertebral disc space at T11-12, new compared to prior exam on 06/03/2022 and possibly acute. Admission Exam Per Admitting Provider Constitutional: WD/WN, vitals as above no acute distress Eyes: PERRL, conjunctivae normal, anicteric sclerae ENMT: external ear and nose normal, oropharynx normal Respiratory: normal respiratory effort, lungs clear to auscultation Cardiovascular: Rate/Rhythm: regular rate and regular rhythm Vessels: normal peripheral pulses Extremities: no edema Gastrointestinal (Abdomen): normal bowel sounds, soft, nontender, no hepatosplenomegaly Musculoskeletal: no cyanosis or clubbing, extremities motor strength 5/5 Skin: no rashes, warm and dry bandage in place to left temporal scalp and left elbow, superficial abrasions noted to both knees Neurologic: PERRL, EOMI, accommodation nl, no face palsy, no dysarthria Psychiatric: A+Ox3, euthymic affect Principal Diagnosis Sepsis secondary to complicated UTI, T11-T12 vertebral fracture, cerebral concussion-resolved Discharge Exam Lying in bed comfortably Constitutional well developed and well nourished; not ill appearing Eyes PERRL, conjunctivae normal, anicteric sclerae ENMT external ear and nose normal, oropharynx normal Neck trachea midline, no thyromegaly Respiratory no respiratory distress Auscultation: lungs clear to auscultation bilaterally; no crackles Cardiovascular Rate/Rhythm: regular rate and regular rhythm; not tachycardic Heart Sounds: normal S1, normal S2 and + murmur (2/6 ESM over precordium) Extremities: no edema Gastrointestinal (Abdomen) Inspection/Auscultation: normal bowel sounds; abdomen not distended Percussion/Palpation: abdomen soft; abdomen nontender Neurologic normal touch/pain/proprioception and moves all extremities; no focal motor deficits Lymphatic no cervical or axillary lymphadenopathy Discharge Data Allergies Allergy/AdvReac Type Severity Reaction Status Date / Time Sulfa (Sulfonamide Allergy Intermediate RASH Verified 04/20/23 19:32 Antibiotics) house dust mite Allergy Mild Congested Verified 04/20/23 23:28 mold Allergy Mild CONGESTION Verified 04/20/23 19:32 fluticasone furoate AdvReac Intermediate LARYNGITIS Verified 04/20/23 19:32 [From Breo Ellipta] vilanterol AdvReac Intermediate LARYNGITIS Verified 04/20/23 19:32 [From Breo Ellipta] Consultations 04/20/23 19:45 ED Decision to Admit Stat 04/20/23 20:51 Consult Orthopedic Spine Surgery Stat 04/21/23 01:05 Consult Neurology Routine 04/21/23 11:42 Consult Cardiology Routine Ordered Studies 04/20/23 18:31 CT abd pelvis IV con only Stat 04/20/23 18:32 CT cervical spine wo con Stat CT head/brain wo con Stat 04/20/23 22:18 MRI Thoracic [MR thoracic spine wo con] Stat 04/26/23 06:09 CT thoracic spine wo con Routine Hospital Course (1) CHI (closed head injury): (2) Elevated troponin: (3) Hypothermia: (4) History of CVA (cerebrovascular accident): (5) Fall: (6) Chronic diastolic heart failure: (7) Asthma: (8) Thoracic spine fracture: Plan 87-year-old male with PMHx significant for dyslipidemia, asthma, chronic diastolic CHF, aortic stenosis, carotid stenosis s/p right carotid artery stenting, HTN, paroxysmal SVT, history of prostate cancer s/p radiation therapy, s/p suprapubic catheter placement, history of CVA who presents to the ED for evaluation after a fall. 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 Zosyn switched to PO cefdinir on 04/23, continue Denies any urinary symptoms Likely discharge in a day or 2 Remains afebrile and the white count has been normal We will continue Ceftin the for the next few days Discharged on cefdinir and doxycycline to complete the course T11-T12 vertebral fracture Noted on CT imaging, confirmed with MRI Ortho spine consulted- appreciate recs -reportedly ER provider was in touch with Dr. Rubalcava who recommended bedrest and MRI on admission -ortho recommending brace use on 04/22, and ambulation to chair at bedside -04/24- ortho spine advising will repeat imaging, surgery not yet off the table -xrays now showing no acute fracture, awaiting further ortho/spine recs for next steps CT of the thoracic spine showed widening between the anterior endplates of T11 and T12 with fracture through the disc space at that level with associated paravertebral edema. Fracture involves a left marginal osteophyte at T11-T12 as well as left superior endplate of the T12 vertebral body Awaiting further recommendation from the orthospine He will need to have his spinal x-ray every week for the next 4 to 6 weeks as per Transaminitis Noted with labs on 04/25 Holding Atorvastatin, consider discontinuing Tylenol use Trend with AM labs, if still elevated consider hepatic US Liver function has been improving and improved a lot LFTs keep improving Constipation Pt with difficulty moving bowels Miralax increased to q6h dosing scheduled on 04/24 with scheduled colace 100mg BID Will hold PO calcium citrate which can contribute to bloating and constipation Finally with BM on 04/25 Continue to monitor Strongly advised to use narcotic cautiously because of constipation Hypocalcemia Ionized sebastien decreased IV calcium gluconate replacement as needed Cerebral concussion Lacerated wound on the scalp secondary to above GCS neurochecks Neurology consult for cerebral concussion Troponin elevation chronic diastolic heart failure/right-sided heart failure Valvular 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/) History of PSVT (EF 60 to 65), TTE 2022 Patient denies chest pain, SOB symptoms hs-trops with significant elevation Cardiology consult-appreciate recs No more cardiac symptoms Hypertension stable Hyperlipidemia on statin Rx Bronchial asthma stable Hx of TIA Stable Hyperglycemia likely prediabetes hemoglobin A1c of 5.7 last July 2022 Recent tick bite Pt concerned about a tick bite he had from 2 weeks ago States was not treated 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 Following ortho/spine recs for next steps Awaiting approval from the rehab facility Total Time Total Time Spent Total Time Spent (In Minutes): 35 minutes Discharge Plan Discharge Items Patient Disposition: Transfer Assisted Fac Reason For Visit: CONCUSSION Discharge Diagnosis: Sepsis secondary to complicated UTI, T11-T12 vertebral fracture, cerebral concussion-resolved Condition on Discharge: Good Activity: Resume your previous activity Non-emergency contact: Primary Care Provider Call non-emergency contact if: you have any medication questions and your symptoms worsen Follow-up/Referrals: Rosalina Hanna, DO [Primary Care Provider] - (Please make an appointment with your primary care physician within 7 days following discharge from the facility) Diet: Heart Healthy Addtl Attending Provider Instructions: Please take precautions to avoid falls Finish the course of antibiotic Take your medications as advised You need to go to Dr. Rubalcava's office almost every week to check on your vertebral fracture Use the back brace as advised by Dr. Rubalcava Pending Studies at Discharge: No Stand-Alone Forms: [employer] Skilled Items Patient informed of condition?: Yes DNR: No Discharge Level of Care: Skilled Communicable Disease: No Discharge Prognosis: Stable Lines: None Urinary Catheter: Yes Medications and DC Order Prescriptions: New doxycycline hyclate 100 mg Capsule 100 mg PO BID Qty: 10 0RF cefdinir 300 mg Capsule 300 mg PO BID Qty: 10 0RF diclofenac sodium [Voltaren Arthritis Pain] 1 % Gel 2 g EXT BID Qty: 50 0RF lidocaine 5 % Adhesive Patch,Medicated 1 patch transdermal HS Qty: 30 0RF oxycodone 5 mg Tablet 5 mg PO Q4H PRN (Reason: pain) Qty: 10 0RF Continued spironolactone 25 mg tablet 12.5 mg PO Q2D metoprolol succinate 25 mg tablet extended release 24 hr 25 mg PO QAM atorvastatin 40 mg Tablet 40 mg PO QAM 30 Days Qty: 30 2RF aspirin 81 mg Tablet,Delayed Release (Dr/Ec) 81 mg PO QAM 30 Days Qty: 30 2RF amlodipine 5 mg tablet 5 mg PO DAILY gabapentin 300 mg capsule 300 mg PO TID montelukast 10 mg tablet 10 mg PO HS furosemide 20 mg tablet 20 mg PO DAILY levocetirizine 5 mg tablet 5 mg PO DAILY Spiriva Respimat 2.5 mcg/actuation mist 2 puff INHALATION QAM fluticasone propion-salmeterol [Advair HFA] 230-21 mcg/actuation HFA aerosol inhaler 2 inh INHALATION BID Discharge Orders: Discharge Order (Routine); Ordered 04/28/23 Ordered By: Watson Douglas Admission Data Admit Date/Time: 04/20/23 22:15 Attending Provider: Watson Douglas Admit Provider: Chirag Morgan Primary Care Provider: Rosalina Hanna Other Providers: Chirag Morgan; Jong Rubalcava; Payal Peña; Jeremy Villanueva; Payal Hanson; Gaudencio Laguerre; Jairo Astorga; Cece Barcenas; Andrews Lynn; Itzel Templeton; Liam Robbins; Kishan Vasquez; Bentley Clifford; Iam Marrufo; NicholasAshleigh; [facility]; Andrews Ruiz; Jose Luis Hanna; [facility]; [facility] [place]; [facility]; Danette [facility] Other Interventions: Discharge Summary Assessment (RN) Last Done: 04/28/23 10:30
== END 2023-04-28 11:30 | DRG 872 ==
LOC: ED 18:27 → EDINP 22:15 → SUATTDRO 22:15 → 2S 04-21 01:06